=== PATIENT | female | born 1950 | race Caucasian/White ===

== ENCOUNTER 2021-04-04 09:48 | Emergency (ER) | payer MEDICARE ==
[~2021-04-04] VITALS: Ht 167.7 cm; Wt 95.3 kg
[2021-04-04] MEDS ORDERED: IBUPROFEN 600 MG (MOTRIN) TAB PO ONE (10:00)
--- NOTE | 2021-04-04 10:30 | ED Upper Extremity ---
General Chief Complaint: Trauma-Non Activation Stated Complaint: FALL Nursing Triage Note: Patient reports she was at her mother's house, states she tripped and fell, landing on her left arm. She reports pain in her mid/upper arm, superficial scrapes to knees bilaterally, abrasions to nose, chin, and upper lip. Source: patient Exam Limitations: no limitations History of Present Illness Date Seen by Provider: Apr 04, 2021 Time Seen by Provider: 10:00 Initial Comments Patient is a 70-year-old female who presents with accidental fall from standing after tripping resulting in left shoulder and arm pain. Patient fell face forward onto concrete. She reports hitting her face but denies loss of consciousness headache or feeling dazed. She is not on anticoagulation therapy. She denies neck pain chest pain but does have pain to her proximal humerus. She is able to bend her elbow and squeeze her left hand. She also has notable abrasions on both left knees. Left arm pain is rated moderate to severe and is worse with palpation. Patient is unable to flex or extend the shoulder secondary to pain. The injury occurred just prior to arrival at home. No other symptoms or complaints. Onset: just prior to arrival Pain/Injury Location: left arm Method of Injury: fell Modifying Factors: Improves With Movement, Improves With Other Allergies and Home Medications Allergies Coded Allergies: Tetanus Vaccines and Toxoid (Verified Allergy, Unknown, 04/04/21) codeine (Verified Allergy, Unknown, 04/04/21) morphine (Verified Allergy, Unknown, 04/04/21) Uncoded Allergies: IV contrast dye (Allergy, Unknown, 04/04/21) Patient Home Medication List Home Medication List Reviewed: Yes Review of Systems Constitutional: see HPI EENTM: see HPI Respiratory: see HPI Cardiovascular: see HPI Gastrointestinal: see HPI : Yes Musculoskeletal: see HPI Skin: see HPI Psychiatric/Neurological: See HPI Past Pvrivng-Evlcgt-Ulgiod Hx Patient Social History Tobacco Use?: Yes Smoking Status: Former Smoker Substance use?: No Alcohol Use?: No Pt feels they are or have been: No Past Medical History Surgery/Hospitalization HX: HTN Physical Exam Vital Signs Vital Signs - First Documented 04/04/21 09:50 Temp 36.3 Pulse 90 Resp 16 B/P (MAP) 239/108 (151) Pulse Ox 96 O2 Delivery Room Air Capillary Refill : Less Than 3 Seconds Height, Weight, BMI Height: '" Weight: lbs. oz. kg; 33.00 BMI Method: General Appearance: WD/WN, no apparent distress HEENT: PERRL/EOMI, pharynx normal Neck: non-tender, full range of motion Cardiovascular: normal peripheral pulses, regular rate, rhythm Respiratory: lungs clear Gastrointestinal: normal bowel sounds, non tender, soft Back: no CVA tenderness, no vertebral tenderness Shoulder: bone tenderness, limited ROM, pain, soft tissue tenderness Elbow/Forearm: normal inspection, non-tender Wrist: Yes normal inspection, Yes non-tender Hand: normal inspection, non-tender Neurologic/Tendon: normal sensation Neurologic/Psychiatric: alert, oriented x 3 Lymphatic: no adenopathy Progress/Results/Core Measures Results/Orders My Orders Orders - NHI TORRES DO Humerus 2 View Left (04/04/21 10:00) Ibuprofen Tablet (Motrin Tablet) (04/04/21 10:00) Shoulder 3 View Left (04/04/21 10:23) Hydrocodone/Apap 5/325 Tablet (Lortab 5 (04/04/21 11:45) Orthopedic Equiment (04/04/21 11:36) Medications Given in ED Current Medications Medications Dose Ordered Sig/Stephanie Route Start Time Stop Time Status Last Admin Dose Admin Ibuprofen 600 mg ONCE ONCE PO 04/04/21 10:00 04/04/21 10:01 DC 04/04/21 10:08 600 MG Vital Signs/I&O 04/04/21 09:50 Temp 36.3 Pulse 90 Resp 16 B/P (MAP) 239/108 (151) Pulse Ox 96 O2 Delivery Room Air Blood Pressure Mean: 151 Departure Communication (Admissions) Left shoulder/arm: Impacted humeral head with surgical neck fracture Accidental fall from standing. Humeral head/neck fracture, neurovascularly intact. Patient placed in sling and given pain medication. Impression Primary Impression: Shoulder fracture, left Disposition: HOME, SELF-CARE Condition: Stable Departure-Patient Inst. Decision time for Depature: 11:39 Referrals: NO,LOCAL PHYSICIAN (PCP/Family) Primary Care Physician Patient Instructions: Shoulder Fracture Add. Discharge Instructions: Please wear shoulder sling and take ibuprofen for pain and hydrocodone as needed for additional relief. Limit left arm use. Please follow-up with orthopedic provider in [place]. Contact his office and schedule a follow-up appointment in the next 7 to 10 days. Return to the ED if new or worsening symptoms All discharge instructions reviewed with patient and/or family. Voiced understanding. Scripts Hydrocodone/Acetaminophen (Hydrocodone-Acetamin 5-325 mg) 1 Each Tablet 1 TAB PO Q4H PRN for PAIN-MODERATE (5-7), #10 TAB Prov: [facility]I TORRES DO 04/04/21 NHI TORRES DO Apr 04, 2021 10:30
--- NOTE | 2021-04-04 11:14 | Diagnostic Imaging Report ---
INDICATION: Left shoulder injury AP, oblique, and transscapular views of the left shoulder obtained at 1032 a.m. There is no prior study for comparison. There is a comminuted fracture of the left humeral head and neck with mild impaction. Glenohumeral joint shows no dislocation. There is mild degenerative change of the AC joint. IMPRESSION: Partially impacted fracture of the left humeral head and neck. No dislocation. Dictated by: Dictated on workstation # [id number]
--- NOTE | 2021-04-04 11:27 | Diagnostic Imaging Report ---
HISTORY: Pain in the left shoulder after fall this morning. TECHNIQUE: 2 views of the left humerus COMPARISON: None FINDINGS: There is a transverse fracture through the surgical neck of the proximal left humerus without significant displacement. There is a vertically oriented fracture through the greater tuberosity with about 9 mm of displacement. There may be mild inferior subluxation of the glenohumeral joint from a joint effusion but no dislocation is seen. The remainder of the humerus appears intact. IMPRESSION: 1. Left proximal humerus fracture involving the surgical neck and the greater tuberosity. Dictated by: Dictated on workstation # [id number]
[2021-04-04] MEDS ORDERED: ACHD5005 PO (11:40)
[2021-04-04] MEDS ORDERED: HYDROcodone/APAP 5 MG/325 MG (LORTAB) TAB PO ONE (11:45)
[2021-04-04 11:55] VITALS: BP 154/91
[2021-04-04] MEDS ORDERED: oxyCODONE/APAP 5/325MG (PERCOCET 5) TABLET PO ONE (12:00)
== END 2021-04-04 12:05 | disposition home or self-care (01) ==
LOC: ER FS 09:51
DX: S42.292A Other displaced fracture of upper end of left humerus, initial encounter for closed fracture (principal); S80.212A Abrasion, left knee, initial encounter; S80.211A Abrasion, right knee, initial encounter; Z87.891 Personal history of nicotine dependence; W01.0XXA Fall on same level from slipping, tripping and stumbling without subsequent striking against object, initial encounter
CPT/HCPCS: 73030; 73060

== ENCOUNTER → 2021-06-05 | Outpatient (CLI) | payer MEDICARE ==
[~2021-06-05] MED LIST: ACHD5005 PO
--- NOTE | 2021-06-05 13:28 | Diagnostic Imaging Report ---
INDICATION: Knee pain. TECHNIQUE: Three views were obtained. FINDINGS: The bones are mildly osteopenic. There are mild degenerative changes. There is no fracture or dislocation. There is no joint effusion. The soft tissues are otherwise unremarkable. IMPRESSION: Osteopenia and mild degenerative change; otherwise, unremarkable. Dictated by: Dictated on workstation # [id number]
--- NOTE | 2021-06-05 13:29 | Diagnostic Imaging Report ---
INDICATION: Back pain and radiculopathy in the left lower extremity. TECHNIQUE: Five views were obtained. FINDINGS: There is some mild left convexity thoracolumbar degenerative scoliosis. The vertebral body heights are well-maintained. There is no spondylolysis or spondylolisthesis. No fractures are identified. IMPRESSION: Mild lumbar spondylosis as described; otherwise, unremarkable. Dictated by: Dictated on workstation # [id number]
== END ==
LOC: RAD FS 10:40
PROVIDERS: ATTEND Family Medicine
DX: M17.12 Unilateral primary osteoarthritis, left knee (principal); M54.16 Radiculopathy, lumbar region; M85.861 Other specified disorders of bone density and structure, right lower leg; M47.896 Other spondylosis, lumbar region
CPT/HCPCS: 72110; 73562

== ENCOUNTER → 2021-07-06 | Outpatient (CLI) | payer MEDICARE ==
--- NOTE | 2021-07-06 15:11 | Diagnostic Imaging Report ---
Indication: Fell 4 weeks ago. Worsening of left hip pain for the past week. 2 views of the left hip show no fracture, dislocation or other abnormality. Impression: No abnormality is seen. Dictated by: Dictated on workstation # [id number]
== END ==
LOC: RAD FS 14:15
PROVIDERS: ATTEND Family Medicine
DX: M25.552 Pain in left hip (principal); W19.XXXA Unspecified fall, initial encounter
CPT/HCPCS: 73502

== ENCOUNTER 2022-07-09 09:06 | Inpatient (IN) | payer MEDICARE, MEDICAID ==
[~2022-07-09] VITALS: Ht 165.7 cm; Wt 90.2 kg
[2022-07-09] MEDS ORDERED: CEFEPIME INJECTION 1,000 MG in NS (IVPB) 50 ML IV ONE (09:15)
--- NOTE | 2022-07-09 09:15 | ED General ---
General Stated Complaint: AMS Source of Information: Patient, EMS, Family Exam Limitations: Other (patient condition is altered) History of Present Illness Date Seen by Provider: Jul 09, 2022 Time Seen by Provider: 09:05 Initial Comments 72-year-old female with past medical history of newly diagnosed diabetes, hypertension, hyperlipidemia brought in by EMS from her assisted living facility. An neighbor heard her fall, EMS was called roughly 20 minutes later. She was laying on the ground babbling, confused, not really following directions or answering questions appropriately. Moving all extremities, but was unable to stand up for them. Last seen normal last night. Patient unable to answer any review of systems questions due to her confusion. No external signs of trauma or areas of pain per EMS. They reported her glucose was just above 400. Allergies and Home Medications Allergies Coded Allergies: Tetanus Vaccines and Toxoid (Verified Allergy, Unknown, 04/04/21) codeine (Verified Allergy, Unknown, 04/04/21) morphine (Verified Allergy, Unknown, 04/04/21) Uncoded Allergies: IV contrast dye (Allergy, Unknown, 04/04/21) Patient Home Medication List Home Medication List Reviewed: Yes Hydrocodone/Acetaminophen (Hydrocodone-Acetamin 5-325 mg) 1 Each Tablet, 1 TAB PO Q4H PRN for PAIN-MODERATE (5-7) Prescribed by: NHI TORRES on 04/04/21 1140 Review of Systems Review of Systems Constitutional: no symptoms reported unable to obtain due to patient being altered Past Ziikheb-Vtpwvt-Azwgsq Hx Patient Social History Tobacco Use?: Yes Smoking Status: Former Smoker Past Medical History Surgery/Hospitalization HX: HTN Surgeries: No Physical Exam Vital Signs Vital Signs - First Documented 07/09/22 09:06 Temp 38.2 Pulse 104 Resp 17 B/P (MAP) 179/111 (133) Pulse Ox 95 O2 Delivery Room Air Capillary Refill : Height, Weight, BMI Height: '" Weight: lbs. oz. kg; 33.00 BMI Method: General Appearance: No Apparent Distress, WD/WN Eyes: Bilateral Eye Normal Inspection, Bilateral Eye PERRL, Bilateral Eye EOMI HEENT: PERRL/EOMI, Pharynx Normal, Other (dry mucous membranes) Neck: Full Range of Motion, Normal Inspection, Non Tender, Supple Respiratory: Chest Non Tender, Lungs Clear, Normal Breath Sounds, No Accessory Muscle Use, No Respiratory Distress Cardiovascular: Regular Rate, Rhythm, No Edema, Normal Peripheral Pulses Gastrointestinal: Normal Bowel Sounds, Non Tender, Soft; No Guarding Back: Normal Inspection, No CVA Tenderness, No Vertebral Tenderness Extremity: Normal Capillary Refill, Normal Inspection, Normal Range of Motion, Non Tender, No Calf Tenderness, No Pedal Edema Neurologic/Psychiatric: Alert, No Motor/Sensory Deficits, Other (Moving all extremities equally, senses pain in all extremities, talking but does not make sense) Skin: Normal Color, Warm/Dry Lymphatic: No Adenopathy Focused Exam Lactate Level 07/09/22 09:08: Lactic Acid Level 4.81*H Lactic Acid Level Laboratory Tests Test 07/09/22 09:08 Lactic Acid Level 4.81 MMOL/L (0.50-2.00) *H Progress/Results/Core Measures Suspected Sepsis SIRS Temperature: Pulse: Respiratory Rate: Laboratory Tests 07/09/22 09:08: White Blood Count 9.6 Blood Pressure / Mean: 07/09/22 09:08: Lactic Acid Level 4.81*H Laboratory Tests 07/09/22 09:08: Creatinine 0.62, INR Comment 1.0, Platelet Count 147, Total Bilirubin 0.5 Results/Orders Lab Results Laboratory Tests Test 07/09/22 09:08 07/09/22 09:26 Range/Units White Blood Count 9.6 4.3-11.0 10^3/uL Red Blood Count 4.60 3.80-5.11 10^6/uL Hemoglobin 13.1 11.5-16.0 g/dL Hematocrit 40 35-52 % Mean Corpuscular Volume 86 80-99 fL Mean Corpuscular Hemoglobin 29 25-34 pg Mean Corpuscular Hemoglobin Concent 33 32-36 g/dL Red Cell Distribution Width 13.2 10.0-14.5 % Platelet Count 147 130-400 10^3/uL Mean Platelet Volume 12.5 H 9.0-12.2 fL Immature Granulocyte % (Auto) 0 % Neutrophils (%) (Auto) 88 H 42-75 % Lymphocytes (%) (Auto) 7 L 12-44 % Monocytes (%) (Auto) 4 0-12 % Eosinophils (%) (Auto) 0 0-10 % Basophils (%) (Auto) 0 0-10 % Neutrophils # (Auto) 8.5 H 1.8-7.8 10^3/uL Lymphocytes # (Auto) 0.7 L 1.0-4.0 10^3/uL Monocytes # (Auto) 0.4 0.0-1.0 10^3/uL Eosinophils # (Auto) 0.0 0.0-0.3 10^3/uL Basophils # (Auto) 0.0 0.0-0.1 10^3/uL Immature Granulocyte # (Auto) 0.0 0.0-0.1 10^3/uL Prothrombin Time 13.7 12.2-14.7 SEC INR Comment 1.0 0.8-1.4 Activated Partial Thromboplast Time 25 24-35 SEC Sodium Level 137 135-145 MMOL/L Potassium Level 4.0 3.6-5.0 MMOL/L Chloride Level 98 98-107 MMOL/L Carbon Dioxide Level 20 L 21-32 MMOL/L Anion Gap 19 H 5-14 MMOL/L Blood Urea Nitrogen 11 7-18 MG/DL Creatinine 0.62 0.60-1.30 MG/DL Estimat Glomerular Filtration Rate 95 BUN/Creatinine Ratio 18 Glucose Level 441 *H 70-105 MG/DL Lactic Acid Level 4.81 *H 0.50-2.00 MMOL/L Calcium Level 9.3 8.5-10.1 MG/DL Corrected Calcium 9.1 8.5-10.1 MG/DL Magnesium Level 1.5 L 1.6-2.4 MG/DL Total Bilirubin 0.5 0.1-1.0 MG/DL Aspartate Amino Transf (AST/SGOT) 25 5-34 U/L Alanine Aminotransferase (ALT/SGPT) 18 0-55 U/L Alkaline Phosphatase 77 40-136 U/L Troponin I < 0.30 <0.30 NG/ML Total Protein 7.0 6.4-8.2 GM/DL Albumin 4.2 3.2-4.5 GM/DL Lipase 25 8-78 U/L Influenza Type A (RT-PCR) Not Detected Not Detecte Influenza Type B (RT-PCR) Not Detected Not Detecte SARS-CoV-2 RNA (RT-PCR) Not Detected Not Detecte Urine Color YELLOW Urine Clarity CLOUDY Urine pH 5.5 5-9 Urine Specific [place] 1.025 H 1.016-1.022 Urine Protein 1+ H NEGATIVE Urine Glucose (UA) 3+ H NEGATIVE Urine Ketones 1+ H NEGATIVE Urine Nitrite NEGATIVE NEGATIVE Urine Bilirubin NEGATIVE NEGATIVE Urine Urobilinogen 0.2 < = 1.0 MG/DL Urine Leukocyte Esterase TRACE H NEGATIVE Urine RBC (Auto) TRACE-I H NEGATIVE Urine RBC NONE /HPF Urine WBC 50-100 H /HPF Urine Squamous Epithelial Cells RARE /HPF Urine Crystals NONE /LPF Urine Bacteria LARGE H /HPF Urine Casts NONE /LPF Urine Mucus NEGATIVE /LPF Urine Culture Indicated YES My Orders Orders - DANNA HINKLE MD Ct Head Wo-R/O Stroke (07/09/22 09:10) Creatine Kinase (07/09/22 09:10) Lipase (07/09/22 09:10) Magnesium (07/09/22 09:10) Influenza A And B By Pcr (07/09/22 09:10) Troponin I Fs (07/09/22 09:10) Chest 1 View Ap/Pa Only (07/09/22 09:10) Cbc With Automated Diff (07/09/22 09:10) Comprehensive Metabolic Panel (07/09/22 09:10) Blood Culture (07/09/22 09:10) Urinalysis (07/09/22 09:10) Protime With Inr (07/09/22 09:10) Partial Thromboplastin Time (07/09/22 09:10) Ed Iv/Invasive Line Start (07/09/22 09:10) Ed Iv/Invasive Line Start (07/09/22 09:10) Vital Signs Adult Sepsis Patie Q15M (07/09/22 09:10) O2 (07/09/22 09:10) Remove Rings In Anticipation O (07/09/22 09:10) Lactic Acid Analyzer (07/09/22 09:10) Ns Iv 1000 Ml (Sodium Chloride 0.9%) (07/09/22 09:15) Cefepime Injection (Maxipime Injection) (07/09/22 09:15) Covid 19 Inhouse Test (07/09/22 09:10) Ekg Tracing (07/09/22 09:15) Catheter(Urinary) Insert & Ass 03,15 (07/09/22 09:26) Manual Differential (07/09/22 09:08) Ct Chest/Abdomen/Pelvis Wo (07/09/22 09:27) Ondansetron Injection (Zofran Injectio (07/09/22 09:30) Ondansetron Injection (Zofran Injectio (07/09/22 09:28) Urine Culture (07/09/22 09:26) Insulin (Regular) Human (Novolin R (Per (07/09/22 10:16) Arterial Blood Gas (07/09/22 10:30) Medications Given in ED Current Medications Medications Dose Ordered Sig/Stephanie Route Start Time Stop Time Status Last Admin Dose Admin Cefepime HCl 1000 mg/Sodium Chloride 50 ml @ 100 mls/hr ONCE ONCE IV 07/09/22 09:15 07/09/22 09:44 DC 07/09/22 09:34 100 MLS/HR Ondansetron HCl 4 mg ONCE ONCE IVP 07/09/22 09:30 07/09/22 09:31 DC 07/09/22 09:35 4 MG Vital Signs/I&O 07/09/22 07/09/22 09:06 09:06 Temp 38.2 Pulse 104 Resp 17 B/P (MAP) 179/111 (133) Pulse Ox 95 O2 Delivery Room Air Room Air Capillary Refill : Progress Note : Progress Note 72-year-old female with above history coming in altered. ABCs were intact and vitals were stable on presentation. GCS was 14 due to confusion. No signs of outward trauma on exam. Patient was immediately taken to CT scanner for her head which was negative for anything acute. She was complaining of vague pain, nonspecific, and that did not localize. Because of this, got a CT of her chest, abdomen, and pelvis as well. These were negative for acute findings. She did not have any extremity pain on palpation. She did have an episode of vomiting which she received Zofran. Her mucous membranes were very dry and she was mi ldly tachycardic. Because of this an IV was placed and she was given 2 L of IV fluids. She also was febrile meeting multiple SIRS criteria. Because of this, she was given broad-spectrum antibiotics. Her ideal body weight is 57 kg, and given her obesity, she was given IV fluids based off of this weight in regards to sepsis resuscitation. Flu and COVID test were negative, white blood cell count normal, creatinine normal, troponin negative, blood sugar greater than 400, anion gap 19, bicarb 20, urine with signs of infection and also has ketones all consistent with being in DKA. Lactate elevated at 4.8. She was given 5 units of IV insulin as a bolus. I contacted Dr. Slaughter who will admit the patient to the intensive care unit for further evaluation and management. I then contacted the [facility] ICU team to discuss the case with the physician on- call. She is currently rounding and is busy, I left a message that she could call back for patient report. ECG Initial ECG Impression Date: Jul 09, 2022 Initial ECG Impression Time: 09:19 Initial ECG Rate: 101 Initial ECG Rhythm: S.Tach Comment Narrow QRS, normal axis, no significant ST changes or T wave abnormalities Diagnostic Imaging Diagonstic Imaging: Xray (chest), CT (head, chest, abd/pelvis without) Comments NAME: CRISTAL SPEARS MED REC#: [id number] PT STATUS: REG ER : 1950 PHYSICIAN: DANNA HINKLE MD ADMIT DATE: 07/09/22/ER FS Draft Date of Exam:07/09/22 CHEST 1 VIEW AP/PA ONLY EXAMINATION: Chest 1 view HISTORY: Altered mental status. Fever. Vomiting. COMPARISON: None available. FINDINGS: The lung volumes are normal. No focal consolidation is seen. No large pleural effusion or pneumothorax is seen. The cardiomediastinal silhouette is normal in size and contour. There is calcified aortic atherosclerotic plaque. No acute osseous abnormality is seen. IMPRESSION: 1. No acute pleuroparenchymal process. Dictated on workstation # [id number] Dict: 07/09/22 0953 Trans: 07/09/22 0955 DEMI [id number] Interpreted by: CORRINE ANDERSON DO Electronically signed by: NAME: CRISTAL SPEARS MED REC#: [id number] PT STATUS: REG ER : 1950 PHYSICIAN: DANNA HINKLE MD ADMIT DATE: 07/09/22/ER FS Signed Date of Exam:07/09/22 CT HEAD WO-R/O STROKE PROCEDURE: CT head wo r/o stroke. TECHNIQUE: Multiple contiguous axial images were obtained through the brain without the use of intravenous contrast. Auto Exposure Controls were utilized during the CT exam to meet ALARA standards for radiation dose reduction. INDICATION: Altered mental status. Fever. Vomiting. Found down. COMPARISON: None. FINDINGS: Moderate generalized parenchymal volume loss. No CT evidence of territorial infarction. No intracranial hemorrhage, mass effect, hydrocephalus or extra-axial fluid collections. Intracranial vascular calcifications. Osseous structures are intact. Paranasal sinuses and mastoids are clear. IMPRESSION: No acute intracranial CT findings. Dictated by: Dictated on workstation # [id number] Dict: 07/09/22 0952 Trans: 07/09/22 1003 [id number] Interpreted by: NAOMI FOWLER MD Electronically signed by: NAOMI FOWLER MD 07/09/22 1003 NAME: CRISTAL SPEARS [facility] REC#: [id number] PT STATUS: REG ER : 1950 PHYSICIAN: DANNA HINKLE MD ADMIT DATE: 07/09/22/ER FS Draft Date of Exam:07/09/22 CT CHEST/ABDOMEN/PELVIS WO PROCEDURE: CT chest, abdomen, and pelvis without contrast. TECHNIQUE: Multiple contiguous axial images were obtained through the chest, abdomen, and pelvis without the use of intravenous contrast. Auto Exposure Controls were utilized during the CT exam to meet ALARA standards for radiation dose reduction. INDICATION: Pain, fever and vomiting. No prior studies are available for comparison. CT CHEST: No axillary lymphadenopathy is detected. No definite mediastinal or hilar lymphadenopathy is identified. There are some calcified lymph nodes in the right hilum and subcarinal region consistent with prior granulomatous exposure. No pericardial or pleural fluid is identified. No pulmonary infiltrates, nodules or masses are detected. CT abdomen and pelvis: The liver is unremarkable. Gallbladder surgically absent. Pancreas and spleen are unremarkable. No adrenal mass is detected. Right kidney does contain a low-attenuation lesion in the upper pole measuring 4.4 cm consistent with a cyst. This has some thin peripheral calcification. Left kidney does contain a 10 mm slightly dense nodule arising from the lower pole which is indeterminate. No calculi are seen. There is no hydronephrosis. Aorta is heavily calcified but nonaneurysmal. Small and large bowel loops are normal caliber. There is no obstruction. There is a fat-containing umbilical hernia. No free fluid or fluid collection is seen. The bladder is unremarkable. Uterus appears to be surgically absent. IMPRESSION: 1. Unremarkable noncontrast CT of the chest. 2. Right renal cyst with thin peripheral constipation. 3. Indeterminate left renal lesion. Close interval follow-up to confirm stability would be recommended. 4. Fat-containing umbilical hernia. 5. No other significant abnormality is detected. Dictated on workstation # [id number] Dict: 07/09/22 0952 Trans: 07/09/22 1006 [id number] Interpreted by: ANT SOLIZ MD Electronically signed by: Departure Impression Primary Impression: Severe sepsis Additional Impression: DKA (diabetic ketoacidosis) Qualified Codes: E11.10 - Type 2 diabetes mellitus with ketoacidosis without coma Disposition: 30 STILL A PATIENT Condition: Stable Admissions Decision to Admit Reason: Admit from ER (General) Decision to Admit/Date: Jul 09, 2022 Time/Decision to Admit Time: 10:38 Transfer Method of Transfer: EMS Departure-Patient Inst. Referrals: BLAISE MAYFIELD MD (PCP) Primary Care Physician DANNA HINKLE MD Jul 09, 2022 09:15
[2022-07-09 09:20] LABS: BASOPHILS % (AUTO) 0 % (0-10); EOSINOPHILS % (AUTO) 0 % (0-10); HEMATOCRIT 40 % (35-52); HEMOGLOBIN 13.1 g/dL (11.5-16.0); LYMPHOCYTES # (AUTO) 0.7 10^3/uL (1.0-4.0); LYMPHOCYTES % (AUTO) 7 % (12-44); MEAN CORPUSCULAR HEMOGLOBIN 29 pg (25-34); MEAN CORPUSCULAR HGB CONC 33 g/dL (32-36); MEAN CORPUSCULAR VOLUME 86 fL (80-99); MEAN PLATELET VOLUME 12.5 fL (9.0-12.2); MONOCYTES # (AUTO) 0.4 10^3/uL (0.0-1.0); MONOCYTES % (AUTO) 4 % (0-12); NEUTROPHILS # (AUTO) 8.5 10^3/uL (1.8-7.8); NEUTROPHILS % (AUTO) 88 % (42-75); PLATELET COUNT 147 10^3/uL (130-400); WHITE BLOOD COUNT 9.6 10^3/uL (4.3-11.0)
[2022-07-09] MEDS ORDERED: ONDANSETRON 4 MG/2 ML (SDV) Z0FRAN ONE (09:28)
[2022-07-09] MEDS ORDERED: ONDANSETRON 4 MG/2 ML (SDV) Z0FRAN IVP ONE (09:30)
[2022-07-09] MEDS: NS IV 1000 ML 1,000 ML IV SCH ×2 (09:34→10:28)
[2022-07-09 09:42] LABS: PROTHROMBIN TIME PATIENT 13.7 SEC (12.2-14.7)
--- NOTE | 2022-07-09 09:55 | Diagnostic Imaging Report ---
EXAMINATION: Chest 1 view HISTORY: Altered mental status. Fever. Vomiting. COMPARISON: None available. FINDINGS: The lung volumes are normal. No focal consolidation is seen. No large pleural effusion or pneumothorax is seen. The cardiomediastinal silhouette is normal in size and contour. There is calcified aortic atherosclerotic plaque. No acute osseous abnormality is seen. IMPRESSION: 1. No acute pleuroparenchymal process. Dictated by: Dictated on workstation # [id number]
[2022-07-09 09:56] LABS: BILIRUBIN,URINE NEGATIVE (NEGATIVE); CLARITY,URINE CLOUDY; COLOR,URINE YELLOW; GLUCOSE, URINE (UA) 3+ (NEGATIVE); KETONES,URINE 1+ (NEGATIVE); LEUKOCYTE ESTERASE ,URINE TRACE (NEGATIVE); NITRITE,URINE NEGATIVE (NEGATIVE); PH,URINE 5.5 (5-9); PROTEIN,URINE 1+ (NEGATIVE)
--- NOTE | 2022-07-09 09:58 | Diagnostic Imaging Report ---
PROCEDURE: CT head wo r/o stroke. TECHNIQUE: Multiple contiguous axial images were obtained through the brain without the use of intravenous contrast. Auto Exposure Controls were utilized during the CT exam to meet ALARA standards for radiation dose reduction. INDICATION: Altered mental status. Fever. Vomiting. Found down. COMPARISON: None. FINDINGS: Moderate generalized parenchymal volume loss. No CT evidence of territorial infarction. No intracranial hemorrhage, mass effect, hydrocephalus or extra-axial fluid collections. Intracranial vascular calcifications. Osseous structures are intact. Paranasal sinuses and mastoids are clear. IMPRESSION: No acute intracranial CT findings. Dictated by: Dictated on workstation # [id number]
[2022-07-09 10:05] LABS: BACTERIA,URINE LARGE /HPF; SQUAMOUS EPITHELIAL CELL,UR RARE /HPF; WBC,URINE 50-100 /HPF
--- NOTE | 2022-07-09 10:06 | Diagnostic Imaging Report ---
PROCEDURE: CT chest, abdomen, and pelvis without contrast. TECHNIQUE: Multiple contiguous axial images were obtained through the chest, abdomen, and pelvis without the use of intravenous contrast. Auto Exposure Controls were utilized during the CT exam to meet ALARA standards for radiation dose reduction. INDICATION: Pain, fever and vomiting. No prior studies are available for comparison. CT CHEST: No axillary lymphadenopathy is detected. No definite mediastinal or hilar lymphadenopathy is identified. There are some calcified lymph nodes in the right hilum and subcarinal region consistent with prior granulomatous exposure. No pericardial or pleural fluid is identified. No pulmonary infiltrates, nodules or masses are detected. CT abdomen and pelvis: The liver is unremarkable. Gallbladder surgically absent. Pancreas and spleen are unremarkable. No adrenal mass is detected. Right kidney does contain a low-attenuation lesion in the upper pole measuring 4.4 cm consistent with a cyst. This has some thin peripheral calcification. Left kidney does contain a 10 mm slightly dense nodule arising from the lower pole which is indeterminate. No calculi are seen. There is no hydronephrosis. Aorta is heavily calcified but nonaneurysmal. Small and large bowel loops are normal caliber. There is no obstruction. There is a fat-containing umbilical hernia. No free fluid or fluid collection is seen. The bladder is unremarkable. Uterus appears to be surgically absent. IMPRESSION: 1. Unremarkable noncontrast CT of the chest. 2. Right renal cyst with thin peripheral constipation. 3. Indeterminate left renal lesion. Close interval follow-up to confirm stability would be recommended. 4. Fat-containing umbilical hernia. 5. No other significant abnormality is detected. Dictated by: Dictated on workstation # [id number]
[2022-07-09 10:12] LABS: BUN/CREATININE RATIO 18; CARBON DIOXIDE 20 MMOL/L (21-32); CHLORIDE 98 MMOL/L (98-107); CREATININE SERUM 0.62 MG/DL (0.60-1.30); GFR ESTIMATED 95; SODIUM 137 MMOL/L (135-145)
[2022-07-09 10:13] LABS: ALANINE AMINOTRANSFERASE 18 U/L (0-55); ALKALINE PHOSPHATASE 77 U/L (40-136); BILIRUBIN,TOTAL 0.5 MG/DL (0.1-1.0); CALCIUM 9.3 MG/DL (8.5-10.1); GLUCOSE 441 MG/DL (70-105); MAGNESIUM 1.5 MG/DL (1.6-2.4)
[2022-07-09 10:14] LABS: ALBUMIN 4.2 GM/DL (3.2-4.5); LIPASE 25 U/L (8-78)
[2022-07-09] MEDS ORDERED: inSUlin (REGULAR) HUMAN 1 UNIT/0.01 ML (CHARGE PER UNIT) IV STA (10:16)
[2022-07-09 10:40] LABS: BAND NEUTROPHILS 1 %; BASOPHILS % (MANUAL) 0 %; EOSINOPHILS % (MANUAL) 0 %; LYMPHOCYTES % (MANUAL) 4 %; MONOCYTES % (MANUAL) 3 %; NEUTROPHILS % (MANUAL) 92 %
[2022-07-09 11:25] LABS: ABG PCO2 45 MMHG (35-45); ABG PH 7.35 (7.37-7.43)
[2022-07-09 11:27] LABS: ABG BASE EXCESS -1.1 MMOL/L (-2.5-2.5); ABG OXYGEN SATURATION 34 % (94-100); ABG PO2 22 MMHG (79-93); ABG TCO2 26.2 MMOL/L (21.0-31.0); INSPIRED O2 ROOM AIR; VENTILATOR NO
[2022-07-09 11:28] LABS: PATIENT TEMP 100.9 F
[2022-07-09] MEDS ORDERED: fentaNYL INJ 100 MCG/2 ML AMP IVP STA (11:31)
[2022-07-09] MEDS ORDERED: NS IV 500 ML 500 ML IV PRN (13:00)
[2022-07-09] MEDS ORDERED: POTASSIUM CL 10MEQ/50ML IVPB 50 ML IV SCH (13:00)
[2022-07-09] MEDS ORDERED: NS IV ONE (13:00)
[2022-07-09 13:24] VITALS: BP 188/94
[2022-07-09] MEDS: 1/2 NS IV SOLUTION 1,000 ML IV SCH ×2 (13:25→17:00)
[2022-07-09] MEDS: cefTRIAXone 1 GM PRE-MIX 50 ML IV SCH (13:29)
[2022-07-09] MEDS ORDERED: RT-ALBUTEROL SULF 2.5 MG/3 ML PRE-MIX VIAL INH PRN (13:30)
[2022-07-09] MEDS: ENOXAPARIN 40 MG/0.4 ML (LOVENOX) SYR SC SCH (13:40)
[2022-07-09 13:42] LABS: HEMATOCRIT 39 % (35-52); HEMOGLOBIN 12.7 g/dL (11.5-16.0); MEAN CORPUSCULAR HEMOGLOBIN 29 pg (25-34); MEAN CORPUSCULAR HGB CONC 32 g/dL (32-36); MEAN CORPUSCULAR VOLUME 88 fL (80-99); MEAN PLATELET VOLUME 11.8 fL (9.0-12.2); PLATELET COUNT 144 10^3/uL (130-400); WHITE BLOOD COUNT 11.5 10^3/uL (4.3-11.0)
[2022-07-09 13:55] LABS: POTASSIUM 3.8 MMOL/L (3.6-5.0)
[2022-07-09 13:56] LABS: CALCIUM 8.9 MG/DL (8.5-10.1)
[2022-07-09 14:00] LABS: CREATININE SERUM 0.94 MG/DL (0.60-1.30)
[2022-07-09] MEDS: POTASSIUM CL 10MEQ/50ML IVPB 50 ML IV SCH ×4 (14:00→21:01)
--- NOTE | 2022-07-09 14:08 | History & Physical ---
ELSA THAKKAR A MED STUDENT 07/09/22 1408: History of Present Illness History of Present Illness Reason for visit/HPI Brynn Tipton is a 72 yo female who presents via [facility] ED for fall with confusion, DKA and UTI. Pt is alert and oriented to self, but not place or time. She is significantly confused and repeats the word "pee" when asked questions. Her brother and sister in law at are bedside and provide history of todays events. Pt fell at home and was brought to ED via ambulance where she was fairly unresponsive. Upon arrival at [facility] [place] ICU the pt was alert, but confused. Pt lives at a senior facility and is mostly independent with some assistance with ADLs. According to her brother she manages all of her medications independently and has had several med changes within the last few weeks. Her PCP is Dr. Horner and her brother states he recently took the pt off her metformin d/t vomiting and upset stomach. The sister in law also states she believes she was taken off her lisinopril as well. Neither of these medications were replaced by anything else to their knowledge. Pt was diagnosed with type 2 diabetes one and a half years ago when she had a fall that resulted in hospitalization d/t DKA. Family states she has had several falls since then. Pt given 5 units of novolin in ED with improvement in blood glucose from 441 to 327. Date of Admission Jul 09, 2022 at 12:36 Date Seen by a Provider: Jul 09, 2022 Time Seen by a Provider: 13:30 I consulted on this patient on 07/09/22 14:02 Attending Physician Nitish Horner MD Admitting Physician Admitting Physician: Brendon Rosario MD Attending Physician: Brendon Rosario MD Consult Allergies and Home Medications Allergies Coded Allergies: Tetanus Vaccines and Toxoid (Verified Allergy, Unknown, 04/04/21) codeine (Verified Allergy, Unknown, 04/04/21) meperidine (Verified Allergy, Unknown, Nausea, 07/09/22) morphine (Verified Allergy, Unknown, 04/04/21) Uncoded Allergies: IV contrast dye (Allergy, Unknown, 04/04/21) Patient Home Medication List Diphenhydramine HCl (Sleep II) 25 Mg Tablet, 25-50 MG PO HS PRN for SLEEP, (Reported) Entered as Reported by: JALIL GUZMÁN on 07/09/221430 Last Action: Reviewed Gabapentin (Gabapentin) 100 Mg Capsule, 100 MG PO 0800,1800, (Reported) Entered as Reported by: JALIL GUZMÁN on 07/09/221430 Last Action: Reviewed Gabapentin (Gabapentin) 100 Mg Capsule, 200 MG PO HS, (Reported) Entered as Reported by: JALIL GUZMÁN on 07/09/221430 Last Action: Reviewed Hydrochlorothiazide (Hydrochlorothiazide) 25 Mg Tablet, 25 MG PO DAILY, (Reported) Entered as Reported by: JALIL GUZMÁN on 07/09/221430 Last Action: Reviewed Lisinopril (Lisinopril) 10 Mg Tablet, 10 MG PO DAILY, (Reported) Entered as Reported by: JALIL GUZMÁN on 07/09/221430 Last Action: Reviewed Metformin HCl (Metformin HCl ER) 500 Mg Tab.er.24h, 1,000 MG PO BID, (Reported) Entered as Reported by: JALIL GUZMÁN on 07/09/221430 Last Action: Reviewed Metoprolol Tartrate (Metoprolol Tartrate) 50 Mg Tablet, 50 MG PO BID, (Reported) Entered as Reported by: JALIL GUZMÁN on 07/09/221430 Last Action: Reviewed Rosuvastatin Calcium (Rosuvastatin Calcium) 10 Mg Tablet, 10 MG PO HS, (Reported) Entered as Reported by: JALIL GUZMÁN on 07/09/221430 Last Action: Reviewed Semaglutide (Ozempic) 0.25 Mg/0.2 Ml Pen.injctr, 0.5 MG SQ WEEK, (Reported) Entered as Reported by: JALIL GUZMÁN on 07/09/221430 Last Action: Reviewed Tramadol HCl (Tramadol HCl) 50 Mg Tablet, 50-100 MG PO TID PRN for PAIN-MODERATE (5-7), (Reported) Entered as Reported by: JALIL GUZMÁN on 07/09/221430 Last Action: Reviewed Discontinued Medications Hydrocodone/Acetaminophen (Hydrocodone-Acetamin 5-325 mg) 1 Each Tablet, 1 TAB PO Q4H PRN for PAIN-MODERATE (5-7) Discontinued Reason: No Longer Taking Prescribed by: NHI TORRES on 04/04/21 1140 Last Action: Discontinued Past Bfbtpvs-Favxwi-Svsifo Hx Patient Social History Tobacco Use?: Yes Smoking Status: Former Smoker Smokeless Tobacco Frequency: Never a User Use of E-Cig and/or Vaping dev: No Substance use?: No Alcohol Use?: No Pt feels they are or have been: No Current Status Advance Directives: Unable to obtain Communicates: Verbally Primary Language: Turkmen Preferred Spoken Language: Turkmen Is interpretation needed?: No Review of Systems ROS-Unable to Obtain: Unable to obtain ROS d/t confusion Physical Exam Vital Signs Vital Signs - First Documented 07/09/22 09:06 Temp 38.2 Pulse 104 Resp 17 B/P (MAP) 179/111 (133) Pulse Ox 95 O2 Delivery Room Air Capillary Refill : Less Than 3 Seconds Height, Weight, BMI Height: '" Weight: lbs. oz. kg; 30.00 BMI Method: General Appearance: WD/WN, Anxious HEENT: PERRL/EOMI Neck: Full Range of Motion, Normal Inspection Respiratory: Chest Non Tender, Lungs Clear, No Accessory Muscle Use, No Respiratory Distress Cardiovascular: Regular Rate, Rhythm, No Murmur Gastrointestinal: Normal Bowel Sounds, Non Tender Extremity: Normal Inspection, No Pedal Edema Neurologic/Psychiatric: Alert, No Motor/Sensory Deficits, Disoriented (only oriented to self) Skin: Warm/Dry, Pallor Lymphatic: No Adenopathy Assessment/Plan Assessment and Plan Type II DM with DKA UTI Hypomagnesemia Hx of falls Type II DM with DKA -Pt in ICU on insulin drip to slowly bring blood glucose down -Lactic Acid 4.81 initially, 2.98 currently -PICC line d/t inability to obtain peripheral IV access -Hgb A1c pending -Monitor closely in ICU with help of teleICU, appreciate their recommendations UTI -Cefepime given in ED. -Ceftriaxone started in ICU Confusion -Likely d/t DkA and/or UTI -Head CT at [place] wn -Will consider doing MRI head if no improvement in sxs. -CXR wn -CT abd pelvis showed incidental finding of left renal cyst and Right renal lesion that will require close f/u. HTN -Hydralazine -Avoiding PO medication until swallow study can be done Hypomagnesemia -Mag Sulf/Dextrose started Hx of falls -environmental services floor tech consult Disposition: Likely to stay 24-48 hours. Diet: Carb consistent DVT prophylaxis: Lovenox and SCDs Code status: Full Code Admission Diagnosis DKA and UTI BRENDON ROSARIO MD 07/09/22 7218: Allergies and Home Medications Allergies Coded Allergies: Tetanus Vaccines and Toxoid (Verified Allergy, Unknown, 04/04/21) codeine (Verified Allergy, Unknown, 04/04/21) meperidine (Verified Allergy, Unknown, Nausea, 07/09/22) morphine (Verified Allergy, Unknown, 04/04/21) Uncoded Allergies: IV contrast dye (Allergy, Unknown, 04/04/21) Patient Home Medication List Home Medication List Reviewed: Yes Diphenhydramine HCl (Sleep II) 25 Mg Tablet, 25-50 MG PO HS PRN for SLEEP, (Rep orted) Entered as Reported by: JALIL GUZMÁN on 07/09/221430 Last Action: Reviewed Gabapentin (Gabapentin) 100 Mg Capsule, 100 MG PO 0800,1800, (Reported) Entered as Reported by: JALIL GUZMÁN on 07/09/221430 Last Action: Reviewed Gabapentin (Gabapentin) 100 Mg Capsule, 200 MG PO HS, (Reported) Entered as Reported by: JALIL GUZMÁN on 07/09/221430 Last Action: Reviewed Hydrochlorothiazide (Hydrochlorothiazide) 25 Mg Tablet, 25 MG PO DAILY, (Reported) Entered as Reported by: JALIL GUZMÁN on 07/09/221430 Last Action: Reviewed Lisinopril (Lisinopril) 10 Mg Tablet, 10 MG PO DAILY, (Reported) Entered as Reported by: JALIL GUZMÁN on 07/09/221430 Last Action: Reviewed Metformin HCl (Metformin HCl ER) 500 Mg Tab.er.24h, 1,000 MG PO BID, (Reported) Entered as Reported by: JALIL GUZMÁN on 07/09/221430 Last Action: Reviewed Metoprolol Tartrate (Metoprolol Tartrate) 50 Mg Tablet, 50 MG PO BID, (Reported) Entered as Reported by: JALIL GUZMÁN on 07/09/221430 Last Action: Reviewed Rosuvastatin Calcium (Rosuvastatin Calcium) 10 Mg Tablet, 10 MG PO HS, (Reported) Entered as Reported by: JALIL GUZMÁN on 07/09/221430 Last Action: Reviewed Semaglutide (Ozempic) 0.25 Mg/0.2 Ml Pen.injctr, 0.5 MG SQ WEEK, (Reported) Entered as Reported by: JALIL GUZMÁN on 07/09/22 1431 Last Action: Reviewed Tramadol HCl (Tramadol HCl) 50 Mg Tablet, 50-100 MG PO TID PRN for PAIN-MODERATE (5-7), (Reported) Entered as Reported by: JALIL GUZMÁN on 07/09/22 1431 Last Action: Reviewed Discontinued Medications Hydrocodone/Acetaminophen (Hydrocodone-Acetamin 5-325 mg) 1 Each Tablet, 1 TAB PO Q4H PRN for PAIN-MODERATE (5-7) Discontinued Reason: No Longer Taking Prescribed by: NHI TORRES on 04/04/21 1140 Last Action: Discontinued Past Grkggio-Vvhofi-Bccrtv Hx Patient Social History Living Status: Lives in independent intermediate Review of Systems Constitutional: other Physical Exam General Appearance: No Apparent Distress, Anxious Neck: Full Range of Motion, Normal Inspection Respiratory: Chest Non Tender, Lungs Clear, No Accessory Muscle Use, No Respiratory Distress Cardiovascular: Regular Rate, Rhythm, No Murmur Gastrointestinal: Normal Bowel Sounds, Non Tender, Soft; No Distended, No Guarding Extremity: Normal Capillary Refill, No Calf Tenderness, No Pedal Edema Neurologic/Psychiatric: Alert, No Motor/Sensory Deficits, Disoriented (only oriented to self) Assessment/Plan Admission Diagnosis Admission Status: Inpatient Order (span 2 midnights) Reason for Inpatient Admission: high risk for decompensation due to multiple problems requiring ICU care Supervisory-Addendum Brief Verification & Attestation Participated in pt care: history, physical Personally performed: exam, history Care discussed with: Medical Student Procedures: n/a Verification and Attestation of Medical Student E/M Service A medical student performed and documented this service in my presence. I reviewed and verified all information documented by the medical student and made modifications to such information, when appropriate. I personally performed the physical exam and medical decision making. Brendon Rosario, Jul 09, 2022,16:54 Sepsis 2/2 UTI Lactic Acidosis Acute Encephalopathy - Patient received 2.5 L prior to arrival in ICU and has elevated BPs - Started on Cefepime, culture pending - If encephalopathy not improving with lab improvements would consider MRI head in AM DKA Uncontrolled NIDDM - Patient with recent medication changes, was not taking DM meds 1 week prior to admission, A1c pending, Insulin gtts started, q2hr BMPs Fall - PT HTN Left Renal Mass - Outpatient f.u DVT Ppx - Lovenox ELSA THAKKAR MED STUDENT Jul 09, 2022 14:08 BRENDON ROSARIO MD Jul 09, 2022 16:58
[2022-07-09] MEDS ORDERED: METOCLOPRAMIDE INJ 10 MG/2 ML (REGLAN) IVP PRN (14:30)
[2022-07-09] MEDS ORDERED: SEMA0.25 SQ (14:31)
[2022-07-09] MEDS ORDERED: GABA-486 PO ×2 (14:31)
[2022-07-09] MEDS ORDERED: [UNRECOGNIZED DRUG - CODE] PO (14:31)
[2022-07-09] MEDS ORDERED: ROSU10TA28 PO (14:31)
[2022-07-09] MEDS ORDERED: LISI10TA25 PO (14:31)
[2022-07-09] MEDS ORDERED: HYDR25TA4 PO (14:31)
[2022-07-09] MEDS ORDERED: METO50TA15 PO (14:31)
[2022-07-09] MEDS ORDERED: METF-865 PO (14:31)
[2022-07-09] MEDS ORDERED: TRAM50TA3 PO (14:31)
[2022-07-09] MEDS: LABETALOL HCL 20 MG/4 ML VIAL IV PRN (14:39)
[2022-07-09 14:42] LABS: CREATINE KINASE 48 U/L (29-168)
--- NOTE | 2022-07-09 15:17 | Tele-ICU Consult ---
History of Present Illness History of Present Illness Date Seen by Provider: Jul 09, 2022 Time Seen by Provider: 14:03 Date of Admission (Tele-ICU Physician , consultation as per request of PCP Service provided via interactive audio and video telecommunications E-CARE system to a patient admitted to ICU bed in [facility]. Available chart/ vitals / labs / Images reviewed H&P is from ER notes Patient's information available about PMH, Shx, Fhx allergy reviewed inEMR. ROS as per chart and RN report Now in ICU, hemodynamically stable Video assessment done using teleICU camera, rest of exam as per RN Discussed with RN. Consultants: Hospital course: A/P DKA -precipitated by infection, presumed UTI *Insulin drip, continue to monitor for resolution of acidosis, AG and el ectrolytes. Continue hydration. *Tx Gastroparesis UTI - cefepime Elev lactate , vitals WNL - chest x-ray was normal , NEG covid and flu = cont abx for UTI PseudoHyponatremia - follow Encephalopathy - due to above - follow - [facility] 07/09 - No acute intracranial CT findings. Suspected fall - no evidence of trauma - as per ER MD report Indeterminate left renal lesion on CT - as per PCP Lines : , (Central Line Necessity Reviewed) Lin: OG: Nutrition: Analgesia: Anxiety/ delirium VTE Prophylaxis: Stress Ulcer Prophylaxis: Glycemic Control: Plans in collaboration with bedside consultants and IM MDs. Discussed with RN to reach out if any questions or concerns A total of _ minutes of critical care time was devoted to this patient today, required to treat and/or prevent further deterioration of critical care condition ( as above ) . I am remotely monitoring this patient from another state. I am unable to do the bedside exam, and history/physical and pertinent information is taken from other notes in the computer and bedside staff. I cannot take responsibility for the accuracy of this information. History of Present Illness (Tele-ICU Physician , consultation as per request of PCP Service provided via interactive audio and video telecommunications E-CARE system to a patient admitted to ICU bed in [facility]. Available chart/ vitals / labs / Images reviewed H&P is from ER notes Patient's information available about PMH, Shx, Fhx allergy reviewed inEMR. ROS as per chart and RN report Now in ICU, hemodynamically stable Video assessment done using teleICU camera, rest of exam as per RN Discussed with RN. Consultants: Hospital course: (07/09) 72F Admitted with AMS, Sepsis, and DKA A/P DKA / hy[erglycemia with known DM -precipitated by infection, presumed UTI, also reported - stopped metformin as per MD advise *Insulin drip, continue to monitor for resolution of acidosis, AG and electro lytes. Continue hydration. *Tx Gastroparesis UTI - cefepime Elev lactate , vitals WNL - chest x-ray was normal , NEG covid and flu = cont abx for UTI Encephalopathy - due to above - follow - [facility] 07/09 - No acute intracranial CT findings. Suspected fall - no evidence of trauma - as per ER MD report Indeterminate left renal lesion on CT - as per PCP Lines : , (Central Line Necessity Reviewed) Lin: + OG: Nutrition: Analgesia: Anxiety/ delirium VTE Prophylaxis: manohar Stress Ulcer Prophylaxis: ppi Plans in collaboration with bedside consultants and IM MDs. Discussed with RN to reach out if any questions or concerns A total of 25 minutes of critical care time was devoted to this patient today, required to treat and/or prevent further deterioration of critical care condition ( as above ) . I am remotely monitoring this patient from another state. I am unable to do the bedside exam, and history/physical and pertinent information is taken from other notes in the computer and bedside staff. I cannot take responsibility for the accuracy of this information. Allergies and Home Medications Allergies Coded Allergies: Tetanus Vaccines and Toxoid (Verified Allergy, Unknown, 04/04/21) codeine (Verified Allergy, Unknown, 04/04/21) morphine (Verified Allergy, Unknown, 04/04/21) Uncoded Allergies: IV contrast dye (Allergy, Unknown, 04/04/21) Home Medications Diphenhydramine HCl 25 Mg Tablet, 25-50 MG PO HS PRN for SLEEP, (Reported) Gabapentin 100 Mg Capsule, 100 MG PO 0800,1800, (Reported) Gabapentin 100 Mg Capsule, 200 MG PO HS, (Reported) Hydrochlorothiazide 25 Mg Tablet, 25 MG PO DAILY, (Reported) Lisinopril 10 Mg Tablet, 10 MG PO DAILY, (Reported) Metformin HCl 500 Mg Tab.er.24h, 1,000 MG PO BID, (Reported) TAKES 2 (500MG) TABS Metoprolol Tartrate 50 Mg Tablet, 50 MG PO BID, (Reported) Rosuvastatin Calcium 10 Mg Tablet, 10 MG PO HS, (Reported) Semaglutide 0.25 Mg/0.2 Ml Pen.injctr, 0.5 MG SQ WEEK, (Reported) Tramadol HCl 50 Mg Tablet, 50-100 MG PO TID PRN for PAIN-MODERATE (5-7), (Reported) Past Medical/Social/Family Hx Patient Social History Tobacco Use?: No Smoking Status: Former Smoker Smokeless Tobacco Frequency: Never a User Use of E-Cig and/or Vaping dev: No Substance use?: No Alcohol Use?: No Pt stated abuse/neglect: Unable to obtain Immunizations Up To Date Influenza Vaccine Up-to-Date: No; Not Current Current Status status: No Advance Directives: No Communicates: Unable To Communicate Primary Language: Tajik Preferred Spoken Language: Tajik Is interpretation needed?: No Sensory deficits: Vision impairment Review of Systems Constitutional: see HPI Focused Exam Sepsis Stage: Sepsis Possible Source: Genitouriary Lactate Level 07/09/22 09:08: Lactic Acid Level 4.81*H 07/09/22 13:35: Lactic Acid Level 2.98*H Height, Weight, BMI Height: '" Weight: lbs. oz. kg; 30.55 BMI Method: Respiratory: Other Cardiovascular: Other Capillary Refill: Less Than 3 Seconds Skin: other Lactic Acid Level Laboratory Tests Test 07/09/22 13:35 Lactic Acid Level 2.98 MMOL/L (0.50-2.00) *H Within 3hrs of presentation: Admin 30ml/kg IBW due to BMI>30, Admin ABX, Blood cultures prior to ABX's, Lactate level Exam Exam Patient acknowledged, consented, and participated in this virtual visit which was conducted using real time audio/video Vital Signs Date Time Temp Pulse Resp B/P (MAP) Pulse Ox O2 Delivery O2 Flow Rate FiO2 07/09/22 13:24 38.0 104 96 07/09/22 12:50 104 07/09/22 11:52 38.0 87 17 188/94 96 Room Air 07/09/22 09:06 38.2 104 17 179/111 (133) Room Air 07/09/22 09:06 95 Room Air Height & Weight Height: '" Weight: lbs. oz. kg; 30.55 BMI Method: General Appearance: WD/WN, Anxious HEENT: PERRL/EOMI Neck: Full Range of Motion, Normal Inspection Respiratory: Chest Non Tender, Lungs Clear, No Accessory Muscle Use, No Respiratory Distress Cardiovascular: Regular Rate, Rhythm, No Murmur Capillary Refill: Less Than 3 Seconds Extremity: Normal Inspection, No Pedal Edema Neurologic/Psychiatric: Alert, No Motor/Sensory Deficits, Disoriented (only oriented to self) Skin: Warm/Dry, Pallor Lymphatic: No Adenopathy Results Lab Laboratory Tests 07/09/22 09:08 07/09/22 13:35 Assessment/Plan Assessment/Plan 1 FERNANDO BRIGGS MD Jul 09, 2022 15:17
[2022-07-09] MEDS ORDERED: KETOROLAC 15 MG/ML VIAL IVP NR (16:00)
[2022-07-09] MEDS: D5 1/2 NS 1000 ML IV SOLUTION 1,000 ML IV SCH ×2 (16:58→21:00)
[2022-07-09 18:20] LABS: POTASSIUM 3.5 MMOL/L (3.6-5.0)
[2022-07-09 18:21] LABS: CALCIUM 8.2 MG/DL (8.5-10.1)
[2022-07-09 18:25] LABS: CREATININE SERUM 0.88 MG/DL (0.60-1.30)
[2022-07-09] MEDS ORDERED: LACTATED RINGERS 1,000 ML IV ONE (18:45)
[2022-07-09 21:17] LABS: CALCIUM 8.3 MG/DL (8.5-10.1); CREATININE SERUM 0.78 MG/DL (0.60-1.30); POTASSIUM 3.4 MMOL/L (3.6-5.0)
[2022-07-10] MEDS: POTASSIUM CL 10MEQ/50ML IVPB 50 ML IV SCH ×6 (00:35→07:42)
[2022-07-10] MEDS: D5 1/2 NS 1000 ML IV SOLUTION 1,000 ML IV SCH ×3 (00:37→08:47)
[2022-07-10] MEDS: 1/2 NS IV SOLUTION 1,000 ML IV SCH ×3 (00:41→05:12)
[2022-07-10 00:57] LABS: ALBUMIN 3.3 GM/DL (3.2-4.5)
[2022-07-10 00:58] LABS: POTASSIUM 3.3 MMOL/L (3.6-5.0)
[2022-07-10 00:59] LABS: CALCIUM 7.9 MG/DL (8.5-10.1)
[2022-07-10 01:00] LABS: TOTAL PROTEIN 5.5 GM/DL (6.4-8.2)
[2022-07-10 01:02] LABS: BILIRUBIN,TOTAL 0.4 MG/DL (0.1-1.0)
[2022-07-10 01:04] LABS: CREATININE SERUM 0.75 MG/DL (0.60-1.30)
[2022-07-10 04:41] LABS: BASOPHILS % (AUTO) 1 % (0-10); EOSINOPHILS # (AUTO) 0.1 10^3/uL (0.0-0.3); EOSINOPHILS % (AUTO) 2 % (0-10); HEMATOCRIT 34 % (35-52); HEMOGLOBIN 10.4 g/dL (11.5-16.0); LYMPHOCYTES # (AUTO) 1.4 10^3/uL (1.0-4.0); LYMPHOCYTES % (AUTO) 20 % (12-44); MEAN CORPUSCULAR HEMOGLOBIN 28 pg (25-34); MEAN CORPUSCULAR HGB CONC 31 g/dL (32-36); MEAN CORPUSCULAR VOLUME 92 fL (80-99); MEAN PLATELET VOLUME 12.2 fL (9.0-12.2); MONOCYTES # (AUTO) 0.6 10^3/uL (0.0-1.0); MONOCYTES % (AUTO) 9 % (0-12); NEUTROPHILS # (AUTO) 4.9 10^3/uL (1.8-7.8); NEUTROPHILS % (AUTO) 69 % (42-75); PLATELET COUNT 109 10^3/uL (130-400); WHITE BLOOD COUNT 7.2 10^3/uL (4.3-11.0)
[2022-07-10 05:00] LABS: ALBUMIN 3.2 GM/DL (3.2-4.5); BILIRUBIN,TOTAL 0.3 MG/DL (0.1-1.0); CREATININE SERUM 0.73 MG/DL (0.60-1.30); MAGNESIUM 1.3 MG/DL (1.6-2.4); PHOSPHORUS 1.9 MG/DL (2.3-4.7); POTASSIUM 3.4 MMOL/L (3.6-5.0); TOTAL PROTEIN 5.5 GM/DL (6.4-8.2)
[2022-07-10] MEDS: KCL 20 MEQ TAB (K-DUR) PO SCH (06:29)
[2022-07-10] MEDS: MAGNESIUM 1 GM/100 ML IVPB 100 ML IV SCH ×4 (06:30→07:42)
--- NOTE | 2022-07-10 08:36 | Tele-ICU Progress Note ---
Subjective Date Seen by a Provider: Jul 10, 2022 Time Seen by a Provider: 08:36 Subjective/Events-last exam (Tele-ICU Physician , consultation) Available chart/ vitals / labs / Images reviewed H&P is from ER notes Patient's information available about PMH, allergy reviewed in EMR. ROS as per chart and RN report Video assessment done using teleICU camera, rest of exam as per RN Discussed with RN. Sepsis Event Evaluation Height, Weight, BMI Height: '" Weight: lbs. oz. kg; 35.47 BMI Method: Focused Exam Lactate Level 07/10/22 00:38: Lactic Acid Level 2.11*H 07/10/22 02:35: Lactic Acid Level 2.02*H 07/10/22 04:31: Lactic Acid Level 2.39*H Exam Exam Patient acknowledged, consented, and participated in this virtual visit which was conducted using real time audio/video Vital Signs Date Time Temp Pulse Resp B/P (MAP) Pulse Ox O2 Delivery O2 Flow Rate FiO2 07/10/22 07:53 37.3 07/10/22 07:23 100 Room Air 07/10/22 07:13 79 07/10/22 07:00 85 18 150/69 (96) 100 Room Air 07/10/22 06:00 80 19 130/67 (88) 100 Room Air 07/10/22 05:00 79 13 156/83 (107) 100 Room Air 07/10/22 04:00 79 20 126/63 (84) 100 Room Air 07/10/22 04:00 96 Room Air 07/10/22 03:59 37.7 07/10/22 03:00 82 19 131/67 (88) 99 Room Air 07/10/22 02:00 80 22 133/78 (96) 100 Room Air 07/10/22 01:00 82 07/10/22 01:00 82 19 136/67 (83) 98 Room Air 07/10/22 00:15 84 18 125/73 (90) 97 Room Air 07/10/22 00:01 96 Room Air 07/10/22 00:00 87 15 131/102 (107) 98 Room Air 07/09/22 23:51 36.7 07/09/22 23:00 86 20 119/66 (86) 97 Room Air 07/09/22 22:00 90 20 141/82 (112) 95 Room Air 07/09/22 21:15 37.0 07/09/22 21:00 96 21 157/82 (95) 100 Room Air 07/09/22 20:00 37.0 07/09/22 20:00 96 Room Air 07/09/22 20:00 92 21 150/72 (93) 99 Room Air 07/09/22 19:34 97 23 157/85 (113) 98 Room Air 07/09/22 19:00 93 20 98 Room Air 07/09/22 19:00 37.0 07/09/22 19:00 93 07/09/22 18:00 98 24 129/79 (96) 95 Nasal Cannula 1.00 07/09/22 17:00 98 20 146/78 (100) 99 Nasal Cannula 1.00 07/09/22 16:00 37.7 07/09/22 16:00 Nasal Cannula 1.00 07/09/22 16:00 104 21 146/84 (104) 95 Room Air 07/09/22 16:00 98 Room Air 07/09/22 15:00 101 20 148/84 (105) 94 Room Air 07/09/22 14:50 97 Room Air 07/09/22 14:15 105 19 177/107 (130) 98 Room Air 07/09/22 14:00 105 35 156/113 (127) 100 Room Air 07/09/22 13:45 104 16 173/97 (122) 100 Room Air 07/09/22 13:30 105 25 175/107 (129) 100 Room Air 07/09/22 13:24 38.0 104 96 07/09/22 13:15 105 23 154/104 (121) 99 Room Air 07/09/22 13:00 104 177/91 (119) 98 Room Air 07/09/22 12:50 104 07/09/22 12:45 105 184/101 (128) 99 Room Air 07/09/22 11:52 38.0 87 17 188/94 96 Room Air 07/09/22 09:06 38.2 104 17 179/111 (133) Room Air 07/09/22 09:06 95 Room Air I & O 07/10/22 06:59 Intake Total 4800 ml Output Total 1950 ml Balance 2850 ml Height & Weight Height: '" Weight: lbs. oz. kg; 35.47 BMI Method: General Appearance: No Apparent Distress, Anxious HEENT: PERRL/EOMI Neck: Full Range of Motion, Normal Inspection Respiratory: Chest Non Tender, Lungs Clear, No Accessory Muscle Use, No Respiratory Distress Cardiovascular: Regular Rate, Rhythm, No Murmur Capillary Refill: Less Than 3 Seconds Extremity: Normal Capillary Refill, No Calf Tenderness, No Pedal Edema Neurologic/Psychiatric: Alert, No Motor/Sensory Deficits, Disoriented (only or iented to self) Skin: Warm/Dry, Pallor Lymphatic: No Adenopathy Results Lab Laboratory Tests 07/09/22 09:08 07/09/22 13:35 07/09/22 18:00 07/09/22 20:25 07/10/22 00:38 07/10/22 04:31 Assessment/Plan Assessment/Plan 1. Diabetic ketoacidosis improving. Anion gap improved and today her insulin drip has been disconnected 2. History of type 2 diabetes mellitus 3. Urinary tract infection with Aerococcus urinae , awaiting sensitivity. Continue Rocephin for the time being until sensitivity is known. 4. Electrolyte imbalance being corrected. 5. Hypertension requiring as needed labetalol 6. Headache probably due to hypertension we will give Tylenol as needed 7. Bladder spasms secondary to Lin catheter and patient does not want Lin catheter to be removed. We will give her the and 00. 8. Initiation of long-acting insulin and sliding scale coverage per primary care physician. 9. DVT prophylaxis with Lovenox and SCDs. Critical Care: Critically Ill Patient Time spent with patient (mins): 15 LORE WAN MD Jul 10, 2022 08:36
[2022-07-10] MEDS: LABETALOL HCL 20 MG/4 ML VIAL IV PRN ×2 (08:55→22:41)
[2022-07-10] MEDS ORDERED: POTASSIUM PHOSPHATE INJ 30 MM in NS (IVPB) 250 ML IV NR (09:00)
[2022-07-10] MEDS: inSUlin ASPART (NovoLOG) 1 UNIT/0.01 ML (CHARGE PER UNIT) SC SCH ×3 (11:23→20:51)
[2022-07-10] MEDS ORDERED: KETOROLAC 30 MG/ML VIAL IVP NR (11:45)
[2022-07-10] MEDS ORDERED: BELLADONNA ALK/OPIUM (B & O) 30 MG SUPP PR PRN (12:00)
--- NOTE | 2022-07-10 12:14 | Progress Note ---
Subjective Subjective Date Seen by Provider: Jul 10, 2022 Time Seen by Provider: 09:15 Pt being seen in f/u for DKA and UTI. Pt is alert and oriented this morning, but having difficulty with word searching. Her only concern this morning is a headache. Nurse was at bedside and stated a swallow study had been completed and was within normal limits. Pt had been hypertensive over night and into the morning, but was still on insulin drip with normal saline running at 250mls/hr. Nurse gave labetalol with improvement in BP. Pt had no other questions or concerns. Review of Systems ROS Unable to Obtain: Unable to obtain ROS d/t confusion General: No Chills; Fatigue HEENT: Head Aches; No Sinus Congestion, No Sore Throat Pulmonary: No Dyspnea, No Cough Cardiovascular: No: Chest Pain, Palpitations Gastrointestinal: No: Nausea, Vomiting Genitourinary: No Dysuria, No Frequency Neurological: Change in speech; No: Weakness, Numbness Objective Exam Vital Signs Vital Signs Date Time Temp Pulse Resp B/P (MAP) Pulse Ox O2 Delivery O2 Flow Rate FiO2 07/10/22 09:00 83 30 138/70 (92) 100 Room Air 07/10/22 08:00 83 25 152/82 (105) 100 Room Air 07/10/22 07:53 37.3 07/10/22 07:47 98 Room Air 07/10/22 07:23 100 Room Air 07/10/22 07:13 79 07/10/22 07:00 85 18 150/69 (96) 100 Room Air 07/10/22 06:00 80 19 130/67 (88) 100 Room Air 07/10/22 05:00 79 13 156/83 (107) 100 Room Air 07/10/22 04:00 79 20 126/63 (84) 100 Room Air 07/10/22 04:00 96 Room Air 07/10/22 03:59 37.7 07/10/22 03:00 82 19 131/67 (88) 99 Room Air 07/10/22 02:00 80 22 133/78 (96) 100 Room Air 07/10/22 01:00 82 07/10/22 01:00 82 19 136/67 (83) 98 Room Air 07/10/22 00:15 84 18 125/73 (90) 97 Room Air 07/10/22 00:01 96 Room Air 07/10/22 00:00 87 15 131/102 (107) 98 Room Air 07/09/22 23:51 36.7 07/09/22 23:00 86 20 119/66 (86) 97 Room Air 07/09/22 22:00 90 20 141/82 (112) 95 Room Air 07/09/22 21:15 37.0 07/09/22 21:00 96 21 157/82 (95) 100 Room Air 07/09/22 20:00 37.0 07/09/22 20:00 96 Room Air 07/09/22 20:00 92 21 150/72 (93) 99 Room Air 07/09/22 19:34 97 23 157/85 (113) 98 Room Air 07/09/22 19:00 93 20 98 Room Air 07/09/22 19:00 37.0 07/09/22 19:00 93 07/09/22 18:00 98 24 129/79 (96) 95 Nasal Cannula 1.00 07/09/22 17:00 98 20 146/78 (100) 99 Nasal Cannula 1.00 07/09/22 16:00 37.7 07/09/22 16:00 Nasal Cannula 1.00 07/09/22 16:00 104 21 146/84 (104) 95 Room Air 07/09/22 16:00 98 Room Air 07/09/22 15:00 101 20 148/84 (105) 94 Room Air 07/09/22 14:50 97 Room Air 07/09/22 14:15 105 19 177/107 (130) 98 Room Air 07/09/22 14:00 105 35 156/113 (127) 100 Room Air 07/09/22 13:45 104 16 173/97 (122) 100 Room Air 07/09/22 13:30 105 25 175/107 (129) 100 Room Air 07/09/22 13:24 38.0 104 96 07/09/22 13:15 105 23 154/104 (121) 99 Room Air 07/09/22 13:00 104 177/91 (119) 98 Room Air 07/09/22 12:50 104 07/09/22 12:45 105 184/101 (128) 99 Room Air I & O 07/10/22 07:00 Intake Total 4800 ml Output Total 1950 ml Balance 2850 ml General Appearance: No Apparent Distress, WD/WN Eyes: Bilateral Eye Normal Inspection, Bilateral Eye PERRL, Bilateral Eye EOMI HEENT: PERRL/EOMI, Pharynx Normal, Other (Dry mucous membranes) Neck: Full Range of Motion, Normal Inspection Respiratory: Chest Non Tender, Lungs Clear, No Accessory Muscle Use, No Respiratory Distress Cardiovascular: Regular Rate, Rhythm, No Murmur Gastrointestinal: Normal Bowel Sounds, Non Tender, Soft; No Distended, No Guarding Extremity: Normal Capillary Refill, No Calf Tenderness, Pedal Edema (2+ pitting edema bilaterally) Neurologic/Psychiatric: Alert, No Motor/Sensory Deficits, Normal Mood/Affect Skin: Warm/Dry, Pallor Lymphatic: No Adenopathy Results Lab Laboratory Tests 07/09/22 13:00: Glucometer 326H 07/09/22 13:35: White Blood Count 11.5H, Red Blood Count 4.45, Hemoglobin 12.7, Hematocrit 39, Mean Corpuscular Volume 88, Mean Corpuscular Hemoglobin 29, Mean Corpuscular Hemoglobin Concent 32, Red Cell Distribution Width 13.2, Platelet Count 144, Mean Platelet Volume 11.8, Sodium Level 138, Potassium Level 3.8, Chloride Level 102, Carbon Dioxide Level 21, Anion Gap 15H, Blood Urea Nitrogen 9, Creatinine 0.94, Estimat Glomerular Filtration Rate 64, BUN/Creatinine Ratio 10, Glucose Level 375H, Mean Blood Glucose 229H, Hemoglobin A1c 9.6H, Lactic Acid Level 2.98*H, Calcium Level 8.9, Beta-Hydroxybutyrate (Chem panel) 0.88H 07/09/22 14:40: Glucometer 275H 07/09/22 15:52: Glucometer 292H 07/09/22 16:56: Glucometer 248H 07/09/22 18:00: Sodium Level 136, Potassium Level 3.5L, Chloride Level 104, Carbon Dioxide Level 19L, Anion Gap 13, Blood Urea Nitrogen 10, Creatinine 0.88, Estimat Glomerular Filtration Rate 70, BUN/Creatinine Ratio 11, Glucose Level 261H, Lactic Acid Level 3.70*H, Calcium Level 8.2L 07/09/22 18:10: Glucometer 244H 07/09/22 19:54: Glucometer 223H 07/09/22 20:25: Sodium Level 136, Potassium Level 3.4L, Chloride Level 105, Carbon Dioxide Level 18L, Anion Gap 13, Blood Urea Nitrogen 10, Creatinine 0.78, Estimat Glomerular Filtration Rate 81, BUN/Creatinine Ratio 13, Glucose Level 233H, Lactic Acid Level 3.02*H, Calcium Level 8.3L 07/09/22 20:58: Glucometer 223H 07/09/22 22:06: Glucometer 202H 07/09/22 22:28: Lactic Acid Level 2.42*H 07/09/22 23:04: Glucometer 192H 07/09/22 23:56: Glucometer 164H 07/10/22 00:38: Sodium Level 137, Potassium Level 3.3L, Chloride Level 107, Carbon Dioxide Level 21, Anion Gap 9, Blood Urea Nitrogen 8, Creatinine 0.75, Estimat Glomerular Filtration Rate 85, BUN/Creatinine Ratio 11, Glucose Level 185H, Lactic Acid Level 2.11*H, Calcium Level 7.9L, Corrected Calcium 8.5, Total Bilirubin 0.4, Aspartate Amino Transf (AST/SGOT) 15, Alanine Aminotransferase (ALT/SGPT) 13, Alkaline Phosphatase 49, Total Protein 5.5L, Albumin 3.3 07/10/22 00:50: Glucometer 155H 07/10/22 01:56: Glucometer 160H 07/10/22 02:35: Lactic Acid Level 2.02*H 07/10/22 02:49: Glucometer 142H 07/10/22 03:55: Glucometer 147H 07/10/22 04:31: White Blood Count 7.2, Red Blood Count 3.67L, Hemoglobin 10.4L, Hematocrit 34L, Mean Corpuscular Volume 92, Mean Corpuscular Hemoglobin 28, Mean Corpuscular Hemoglobin Concent 31L, Red Cell Distribution Width 13.4, Platelet Count 109L, Mean Platelet Volume 12.2, Immature Granulocyte % (Auto) 0, Neutrophils (%) (Auto) 69, Lymphocytes (%) (Auto) 20, Monocytes (%) (Auto) 9, Eosinophils (%) (Auto) 2, Basophils (%) (Auto) 1, Neutrophils # (Auto) 4.9, Lymphocytes # (Auto) 1.4, Monocytes # (Auto) 0.6, Eosinophils # (Auto) 0.1, Basophils # (Auto) 0.0, Immature Granulocyte # (Auto) 0.0, Percent Immature Platelet Fraction 6.5, Sodium Level 138, Potassium Level 3.4L, Chloride Level 108H, Carbon Dioxide Level 19L, Anion Gap 11, Blood Urea Nitrogen 7, Creatinine 0.73, Estimat Glomerular Filtration Rate 87, BUN/Creatinine Ratio 10, Glucose Level 154H, Lactic Acid Level 2.39*H, Calcium Level 8.0L, Corrected Calcium 8.6, Phosphorus Level 1.9L, Magnesium Level 1.3L, Total Bilirubin 0.3, Aspartate Amino Transf (AST/SGOT) 14, Alanine Aminotransferase (ALT/SGPT) 15, Alkaline Phosphatase 54, Total Protein 5.5L, Albumin 3.2, Beta-Hydroxybutyrate (Chem panel) 0.06 07/10/22 04:46: Glucometer 149H 07/10/22 05:50: Glucometer 139H 07/10/22 06:58: Glucometer 140H 07/10/22 07:34: Glucometer 133H 07/10/22 08:27: Glucometer 175H 07/10/22 09:11: Lactic Acid Level 2.99*H 07/10/22 09:36: Glucometer 178H 07/10/22 11:08: Glucometer 181H Microbiology 07/09/22 Urine Culture - Preliminary, Resulted Aerococcus urinae Assessment/Plan Assessment/Plan Admission Dx Type II DM with DKA UTI Assessment and Plan Type II DM with DKA UTI Hypomagnesemia Hypokalemia Hx of falls Type II DM with DKA -Initiated SC Levemir 10 units this morning and advanced to CHO 1800 diet, titrate off insulin drip and normal saline to prevent fluid overload -Lactic acid 2.99 -PICC line d/t inability to obtain peripheral IV access -Hgb A1c 9.6 UTI with sepsis -Cefepime given in ED. -Ceftriaxone started in ICU -Lin catheter in place d/t confusion -Urine culture grew aerococcus urinae Confusion -Likely d/t DKA and/or UTI, but improved from yesterday -Head CT at [facility] [place] wnl yesterday -Will order MRI d/t continued confusion -CXR wnl yesterday -CT abd pelvis showed incidental finding of left renal cyst and Right renal lesion that will require close f/u. HTN -Likely d/t large amount of fluid pt received with insulin drip and sepsis protocol -Labetolol prn Hypomagnesemia -Mag Sulf/Dextrose being given and magnesium at 1.3 currently Hypokalemia -Currently 3.4, expect this to be low in DKA -KCl protocol Hx of falls -access services assistant consult Disposition: Likely to stay 24-48 hours, but can be transferred from ICU to [facility] once insulin drip stopped. Diet: Carb consistent 1800g with 1 snack DVT prophylaxis: Lovenox and SCDs Code status: Full Code Problems: (1) UTI (urinary tract infection) Qualifiers: (2) DKA (diabetic ketoacidosis) Qualifiers: Qualified Codes: E11.10 - Type 2 diabetes mellitus with ketoacidosis without coma (3) Severe sepsis Admission Dx Type II DM with DKA UTI Hypomagnesemia Hx of falls Type II DM with DKA -Pt in ICU on insulin drip to slowly bring blood glucose down -Lactic Acid 4.81 initially, 2.98 currently -PICC line d/t inability to obtain peripheral IV access -Hgb A1c pending -Monitor closely in ICU with help of teleICU, appreciate their r ecommendations UTI -Cefepime given in ED. -Ceftriaxone started in ICU Confusion -Likely d/t DkA and/or UTI -Head CT at [facility] -Will consider doing MRI head if no improvement in sxs. -CXR wnl -CT abd pelvis showed incidental finding of left renal cyst and Right renal lesion that will require close f/u. HTN -Hydralazine -Avoiding PO medication until swallow study can be done Hypomagnesemia -Mag Sulf/Dextrose started Hx of falls -access services assistant consult Disposition: Likely to stay 24-48 hours. Diet: Carb consistent DVT prophylaxis: Lovenox and SCDs Code status: Full Code Clinical Quality Measures Admission Status Admission Dx Type II DM with DKA UTI Hypomagnesemia Hx of falls Type II DM with DKA -Pt in ICU on insulin drip to slowly bring blood glucose down -Lactic Acid 4.81 initially, 2.98 currently -PICC line d/t inability to obtain peripheral IV access -Hgb A1c pending -Monitor closely in ICU with help of teleICU, appreciate their recomme ndations UTI -Cefepime given in ED. -Ceftriaxone started in ICU Confusion -Likely d/t DkA and/or UTI -Head CT at [facility] wnl -Will consider doing MRI head if no improvement in sxs. -CXR wnl -CT abd pelvis showed incidental finding of left renal cyst and Right renal lesion that will require close f/u. HTN -Hydralazine -Avoiding PO medication until swallow study can be done Hypomagnesemia -Mag Sulf/Dextrose started Hx of falls -access services assistant consult Disposition: Likely to stay 24-48 hours. Diet: Carb consistent DVT prophylaxis: Lovenox and SCDs Code status: Full Code Supervisory-Addendum Brief Verification & Attestation Participated in pt care: history, physical Personally performed: exam, history Care discussed with: Medical Student Procedures: n/a Verification and Attestation of Medical Student E/M Service A medical student performed and documented this service in my presence. I reviewed and verified all information documented by the medical student and made modifications to such information, when appropriate. I personally performed the physical exam and medical decision making. Brendon Slaughter, Jul 10, 2022,19:47 Called by lab and patient is growing staph in blood culture, looks to be similar to what is in the urine, awaiting sensitivities, MRI ordered for AM Dispo: Possible transfer out of ICU in AM ELSA THAKKAR MED STUDENT Jul 10, 2022 12:14 BRENDON SLAUGHTER MD Jul 10, 2022 19:50
[2022-07-10] MEDS: cefTRIAXone 1 GM PRE-MIX 50 ML IV SCH (12:49)
[2022-07-10] MEDS: ENOXAPARIN 40 MG/0.4 ML (LOVENOX) SYR SC SCH (12:49)
[2022-07-10] MEDS: GABAPENTIN 100 MG (NEURONTIN) CAP PO SCH (20:50)
[2022-07-10] MEDS: ACETAMINOPHEN 325 MG TABLET PO PRN (20:51)
[2022-07-10] MEDS: meTOprolol TARTRATE 50 MG (LOPRESSOR) TAB PO SCH (20:51)
--- NOTE | 2022-07-10 22:31 | Progress Note ---
Standard Progress Note Progress Notes/Assess & Plan Date Seen by a Provider: Jul 10, 2022 Time Seen by a Provider: 22:30 Progress/Assessment & Plan Pt constipated, asks for MOM, Cr and Magnesium level ok will order UMER MICHAELS MD Jul 10, 2022 22:31
[2022-07-10] MEDS ORDERED: MILK OF MAGNESIA 400 MG/5 ML 30 ML UDC PO ONE (22:45)
[2022-07-11 03:50] LABS: HEMOGLOBIN 11.3 g/dL (11.5-16.0)
[2022-07-11 03:52] LABS: BASOPHILS % (AUTO) 1 % (0-10); EOSINOPHILS # (AUTO) 0.2 10^3/uL (0.0-0.3); EOSINOPHILS % (AUTO) 3 % (0-10); HEMATOCRIT 36 % (35-52); LYMPHOCYTES # (AUTO) 1.4 10^3/uL (1.0-4.0); LYMPHOCYTES % (AUTO) 21 % (12-44); MEAN CORPUSCULAR HEMOGLOBIN 29 pg (25-34); MEAN CORPUSCULAR HGB CONC 31 g/dL (32-36); MEAN CORPUSCULAR VOLUME 91 fL (80-99); MEAN PLATELET VOLUME 12.4 fL (9.0-12.2); MONOCYTES # (AUTO) 0.5 10^3/uL (0.0-1.0); MONOCYTES % (AUTO) 7 % (0-12); NEUTROPHILS # (AUTO) 4.6 10^3/uL (1.8-7.8); NEUTROPHILS % (AUTO) 68 % (42-75); PLATELET COUNT 114 10^3/uL (130-400); WHITE BLOOD COUNT 6.8 10^3/uL (4.3-11.0)
[2022-07-11 04:11] LABS: ALBUMIN 3.3 GM/DL (3.2-4.5); BILIRUBIN,TOTAL 0.2 MG/DL (0.1-1.0); CALCIUM 8.4 MG/DL (8.5-10.1); CREATININE SERUM 0.76 MG/DL (0.60-1.30); MAGNESIUM 2.4 MG/DL (1.6-2.4); PHOSPHORUS 3.2 MG/DL (2.3-4.7); POTASSIUM 4.5 MMOL/L (3.6-5.0); TOTAL PROTEIN 5.9 GM/DL (6.4-8.2)
[2022-07-11] MEDS: LABETALOL HCL 20 MG/4 ML VIAL IV PRN (04:12)
[2022-07-11] MEDS: KCL 20 MEQ TAB (K-DUR) PO SCH (04:51)
[2022-07-11] MEDS: POTASSIUM CL 10MEQ/50ML IVPB 50 ML IV SCH (04:51)
[2022-07-11] MEDS: MAGNESIUM 1 GM/100 ML IVPB 100 ML IV SCH (04:51)
[2022-07-11] MEDS: inSUlin ASPART (NovoLOG) 1 UNIT/0.01 ML (CHARGE PER UNIT) SC SCH ×4 (06:20→20:58)
[2022-07-11] MEDS: meTOprolol TARTRATE 50 MG (LOPRESSOR) TAB PO SCH ×2 (08:44→19:50)
[2022-07-11] MEDS: lisINopril 10 MG (PRINIVIL) TABLET PO SCH (08:44)
--- NOTE | 2022-07-11 08:46 | Physical Therapy Evaluation ---
PT Evaluation-General Medical Diagnosis Admission Date Jul 09, 2022 at 12:36 Medical Diagnosis: UTI, DKA Onset Date: Jul 09, 2022 Therapy Diagnosis Therapy Diagnosis: impaired mobility Precautions Precautions/Isolations: Fall Prevention, Standard Precautions Weight Bear Status Right Lower Extremity: Right Weight Bearing/Tolerated Left Lower Extremity: Left Weight Bearing/Tolerated Referral Physician: Sukhjinder Reason for Referral: Evaluation/Treatment Medical History Pertinent Medical History: DM, HTN Reviewed History: Yes Social History Current Living Status: Alone Entry Into Home: Level Entry Patient states she lives in a [facility] facility Prior Prior Level of Function SCALE: Activities may be completed with or without assistive devices. 6-Uwjmduzuxu-hwiwade completes the activity by him/herself with no assistance from a helper. 5-Set-up or Clean-up Assistance-helper sets up or cleans up; patient completes activity. [place] assists only prior to or following the activity. 4-Supervision or Touching Assistance-helper provides verbal cues and/or touching/steadying and/or contact guard assistance as patient completes activity. Assistance may be provided throughout the activity or intermittently. 3-Partial/Moderate Assistance-helper does LESS THAN HALF the effort. [place] lifts, holds or supports trunk or limbs, but provides less than half the effort. 2-Substantial/Maximal Assistance-helper does MORE THAN HALF the effort. [place] lifts or holds trunk or limbs and provides more than half the effort. 0-Jhrnpegox-diaevi does ALL the effort. Patient does none of the effort to complete the activity. Or, the assistance of 2 or more helpers is required for the patient to complete the activity. If activity was not attempted, code reason: 7-Patient Refused. 9-Not Applicable-not attempted and the patient did not perform the activity before the current illness, exacerbation or injury. 10-Not Attempted due to Environmental Limitations-(lack of equipment, weather restraints, etc.). 88-Not Attempted due to Medical Conditions or Safety Concerns. Bed Mobility: 6 Transfers (B,C,W/C): 6 Gait: 6 Indoor Mobility (Ambulation): Independent Prior Devices Use: Walker PT Evaluation-Current Subjective Patient in bed pre tx, agrees to PT, has no complaints of pain. Pt/Family Goals to be independent at home Objective Patient Orientation: Person, Confused Attachments: Lin Catheter ROM/Strength ROM Lower Extremities WNL Strength Lower Extremities unable to test, patient cannot follow directions Sensory Vision: Functional Hearing: Impaired Transfers Roll Left to Right (QC): 4 Lying to Sitting/Side of Bed(Q: 3 Sit to Stand (QC): 3 Chair/Ofz-ki-Wabgf Xfer(QC): 3 Gait Does the Patient Walk?: Yes Mode of Locomotion: Walk Anticipated Mode of Locomotion: Walk Walk 10 feet (QC): 4 Distance: 25'x2 Gait Assistive Device: FWW Comments/Gait Description Patient needs to use the toilet to have a BM. Patient ambulates around the end of her bed, the toilet is on the other side, when done, she wipes herself and ambulates back to the other side of the bed and sits in recliner. Gait is slightly unsteady but no assist needed for balance. Balance Sitting Static: Fair Sitting Dynamic: Fair Standing Static: Fair Standing Dynamic: Fair Treatment BLE seated exercises x20 (AP, LAQ) Assessment/Needs Patient in recliner post tx with nurse call, phone, tray, chair alarm on. Patient has impaired mobility, strength, endurance, needs min assist for supine <-> sit and sit <-> stand. Rehab Potential: Fair PT Masonry Teacher Goals Masonry Teacher Goals PT Senior Care Goals Time Frame: Jul 18, 2022 Roll Left & Right (QC): 4 (SBA) Sit to Lying (QC): 4 (SBA) Lying-Sitting on Side/Bed(QC): 4 (SBA) Sit to Stand (QC): 4 (SBA) Chair/Skx-tu-Crboh Xfer(QC): 4 (SBA) Walk 10 feet (QC): 4 (SBA) Walk 50ft with 2 Turns (QC): 4 (SBA) PT Plan Problem List Problem List: Activity Tolerance, Functional Strength, Safety, Balance, Gait, Transfer, Bed Mobility, ROM Treatment/Plan Treatment Plan: Continue Plan of Care Treatment Plan: Bed Mobility, Education, Functional Activity Siva, Functional Strength, Gait, Safety, Therapeutic Exercise, Transfers Treatment Duration: Jul 18, 2022 Frequency: 6 times per week Estimated Hrs Per Day: .25 hour per day Patient and/or Family Agrees t: Yes Safety Risks/Education Patient Education: Gait Training, Transfer Techniques, Correct Positioning, Safety Issues Teaching Recipient: Patient Teaching Methods: Demonstration, Discussion Response to Teaching: Reinforcement Needed Discharge Recommendations Plan Patient will perform bed mobility and transfer training, balance and endurance training, functional strengthening, gait training, and education, to improve functional mobility and independence at home. Therapy Discharge Recommendati: Scheduled Assistance, Assisted Living, Home & Family, Post Acute PT Time Time In: 808 Time Out: 823 Total Billed Treatment Time: 15 Total Billed Treatment 1 visit VALERIO Dorman' ELLIOT BENNETT PT Jul 11, 2022 08:46
--- NOTE | 2022-07-11 08:47 | Occupational Therapy Eval ---
OT Evaluation-General/PLF Medical Diagnosis Admission Date Jul 09, 2022 at 12:36 Medical Diagnosis: DKA Onset Date: Jul 09, 2022 Therapy Diagnosis Therapy Diagnosis: decreased ADL status Precautions Precautions/Isolations: Fall Prevention, Standard Precautions Referral Physician: Sukhjinder Referral Reason: Evaluation/Treatment Medical History Current History ED from [facility] for fall, confusion, DKA, and UTI Social History Home: Apartment Entry Into Home: Level Entry Steps Into Home: 0 ADL-Prior Level of Function SCALE: Activities may be completed with or without assistive devices. 6-Erpzmymasj-qzkolum completes the activity by him/herself with no assistance from a helper. 5-Set-up or Clean-up Assistance-helper sets up or cleans up; patient completes activity. [place] assists only prior to or following the activity. 4-Supervision or Touching Assistance-helper provides verbal cues and/or touching/steadying and/or contact guard assistance as patient completes activity. Assistance may be provided throughout the activity or intermittently. 3-Partial/Moderate Assistance-helper does LESS THAN HALF the effort. [place] lifts, holds or supports trunk or limbs, but provides less than half the effort. 2-Substantial/Maximal Assistance-helper does MORE THAN HALF the effort. [place] lifts or holds trunk or limbs and provides more than half the effort. 7-Qsmsvafup-nqdozd does ALL the effort. Patient does none of the effort to complete the activity. Or, the assistance of 2 or more helpers is required for the patient to complete the activity. If activity was not attempted, code reason: 7-Patient Refused. 9-Not Applicable-not attempted and the patient did not perform the activity before the current illness, exacerbation or injury. 10-Not Attempted due to Environmental Limitations-(lack of equipment, weather restraints, etc.). 88-Not Attempted due to Medical Conditions or Safety Concerns. ADL PLOF Comments Pt reports she is pretty much independent with ADLs and functional mobility at PLOF using a walker. Pt appeared slightly confused upon initial evaluation, so accuracy of information obtained is unknown. Self Care: Unknown Functional Cognition: Unknown OT Current Status Subjective Pt in bed, agreeable to OT Tx. Pt denied pain. Pt appeared slightly confused, had some difficulty answering OT's questions. Mental Status/Objective Patient Orientation: Person, Confused Attachments: Lin Catheter, Telemetry Current Upper Extremity ROM WFL, RUE shoulder flexion to approx 130 degrees, LUE to approx 100 degrees. WFL at elbow/wrist/hand. Upper Extremity Coordination WFL Upper Extremity Strength grossly 3+/5. Unable to formally assess due to confusion ADL-Treatment Eating (QC): 6 (Per pt report) Oral Hygiene (QC): 4 (Per clincial judgment, pt would require supervision) Toileting Hygiene (QC): 3 (Min A with balance, pt able to manage hygiene with set up seated on toilet.) Other Treatments Pt in bed, transferred supine to sit EOB, then used FWW to transfer around bed to toilet. Pt completed toileting, then used FWW to return to recliner. Post tx, pt in recliner, call light in reach and all needs met, chair alarm activated. min A supine to sit EOB, min A sit to stand, CGA using FWW for functional mobility. Education OT Patient Education: Correct positioning, Modified ADL techniques, Progress toward Goal/Update tx plan, Purpose of tx/functional activities, Rehab process Teaching Recipient: Patient Teaching Methods: Discussion Response to Teaching: Verbalize Understanding OT Petal Shaper Hand Goals Shelter Goals Time Frame: Jul 27, 2022 Eating (QC): 6 Oral Hygiene (QC): 5 Toileting Hygiene (QC): 4 Shower/Bathe Self (QC): 4 Upper Body Dressing (QC): 5 Lower Body Dressing (QC): 4 On/Off Footwear (QC): 4 Additional Goals: 1-Demonstrate ADL Tasks, 2-Verbalize Understanding, 3- ImproveStrength/Siva 1=Demonstrate adherence to instructed precautions during ADL tasks. 2=Patient will verbalize/demonstrate understanding of assistive devices/fani fications for ADL. 3=Patient will improve strength/tolerance for activity to enable patient to perform ADL's. OT Education/Plan Problem List/Assessment Assessment: Decreased Activ Tolerance, Decreased UE Strength, Impaired Funct Balance, Impaired I ADL's, Impaired Self-Care Skills Discharge Recommendations Plan/Recommendations: Continue POC Treatment Plan/Plan of Care Patient would benefit from OT for education, treatment and training to promote independence in ADL's, mobility, safety and/or upper extremity function for ADL's. Plan of Care: ADL Retraining, Functional Mobility, UE Funct Exercise/Act Treatment Duration: Jul 27, 2022 Frequency: 3 times per week (3-5 times per week) Time/GCodes Start Time: 08:09 Stop Time: 08:25 Total Time Billed (hr/min): 16 Billed Treatment Time 1, RUBEN MARIE OT Jul 11, 2022 08:47
--- NOTE | 2022-07-11 11:13 | Progress Note ---
ELSA THAKKAR A MED STUDENT 07/11/22 1113: Subjective Date Seen by a Provider: Jul 11, 2022 Time Seen by a Provider: 09:00 Subjective/Events-last exam Pt being seen in f/u for DKA and UTI with sepsis. Pt reports she is doing better today. She is alert and oriented and her cognition has significantly improved. Pt is now able to discuss the medication changes prior to admission. She states she was taking metformin and ozempic, but the metformin was stopped a week prior to admission. She was still taking the ozempic up to admission. She did have co ncerns of constipation overnight and was given magnesium oxide with two large loose BMs following. She also had some concerns of neuropathy in her legs that has been chronic and was requesting her gabapentin. Orders were placed. Pt has no other concerns this morning. She denies headache, CP, SOA, fever, chills, weakness or numbness. Review of Systems General: No Chills, No Fatigue HEENT: No Head Aches, No Ear Pain Pulmonary: No Dyspnea, No Cough Cardiovascular: No: Chest Pain, Palpitations Gastrointestinal: Diarrhea; No: Nausea, Vomiting, Abdominal Pain Genitourinary: No Dysuria, No Frequency Neurological: No: Weakness, Numbness Focused Exam Lactate Level 07/10/22 04:31: Lactic Acid Level 2.39*H 07/10/22 09:11: Lactic Acid Level 2.99*H 07/11/22 03:45: Lactic Acid Level 2.67*H Objective Exam Last Set of Vital Signs Vital Signs Date Time Temp Pulse Resp B/P (MAP) Pulse Ox O2 Delivery O2 Flow Rate FiO2 07/11/22 09:00 78 15 173/76 (108) 97 Room Air 07/11/22 04:00 36.7 07/09/22 18:00 1.00 Capillary Refill : Less Than 3 Seconds I&O Intake and Output 07/11/22 00:00 Intake Total 4220 ml Output Total 2850 ml Balance 1370 ml Intake Oral 700 ml IV Total 3520 ml Output Urine Total 2850 ml # [place] 2 General: Alert, Oriented X3, No Acute Distress HEENT: Atraumatic, PERRLA Neck: Supple, No Thyromegaly Lungs: Clear to Auscultation Heart: Regular Rate, Normal S1 Abdomen: Normal Bowel Sounds, Soft Extremities: Other (2+ pitting edema) Skin: No Rashes, No Breakdown Neuro: Normal Speech, Normal Tone Results Lab Laboratory Tests 07/10/22 11:08: Glucometer 181H 07/10/22 15:39: Glucometer 184H 07/10/22 20:37: Glucometer 172H 07/11/22 03:45: White Blood Count 6.8, Red Blood Count 3.96, Hemoglobin 11.3L, Hematocrit 36, Mean Corpuscular Volume 91, Mean Corpuscular Hemoglobin 29, Mean Corpuscular Hemoglobin Concent 31L, Red Cell Distribution Width 13.6, Platelet Count 114L, Mean Platelet Volume 12.4H, Immature Granulocyte % (Auto) 0, Neutrophils (%) (Auto) 68, Lymphocytes (%) (Auto) 21, Monocytes (%) (Auto) 7, Eosinophils (%) (Auto) 3, Basophils (%) (Auto) 1, Neutrophils # (Auto) 4.6, Lymphocytes # (Auto) 1.4, Monocytes # (Auto) 0.5, Eosinophils # (Auto) 0.2, Basophils # (Auto) 0.0, Immature Granulocyte # (Auto) 0.0, Percent Immature Platelet Fraction 6.4, Sodium Level 137, Potassium Level 4.5, Chloride Level 108H, Carbon Dioxide Level 17L, Anion Gap 12, Blood Urea Nitrogen 8, Creatinine 0.76, Estimat Glomerular Filtration Rate 83, BUN/Creatinine Ratio 11, Glucose Level 212H, Lactic Acid Level 2.67*H, Calcium Level 8.4L, Corrected Calcium 9.0, Phosphorus Level 3.2, Magnesium Level 2.4, Total Bilirubin 0.2, Aspartate Amino Transf (AST/SGOT) 19, Alanine Aminotransferase (ALT/SGPT) 19, Alkaline Phosphatase 57, Total Protein 5.9L, Albumin 3.3 07/11/22 06:06: Glucometer 238H Microbiology 07/09/22 MRSA Screen - Final, Complete MRSA not isolated 07/09/22 Urine Culture - Preliminary, Resulted Aerococcus urinae 07/09/22 Blood Culture - Preliminary, Resulted Gram Positive Cocci Assessment/Plan Assessment/Plan Assess & Plan/Chief Complaint Type II DM with DKA UTI Hypomagnesemia Hypokalemia Hx of falls Type II DM with DKA -Anion gap closed, DKA resolved -Initiated SC Levemir 10 units this morning and advanced to CHO 1800 diet, no longer on insulin drip -Lactic acid 2.67 -Hgb A1c 9.6 UTI with sepsis -Cefepime given in ED. -Ceftriaxone started in ICU -Lin catheter in place d/t confusion -Urine culture grew aerococcus urinae -Blood culture grew gram positive rods Confusion -Significantly improved -Head CT at [facility] yesterday -MRI to be done today -CT abd pelvis showed incidental finding of left renal cyst and Right renal lesion that will require close f/u. HTN -Likely d/t large amount of fluid pt received with insulin drip and sepsis protocol -Labetolol prn Hypomagnesemia -Mag Sulf/Dextrose being given Hypokalemia -Resolved Hx of falls -manager support services consult for possible home health with PT or fpc facility. Disposition: Transferring out of ICU to 4th floor today. Likely home tomorrow. Diet: Carb consistent 1800g with 1 snack DVT prophylaxis: Lovenox and SCDs Code status: Full Code Diagnosis/Problems Diagnosis/Problems (1) UTI (urinary tract infection) Status: Acute Qualifiers: (2) DKA (diabetic ketoacidosis) Status: Resolved Qualifiers: Qualified Codes: E11.10 - Type 2 diabetes mellitus with ketoacidosis without coma Resolution Date/Time: 07/11/22 @ 11:20 (3) Severe sepsis Status: Acute Clinical Quality Measures Admission Status Admission Dx Type II DM with DKA UTI BRENDON SLAUGHTER MD 07/12/22 1800: Supervisory-Addendum Brief Verification & Attestation Participated in pt care: history, physical Personally performed: exam, history Care discussed with: Medical Student Procedures: n/a Verification and Attestation of Medical Student E/M Service A medical student performed and documented this service in my presence. I reviewed and verified all information documented by the medical student and made modifications to such information, when appropriate. I personally performed the physical exam and medical decision making. Brendon Slaughter, Jul 11, 2022,18:00 Carotid Dopplers with severe stenosis and Echo normal today ELSA THAKKAR MED STUDENT Jul 11, 2022 11:13 BRENDON SLAUGHTER MD Jul 12, 2022 18:00
--- NOTE | 2022-07-11 11:53 | Diagnostic Imaging Report ---
PROCEDURE: MR imaging of the brain without contrast. TECHNIQUE: Multiplanar, multisequence MR imaging of the brain was performed without contrast. INDICATION: Stroke. COMPARISON: CT head without contrast 07/09/2022. FINDINGS: There are several punctate foci of restricted water diffusion scattered throughout the left frontal, parietal, temporal, and occipital lobes. The Largest of these is in the left occipital lobe and measures 0.8 cm. Moderate generalized parenchymal volume loss. Mild nonspecific T2 hyperintensities in the supratentorial and pontine white matter, compatible with chronic small vessel ischemic change. No hemosiderin deposition or evidence of intracranial hemorrhage. Normal morphology including the major midline structures, sella, posterior fossa, and cerebellar pontine angle. Normal intracranial flow voids. Post operative changes in the globes. The paranasal sinuses and mastoids are clear. Normal bone marrow signal. IMPRESSION: 1. Scattered small foci of acute to subacute infarcts throughout the left MCA and GLASS SELECTOR distributions, suspicious for an embolic phenomenon. 2. Moderate generalized parenchymal volume loss. Mild leukoaraiosis. 3. The report was called to the patient's nurse Selina by sandra@11:52 AM. Dictated by: Dictated on workstation # [id number]
[2022-07-11] MEDS: ENOXAPARIN 40 MG/0.4 ML (LOVENOX) SYR SC SCH (12:28)
[2022-07-11] MEDS: cefTRIAXone 1 GM PRE-MIX 50 ML IV SCH (12:28)
--- NOTE | 2022-07-11 14:05 | Diagnostic Imaging Report ---
PROCEDURE: US carotid duplex, bilateral. TECHNIQUE: Multiple real-time grayscale images were obtained over the carotid arteries in various projections, bilaterally. Additional spectral analysis and color Doppler duplex images were also obtained. INDICATION: Dysarthria COMPARISON: None available FINDINGS: Right carotid circulation: The right common carotid artery is normal in caliber, and there is mild luminal stenosis due to atherosclerotic plaquing in its mid aspect. Peak systolic velocity in the right common carotid artery is 148 cm/sec. There is a small amount of atherosclerotic plaque in the carotid bulb and proximal internal carotid artery, which results in less than 50% luminal narrowing by chino scale imaging. The peak systolic velocity in the proximal internal carotid artery is 174 cm/sec. Proximal aspect of the external carotid artery is patent with expected high resistance waveforms, and peak systolic velocity of 99 cm/sec. Left carotid circulation: The left common carotid artery is normal in caliber, and there is no significant stenosis. Peak systolic velocity in the left common carotid artery is 88 cm/sec. There is a moderate to large amount of atherosclerotic plaque causing near complete occlusion chino-scale imaging. The peak systolic velocity in the proximal internal carotid artery is 414 cm/sec. Proximal aspect of the external carotid artery is patent with expected high resistance waveforms, and peak systolic velocity of 130 cm/sec. Vertebral arteries: Flow in the bilateral vertebral arteries is antegrade. IMPRESSION: 1. Near occlusion of the left ICA at its origin due to atherosclerotic plaque. 2. There is 50-69% stenosis of the right internal carotid artery. 3. Patent vertebral arteries with antegrade flow. Parameters based on the consensus panel [place]-Scale and Doppler ultrasound criteria published July 2003, Radiology, Volume 229. DOPPLER (peak systolic velocity M/S Right Left CCA 1.48 .88 ICA Proximal 1.74 4.14 ICA Mid 1.91 1.30 ICA Distal 1.43 1.47 RATIO 1.29 4.70 ECA .99 1.36 VERT .96 .34 Dictated by: Dictated on workstation # [id number]
[2022-07-11 16:20] VITALS: BP 143/66
[2022-07-11] MEDS: GABAPENTIN 100 MG (NEURONTIN) CAP PO SCH (19:50)
[2022-07-11] MEDS: ACETAMINOPHEN 325 MG TABLET PO PRN (19:51)
[2022-07-12] MEDS: LABETALOL HCL 20 MG/4 ML VIAL IV PRN (04:07)
[2022-07-12 05:40] LABS: HEMATOCRIT 36 % (35-52); HEMOGLOBIN 11.3 g/dL (11.5-16.0); MEAN CORPUSCULAR HEMOGLOBIN 28 pg (25-34); MEAN CORPUSCULAR HGB CONC 32 g/dL (32-36); MEAN CORPUSCULAR VOLUME 89 fL (80-99)
[2022-07-12 05:49] LABS: ALBUMIN 3.4 GM/DL (3.2-4.5)
[2022-07-12 05:52] LABS: TOTAL PROTEIN 5.8 GM/DL (6.4-8.2)
[2022-07-12 05:53] LABS: BILIRUBIN,TOTAL 0.3 MG/DL (0.1-1.0)
[2022-07-12] MEDS: inSUlin ASPART (NovoLOG) 1 UNIT/0.01 ML (CHARGE PER UNIT) SC SCH ×4 (05:54→20:46)
[2022-07-12 05:55] LABS: CREATININE SERUM 0.73 MG/DL (0.60-1.30)
[2022-07-12 05:58] LABS: MAGNESIUM 1.9 MG/DL (1.6-2.4)
[2022-07-12 06:08] LABS: BASOPHILS % (AUTO) 1 % (0-10); EOSINOPHILS # (AUTO) 0.2 10^3/uL (0.0-0.3); EOSINOPHILS % (AUTO) 3 % (0-10); LYMPHOCYTES # (AUTO) 1.3 10^3/uL (1.0-4.0); LYMPHOCYTES % (AUTO) 22 % (12-44); MONOCYTES # (AUTO) 0.4 10^3/uL (0.0-1.0); MONOCYTES % (AUTO) 7 % (0-12); NEUTROPHILS # (AUTO) 3.9 10^3/uL (1.8-7.8); NEUTROPHILS % (AUTO) 66 % (42-75); PLATELET COUNT 117 10^3/uL (130-400); WHITE BLOOD COUNT 5.9 10^3/uL (4.3-11.0)
[2022-07-12] MEDS: MAGNESIUM 1 GM/100 ML IVPB 100 ML IV SCH (06:49)
[2022-07-12] MEDS: POTASSIUM CL 10MEQ/50ML IVPB 50 ML IV SCH (06:49)
[2022-07-12] MEDS: KCL 20 MEQ TAB (K-DUR) PO SCH (06:50)
[2022-07-12] MEDS: ACETAMINOPHEN 325 MG TABLET PO PRN ×3 (07:46→21:27)
[2022-07-12] MEDS: lisINopril 10 MG (PRINIVIL) TABLET PO SCH (08:58)
[2022-07-12] MEDS: meTOprolol TARTRATE 50 MG (LOPRESSOR) TAB PO SCH ×2 (08:58→20:06)
--- NOTE | 2022-07-12 09:18 | Physical Therapy Progress Note ---
Therapy Progress Note Attempted PT but patient refused due to pain. Patient rated pain at 6/10 in her feet. Patient would not even perform exercises in bed. Patient educated on the importance of therapy but continues to refuse. Will try back later today if able. ELLIOT BENNETT PT Jul 12, 2022 09:18
--- NOTE | 2022-07-12 10:18 | Occupational Ther Daily Note ---
OT Current Status-Daily Note Subjective Pt laying in bed upon arrival. Pt agreeable to therapy, but does c/o of pain. She reports that her neuropathy has been bad today. She also reported that she almost fell yesterday, due to weakness in her legs. Appearance Pt left sitting in recliner with feet elevated to assist in LE swelling. All needs within reach. Mental Status/Objective Patient Orientation: Person, Place, Time, Situation ADL-Treatment Therapy Code Descriptions/Definitions Functional [place] Measure: 0=Not Assessed/NA 4=Minimal Assistance 1=Total Assistance 5=Supervision or Setup 2=Maximal Assistance 6=Modified [place] 3=Moderate Assistance 7=Complete IndependenceSCALE: Activities may be completed with or without assistive devices. 2-Snceazsjcc-tstbdlx completes the activity by him/herself with no assistance from a helper. 5-Set-up or Clean-up Assistance-helper sets up or cleans up; patient completes activity. [place] assists only prior to or following the activity. 4-Supervision or Touching Assistance-helper provides verbal cues and/or touc lynnette/steadying and/or contact guard assistance as patient completes activity. Assistance may be provided throughout the activity or intermittently. 3-Partial/Moderate Assistance-helper does LESS THAN HALF the effort. [place] lifts, holds or supports trunk or limbs, but provides less than half the effort. 2-Substantial/Maximal Assistance-helper does MORE THAN HALF the effort. [place] lifts or holds trunk or limbs and provides more than half the effort. 4-Gocmyijgs-zimlkx does ALL the effort. Patient does none of the effort to complete the activity. Or, the assistance of 2 or more helpers is required for the patient to complete the activity. If activity was not attempted, code reason: 7-Patient Refused. 9-Not Applicable-not attempted and the patient did not perform the activity before the current illness, exacerbation or injury. 10-Not Attempted due to Environmental Limitations-(lack of equipment, weather restraints, etc.). 88-Not Attempted due to Medical Conditions or Safety Concerns. Eating (QC): 5 Oral Hygiene (QC): 5 (sitting in recliner) Lower Body Dressing (QC): 3 (min assist for threading L foot) Toileting Hygiene (QC): 4 Toilet Transfer (QC): 4 (SBA) Pt requested to use bathroom due to urgency. Prior to reaching toilet, pt incontinent of urine; contained in brief. She reported that she thinks she is waiting too long to go due to recently having a catheter removed, and her thinking she still has it in. Sit<>stand: SBA. Ambulation to/from bathroom: CGA. She was SBA for safety during toileting hygiene. Pt able to doff underwear with independence, but required min assist to thread L foot for donning new underwear. She reported that she does not think she will be able to perform oral hygiene standing at the sink due to pain and weakness in her legs. Pt opted to sit in recliner to perform oral hygiene with set up assist. Education OT Patient Education: Correct positioning, Energy conservation, Modified ADL techniques, Progress toward Goal/Update tx plan, Purpose of tx/functional activities, Reviewed precautions, Rehab process, Safety issues, Transfer techniques Teaching Recipient: Patient Teaching Methods: Discussion Response to Teaching: Verbalize Understanding, Return Demonstration OT Detention Goals [facility] Goals Time Frame: Jul 27, 2022 Eating (QC): 6 Oral Hygiene (QC): 5 Toileting Hygiene (QC): 4 Shower/Bathe Self (QC): 4 Upper Body Dressing (QC): 5 Lower Body Dressing (QC): 4 On/Off Footwear (QC): 4 Additional Goals: 1-Demonstrate ADL Tasks, 2-Verbalize Understanding, 3- ImproveStrength/Siva 1=Demonstrate adherence to instructed precautions during ADL tasks. 2=Patient will verbalize/demonstrate understanding of assistive devices/modifications for ADL. 3=Patient will improve strength/tolerance for activity to enable patient to perform ADL's. OT Education/Plan Problem List/Assessment Assessment: Decreased Activ Tolerance, Decreased Safety Aware, Decreased UE Strength, Impaired Coordination, Impaired Funct Balance, Impaired I ADL's, Impaired Self-Care Skills Discharge Recommendations Plan/Recommendations: Continue POC Equpiment Recommendations-D/C: Warp Tier Treatment Plan/Plan of Care Treatment,Training & Education: Yes Patient would benefit from OT for education, treatment and training to promote independence in ADL's, mobility, safety and/or upper extremity function for ADL's. Plan of Care: ADL Retraining, Functional Mobility, UE Funct Exercise/Act Treatment Duration: Jul 27, 2022 Frequency: 3 times per week (3-5 times per week) Estimated Hrs Per Day: .25 hour per day Agreement: Yes Rehab Potential: Fair Time/GCodes Start Time: :25 Stop Time: :40 Total Time Billed (hr/min): 15 Billed Treatment Time 1 visit ADL Keira Valdovinos OT Jul 12, 2022 10:18
--- NOTE | 2022-07-12 10:59 | Physical Therapy Daily Note ---
PT Daily Note-Current Subjective Patient in bed pre-tx reports 6/10 pain in legs, agrees to PT. Pain Section J - Health Conditions 1. Rarely or not at all 2. Occasionally 3. Frequently 4. Almost constantly 8. Unable to answer Pain Effect on Sleep: 4 Pain Interference with Therapy: 4 Pain Interference w/Day-to-Day: 4 Appearance Patient in bed post-tx with nurse call, phone, tray, and all needs met. Mental Status Patient Orientation: Person, Place, Situation Transfers SCALE: Activities may be completed with or without assistive devices. 0-Odmjtiojxx-krnkofj completes the activity by him/herself with no assistance from a helper. 5-Set-up or Clean-up Assistance-helper sets up or cleans up; patient completes activity. [place] assists only prior to or following the activity. 4-Supervision or Touching Assistance-helper provides verbal cues and/or touching/steadying and/or contact guard assistance as patient completes activity. Assistance may be provided throughout the activity or intermittently. 3-Partial/Moderate Assistance-helper does LESS THAN HALF the effort. [place] lifts, holds or supports trunk or limbs, but provides less than half the effort. 2-Substantial/Maximal Assistance-helper does MORE THAN HALF the effort. [place] lifts or holds trunk or limbs and provides more than half the effort. 1-Eftycydku-vitlcq does ALL the effort. Patient does none of the effort to complete the activity. Or, the assistance of 2 or more helpers is required for the patient to complete the activity. If activity was not attempted, code reason: 7-Patient Refused. 9-Not Applicable-not attempted and the patient did not perform the activity before the current illness, exacerbation or injury. 10-Not Attempted due to Environmental Limitations-(lack of equipment, weather restraints, etc.). 88-Not Attempted due to Medical Conditions or Safety Concerns. Weight Bearing Right Lower Extremity: Right Weight Bearing/Tolerated Left Lower Extremity: Left Weight Bearing/Tolerated Exercises Supine Ex: Ankle pumps, Glut sets, Heel Slides, Hip abd/add (Abd/Add manual resistance) Supine Reps: 10 Treatments LE strengthening Assessment Current Status: Fair Progress Patient too fatigued and in pain to sit at edge of bed or walk. Patient needed verbal cueing to complete exercises correctly. Patient LLE strength moderately diminished. Needed several breaks to rest due to fatigue and report of not feeling well today. PT Box Shook Patcher Goals Custodial Goals PT Box Shook Patcher Goals Time Frame: Jul 18, 2022 Roll Left & Right (QC): 4 (SBA) Sit to Lying (QC): 4 (SBA) Lying-Sitting on Side/Bed(QC): 4 (SBA) Sit to Stand (QC): 4 (SBA) Chair/Dyf-xc-Uiexw Xfer(QC): 4 (SBA) Walk 10 feet (QC): 4 (SBA) Walk 50ft with 2 Turns (QC): 4 (SBA) PT Plan Problem List Problem List: Activity Tolerance, Functional Strength, Safety, Balance, Gait, Transfer, Bed Mobility, ROM Treatment/Plan Treatment Plan: Continue Plan of Care Treatment Plan: Bed Mobility, Education, Functional Activity Siva, Functional Strength, Gait, Safety, Therapeutic Exercise, Transfers Treatment Duration: Jul 18, 2022 Frequency: 6 times per week Estimated Hrs Per Day: .25 hour per day Patient and/or Family Agrees t: Yes Safety Risks/Education Patient Education: Safety Issues Teaching Recipient: Patient Teaching Methods: Demonstration, Discussion Response to Teaching: Reinforcement Needed Time Time In: 1025 Time Out: 1034 Total Billed Treatment Time: 9 Total Billed Treatment 1 visit EX 9min ELLIOT BENNETT PT Jul 12, 2022 10:59
[2022-07-12] MEDS: cefTRIAXone 1 GM PRE-MIX 50 ML IV SCH (14:18)
[2022-07-12] MEDS: ENOXAPARIN 40 MG/0.4 ML (LOVENOX) SYR SC SCH (14:18)
[2022-07-12] MEDS: ASPIRIN 81 MG CHEW (CHILDREN'S ASA) PO SCH (14:18)
--- NOTE | 2022-07-12 17:59 | Progress Note ---
Subjective Subjective/Events-last exam Patient is feeling well. speak back to baseline as well as word finding. Tolerating PO diet and ambulation Review of Systems General: Malaise Pulmonary: No Dyspnea Cardiovascular: No: Chest Pain, Palpitations, Edema Gastrointestinal: No: Nausea, Vomiting, Abdominal Pain, Constipation Genitourinary: No Dysuria; Frequency Neurological: Weakness, Incoordination Focused Exam Lactate Level 07/10/22 04:31: Lactic Acid Level 2.39*H 07/10/22 09:11: Lactic Acid Level 2.99*H 07/11/22 03:45: Lactic Acid Level 2.67*H Objective Exam Last Set of Vital Signs Vital Signs Date Time Temp Pulse Resp B/P (MAP) Pulse Ox O2 Delivery O2 Flow Rate FiO2 07/12/22 16:07 37.1 79 18 145/84 (104) 98 Room Air 07/09/22 18:00 1.00 Capillary Refill : Less Than 3 Seconds I&O Intake and Output 07/12/22 00:00 Intake Total 2560 ml Output Total 3000 ml Balance -440 ml Intake Oral 2210 ml IV Total 350 ml Output Urine Total 3000 ml # Voids 1 # Bowel Movements 4 General: Alert, Oriented X3, Cooperative, No Acute Distress Lungs: Clear to Auscultation, Normal Air Movement Heart: Regular Rate, No Murmurs Abdomen: Normal Bowel Sounds, Soft, No Tenderness, No Masses Extremities: No Edema, No Tenderness/Swelling Neuro: Normal Speech, Cranial Nerves 3-12 NL Psych/Mental Status: Mental Status NL, Mood NL Results/Procedures Lab Laboratory Tests 07/11/22 20:08: Glucometer 207H 07/12/22 05:20: White Blood Count 5.9, Red Blood Count 4.01, Hemoglobin 11.3L, Hematocrit 36, Mean Corpuscular Volume 89, Mean Corpuscular Hemoglobin 28, Mean Corpuscular Hemoglobin Concent 32, Red Cell Distribution Width 13.6, Platelet Count 117L, Mean Platelet Volume 12.0, Immature Granulocyte % (Auto) 0, Neutrophils (%) (Auto) 66, Lymphocytes (%) (Auto) 22, Monocytes (%) (Auto) 7, Eosinophils (%) (Auto) 3, Basophils (%) (Auto) 1, Neutrophils # (Auto) 3.9, Lymphocytes # (Auto) 1.3, Monocytes # (Auto) 0.4, Eosinophils # (Auto) 0.2, Basophils # (Auto) 0.0, Immature Granulocyte # (Auto) 0.0, Percent Immature Platelet Fraction 7.2, Sodium Level 138, Potassium Level 4.0, Chloride Level 108H, Carbon Dioxide Level 20L, Anion Gap 10, Blood Urea Nitrogen 9, Creatinine 0.73, Estimat Glomerular Filtration Rate 87, BUN/Creatinine Ratio 12, Glucose Level 218H, Calcium Level 9.0, Corrected Calcium 9.5, Phosphorus Level 4.0, Magnesium Level 1.9, Total Bilirubin 0.3, Aspartate Amino Transf (AST/SGOT) 16, Alanine Aminotransferase (ALT/SGPT) 13, Alkaline Phosphatase 55, Total Protein 5.8L, Albumin 3.4 07/12/22 05:42: Glucometer 194H 07/12/22 11:30: Glucometer 246H 07/12/22 15:54: Glucometer 188H Microbiology 07/09/22 MRSA Screen - Final, Complete MRSA not isolated 07/09/22 Urine Culture - Final, Complete Aerococcus urinae 07/09/22 Blood Culture - Preliminary, Resulted ----- Assessment/Plan Assessment/Plan Assessment & Plan Type II DM with DKA UTI Hypomagnesemia Hypokalemia Hx of falls Type II DM with DKA: Resolved -Anion gap closed, DKA resolved -Initiated SC Levemir 10 units this morning and advanced to CHO 1800 diet, no longer on insulin drip -Lactic acid 2.67 -Hgb A1c 9.6 -07/12: Patient will likely need insulin at discharge as she does not tolerate metformin UTI with sepsis -Cefepime given in ED. -Ceftriaxone started in ICU -Lin catheter in place d/t confusion -Urine culture grew aerococcus urinae -Blood culture grew gram positive rods Confusion: Resolved 07/12, patient as baseline -Significantly improved -Head CT at [facility] yesterday -MRI to be done today -CT abd pelvis showed incidental finding of left renal cyst and Right renal lesion that will require close f/u. Embolic CVA Carotid Stenosis -07/12 Carotid dopplers show near occulsion of LCA and RCA 50-60%, spoke with vascular surgeon at [facility] for guidance and he recommends urgent outpatient referral as they generally wait 10-14 days for endarterectomy due to acute stroke concerns since patient is improving. She is going to speak with family and will likely want referral to Vascular surgery. HTN -Likely d/t large amount of fluid pt received with insulin drip and sepsis protocol -Labetolol prn -07/12: Trending down, restarted home meds Hypomagnesemia -Mag Sulf/Dextrose being given Hypokalemia -Resolved Hx of falls -therapeutic activities services worker consult for possible home health with PT or long term facility. BRENDON ROSARIO MD Jul 12, 2022 17:59
[2022-07-12] MEDS: GABAPENTIN 100 MG (NEURONTIN) CAP PO SCH (20:06)
[2022-07-13 05:24] LABS: BASOPHILS % (AUTO) 1 % (0-10); EOSINOPHILS # (AUTO) 0.2 10^3/uL (0.0-0.3); EOSINOPHILS % (AUTO) 3 % (0-10); HEMATOCRIT 36 % (35-52); HEMOGLOBIN 11.7 g/dL (11.5-16.0); LYMPHOCYTES # (AUTO) 1.3 10^3/uL (1.0-4.0); LYMPHOCYTES % (AUTO) 20 % (12-44); MEAN CORPUSCULAR HEMOGLOBIN 29 pg (25-34); MEAN CORPUSCULAR HGB CONC 32 g/dL (32-36); MEAN CORPUSCULAR VOLUME 89 fL (80-99); MEAN PLATELET VOLUME 12.1 fL (9.0-12.2); MONOCYTES # (AUTO) 0.4 10^3/uL (0.0-1.0); MONOCYTES % (AUTO) 7 % (0-12); NEUTROPHILS # (AUTO) 4.5 10^3/uL (1.8-7.8); NEUTROPHILS % (AUTO) 69 % (42-75); PLATELET COUNT 132 10^3/uL (130-400); WHITE BLOOD COUNT 6.4 10^3/uL (4.3-11.0)
[2022-07-13 05:44] LABS: ALBUMIN 3.6 GM/DL (3.2-4.5); POTASSIUM 3.9 MMOL/L (3.6-5.0)
[2022-07-13 05:45] LABS: CALCIUM 9.3 MG/DL (8.5-10.1)
[2022-07-13 05:47] LABS: TOTAL PROTEIN 6.2 GM/DL (6.4-8.2)
[2022-07-13 05:48] LABS: BILIRUBIN,TOTAL 0.2 MG/DL (0.1-1.0)
[2022-07-13 05:50] LABS: CREATININE SERUM 0.81 MG/DL (0.60-1.30); PHOSPHORUS 4.4 MG/DL (2.3-4.7)
[2022-07-13] MEDS: KCL 20 MEQ TAB (K-DUR) PO SCH (05:50)
[2022-07-13 05:53] LABS: MAGNESIUM 1.7 MG/DL (1.6-2.4)
[2022-07-13] MEDS: inSUlin ASPART (NovoLOG) 1 UNIT/0.01 ML (CHARGE PER UNIT) SC SCH ×4 (05:57→20:22)
[2022-07-13] MEDS: lisINopril 10 MG (PRINIVIL) TABLET PO SCH (08:46)
[2022-07-13] MEDS: ACETAMINOPHEN 325 MG TABLET PO PRN ×3 (08:47→22:25)
[2022-07-13] MEDS: meTOprolol TARTRATE 50 MG (LOPRESSOR) TAB PO SCH ×2 (08:47→20:06)
[2022-07-13] MEDS: ASPIRIN 81 MG CHEW (CHILDREN'S ASA) PO SCH (08:47)
--- NOTE | 2022-07-13 08:50 | Occupational Ther Daily Note ---
OT Current Status-Daily Note Subjective Pt laying in bed upon arrival. Pt states she is not doing well and has a headache. She still agrees to wash her face and brush teeth. Appearance Pt was left in bed upon completion of session. All needs within reach. Mental Status/Objective Patient Orientation: Person, Place, Time, Situation Attachments: IV ADL-Treatment Therapy Code Descriptions/Definitions Functional [place] Measure: 0=Not Assessed/NA 4=Minimal Assistance 1=Total Assistance 5=Supervision or Setup 2=Maximal Assistance 6=Modified [place] 3=Moderate Assistance 7=Complete IndependenceSCALE: Activities may be completed with or without assistive devices. 9-Bqxhzzpukv-qcidgio completes the activity by him/herself with no assistance from a helper. 5-Set-up or Clean-up Assistance-helper sets up or cleans up; patient completes activity. [place] assists only prior to or following the activity. 4-Supervision or Touching Assistance-helper provides verbal cues and/or touching/steadying and/or contact guard assistance as patient completes activity. Assistance may be provided throughout the activity or intermittently. 3-Partial/Moderate Assistance-helper does LESS THAN HALF the effort. [place] lifts, holds or supports trunk or limbs, but provides less than half the effort. 2-Substantial/Maximal Assistance-helper does MORE THAN HALF the effort. [place] lifts or holds trunk or limbs and provides more than half the effort. 5-Egxetkgun-gslxno does ALL the effort. Patient does none of the effort to complete the activity. Or, the assistance of 2 or more helpers is required for the patient to complete the activity. If activity was not attempted, code reason: 7-Patient Refused. 9-Not Applicable-not attempted and the patient did not perform the activity before the current illness, exacerbation or injury. 10-Not Attempted due to Environmental Limitations-(lack of equipment, weather restraints, etc.). 88-Not Attempted due to Medical Conditions or Safety Concerns. Oral Hygiene (QC): 5 Pt needs encouragement to complete most tasks. Supine<>sit: min assist. Pt completes oral hygiene sitting EOB. Pt declines getting out of bed due to not feeling well and stating, "I don't think I can stand that long." Pt washes face with set up assist as well. Pt is self-limiting with participation. Other Treatment Pt completed UE exercises 1x15 with no weights. But was educated to continue to do these exercises throughout the day to get stronger. She agreed that she will. Pt was increasingly out of breath in between each exercises and needed adequate rest breaks. Education OT Patient Education: Correct positioning, Energy conservation, Exercise program, Home exercise program, Modified ADL techniques, Progress toward Goal/Update tx plan, Purpose of tx/functional activities, Rehab process, Safety issues Teaching Recipient: Patient Teaching Methods: Demonstration, Discussion Response to Teaching: Verbalize Understanding, Return Demonstration OT Rubber Mold Maker Goals Rubber Mold Maker Goals Time Frame: Jul 27, 2022 Eating (QC): 6 Oral Hygiene (QC): 5 Toileting Hygiene (QC): 4 Shower/Bathe Self (QC): 4 Upper Body Dressing (QC): 5 Lower Body Dressing (QC): 4 On/Off Footwear (QC): 4 Additional Goals: 1-Demonstrate ADL Tasks, 2-Verbalize Understanding, 3- ImproveStrength/Siva 1=Demonstrate adherence to instructed precautions during ADL tasks. 2=Patient will verbalize/demonstrate understanding of assistive devices/modifications for ADL. 3=Patient will improve strength/tolerance for activity to enable patient to perform ADL's. OT Education/Plan Problem List/Assessment Assessment: Decreased Activ Tolerance, Decreased Safety Aware, Decreased UE Strength, Impaired Bed Mobility, Impaired Coordination, Impaired Funct Balance, Impaired I ADL's, Impaired Self-Care Skills Discharge Recommendations Plan/Recommendations: Continue POC Treatment Plan/Plan of Care Treatment,Training & Education: Yes Patient would benefit from OT for education, treatment and training to promote independence in ADL's, mobility, safety and/or upper extremity function for ADL's. Plan of Care: ADL Retraining, Functional Mobility, UE Funct Exercise/Act Treatment Duration: Jul 27, 2022 Frequency: 3 times per week (3-5 times per week) Estimated Hrs Per Day: .25 hour per day Agreement: Yes Rehab Potential: Fair Time/GCodes Start Time: 08:15 Stop Time: 08:26 Total Time Billed (hr/min): 11 Billed Treatment Time 1 visit ADL Keira Valdovinos OT Jul 13, 2022 08:50
--- NOTE | 2022-07-13 11:11 | Physical Therapy Daily Note ---
PT Daily Note-Current Subjective Patient in bed pre-tx, reports 6/10 headache, agrees to PT. Pain Section J - Health Conditions 1. Rarely or not at all 2. Occasionally 3. Frequently 4. Almost constantly 8. Unable to answer Pain Effect on Sleep: 4 Pain Interference with Therapy: 4 Pain Interference w/Day-to-Day: 4 Appearance Patient in bed post-tx with nurse call, phone, tray, and all needs met. Mental Status Patient Orientation: Person, Place, Situation Transfers SCALE: Activities may be completed with or without assistive devices. 2-Nywoiksnlt-ateurdk completes the activity by him/herself with no assistance from a helper. 5-Set-up or Clean-up Assistance-helper sets up or cleans up; patient completes activity. [place] assists only prior to or following the activity. 4-Supervision or Touching Assistance-helper provides verbal cues and/or touching/steadying and/or contact guard assistance as patient completes activity. Assistance may be provided throughout the activity or intermittently. 3-Partial/Moderate Assistance-helper does LESS THAN HALF the effort. [place] lifts, holds or supports trunk or limbs, but provides less than half the effort. 2-Substantial/Maximal Assistance-helper does MORE THAN HALF the effort. [place] lifts or holds trunk or limbs and provides more than half the effort. 7-Fcirskygz-gckgfl does ALL the effort. Patient does none of the effort to complete the activity. Or, the assistance of 2 or more helpers is required for the patient to complete the activity. If activity was not attempted, code reason: 7-Patient Refused. 9-Not Applicable-not attempted and the patient did not perform the activity before the current illness, exacerbation or injury. 10-Not Attempted due to Environmental Limitations-(lack of equipment, weather restraints, etc.). 88-Not Attempted due to Medical Conditions or Safety Concerns. Sit to Lying (QC): 4 Lying to Sitting/Side of Bed(Q: 4 Sit to Stand (QC): 4 SBA Weight Bearing Right Lower Extremity: Right Weight Bearing/Tolerated Left Lower Extremity: Left Weight Bearing/Tolerated Gait Training Does the Patient Walk?: Yes Distance: 300' Walk 10 feet (QC): 4 Walk 50 ft with 2 Turns(QC): 4 Walk 150 ft (QC): 4 Gait Persons Needed: 1 Gait Assistive Device: FWW SBA, patient walks with good step length, slightly slower gait speed, and good foot clearance. Exercises Seated Therapy Exercises: Ankle pumps, Long arc quads, Hip flexion, Glut set Seated Reps: 15 Treatments Ambulation, LE Strengthening Assessment Current Status: Good Progress Patient doing a lot better since previous visit. Patient able to ambulate 300' without needing a rest and do all exercises correctly while challenging herself during the harder ones. Patient bed mobility slower, but getting better at grabbing the bed and hand placement. PT Assisted Goals Housecleaner Floor Goals PT Assisted Goals Time Frame: Jul 18, 2022 Roll Left & Right (QC): 4 (SBA) Sit to Lying (QC): 4 (SBA) Lying-Sitting on Side/Bed(QC): 4 (SBA) Sit to Stand (QC): 4 (SBA) Chair/Gdv-lp-Myvez Xfer(QC): 4 (SBA) Walk 10 feet (QC): 4 (SBA) Walk 50ft with 2 Turns (QC): 4 (SBA) PT Plan Problem List Problem List: Activity Tolerance, Functional Strength, Safety, Balance, Gait, Transfer, Bed Mobility, ROM Treatment/Plan Treatment Plan: Continue Plan of Care Treatment Plan: Bed Mobility, Education, Functional Activity Siva, Functional Strength, Gait, Safety, Therapeutic Exercise, Transfers Treatment Duration: Jul 18, 2022 Frequency: 6 times per week Estimated Hrs Per Day: .25 hour per day Patient and/or Family Agrees t: Yes Safety Risks/Education Patient Education: Gait Training, Transfer Techniques, Correct Positioning, Safety Issues Teaching Recipient: Patient Teaching Methods: Demonstration, Discussion Response to Teaching: Reinforcement Needed Time Time In: 1038 Time Out: 1053 Total Billed Treatment Time: 15 Total Billed Treatment 1 visit FA 15min ELLIOT BENNETT PT Jul 13, 2022 11:11
[2022-07-13] MEDS: cefTRIAXone 1 GM PRE-MIX 50 ML IV SCH (11:40)
[2022-07-13] MEDS: ENOXAPARIN 40 MG/0.4 ML (LOVENOX) SYR SC SCH (11:40)
--- NOTE | 2022-07-13 15:01 | Progress Note - Hospitalist ---
DCJACLYNDEANDER Lewis 07/13/22 1501: Subjective HPI/CC On Admission Date Seen by Provider: Jul 13, 2022 Time Seen by Provider: 14:50 Subjective/Events-last exam Pt is sitting in chair comfortably. Pt still is experiencing some aphasia and has periods where she needs to search for her words. Pt c/o a throbbing R temporal DE that started yesterday. Pt states worsening of DE with sneezing and cough but denies any visual disturbances. Pt's BP continues to be elevated today, initially was at 214/88 but then decreased to 146/69. Has no other complaints but does note that she is still experiencing some urinary incontinence. Pt denies nausea, vomiting, CP, SOA, abd pain, and diarrhea. Hospital Course: 72 yo female with h/o HTN, DMT2, and neuropathy was admitted on 07/09 after presenting via [facility] ED for fall with confusion, DKA and UTI.On 07/09, pt fell from her recliner at her apartment in the [facility] facility and started to experience aphasia and a DE, prompting her to go the ED. Pt denies having LOC or hitting head during fall. In the ED, pt was AOX1, significantly confused, and was only able to say the word "pee" when asked questions. Pt's family was bedside and stated that the pt had recently discontinued her metformin due to it causing nausea. Workup was remarkable for a glucose of 441, lactic acid of 4.81, and elevated WBC. Pt also had bacteria present in her UA which later cultured to be Aerococcus urinae. Pt had am unremarkable CXR and head CT. CT chest, abd, pelvis was remarkable for a R renal cyst and an indeterminate L renal lesion. Upon admission to the ICU, pt had a head MRI that indicated embolic phenomenon in the L MCA and VOTING MACH[employer]CH[employer]IC regions as well as mild leukaraiosis. Pt also had a carotid doppler that showed B/L carotid stenosis and near occlusion. Pt was moved from the ICU to the floor once her glucose stablized and she was removed from the insulin drip. Repeat labs saw improvement of glucose, WBC, and lactic acid (most recent 2.67). Pt has experienced urinary incontinence after her diaz catheter was removed, suspected to be due to bladder spasm. Pt's glucose has continued to be elevated and insulin regimen has been adjusted to correct it. Pt was hypertensive this morning at 214/88, but decreased to 146/69. Consult for inpatient rehab has been placed. Review of Systems General: No Chills, No Night Sweats HEENT: Head Aches; No Visual Changes, No Eye Pain Pulmonary: No Dyspnea, No Cough Cardiovascular: No: Chest Pain, Palpitations, Lt Headedness Gastrointestinal: No: Nausea, Vomiting, Abdominal Pain Genitourinary: No Dysuria, No Frequency; Incontinence (urinary ) Musculoskeletal: No: neck pain, shoulder pain Neurological: No: Weakness, Numbness Focused Exam Lactate Level 07/11/22 03:45: Lactic Acid Level 2.67*H Objective Exam Vital Signs Vital Signs Date Time Temp Pulse Resp B/P (MAP) Pulse Ox O2 Delivery O2 Flow Rate FiO2 07/13/22 13:00 71 07/13/22 12:11 149/68 (95) 07/13/22 11:38 36.8 18 98 Room Air 07/09/22 18:00 1.00 Capillary Refill : Less Than 3 Seconds General Appearance: No Apparent Distress, WD/WN HEENT: PERRL/EOMI, Moist Mucous Membranes, Other (glossitis ) Neck: Normal Inspection, Supple Respiratory: Chest Non Tender, No Accessory Muscle Use, Crackles (R lung base) Cardiovascular: Regular Rate, Rhythm, No Gallop, No Murmur Gastrointestinal: Non Tender, Soft Back: Normal Inspection, No CVA Tenderness Neurologic/Psychiatric: Alert, Oriented x3, Aphasia (improved), Other (mild pronator drift noted on L) Skin: Normal Color, Warm/Dry Lymphatic: No Adenopathy Results/Procedures Lab Laboratory Tests 07/13/22 05:13 Patient resulted labs reviewed. Radiology NAME: CRISTAL SPEARS [facility] REC#: [id number] PT STATUS: REG ER : 1950 PHYSICIAN: DANNA HINKLE MD ADMIT DATE: 07/09/22/ER FS Signed Date of Exam:07/09/22 CHEST 1 VIEW AP/PA ONLY EXAMINATION: Chest 1 view HISTORY: Altered mental status. Fever. Vomiting. COMPARISON: None available. FINDINGS: The lung volumes are normal. No focal consolidation is seen. No large pleural effusion or pneumothorax is seen. The cardiomediastinal silhouette is normal in size and contour. There is calcified aortic atherosclerotic plaque. No acute osseous abnormality is seen. IMPRESSION: 1. No acute pleuroparenchymal process. Dictated by: Dictated on workstation # [id number] Dict: 07/09/2253 Trans: 07/09/22 1001 [facility] [id number] Interpreted by: CORRINE ANDERSON DO Electronically signed by: OCRRINE ANDERSON DO 07/09/22 1001 NAME: CRISTAL SPEARS [facility] REC#: [id number] PT STATUS: REG ER : 1950 PHYSICIAN: DANNA HINKLE MD ADMIT DATE: 07/09/22/ER FS Signed Date of Exam:07/09/22 CT HEAD WO-R/O STROKE PROCEDURE: CT head wo r/o stroke. TECHNIQUE: Multiple contiguous axial images were obtained through the brain without the use of intravenous contrast. Auto Exposure Controls were utilized during the CT exam to meet ALARA standards for radiation dose reduction. INDICATION: Altered mental status. Fever. Vomiting. Found down. COMPARISON: None. FINDINGS: Moderate generalized parenchymal volume loss. No CT evidence of territorial infarction. No intracranial hemorrhage, mass effect, hydrocephalus or extra-axial fluid collections. Intracranial vascular calcifications. Osseous structures are intact. Paranasal sinuses and mastoids are clear. IMPRESSION: No acute intracranial CT findings. Dictated by: Dictated on workstation # [id number] Dict: 07/09/2252 Trans: 07/09/22 1003 [id number] Interpreted by: NAOMI FOWLER MD Electronically signed by: NAOMI FOWLER MD 07/09/22 100 NAME: CRISTAL SPEARS [facility] REC#: [id number] PT STATUS: ADM IN : 1950 PHYSICIAN: DANNA HINKLE MD ADMIT DATE: 07/09/22/ICU Signed Date of Exam:07/09/22 CT CHEST/ABDOMEN/PELVIS WO PROCEDURE: CT chest, abdomen, and pelvis without contrast. TECHNIQUE: Multiple contiguous axial images were obtained through the chest, abdomen, and pelvis without the use of intravenous contrast. Auto Exposure Controls were utilized during the CT exam to meet ALARA standards for radiation dose reduction. INDICATION: Pain, fever and vomiting. No prior studies are available for comparison. CT CHEST: No axillary lymphadenopathy is detected. No definite mediastinal or hilar lymphadenopathy is identified. There are some calcified lymph nodes in the right hilum and subcarinal region consistent with prior granulomatous exposure. No pericardial or pleural fluid is identified. No pulmonary infiltrates, nodules or masses are detected. CT abdomen and pelvis: The liver is unremarkable. Gallbladder surgically absent. Pancreas and spleen are unremarkable. No adrenal mass is detected. Right kidney does contain a low-attenuation lesion in the upper pole measuring 4.4 cm consistent with a cyst. This has some thin peripheral calcification. Left kidney does contain a 10 mm slightly dense nodule arising from the lower pole which is indeterminate. No calculi are seen. There is no hydronephrosis. Aorta is heavily calcified but nonaneurysmal. Small and large bowel loops are normal caliber. There is no obstruction. There is a fat-containing umbilical hernia. No free fluid or fluid collection is seen. The bladder is unremarkable. Uterus appears to be surgically absent. IMPRESSION: 1. Unremarkable noncontrast CT of the chest. 2. Right renal cyst with thin peripheral constipation. 3. Indeterminate left renal lesion. Close interval follow-up to confirm stability would be recommended. 4. Fat-containing umbilical hernia. 5. No other significant abnormality is detected. Dictated by: Dictated on workstation # [id number] Dict: 07/09/22951 Trans: 07/09/221626 [id number] Interpreted by: ANT SOLIZ MD Electronically signed by: ANT SOLIZ MD 07/09/221626 NAME: CRISTAL SPEARS [facility] REC#: [id number] PT STATUS: ADM IN : 1950 PHYSICIAN: BRENDON ROSARIO MD ADMIT DATE: 07/09/22 Signed Date of Exam:07/11/22 MRI BRAIN W/O CONTRAST PROCEDURE: MR imaging of the brain without contrast. TECHNIQUE: Multiplanar, multisequence MR imaging of the brain was performed without contrast. INDICATION: Stroke. COMPARISON: CT head without contrast 07/09/2022. FINDINGS: There are several punctate foci of restricted water diffusion scattered throughout the left frontal, parietal, temporal, and occipital lobes. The Largest of these is in the left occipital lobe and measures 0.8 cm. Moderate generalized parenchymal volume loss. Mild nonspecific T2 hyperintensities in the supratentorial and pontine white matter, compatible with chronic small vessel ischemic change. No hemosiderin deposition or evidence of intracranial hemorrhage. Normal morphology including the major midline structures, sella, posterior fossa, and cerebellar pontine angle. Normal intracranial flow voids. Post operative changes in the globes. The paranasal sinuses and mastoids are clear. Normal bone marrow signal. IMPRESSION: 1. Scattered small foci of acute to subacute infarcts throughout the left MCA and VOTING MACHINE MECHANIC distributions, suspicious for an embolic phenomenon. 2. Moderate generalized parenchymal volume loss. Mild leukoaraiosis. 3. The report was called to the patient's nurse Selina by jlm@11:52 AM. Dictated by: Dictated on workstation # [id number] Dict: 07/11/22 1129 Trans: 07/11/221657 [id number] Interpreted by: NAOMI FOWLER MD Electronically signed by: NAOMI FOWLER MD 07/11/228 NAME: CRISTAL SPEARS [facility] REC#: [id number] PT STATUS: ADM IN : 1950 PHYSICIAN: BRENDON ROSARIO MD ADMIT DATE: 07/09/22 Signed Date of Exam:07/11/22 US CAROTID ANITA COMPLETE [id number] PROCEDURE: US carotid duplex, bilateral. TECHNIQUE: Multiple real-time grayscale images were obtained over the carotid arteries in various projections, bilaterally. Additional spectral analysis and color Doppler duplex images were also obtained. INDICATION: Dysarthria COMPARISON: None available FINDINGS: Right carotid circulation: The right common carotid artery is normal in caliber, and there is mild luminal stenosis due to atherosclerotic plaquing in its mid aspect. Peak systolic velocity in the right common carotid artery is 148 cm/sec. There is a small amount of atherosclerotic plaque in the carotid bulb and proximal internal carotid artery, which results in less than 50% luminal narrowing by chino scale imaging. The peak systolic velocity in the proximal internal carotid artery is 174 cm/sec. Proximal aspect of the external carotid artery is patent with expected high resistance waveforms, and peak systolic velocity of 99 cm/sec. Left carotid circulation: The left common carotid artery is normal in caliber, and there is no significant stenosis. Peak systolic velocity in the left common carotid artery is 88 cm/sec. There is a moderate to large amount of atherosclerotic plaque causing near complete occlusion chino-scale imaging. The peak systolic velocity in the proximal internal carotid artery is 414 cm/sec. Proximal aspect of the external carotid artery is patent with expected high resistance waveforms, and peak systolic velocity of 130 cm/sec. Vertebral arteries: Flow in the bilateral vertebral arteries is antegrade. IMPRESSION: 1. Near occlusion of the left ICA at its origin due to atherosclerotic plaque. 2. There is 50-69% stenosis of the right internal carotid artery. 3. Patent vertebral arteries with antegrade flow. Parameters based on the consensus panel [place]-Scale and Doppler ultrasound criteria published July 2003, Radiology, Volume 229. DOPPLER (peak systolic velocity M/S Right Left CCA 1.48 .88 ICA Proximal 1.74 4.14 ICA Mid 1.91 1.30 ICA Distal 1.43 1.47 RATIO 1.29 4.70 ECA .99 1.36 VERT .96 .34 Dictated by: Dictated on workstation # [id number] Dict: 07/11/22 1359 Trans: 07/11/22 1404 [facility] [id number] Interpreted by: KARINA LAW MD Electronically signed by: KARINA LAW MD 07/11/22 1404 Assessment/Plan Assessment and Plan Assess & Plan/Chief Complaint 1. DKA -Initiated SC Levemir 10 units this morning and advanced to CHO 1800 diet, titrate off insulin drip and normal saline to prevent fluid overload -Lactic acid 2.99 -PICC line d/t inability to obtain peripheral IV access -Hgb A1c 9.6 07/13: -resolved 2. DMT2 -uncontrolled, recently DC metformin d/t nausea -on ozempic at home 07/13: -Glucose at 254 today, insulin increased from 10 U to 20 U BID 3. UTI w/sepsis -Single dose Cefepime and IV 100mls Q24H Ceftriaxone started -Diaz catheter in place d/t confusion -Urine culture grew aerococcus urinae 07/13: -continues to be on IV 100mls Q24H Ceftriaxone -sepsis resolved -diaz DCed 3. Embolic CVA -MRI on 07/11 indicated embolic phenomenon in L MCA and VOTING MACH[employer] MECHANIC regions 4. 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 HTN -Likely d/t large amount of fluid pt received with insulin drip and sepsis protocol -Labetolol prn 07/12: -Trending down, restarted home meds -ECHO remarkable for: >LV concentric hypertrophy >LVEF 55-60% > Intraventricular conduction delay >Grade 1 diastolic dysfunction >LA mildly dilated >Mild calcification of mitral valve + mild MR >Mild AoV sclerosis >Pulmonary artery pressure of 35 mmHg 07/13: -BP increased to 214/88 this morning but decreased to 146/69 this afternoon 6. Headache -R temporal likely secondary to HTN 7. Urinary Incontinence -d/t bladder spasms following catheter removal 8. Carotid Stenosis -Carotid doppler on 07/11 showed B/L carotid stenosis with near occlusion -Consulted with debora and pt has been recommended for urgent outpt f/u refferal for endartectomy in 10-14 days d/t stroke concerns. Pt's family prefers treatment to be done at [facility] 9. Neuropathy -chronic, needing walker 10. H/o Falls -Pt lives alone in a senior facility >SS has spoken to pt about HH after discharge, pt does not want at this time. 11. Confusion -likely secondary to UTI and sepsis 07/13: -resolved Plan: Insulin increased to 20 U BID to address pt's continued hyperglycemia Contine IV abx Continue to monitor BP, address as needed PT/OT Inpatient rehab evaluation SHAKIRA BETH DO 07/14/22 0540: Subjective Subjective/Events-last exam Patient doing well Appears to be confused at times Blood pressure still elevated Objective Exam General Appearance: No Apparent Distress, WD/WN, Chronically ill Respiratory: Lungs Clear, Normal Breath Sounds Cardiovascular: Regular Rate, Rhythm Neurologic/Psychiatric: Alert, Oriented x3 Assessment/Plan Assessment and Plan Assess & Plan/Chief Complaint Blood pressure management Supervisory-Addendum Brief Verification & Attestation Participated in pt care: history, MDM, physical Personally performed: exam, history, MDM, supervision of care Care discussed with: Medical Student Procedures: n/a Results interpretation: Verified all documentation Verification and Attestation of Medical Student E/M Service A medical student performed and documented this service in my presence. I reviewed and verified all information documented by the medical student and made modifications to such information, when appropriate. I personally performed the physical exam and medical decision making. Shakira Beth, Jul 14, 2022,05:39 DEANDRE IQBAL Jul 13, 2022 15:01 SHAKIRA BETH DO Jul 14, 2022 05:40
[2022-07-13 16:28] VITALS: BP 180/84
[2022-07-13] MEDS ORDERED: DIPHENHYDRAMINE HCL 50 MG PO PRN (17:45)
[2022-07-13] MEDS ORDERED: cloNIDine 0.1 MG (CATAPRES) TAB PO PRN (17:45)
[2022-07-13] MEDS ORDERED: diphenhydrAMINE 25 MG TAB (BENADRYL) PO PRN (18:30)
[2022-07-13] MEDS: GABAPENTIN 100 MG (NEURONTIN) CAP PO SCH ×2 (18:48→20:06)
[2022-07-13 20:16] VITALS: BP 206/95
[2022-07-13 21:28] VITALS: BP 184/78
[2022-07-13] MEDS ORDERED: cloNIDine 0.2 MG (CATAPRES) TAB PO PRN (22:00)
[2022-07-13] MEDS ORDERED: cloNIDine 0.1 MG (CATAPRES) TAB PO ONE (22:00)
[2022-07-13] MEDS ORDERED: cloNIDine 0.1 MG (CATAPRES) TAB ONE (22:11)
[2022-07-14] VITALS (7 sets, daily range): BP systolic 110–140; BP diastolic 55–73
[2022-07-14 06:00] LABS: BASOPHILS % (AUTO) 1 % (0-10); EOSINOPHILS # (AUTO) 0.2 10^3/uL (0.0-0.3); EOSINOPHILS % (AUTO) 3 % (0-10); HEMATOCRIT 36 % (35-52); HEMOGLOBIN 11.2 g/dL (11.5-16.0); LYMPHOCYTES # (AUTO) 1.4 10^3/uL (1.0-4.0); LYMPHOCYTES % (AUTO) 24 % (12-44); MEAN CORPUSCULAR HEMOGLOBIN 28 pg (25-34); MEAN CORPUSCULAR HGB CONC 31 g/dL (32-36); MEAN CORPUSCULAR VOLUME 91 fL (80-99); MEAN PLATELET VOLUME 12.4 fL (9.0-12.2); MONOCYTES # (AUTO) 0.5 10^3/uL (0.0-1.0); MONOCYTES % (AUTO) 8 % (0-12); NEUTROPHILS # (AUTO) 3.8 10^3/uL (1.8-7.8); NEUTROPHILS % (AUTO) 64 % (42-75); PLATELET COUNT 140 10^3/uL (130-400)
[2022-07-14 06:08] LABS: ALBUMIN 3.5 GM/DL (3.2-4.5)
[2022-07-14 06:09] LABS: POTASSIUM 3.9 MMOL/L (3.6-5.0)
[2022-07-14 06:10] LABS: CALCIUM 9.4 MG/DL (8.5-10.1)
[2022-07-14 06:13] LABS: BILIRUBIN,TOTAL 0.2 MG/DL (0.1-1.0)
[2022-07-14] MEDS: KCL 20 MEQ TAB (K-DUR) PO SCH (06:14)
[2022-07-14 06:15] LABS: CREATININE SERUM 0.81 MG/DL (0.60-1.30)
[2022-07-14 06:18] LABS: MAGNESIUM 1.7 MG/DL (1.6-2.4)
[2022-07-14] MEDS: inSUlin ASPART (NovoLOG) 1 UNIT/0.01 ML (CHARGE PER UNIT) SC SCH ×6 (06:28→20:04)
--- NOTE | 2022-07-14 08:09 | Progress Note - Hospitalist ---
Subjective HPI/CC On Admission Date Seen by Provider: Jul 14, 2022 Time Seen by Provider: 11:00 Subjective/Events-last exam Hypertensive issues last night and responded to clonidine Rarely has elevated blood pressure she reports that she used to take a lot of medication for it No other issues Tired today Review of Systems General: Fatigue, Malaise Objective Exam Vital Signs Vital Signs Date Time Temp Pulse Resp B/P (MAP) Pulse Ox O2 Delivery O2 Flow Rate FiO2 07/14/22 15:31 36.4 70 18 120/70 (87) 97 Room Air 07/09/22 18:00 1.00 Capillary Refill : Less Than 3 Seconds General Appearance: No Apparent Distress, WD/WN, Chronically ill Respiratory: Lungs Clear, Normal Breath Sounds Cardiovascular: Regular Rate, Rhythm Results/Procedures Lab Laboratory Tests 07/14/22 05:40 Patient resulted labs reviewed. Assessment/Plan Assessment and Plan Assess & Plan/Chief Complaint Blood pressure management DC telemetry Continue therapy Monitor closely Increase NovoLog scheduled before meals Critical Care Critically Ill Patient TIA BETH DO Jul 14, 2022 08:09
[2022-07-14] MEDS: ACETAMINOPHEN 325 MG TABLET PO PRN ×2 (08:22→15:22)
[2022-07-14] MEDS: ASPIRIN 81 MG CHEW (CHILDREN'S ASA) PO SCH (09:05)
[2022-07-14] MEDS: GABAPENTIN 100 MG (NEURONTIN) CAP PO SCH ×3 (09:06→20:00)
[2022-07-14] MEDS: meTOprolol TARTRATE 50 MG (LOPRESSOR) TAB PO SCH ×2 (09:06→20:00)
[2022-07-14] MEDS: lisINopril 10 MG (PRINIVIL) TABLET PO SCH (09:12)
--- NOTE | 2022-07-14 10:48 | Physical Therapy Daily Note ---
PT Daily Note-Current Subjective Pt relaxed in bed upon arrival to room, agreeable to PT treatment. Reports she has DE 3/10 and low back pain 6/10, "I think it is because I slept so hard last night." Pain Section J - Health Conditions 1. Rarely or not at all 2. Occasionally 3. Frequently 4. Almost constantly 8. Unable to answer Pain Effect on Sleep: 4 Pain Interference with Therapy: 4 Pain Interference w/Day-to-Day: 4 Appearance Following session, pt supine in bed with call light, phone and tray table within reach. All needs met at this time. Mental Status Patient Orientation: Person, Place, Time, Situation Transfers SCALE: Activities may be completed with or without assistive devices. 7-Kadgzcrjju-fwimush completes the activity by him/herself with no assistance from a helper. 5-Set-up or Clean-up Assistance-helper sets up or cleans up; patient completes activity. [place] assists only prior to or following the activity. 4-Supervision or Touching Assistance-helper provides verbal cues and/or touching/steadying and/or contact guard assistance as patient completes activity. Assistance may be provided throughout the activity or intermittently. 3-Partial/Moderate Assistance-helper does LESS THAN HALF the effort. [place] lifts, holds or supports trunk or limbs, but provides less than half the effort. 2-Substantial/Maximal Assistance-helper does MORE THAN HALF the effort. [place] lifts or holds trunk or limbs and provides more than half the effort. 6-Vuxiardrk-qduanp does ALL the effort. Patient does none of the effort to complete the activity. Or, the assistance of 2 or more helpers is required for the patient to complete the activity. If activity was not attempted, code reason: 7-Patient Refused. 9-Not Applicable-not attempted and the patient did not perform the activity before the current illness, exacerbation or injury. 10-Not Attempted due to Environmental Limitations-(lack of equipment, weather restraints, etc.). 88-Not Attempted due to Medical Conditions or Safety Concerns. Roll Left & Right (QC): 6 Sit to Lying (QC): 6 Lying to Sitting/Side of Bed(Q: 6 Sit to Stand (QC): 4 Weight Bearing Right Lower Extremity: Right Weight Bearing/Tolerated Left Lower Extremity: Left Weight Bearing/Tolerated Gait Training Distance: 200' Walk 150 ft (QC): 4 Gait Assistive Device: FWW SBA. Pt had one instance on LOB, able to regain balance (I) with stepping strategy. Assessment Current Status: Good Progress Pt limited in ambulation distance this date due to LBP and DE. Will continue to progress as pt tolerates. PT [facility] Goals Sfdc Technical Architect Goals PT Sfdc Technical Architect Goals Time Frame: Jul 18, 2022 Roll Left & Right (QC): 4 (SBA) Sit to Lying (QC): 4 (SBA) Lying-Sitting on Side/Bed(QC): 4 (SBA) Sit to Stand (QC): 4 (SBA) Chair/Awg-yl-Zwxan Xfer(QC): 4 (SBA) Walk 10 feet (QC): 4 (SBA) Walk 50ft with 2 Turns (QC): 4 (SBA) PT Plan Problem List Problem List: Activity Tolerance, Functional Strength, Safety, Balance, Gait, Transfer, Bed Mobility, ROM Treatment/Plan Treatment Plan: Continue Plan of Care Treatment Plan: Bed Mobility, Education, Functional Activity Siva, Functional Strength, Gait, Safety, Therapeutic Exercise, Transfers Treatment Duration: Jul 18, 2022 Frequency: 6 times per week Estimated Hrs Per Day: .25 hour per day Patient and/or Family Agrees t: Yes Time Time In: 1010 Time Out: 1020 Total Billed Treatment Time: 10 Total Billed Treatment 1 visit GT (10') NICHOL ULRICH PT Jul 14, 2022 10:48
[2022-07-14] MEDS ORDERED: SENNA W/DOCUSATE (SENOKOT S) TABLET PO ONE (12:45)
[2022-07-14] MEDS ORDERED: DOCUSATE SODIUM 100 MG (COLACE) CAP PO ONE (12:45)
[2022-07-14] MEDS: ENOXAPARIN 40 MG/0.4 ML (LOVENOX) SYR SC SCH (14:27)
[2022-07-14] MEDS: DOCUSATE SODIUM 100 MG (COLACE) CAP PO SCH (20:00)
[2022-07-14] MEDS: SENNA W/DOCUSATE (SENOKOT S) TABLET PO SCH (20:00)
[2022-07-15 00:36] VITALS: BP 121/69
[2022-07-15 04:24] VITALS: BP 156/78
[2022-07-15] MEDS: inSUlin ASPART (NovoLOG) 1 UNIT/0.01 ML (CHARGE PER UNIT) SC SCH ×7 (06:12→20:38)
--- NOTE | 2022-07-15 06:27 | Progress Note - Hospitalist ---
Subjective HPI/CC On Admission Date Seen by Provider: Jul 15, 2022 Time Seen by Provider: 12:30 Subjective/Events-last exam Patient doing really well Blood pressure stable No falls Improving Review of Systems General: Fatigue, Malaise Objective Exam Vital Signs Vital Signs Date Time Temp Pulse Resp B/P (MAP) Pulse Ox O2 Delivery O2 Flow Rate FiO2 07/15/22 11:59 35.7 70 18 154/87 (109) 97 07/15/22 08:45 Room Air 07/15/22 08:18 0.00 07/14/22 23:38 21 Capillary Refill : Less Than 3 Seconds General Appearance: No Apparent Distress, WD/WN, Chronically ill Respiratory: Lungs Clear, Normal Breath Sounds Cardiovascular: Regular Rate, Rhythm Results/Procedures Lab Laboratory Tests 07/15/22 06:36 Patient resulted labs reviewed. Assessment/Plan Assessment and Plan Assess & Plan/Chief Complaint Blood pressure management DC telemetry Continue therapy Monitor closely Increase NovoLog scheduled before meals Critical Care Critically Ill Patient TIA BETH DO Jul 15, 2022 06:27
[2022-07-15 06:46] LABS: BASOPHILS # (AUTO) 0.1 10^3/uL (0.0-0.1); BASOPHILS % (AUTO) 1 % (0-10); EOSINOPHILS # (AUTO) 0.2 10^3/uL (0.0-0.3); EOSINOPHILS % (AUTO) 2 % (0-10); HEMATOCRIT 38 % (35-52); LYMPHOCYTES # (AUTO) 1.6 10^3/uL (1.0-4.0); LYMPHOCYTES % (AUTO) 22 % (12-44); MEAN CORPUSCULAR HEMOGLOBIN 28 pg (25-34); MEAN CORPUSCULAR HGB CONC 31 g/dL (32-36); MEAN CORPUSCULAR VOLUME 91 fL (80-99); MEAN PLATELET VOLUME 12.5 fL (9.0-12.2); MONOCYTES # (AUTO) 0.6 10^3/uL (0.0-1.0); MONOCYTES % (AUTO) 8 % (0-12); NEUTROPHILS # (AUTO) 4.9 10^3/uL (1.8-7.8); NEUTROPHILS % (AUTO) 67 % (42-75); PLATELET COUNT 132 10^3/uL (130-400); WHITE BLOOD COUNT 7.3 10^3/uL (4.3-11.0)
[2022-07-15 07:06] LABS: ALBUMIN 3.7 GM/DL (3.2-4.5)
[2022-07-15 07:07] LABS: CALCIUM 9.1 MG/DL (8.5-10.1)
[2022-07-15 07:08] LABS: TOTAL PROTEIN 6.3 GM/DL (6.4-8.2)
[2022-07-15 07:10] LABS: BILIRUBIN,TOTAL 0.3 MG/DL (0.1-1.0)
[2022-07-15 07:11] LABS: PHOSPHORUS 3.6 MG/DL (2.3-4.7)
[2022-07-15 07:12] LABS: CREATININE SERUM 0.83 MG/DL (0.60-1.30)
[2022-07-15] MEDS: KCL 20 MEQ TAB (K-DUR) PO SCH (07:14)
[2022-07-15 07:15] LABS: MAGNESIUM 1.7 MG/DL (1.6-2.4)
[2022-07-15] MEDS: SENNA W/DOCUSATE (SENOKOT S) TABLET PO SCH ×2 (07:48→20:37)
[2022-07-15] MEDS: lisINopril 10 MG (PRINIVIL) TABLET PO SCH (07:48)
[2022-07-15] MEDS: DOCUSATE SODIUM 100 MG (COLACE) CAP PO SCH ×2 (07:48→20:38)
[2022-07-15] MEDS: ASPIRIN 81 MG CHEW (CHILDREN'S ASA) PO SCH (07:48)
[2022-07-15] MEDS: meTOprolol TARTRATE 50 MG (LOPRESSOR) TAB PO SCH ×2 (07:48→20:37)
[2022-07-15] MEDS: GABAPENTIN 100 MG (NEURONTIN) CAP PO SCH ×3 (07:57→20:37)
[2022-07-15 08:00] VITALS: BP 131/69
[2022-07-15 11:59] VITALS: BP 154/87
[2022-07-15] MEDS: ENOXAPARIN 40 MG/0.4 ML (LOVENOX) SYR SC SCH (12:20)
[2022-07-15] MEDS ORDERED: BISACODYL 10 MG SUPP (DULCOLAX) PR ONE (12:30)
[2022-07-15] MEDS ORDERED: MILK OF MAGNESIA 400 MG/5 ML 30 ML UDC PO ONE (12:30)
[2022-07-15] MEDS: ACETAMINOPHEN 325 MG TABLET PO PRN (14:21)
[2022-07-15 15:36] VITALS: BP 173/78
[2022-07-15 19:07] VITALS: BP 136/91
[2022-07-16 00:26] VITALS: BP 150/76
[2022-07-16] MEDS: inSUlin ASPART (NovoLOG) 1 UNIT/0.01 ML (CHARGE PER UNIT) SC SCH ×4 (05:36→12:25)
[2022-07-16 05:46] LABS: BASOPHILS % (AUTO) 1 % (0-10); EOSINOPHILS # (AUTO) 0.2 10^3/uL (0.0-0.3); EOSINOPHILS % (AUTO) 3 % (0-10); HEMATOCRIT 38 % (35-52); HEMOGLOBIN 12.2 g/dL (11.5-16.0); LYMPHOCYTES # (AUTO) 1.7 10^3/uL (1.0-4.0); LYMPHOCYTES % (AUTO) 21 % (12-44); MEAN CORPUSCULAR HEMOGLOBIN 29 pg (25-34); MEAN CORPUSCULAR HGB CONC 32 g/dL (32-36); MEAN CORPUSCULAR VOLUME 90 fL (80-99); MEAN PLATELET VOLUME 12.2 fL (9.0-12.2); MONOCYTES # (AUTO) 0.6 10^3/uL (0.0-1.0); MONOCYTES % (AUTO) 8 % (0-12); NEUTROPHILS # (AUTO) 5.2 10^3/uL (1.8-7.8); NEUTROPHILS % (AUTO) 67 % (42-75); PLATELET COUNT 143 10^3/uL (130-400); WHITE BLOOD COUNT 7.9 10^3/uL (4.3-11.0)
[2022-07-16 05:57] LABS: ALBUMIN 3.7 GM/DL (3.2-4.5)
[2022-07-16 05:59] LABS: CALCIUM 8.5 MG/DL (8.5-10.1)
[2022-07-16 06:00] LABS: TOTAL PROTEIN 6.3 GM/DL (6.4-8.2)
[2022-07-16 06:02] LABS: BILIRUBIN,TOTAL 0.3 MG/DL (0.1-1.0)
[2022-07-16 06:03] LABS: PHOSPHORUS 3.1 MG/DL (2.3-4.7)
[2022-07-16 06:04] LABS: CREATININE SERUM 0.78 MG/DL (0.60-1.30)
[2022-07-16 06:06] LABS: MAGNESIUM 1.8 MG/DL (1.6-2.4)
[2022-07-16] MEDS: KCL 20 MEQ TAB (K-DUR) PO SCH (06:06)
[2022-07-16] MEDS: ACETAMINOPHEN 325 MG TABLET PO PRN (06:54)
[2022-07-16 07:28] VITALS: BP 156/87
[2022-07-16] MEDS: lisINopril 10 MG (PRINIVIL) TABLET PO SCH (08:44)
[2022-07-16] MEDS: meTOprolol TARTRATE 50 MG (LOPRESSOR) TAB PO SCH (08:44)
[2022-07-16] MEDS: DOCUSATE SODIUM 100 MG (COLACE) CAP PO SCH (08:44)
[2022-07-16] MEDS: ASPIRIN 81 MG CHEW (CHILDREN'S ASA) PO SCH (08:44)
[2022-07-16] MEDS: GABAPENTIN 100 MG (NEURONTIN) CAP PO SCH (08:49)
--- NOTE | 2022-07-16 09:01 | Occupational Ther Daily Note ---
OT Current Status-Daily Note Subjective Pt in bed, agreeable to OT Tx. Pt states she is tired today. Mental Status/Objective Patient Orientation: Person, Place, Time, Situation ADL-Treatment Therapy Code Descriptions/Definitions Functional [place] Measure: 0=Not Assessed/NA 4=Minimal Assistance 1=Total Assistance 5=Supervision or Setup 2=Maximal Assistance 6=Modified [place] 3=Moderate Assistance 7=Complete IndependenceSCALE: Activities may be completed with or without assistive devices. 3-Scvajpmizn-xqjbywj completes the activity by him/herself with no assistance from a helper. 5-Set-up or Clean-up Assistance-helper sets up or cleans up; patient completes activity. [place] assists only prior to or following the activity. 4-Supervision or Touching Assistance-helper provides verbal cues and/or touching/steadying and/or contact guard assistance as patient completes activity. Assistance may be provided throughout the activity or intermittently. 3-Partial/Moderate Assistance-helper does LESS THAN HALF the effort. [place] lifts, holds or supports trunk or limbs, but provides less than half the effort. 2-Substantial/Maximal Assistance-helper does MORE THAN HALF the effort. [place] lifts or holds trunk or limbs and provides more than half the effort. 4-Xyanubazi-qiwohw does ALL the effort. Patient does none of the effort to complete the activity. Or, the assistance of 2 or more helpers is required for the patient to complete the activity. If activity was not attempted, code reason: 7-Patient Refused. 9-Not Applicable-not attempted and the patient did not perform the activity before the current illness, exacerbation or injury. 10-Not Attempted due to Environmental Limitations-(lack of equipment, weather restraints, etc.). 88-Not Attempted due to Medical Conditions or Safety Concerns. Other Treatment Pt in bed, declined toileting at this time, and indicates she has already brushed her teeth this AM. Pt agreeable to UE exercises in order to increase BUE Strength and activity tolerance. Pt transferred supine to sit EOB independently, then completed x15 reps each of the following BUE exercises: shoulder flexion, elbow flexion/extension, front punch, and finger flexion/extension. Pt took rest breaks as needed between exercises. Pt returned supine independently. Post tx, pt in bed, call light in reach and all needs met. Education OT Patient Education: Correct positioning, Energy conservation, Modified ADL techniques, Progress toward Goal/Update tx plan, Purpose of tx/functional activities, Rehab process Teaching Recipient: Patient Teaching Methods: Discussion Response to Teaching: Verbalize Understanding OT Shake Packer Goals Shake Packer Goals Time Frame: Jul 27, 2022 Eating (QC): 6 Oral Hygiene (QC): 5 Toileting Hygiene (QC): 4 Shower/Bathe Self (QC): 4 Upper Body Dressing (QC): 5 Lower Body Dressing (QC): 4 On/Off Footwear (QC): 4 Additional Goals: 1-Demonstrate ADL Tasks, 2-Verbalize Understanding, 3- ImproveStrength/Siva 1=Demonstrate adherence to instructed precautions during ADL tasks. 2=Patient will verbalize/demonstrate understanding of assistive devices/modifications for ADL. 3=Patient will improve strength/tolerance for activity to enable patient to perform ADL's. OT Education/Plan Problem List/Assessment Assessment: Decreased Activ Tolerance, Decreased UE Strength, Impaired I ADL's Discharge Recommendations Plan/Recommendations: Continue POC Treatment Plan/Plan of Care Patient would benefit from OT for education, treatment and training to promote independence in ADL's, mobility, safety and/or upper extremity function for ADL's. Plan of Care: ADL Retraining, Functional Mobility, UE Funct Exercise/Act Treatment Duration: Jul 27, 2022 Frequency: 3 times per week (3-5 times per week) Estimated Hrs Per Day: .25 hour per day Agreement: Yes Rehab Potential: Fair Time/GCodes Start Time: 08:27 Stop Time: 08:37 Total Time Billed (hr/min): 10 Billed Treatment Time 1, EX RUBEN STONE OT Jul 16, 2022 09:01
[2022-07-16] MEDS: SENNA W/DOCUSATE (SENOKOT S) TABLET PO SCH (09:52)
[2022-07-16] MEDS ORDERED: INSU100I14 SQ (10:13)
[2022-07-16] MEDS ORDERED: ATOR80TA76 PO (10:13)
[2022-07-16] MEDS ORDERED: ASPI81TA64 PO (10:13)
[2022-07-16] MEDS ORDERED: INSU100I29 SQ (10:13)
[2022-07-16] MEDS ORDERED: INSU1KIT MC (10:13)
[2022-07-16] MEDS ORDERED: [UNRECOGNIZED DRUG - CODE] MC (10:13)
--- NOTE | 2022-07-16 10:13 | Discharge Summary ---
Discharge Summary Hospital Course Was the Problem List Reviewed?: Yes Problems/Dx: (1) UTI (urinary tract infection) Status: Acute Qualifiers: (2) DKA (diabetic ketoacidosis) Status: Resolved Qualifiers: Qualified Codes: E11.10 - Type 2 diabetes mellitus with ketoacidosis without coma (3) Severe sepsis Status: Acute Hospital Course Date of Admission: Jul 09, 2022 at 12:36 Admission Diagnosis : Family Physician/Provider: Date of Discharge: 07/16/22 Discharge Diagnosis: [ ] Hospital Course: Pt had an uneventful lengthy hospital course for 8 days after she was admitted for DKA. 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 Pt did well on insulin. She will go home on insulin. She was willing to do that. She declined any home care, rehab, or nursing facility. I did talk to her son, Vinayak, in depth and I answered all of his questions to the best of my ability. She will have close follow-up with a vascular surgeon at for management of carotid stenosis but needs to manage the acute stroke at this time. No surgical intervention indicated, so she will have close follow up to establish care with vascular surgeon. Labs and Pending Lab Test: Laboratory Tests 07/15/22 10:28: Glucometer 168H 07/15/22 15:43: Glucometer 219H 07/15/22 20:16: Glucometer 175H 07/16/22 04:50: Glucometer 195H 07/16/22 05:30: White Blood Count 7.9, Red Blood Count 4.26, Hemoglobin 12.2, Hematocrit 38, Mean Corpuscular Volume 90, Mean Corpuscular Hemoglobin 29, Mean Corpuscular Hemoglobin Concent 32, Red Cell Distribution Width 13.7, Platelet Count 143, Mean Platelet Volume 12.2, Immature Granulocyte % (Auto) 1, Neutrophils (%) (Auto) 67, Lymphocytes (%) (Auto) 21, Monocytes (%) (Auto) 8, Eosinophils (%) (Auto) 3, Basophils (%) (Auto) 1, Neutrophils # (Auto) 5.2, Lymphocytes # (Auto) 1.7, Monocytes # (Auto) 0.6, Eosinophils # (Auto) 0.2, Basophils # (Auto) 0.0, Immature Granulocyte # (Auto) 0.1, Sodium Level 136, Potassium Level 4.0, Chlor dinesh Level 105, Carbon Dioxide Level 20L, Anion Gap 11, Blood Urea Nitrogen 16, Creatinine 0.78, Estimat Glomerular Filtration Rate 81, BUN/Creatinine Ratio 21, Glucose Level 205H, Calcium Level 8.5, Corrected Calcium 8.7, Phosphorus Level 3.1, Magnesium Level 1.8, Total Bilirubin 0.3, Aspartate Amino Transf (AST/SGOT) 25, Alanine Aminotransferase (ALT/SGPT) 22, Alkaline Phosphatase 51, Total Protein 6.3L, Albumin 3.7 Microbiology 07/09/22 MRSA Screen - Final, Complete MRSA not isolated 07/09/22 Urine Culture - Final, Complete Aerococcus urinae 07/09/22 Blood Culture - Final, Complete No growth Home Meds Active Reported Metformin HCl ER (Metformin HCl) 500 Mg Tab.er.24h 1,000 Mg PO BID TAKES 2 (500MG) TABS Ozempic (Semaglutide) 0.25 Mg/0.2 Ml Pen.injctr 0.5 Mg SQ WEEK Sleep II (Diphenhydramine HCl) 25 Mg Tablet 25-50 Mg PO HS PRN Hydrochlorothiazide 25 Mg Tablet 25 Mg PO DAILY Tramadol HCl 50 Mg Tablet 50-100 Mg PO TID PRN Rosuvastatin Calcium 10 Mg Tablet 10 Mg PO HS Gabapentin 100 Mg Capsule 200 Mg PO HS Gabapentin 100 Mg Capsule 100 Mg PO 0800,1800 Metoprolol Tartrate 50 Mg Tablet 50 Mg PO BID Lisinopril 10 Mg Tablet 10 Mg PO DAILY Assessment/Pt Instructions PCP in 1 week Discharge Planning: <30 minutes discharge planning Discharge Instructions Discharge Diet: ADA Diet Discharge Physical Examination Vital Signs Vital Signs Date Time Temp Pulse Resp B/P (MAP) Pulse Ox O2 Delivery O2 Flow Rate FiO2 07/16/22 07:28 36.5 70 18 156/87 (110) 97 Room Air 07/15/22 08:18 0.00 07/14/22 23:38 21 General Appearance: No Apparent Distress, WD/WN, Chronically ill Respiratory: Lungs Clear Cardiovascular: Regular Rate, Rhythm Allergies: Coded Allergies: Tetanus Vaccines and Toxoid (Verified Allergy, Unknown, 04/04/21) codeine (Verified Allergy, Unknown, 04/04/21) meperidine (Verified Allergy, Unknown, Nausea, 07/09/22) morphine (Verified Allergy, Unknown, 7/20/21) Uncoded Allergies: IV contrast dye (Allergy, Unknown, 04/04/21) Discharge Summary Date of Admission Jul 09, 2022 at 12:36 Date of Discharge Discharge Date: Jul 16, 2022 Discharge Diagnosis Blood pressure management DC telemetry Continue therapy Monitor closely Increase NovoLog scheduled before meals (1) UTI (urinary tract infection) Status: Acute Qualifiers: (2) DKA (diabetic ketoacidosis) Status: Resolved Qualifiers: Qualified Codes: E11.10 - Type 2 diabetes mellitus with ketoacidosis without coma (3) Severe sepsis Status: Acute TIA BETH DO Jul 16, 2022 10:13
[2022-07-16] MEDS ORDERED: BLOO-1350 MC (10:51)
[2022-07-16] MEDS ORDERED: BLOO-438 MC (10:51)
--- NOTE | 2022-07-16 11:01 | Physical Therapy Daily Note ---
PT Daily Note-Current Subjective Patient in bed pre-tx, reports pain 6/10 in LE, agrees to PT. Pain Section J - Health Conditions 1. Rarely or not at all 2. Occasionally 3. Frequently 4. Almost constantly 8. Unable to answer Pain Effect on Sleep: 4 Pain Interference with Therapy: 4 Pain Interference w/Day-to-Day: 4 Appearance Patient in recliner post-tx with nurse call, phone, tray, and all needs to met. Mental Status Patient Orientation: Person, Place, Situation Transfers SCALE: Activities may be completed with or without assistive devices. 5-Ugqnwcefxm-ptkvswf completes the activity by him/herself with no assistance from a helper. 5-Set-up or Clean-up Assistance-helper sets up or cleans up; patient completes activity. [place] assists only prior to or following the activity. 4-Supervision or Touching Assistance-helper provides verbal cues and/or touching/steadying and/or contact guard assistance as patient completes activ ity. Assistance may be provided throughout the activity or intermittently. 3-Partial/Moderate Assistance-helper does LESS THAN HALF the effort. [place] lifts, holds or supports trunk or limbs, but provides less than half the effort. 2-Substantial/Maximal Assistance-helper does MORE THAN HALF the effort. [place] lifts or holds trunk or limbs and provides more than half the effort. 5-Rfirecpev-oorvlk does ALL the effort. Patient does none of the effort to complete the activity. Or, the assistance of 2 or more helpers is required for the patient to complete the activity. If activity was not attempted, code reason: 7-Patient Refused. 9-Not Applicable-not attempted and the patient did not perform the activity before the current illness, exacerbation or injury. 10-Not Attempted due to Environmental Limitations-(lack of equipment, weather restraints, etc.). 88-Not Attempted due to Medical Conditions or Safety Concerns. Lying to Sitting/Side of Bed(Q: 6 Sit to Stand (QC): 4 SBA for sit to stand, independent for lying to sit. Weight Bearing Right Lower Extremity: Right Weight Bearing/Tolerated Left Lower Extremity: Left Weight Bearing/Tolerated Gait Training Does the Patient Walk?: Yes Distance: 250' Walk 10 feet (QC): 4 Walk 50 ft with 2 Turns(QC): 4 Walk 150 ft (QC): 4 Gait Persons Needed: 1 Gait Assistive Device: FWW SBA, patient ambulates with a slower gait speed, decent step length, and functional foot clearance. Patient turning better without being unsteady. Exercises Seated Therapy Exercises: Ankle pumps, Long arc quads, Hip flexion, Hip abd/add (manual resistance) Seated Reps: 20 Treatments Ambulation, LE Strengthening Assessment Current Status: Fair Progress Patient making fair progress, but pain doesn't seem to be decreasing in LE. Patients headache from Saturday's visit is gone. Patient reports having high blood pressure but that is better since being on new medication. PT Director Digital Sales Goals Director Digital Sales Goals PT Director Digital Sales Goals Time Frame: Jul 18, 2022 Roll Left & Right (QC): 4 (SBA) Sit to Lying (QC): 4 (SBA) Lying-Sitting on Side/Bed(QC): 4 (SBA) Sit to Stand (QC): 4 (SBA) Chair/Xcj-bl-Qemje Xfer(QC): 4 (SBA) Walk 10 feet (QC): 4 (SBA) Walk 50ft with 2 Turns (QC): 4 (SBA) PT Plan Problem List Problem List: Activity Tolerance, Functional Strength, Safety, Balance, Gait, Transfer, Bed Mobility, ROM Treatment/Plan Treatment Plan: Continue Plan of Care Treatment Plan: Bed Mobility, Education, Functional Activity Siva, Functional Strength, Gait, Safety, Therapeutic Exercise, Transfers Treatment Duration: Jul 18, 2022 Frequency: 6 times per week Estimated Hrs Per Day: .25 hour per day Patient and/or Family Agrees t: Yes Safety Risks/Education Patient Education: Gait Training, Transfer Techniques, Correct Positioning, Safety Issues Teaching Recipient: Patient Teaching Methods: Demonstration, Discussion Response to Teaching: Verbalize Understanding Time Time In: 1014 Time Out: 1030 Total Billed Treatment Time: 16 Total Billed Treatment 1 visit FA 16min ELLIOT BENNETT PT Jul 16, 2022 11:01
[2022-07-16] MEDS: ENOXAPARIN 40 MG/0.4 ML (LOVENOX) SYR SC SCH (12:25)
[2022-07-16] MEDS ORDERED: ONDANSETRON 4 MG/2 ML (SDV) Z0FRAN IVP PRN (14:45)
[2022-07-16] MEDS ORDERED: ONDA4TAB11 SL (15:02)
--- NOTE | 2022-07-16 15:04 | D/C HH Face to Face Order ---
D/C Face to Face Orders Reconcile Patient Problems Problems Reviewed?: Yes Instructions for Patient [facility], Patient Instructions/FollowUp: PCP 1 week Vascular surgeon [facility] carotid stenosis Physician to follow Patient: [facility] Discharge Diet for Home: ADA Diet Patient Problems: CVA Carotid stenosis DKA Patient Data-Allergies,Ht & Wt Patient Allergies: Coded Allergies: Tetanus Vaccines and Toxoid (Verified Allergy, Unknown, 04/04/21) codeine (Verified Allergy, Unknown, 04/04/21) meperidine (Verified Allergy, Unknown, Nausea, 07/09/22) morphine (Verified Allergy, Unknown, 04/04/21) Uncoded Allergies: IV contrast dye (Allergy, Unknown, 04/04/21) Home Health Need/Face to Face Date of Face to Face: Jul 16, 2022 Clinical Findings: Generalized weakness and fatigue, Instability, Muscle weakness, Unsteady gait I have seen Pt inpl-sb-chqt: Yes Discharged To: Home Diagnosis/Conditions: CVA Patient is Homebound due to: Jazmine fall risk due to instabilty, Muscle weakness Homebound Status Due to the above stated illness, injury or surgical procedure (medical condition or diagnosis) and associated clinical findings, the patient is homebound because of his/her inability to leave home except with aid of a supportive device and/or person AND leaving the home requires a considerable and taxing effort or is medically contraindicated. Pt req the following assistanc: Walker Home Health Nursing Orders Home Health Services Order: Nursing Services, Statistical Assistant-Evaluate & Treat, Physical Therapy-Evaluate & Treat Home Health Infusion Therapy Line Start Date: Jul 11, 2022 Certify Stmt I certify that this patient is under my care and that I, a nurse practitioner or a physician; a contract assistant working with me, had a face to face encounter that - meets the physician face to face encounter requirements with this patient as dated. TIA BETH DO Jul 16, 2022 15:03
[2022-07-16] MEDS ORDERED: ONDANSETRON 4 MG (ZOFRAN) ORAL DISSOLVE TAB PO PRN (15:15)
[2022-07-16 15:58] VITALS: BP 156/87
--- NOTE | 2022-07-16 21:41 | Physician Query Clarification ---
Physician Query-General Query to Physician: The patient, in the setting of History/Risk factors, Sepsis, DKA, concern for CVA Clinical Findings initial GCS 14 then documented to to be 10 to 12 for next 24 hours then improved to 15 and remained 15, documentation of "confused" on admission. Glucose 441 on admission, UTI pos with Aerococcus urinae Treatment IV fluids, IV ABX, CT head, Neuro checks, Question: Can you further specify encephalopathy per the clinical indicators above? Please document your response in the Progress Notes or Discharge Summary. 1. Metabolic/septic encephalopathy, present on admission, now resolved 2. Other, with explanation of clinical findings 3. Clinically undetermined, no explanation for clinical findings Please clarify and document your clinical opinion in the Progress Notes and Discharge Summary including the definitive and/or presumptive diagnosis, (suspected or probable), related to the above clinical findings. Please include clinical findings supporting your diagnosis. In responding to this query, please exercise your independent professional judgment. The purpose of this communication is to more accurately reflect the complexity of your patients condition. The fact that a question is asked does not imply that any particular answer is desired or expected. Thank you for timely response to this clarification. Luzmaria Vázquez RN, MSN Clinical Ledger Poster [phone] [email or web address] PHYSICIAN RESPONSE: Based on the clinical findings in the record, please respond to the query above on this document as an addendum. Physician Response: Physician Response 1 If you have questions please contact: Tonnage Compilation Clerk: Ext: Thank you for your time and cooperation. Clinical Ledger Poster/Tonnage Compilation Clerk This is a permanent part of the medical record LUZMARIA VÁZQUEZ Jul 16, 2022 21:41 TIA BETH DO Jul 17, 2022 04:46
== END 2022-07-16 16:15 | disposition home health service (06) | DRG 871 ==
LOC: EDUNIT# 09:06 → ER FS 09:07 → ICU 12:36 → 4TH 07-11 13:19
PROVIDERS: ADMIT Family Medicine; ATTEND Internal Medicine
DX: A41.89 Other specified sepsis (principal); E11.10 Type 2 diabetes mellitus with ketoacidosis without coma; G93.41 Metabolic encephalopathy; I63.132 Cerebral infarction due to embolism of left carotid artery; N39.0 Urinary tract infection, site not specified; R47.01 Aphasia; R65.20 Severe sepsis without septic shock; E11.40 Type 2 diabetes mellitus with diabetic neuropathy, unspecified; R32 Unspecified urinary incontinence; Z20.822 Contact with and (suspected) exposure to COVID-19; I10 Essential (primary) hypertension; E78.5 Hyperlipidemia, unspecified; E83.42 Hypomagnesemia; K59.00 Constipation, unspecified; I65.21 Occlusion and stenosis of right carotid artery; Z79.85 Long-term (current) use of injectable non-insulin antidiabetic drugs; Z91.81 History of falling; Z87.891 Personal history of nicotine dependence; Z88.5 Allergy status to narcotic agent; Z91.041 Radiographic dye allergy status
CPT/HCPCS: 36415; 51702; 70450; 70551; 71045; 71250; 74176; 80048; 80053; 81000; 82010; 82550; 82805; 82947; 83036; 83605; 83690; 83735; 84100; 84484; 85007; 85025; 85027; 85610; 85730; 87040; 87077; 87081; 87088; 87636; 93005; 93306; 93880; 94760; 96361; 96365; 96375; 99291

== ENCOUNTER → 2022-07-30 | Outpatient (CLI) | payer MEDICARE, MEDICAID ==
[~2022-07-30] VITALS: Ht 165 cm; Wt 96.0 kg
[~2022-07-30] MED LIST changes: +ASPI81TA64 PO; +ATOR80TA76 PO; +BLOO-1350 MC; +BLOO-438 MC; +CATHETER FLUSH 10 ML SYR IVP PRN; +GABA-486 PO; +HYDR25TA4 PO; +INSU100I14 SQ; +INSU100I29 SQ; +INSU1KIT MC; +LISI10TA25 PO; +METF-865 PO; +METO50TA15 PO; +ONDA4TAB11 SL; +REGADENOSON 0.4 MG/5 ML SYR (LEXISCAN) IV ONE; +ROSU10TA28 PO; +SEMA0.25 SQ; +TRAM50TA3 PO; +[UNRECOGNIZED DRUG - CODE] MC; +[UNRECOGNIZED DRUG - CODE] PO
[2022-07-30] MEDS: CATHETER FLUSH 10 ML SYR IVP PRN ×2 (07:19→09:20)
[2022-07-30 08:54] VITALS: BP 214/106
--- NOTE | 2022-07-30 12:15 | Cardiology Stress Test Report ---
Stress Test Report Date of Procedure/Referring: Date of Procedure: Jul 30, 2022 PCP Nitish Horner MD Admitting Physician Admitting Physician: Attending Physician: Other,Unlisted Indications: CVA Baseline Heart Rate: 103 Baseline Blood Pressure: Blood Pressure Systolic: 214 Blood Pressure Diastolic: 106 Baseline Vitals Vital Signs Date Time Temp Pulse Resp B/P (MAP) Pulse Ox O2 Delivery O2 Flow Rate FiO2 07/30/22 08:54 103 214/106 (142) Baseline EKG: Baseline EKG: NSR Summary After explaining the procedure to the patient, she signed a consent and then brought to the stress nuclear laboratory. Patient received 0.4 mg Lexiscan for stress test, ECG, heart rate and blood pressure were monitored continuously. Resting and stress dose of radio tracer were injected, imaging was acquired and reviewed in short axis, horizontal long axis and vertical long axis views. TID: 3.09 SSS: 7 SDS: 5 EF: 52 1. Patient tolerated Lexiscan well 2. Extracardiac attenuation with left arm down during acquisition of the images affecting the quality of the images. Overall there is reversible ischemia involving the mid to apical anterolateral and inferolateral wall 3. Transient ischemic dilatation value is not accurate due to extracardiac attenuation 4. Normal left ventricular size, ejection fraction 52% Copy Copies To 1: NITISH HORNER MD, BASHAR J MD Jul 30, 2022 12:15
== END ==
LOC: CARD 08:00
DX: I63.139 Cerebral infarction due to embolism of unspecified carotid artery (principal); I10 Essential (primary) hypertension; E78.2 Mixed hyperlipidemia
CPT/HCPCS: 78452; 93017; A9502

== ENCOUNTER 2022-09-16 09:08 | Inpatient (IN) | payer MEDICARE, MEDICAID ==
[~2022-09-16] VITALS: Ht 165 cm; Wt 93.1 kg
[~2022-09-16 09:08] MED LIST changes: -CATHETER FLUSH 10 ML SYR IVP PRN; -REGADENOSON 0.4 MG/5 ML SYR (LEXISCAN) IV ONE
[2022-09-16] MEDS ORDERED: inSUlin (REGULAR) HUMAN 1 UNIT/0.01 ML (CHARGE PER UNIT) IV STA (09:15)
[2022-09-16] MEDS ORDERED: NS IV 1000 ML 1,000 ML IV STA ×3 (09:15→10:31)
[2022-09-16 09:29] LABS: BASOPHILS % (AUTO) 0 % (0-10); EOSINOPHILS % (AUTO) 0 % (0-10); HEMATOCRIT 34 % (35-52); HEMOGLOBIN 10.3 g/dL (11.5-16.0); LYMPHOCYTES # (AUTO) 0.1 10^3/uL (1.0-4.0); LYMPHOCYTES % (AUTO) 2 % (12-44); MEAN CORPUSCULAR HEMOGLOBIN 27 pg (25-34); MEAN CORPUSCULAR HGB CONC 31 g/dL (32-36); MEAN CORPUSCULAR VOLUME 89 fL (80-99); MEAN PLATELET VOLUME 12.5 fL (9.0-12.2); MONOCYTES # (AUTO) 0.2 10^3/uL (0.0-1.0); MONOCYTES % (AUTO) 3 % (0-12); NEUTROPHILS # (AUTO) 6.8 10^3/uL (1.8-7.8); NEUTROPHILS % (AUTO) 94 % (42-75); PLATELET COUNT 119 10^3/uL (130-400); WHITE BLOOD COUNT 7.3 10^3/uL (4.3-11.0)
--- NOTE | 2022-09-16 09:34 | ED General ---
General Chief Complaint: Altered Mental Status Stated Complaint: FALL; AMS Source of Information: Patient, EMS, Old Records History of Present Illness Date Seen by Provider: Sep 16, 2022 Time Seen by Provider: 09:08 Initial Comments 72 yo female presenting by EMS from home. She was found on the floor in front of her chair. She was unsure how long that she had been there. She knows her name and date of and where she is at that was unclear on time. She was complaining of occipital headache. She has an abrasion to the right granados and a small area of redness on the medial aspect of left foot that looks like pressure sores. She recently had sepsis from a UTI in June and has also had a stroke. She had carotid endarterectomy since June. She was started on insulin when she was discharged from the hospital in June. She cannot remember when she l ast took any insulin. She states that she manages all of her own medicines and lives by herself. Severity: Moderate Modifying Factors: worse with Movement (makes headache worse with movingher head) Associated Systoms: No Chest Pain; Cough; No Diaphoresis, No Fever/Chills; Headaches (occipital), Malaise; No Nausea/Vomiting, No Seizure, No Shortness of Air; Weakness (generalized) Allergies and Home Medications Allergies Coded Allergies: Tetanus Vaccines and Toxoid (Verified Allergy, Unknown, 04/04/21) codeine (Verified Allergy, Unknown, 04/04/21) meperidine (Verified Allergy, Unknown, Nausea, 07/09/22) morphine (Verified Allergy, Unknown, 04/04/21) Uncoded Allergies: IV contrast dye (Allergy, Unknown, 04/04/21) Patient Home Medication List Home Medication List Reviewed: Yes Aspirin (Children's Aspirin) 81 Mg Tab.chew, 81 MG PO DAILY Prescribed by: TIA BETH on 07/16/22 1013 Atorvastatin Calcium (Atorvastatin Calcium) 80 Mg Tablet, 80 MG PO HS Prescribed by: TIA BETH on 07/16/22 1013 Blood Sugar Diagnostic (Accu-Chek Linda Plus) 1 Each Strip, 100 EACH [facility] ACHS Prescribed by: TIA BETH on 07/16/22 1051 Blood-Glucose Meter (Advanced Glucose Meter) 1 Each Each, EACH MC ACHS, (DME) Prescribed by: TIA BETH on 07/16/22 1051 Diphenhydramine HCl (Sleep II) 25 Mg Tablet, 25-50 MG PO HS PRN for SLEEP, (Reported) Entered as Reported by: JALIL GUZMÁN on 07/09/22 1431 Gabapentin (Gabapentin) 100 Mg Capsule, 100 MG PO 0800,1800, (Reported) Entered as Reported by: JALIL GUZMÁN on 07/09/22 1431 Gabapentin (Gabapentin) 100 Mg Capsule, 200 MG PO HS, (Reported) Entered as Reported by: JALIL GUZMÁN on 07/09/22 1431 Hydrochlorothiazide (Hydrochlorothiazide) 25 Mg Tablet, 25 MG PO DAILY, (Reported) Entered as Reported by: JALIL GUZMÁN on 07/09/22 1431 Insulin Aspart (Novolog Flexpen) 100 Unit/Ml (3 Ml) Solution, 12 UNITS SQ AC Prescribed by: TIA BETH on 07/16/22 1013 Insulin Detemir (Levemir Flextouch) 100 Unit/Ml (3 Ml) Insuln.pen, 20 UNIT SQ BID Prescribed by: TIA BETH on 07/16/22 1013 Lisinopril (Lisinopril) 10 Mg Tablet, 10 MG PO DAILY, (Reported) Entered as Reported by: JALIL GUZMÁN on 07/09/22 1431 Metformin HCl (Metformin HCl ER) 500 Mg Tab.er.24h, 1,000 MG PO BID, (Reported) Entered as Reported by: JALIL GUZMÁN on 07/09/22 1431 Metoprolol Tartrate (Metoprolol Tartrate) 50 Mg Tablet, 50 MG PO BID, (Reported) Entered as Reported by: JALIL GUZMÁN on 07/09/22 1431 [place], Insulin Disposable (Carefine Pen Needle) 31 Gauge X 1/4" Dis.needle, EACH ACHS, (DME) Prescribed by: TIA BETH on 07/16/22 1013 Ondansetron (Ondansetron Odt) 4 Mg Tab.rapdis, 4 MG SL Q4H PRN for NAUSEA/VOMITING Prescribed by: TIA BETH on 07/16/22 1502 Semaglutide (Ozempic) 0.25 Mg/0.2 Ml Pen.injctr, 0.5 MG SQ WEEK, (Reported) Entered as Reported by: JALIL GUZMÁN on 07/09/22 1431 Tramadol HCl (Tramadol HCl) 50 Mg Tablet, 50-100 MG PO TID PRN for PAIN-MODERATE (5-7), (Reported) Entered as Reported by: JALIL GUZMÁN on 07/09/22 143 Review of Systems Review of Systems Constitutional: see HPI; No fever; weakness EENTM: No nose congestion Respiratory: cough (mild dry ) Cardiovascular: No chest pain Gastrointestinal: No nausea, No vomiting Genitourinary: No dysuria Musculoskeletal: joint pain (started complaining of right hip pain 45 min after arrival in ED) Skin: see HPI Psychiatric/Neurological: See HPI, Headache Hematologic/Lymphatic: Denies Blood Clots Past [id number] Hx Past Medical History Surgery/Hospitalization HX: HTN, Diabetes Mellitus insulin dependent, Hypercholesterolemia, CVA, Carotid endarterectomy Surgeries: Yes Vascular Surgery (carotid endarterectomy) Physical Exam Vital Signs Vital Signs - First Documented 09/16/22 09:09 Temp 36.2 Pulse 107 Resp 24 B/P (MAP) 83/34 (50) Pulse Ox 96 O2 Delivery Room Air Capillary Refill : Height, Weight, BMI Height: '" Weight: lbs. oz. kg; 35.26 BMI Method: General Appearance: Chronically ill, Obese Eyes: Bilateral Eye PERRL, Bilateral Eye EOMI HEENT: PERRL/EOMI; No Moist Mucous Membranes (dry mucous membranes) Neck: Full Range of Motion, Normal Inspection, Non Tender, Supple Respiratory: Chest Non Tender, Lungs Clear, Normal Breath Sounds, No Accessory Muscle Use, No Respiratory Distress Cardiovascular: Regular Rate, Rhythm; No Normal Peripheral Pulses (1/4 decreased peripheral pulses DP, PT, Radial) Gastrointestinal: Normal Bowel Sounds, No Pulsatile Mass, Non Tender, Soft Rectal: Deferred Back: No CVA Tenderness, No Vertebral Tenderness Extremity: Normal Capillary Refill, Pedal Edema (trace to 1+ BLE) Neurologic/Psychiatric: Alert; No Oriented x3 (oriented to self and place but unsure of time); 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 Norm as Tested Skin: Warm/Dry, Erythema (superficial abrasion right granados, erythema to medial left foot that appears to be pressure sore stage 1) Focused Exam Sepsis Stage: Severe Sepsis Possible Source: Genitouriary Lactate Level 09/16/22 09:00: Lactic Acid Level 8.52*H 09/16/22 11:00: Lactic Acid Level 7.51*H Time of Focused Exam: 10:20 Respiratory: Chest Non Tender, Lungs Clear, Normal Breath Sounds, No Accessory Muscle Use, No Respiratory Distress Cardiovascular: Regular Rate, Rhythm, No Murmur, Normal Peripheral Pulses Capillary Refill: Less Than 3 Seconds Peripheral Pulses: 2+ Carotid (R), 2+ Carotid (L) Skin: warm/dry Lactic Acid Level Laboratory Tests Test 09/16/22 09:00 09/16/22 11:00 Lactic Acid Level 8.52 MMOL/L (0.50-2.00) *H 7.51 MMOL/L (0.50-2.00) *H Within 3hrs of presentation: Admin fluids, Admin 30ml/kg IBW due to BMI>30, Admin ABX, Blood cultures prior to ABX's, Focus exam, Lactate level Progress/Results/Core Measures Suspected Sepsis SIRS Temperature: Pulse: Respiratory Rate: Laboratory Tests 09/16/22 09:00: White Blood Count 7.3 Blood Pressure / Mean: 09/16/22 09:00: Lactic Acid Level 8.52*H 09/16/22 11:00: Lactic Acid Level 7.51*H Laboratory Tests 09/16/22 09:00: Creatinine 1.15, Platelet Count 119L, Total Bilirubin 0.6 Results/Orders Lab Results Laboratory Tests Test 09/16/22 09:00 09/16/22 09:32 09/16/22 10:30 09/16/22 10:37 Range/Units White Blood Count 7.3 4.3-11.0 10^3/uL Red Blood Count 3.78 L 3.80-5.11 10^6/uL Hemoglobin 10.3 L 11.5-16.0 g/dL Hematocrit 34 L 35-52 % Mean Corpuscular Volume 89 80-99 fL Mean Corpuscular Hemoglobin 27 25-34 pg Mean Corpuscular Hemoglobin Concent 31 L 32-36 g/dL Red Cell Distribution Width 15.7 H 10.0-14.5 % Platelet Count 119 L 130-400 10^3/uL Mean Platelet Volume 12.5 H 9.0-12.2 fL Immature Granulocyte % (Auto) 1 % Neutrophils (%) (Auto) 94 H 42-75 % Lymphocytes (%) (Auto) 2 L 12-44 % Monocytes (%) (Auto) 3 0-12 % Eosinophils (%) (Auto) 0 0-10 % Basophils (%) (Auto) 0 0-10 % Neutrophils # (Auto) 6.8 1.8-7.8 10^3/uL Lymphocytes # (Auto) 0.1 L 1.0-4.0 10^3/uL Monocytes # (Auto) 0.2 0.0-1.0 10^3/uL Eosinophils # (Auto) 0.0 0.0-0.3 10^3/uL Basophils # (Auto) 0.0 0.0-0.1 10^3/uL Immature Granulocyte # (Auto) 0.1 0.0-0.1 10^3/uL Neutrophils % (Manual) 97 % Lymphocytes % (Manual) 3 % Monocytes % (Manual) % Toxic Granulation 4+ Sodium Level 136 135-145 MMOL/L Potassium Level 4.2 3.6-5.0 MMOL/L Chloride Level 98 98-107 MMOL/L Carbon Dioxide Level 15 L 21-32 MMOL/L Anion Gap 23 H 5-14 MMOL/L Blood Urea Nitrogen 27 H 7-18 MG/DL Creatinine 1.15 0.60-1.30 MG/DL Estimat Glomerular Filtration Rate 51 BUN/Creatinine Ratio 23 Glucose Level 543 *H 70-105 MG/DL Lactic Acid Level 8.52 *H 0.50-2.00 MMOL/L Calcium Level 9.0 8.5-10.1 MG/DL Corrected Calcium 9.2 8.5-10.1 MG/DL Total Bilirubin 0.6 0.1-1.0 MG/DL Aspartate Amino Transf (AST/SGOT) 47 H 5-34 U/L Alanine Aminotransferase (ALT/SGPT) 29 0-55 U/L Alkaline Phosphatase 62 40-136 U/L Troponin I < 0.30 <0.30 NG/ML C-Reactive Protein 14.20 H <0.50 MG/DL Pro-B-Type Natriuretic Peptide 1807.0 H <125.0 PG/ML Total Protein 6.7 6.4-8.2 GM/DL Albumin 3.7 3.2-4.5 GM/DL Influenza Type A (RT-PCR) Not Detected Not Detecte Influenza Type B (RT-PCR) Not Detected Not Detecte SARS-CoV-2 RNA (RT-PCR) Not Detected Not Detecte Venous Blood pH 7.19 L 7.31-7.41 Venous Blood Partial Pressure CO2 37 L 40-52 MMHG Venous Blood HCO3 14 L 22-28 MMOL/L Urine Color YELLOW Urine Clarity CLEAR Urine pH 5.0 5-9 Urine Specific [place] >=1.030 1.016-1.022 Urine Protein 1+ H NEGATIVE Urine Glucose (UA) 2+ H NEGATIVE Urine Ketones TRACE H NEGATIVE Urine Nitrite NEGATIVE NEGATIVE Urine Bilirubin NEGATIVE NEGATIVE Urine Urobilinogen 0.2 < = 1.0 MG/DL Urine Leukocyte Esterase NEGATIVE NEGATIVE Urine RBC (Auto) 2+ H NEGATIVE Urine RBC NONE /HPF Urine WBC 25-50 H /HPF Urine Crystals NONE /LPF Urine Bacteria TRACE /HPF Urine Casts PRESENT /LPF Urine Hyaline Casts 2-5 H /LPF Urine Mucus SMALL H /LPF Urine Culture Indicated YES Test 09/16/22 11:00 09/16/22 11:03 Range/Units Lactic Acid Level 7.51 *H 0.50-2.00 MMOL/L Glucometer 241 H 70-110 MG/DL My Orders Orders - ARIADNA SCOTT MD Cbc With Automated Diff (09/16/22 09:15) Comprehensive Metabolic Panel (09/16/22 09:15) Blood Culture (09/16/22 09:15) Ua Culture If Indicated (09/16/22 09:15) Chest 1 View Ap/Pa Only (09/16/22 09:15) Ed Iv/Invasive Line Start (09/16/22 09:15) Crp Fs (09/16/22 09:15) Lactic Acid Analyzer (09/16/22 09:15) Covid 19 Inhouse Test (09/16/22 09:15) Influenza A And B By Pcr (09/16/22 09:15) Isolation Central Supply Req (09/16/22 09:15) Straight Cath For Spec.-Adult (09/16/22 09:15) Ct Head/Cervical Spine Wo (09/16/22 09:15) Ns Iv 1000 Ml (Sodium Chloride 0.9%) (09/16/22 09:15) Insulin (Regular) Human (Novolin R (Per (09/16/22 09:15) Ekg Tracing (09/16/22 09:30) Troponin I Fs (09/16/22 09:30) Probnp Fs (09/16/22 09:30) Manual Differential (09/16/22 09:00) Arterial Blood Gas (09/16/22 09:52) Acetaminophen Tablet (Tylenol Tablet) (09/16/22 09:58) Pelvis With Right Hip 2-3 View (09/16/22 09:58) Ns Iv 1000 Ml (Sodium Chloride 0.9%) (09/16/22 10:09) Ceftriaxone 1 Gm Pre-Mix (Rocephin 1 Gm (09/16/22 10:31) Ns Iv 1000 Ml (Sodium Chloride 0.9%) (09/16/22 10:31) Lin Cath (09/16/22 10:31) Insulin Regular Drip (Myxredlin 100 Unit (09/16/22 10:31) Venous Blood Gas (09/16/22 10:30) Urine Culture (09/16/22 10:37) Orphenadrine Inj (Ed Only) (Norflex Inje (09/16/22 11:02) Accucheck Stat ONCE (09/16/22 11:02) Medications Given in ED Current Medications Medications Dose Ordered Sig/Stephanie Route Start Time Stop Time Status Last Admin Dose Admin Acetaminophen 650 mg Q4H PRN PO 09/16/22 11:15 09/16/22 18:39 650 MG Hydromorphone HCl 0.25 mg Q2H PRN IV 09/16/22 11:15 09/16/22 13:40 0.25 MG Oxycodone HCl 5 mg Q4HR PRN PO 09/16/22 11:15 09/16/22 13:14 5 MG Vital Signs/I&O 09/16/22 09/16/22 09:09 11:58 Temp 36.2 36.2 Pulse 107 98 Resp 24 24 B/P (MAP) 83/34 (50) 129/68 Pulse Ox 96 97 O2 Delivery Room Air Room Air Capillary Refill : Progress Note #1: Progress Note Ordered labs and blood cultures as well as urinalysis by catheter to evaluate for signs of sepsis, UTI, electrolyte imbalance, elevated white count, elevated lactic acid, anemia. CT scan of the head and cervical spine to evaluate for acute intracranial hemorrhage, fractures since she was slightly confused and had slid from her chair to the floor. Chest x-ray since she had a mild cough and was slightly confused. Give normal saline 1 L IV fluid bolus for hydration, regular insulin 10 units IV for her elevated sugar. She is asking for something for pain so we will order dose of Tylenol while waiting on test results. Differential diagnosis includes sepsis, UTI, electrolyte imbalance, pneumonia, stroke, hypoxia, DKA. Progress Note #2: Time: 09:31 Progress Note CBC did not show acute significant abnormality. She had a normal white blood cell count. Her lactic acid however came back at 8.52. With her elevated sugar and concerns for recurrent UTI as she just had taken a course of Macrobid but recently had sepsis with UTI will increase fluids up to 30 mill per kilogram IV bolus to help with hydration and severe sepsis. Start Rocephin for possible UTI. Obtain cath urine and add on ABG to get pH and look for ketones in the urine. Chemistry panel showed her CO2 was a little low at 15 with elevated BUN to 27 and glucose of 543. Her CRP was elevated to 14.2. This will go along with infection or inflammatory process. Progress Note #3: Time: 10:[address] scan of the head and cervical spine did not show any acute process and chest x-ray was rotated but no clear sign of pneumonia or effusion. She started to complain of spasms and pain in her right hip so x-rays were obtained of the pelvis and right hip. Will check with [facility] to ensure that they have an ICU bed and if so talk to the doctor on-call, Dr. Beth, about admission. Progress Note #4: Time: 10:26 Progress Note Discussed with Dr. Beth that I was still waiting on urine but patient appeared to have sepsis with elevated lactic acid and likely also having DKA with her elevated glucose and low CO2 with high anion gap. Dr. Beth requested getting her on an insulin drip and continue the antibiotics and IV fluids. Will place patient in ICU for treatment and monitoring. I did add on Norflex for spasms in her legs. Updated patient and her visitors about patient having signs of DKA and sepsis with needing admission to the ICU again. venous blood gas obtained and showed pH 7.19. Repeat Lactic acid was showing mild improvement as she came down to 7.3. Heart rate and blood pressure improving as she was given IVF and antibiotics. Recheck on glucose before starting any additional insulin was 393. Dr. Beth did want to add on CPK to look for rhabdomyolysis as well since pt was unsure how long she was on the floor. From speaking to her visitors they had last seen or talked with her around 1900 last night and then found her on floor today. This would be a send out from [facility] so will obtain once she arrives in [place]. ECG Initial ECG Impression Date: Sep 16, 2022 Initial ECG Impression Time: 09:52 Initial ECG Rate: 101 Initial ECG Rhythm: S.Tach Initial ECG Comparisson: Unchanged Comment Patient my personal interpretation and review of her electrocardiogram she shows sinus tachycardia with a heart rate of 101 bpm. NM interval 127 ms. There is no acute ST elevation. QT interval 392 ms with a QTc interval 450 ms. Overall appears similar to tracing from July 09, 2022. Diagnostic Imaging Diagonstic Imaging: Xray Plain Films/CT/US/NM/MRI: chest Comments NAME: CRISTAL SPEARS MED REC#: [id number] PT STATUS: REG ER : 1950 PHYSICIAN: ARIADNA SCOTT MD ADMIT DATE: 09/16/22/ER FS Draft Date of Exam:09/16/22 CHEST 1 VIEW AP/PA ONLY EXAM: CHEST 1 VIEW AP/PA ONLY INDICATION: Cough. Altered mental status. COMPARISON: 07/09/2022. FINDINGS: Examination mildly limited by rotation. Heart size and pulmonary vascularity are likely stable. Calcified granuloma in the right lung base. No new focal pulmonary opacity. No pleural effusion or pneumothorax. The left lung base is somewhat obscured. IMPRESSION: 1. Examination mildly limited by rotation. 2. No acute cardiopulmonary findings. The left lung base is somewhat obscured by the rotation. Dictated on workstation # [id number] Dict: 09/16/22 0932 Trans: 09/16/22 0945 [facility] [id number] Interpreted by: NAOMI FOWLER MD Electronically signed by: Reviewed: Reviewed by Me Diagonstic Imaging: CT Plain Films/CT/US/NM/MRI: c-spine, head Comments NAME: CRISTAL SPEARS MED REC#: [id number] PT STATUS: REG ER : 1950 PHYSICIAN: ARIADNA SOCTT MD ADMIT DATE: 09/16/22/ER FS Draft Date of Exam:09/16/22 CT HEAD/CERVICAL SPINE WO PROCEDURE: CT head and CT cervical spine without contrast. TECHNIQUE: Multiple contiguous axial images were obtained through the brain and cervical spine without the use of intravenous contrast. Sagittal and coronal reformations through the cervical spine were then performed. Auto Exposure Controls were utilized during the CT exam to meet ALARA standards for radiation dose reduction. INDICATION: Fall. Altered mental status. Confusion. COMPARISON: MRI brain without contrast 07/11/2022. CT head without contrast 07/09/2022. FINDINGS: CT HEAD: Moderate generalized parenchymal volume loss. Lacunar infarct in the right lentiform nucleus is stable. No intracranial hemorrhage, mass effect, hydrocephalus or extra-axial fluid collections. Benign lipoma near the pineal gland is stable. No CT evidence of an acute territorial infarction. Paranasal sinuses and mastoids are clear. Osseous structures are intact. CT CERVICAL SPINE: Examination mildly limited by motion. Normal alignment. Vertebral body heights are preserved. No fractures. No evidence high-grade spinal canal stenosis. Surgical clips in the left neck. Lung apices are clear. IMPRESSION: No acute intracranial or cervical spine CT findings. Dictated on workstation # [id number] Dict: 09/16/2246 Trans: 09/16/2252 [facility] [id number] Interpreted by: NAOMI FOWLER MD Electronically signed by: Reviewed: Reviewed by Mn Diagonstic Imaging: Xray Plain Films/CT/US/NM/MRI: pelvis, hip Comments NAME: CRISTAL SPEARS MED REC#: [id number] PT STATUS: REG ER : 1950 PHYSICIAN: ARIADNA SCOTT MD ADMIT DATE: 09/16/22/ER FS Signed Date of Exam:09/16/22 PELVIS WITH RIGHT HIP 2-3 VIEW EXAM: PELVIS WITH RIGHT HIP 2-3 VIEW INDICATION: Right hip pain. Trauma. Fall. COMPARISON: None. FINDINGS: Mild degenerative changes in both hips. No fracture or malalignment. Soft tissue shadows are unremarkable. Vascular calcifications. IMPRESSION: No acute radiographic findings in the right hip or pelvis. Dictated by: Dictated on workstation # [id number] Dict: 09/16/22 1102 Trans: 09/16/22 1115 [facility] [id number] Interpreted by: NAOMI FOWLER MD Electronically signed by: NAOMI FOWLER MD 09/16/22 1115 Reviewed: Reviewed by Me Critical Care Note Critical Care Total Time (minutes) 60 minutes Progress 60 minutes of critical care time was spent with patient. Time excluded separately billable procedures. Time spent obtaining history from patient, prior admit to hospital, EMS as independent historians as patient had some confusion, ordering tests and interpreting results, ordering interventions and reviewing response, discussion with patient and consultants, documentation in the chart. Patient was at risk of collapse of her cardiac system as well as neurologic symptoms from her sepsis and DKA and required my constant immediate availability and management of her condition. Departure Communication (Admissions) Time/Spoke to Admitting Phy: 10:[address] Beth about patient having elevated glucose signs of UTI, sepsis with elevated lactic acid, soft blood pressure, tachycardia at times. Since she had recent DKA with sepsis from UTI we will try treating that with insulin drip as well as continuing IV fluids for resuscitation with 30 mils per kilogram and a dose of antibiotics with Rocephin. For her leg cramping she was given Norflex [address] the patient in the ICU and add on CPK levels once she gets to [place] to look for signs of rhabdomyolysis. Impression Primary Impression: Severe sepsis Additional Impressions: Hyperglycemia due to diabetes mellitus DKA, type 1 Qualified Codes: E10.10 - Type 1 diabetes mellitus with ketoacidosis without coma Acute cystitis without hematuria Disposition: 30 STILL A PATIENT Condition: Critical Admissions Decision to Admit Reason: Admit from ER (General) Decision to Admit/Date: Sep 16, 2022 Time/Decision to Admit Time: 10:26 Departure-Patient Inst. Referrals: BLAISE MAYFIELD MD (PCP) Primary Care Physician ARIADNA SCOTT MD Sep 16, 2022 09:34
--- NOTE | 2022-09-16 09:46 | Diagnostic Imaging Report ---
EXAM: CHEST 1 VIEW AP/PA ONLY INDICATION: Cough. Altered mental status. COMPARISON: 07/09/2022. FINDINGS: Examination mildly limited by rotation. Heart size and pulmonary vascularity are likely stable. Calcified granuloma in the right lung base. No new focal pulmonary opacity. No pleural effusion or pneumothorax. The left lung base is somewhat obscured. IMPRESSION: 1. Examination mildly limited by rotation. 2. No acute cardiopulmonary findings. The left lung base is somewhat obscured by the rotation. Dictated by: Dictated on workstation # [id number]
[2022-09-16 09:49] LABS: BILIRUBIN,TOTAL 0.6 MG/DL (0.1-1.0); CREATININE SERUM 1.15 MG/DL (0.60-1.30); POTASSIUM 4.2 MMOL/L (3.6-5.0)
[2022-09-16 09:50] LABS: ALBUMIN 3.7 GM/DL (3.2-4.5); TOTAL PROTEIN 6.7 GM/DL (6.4-8.2)
--- NOTE | 2022-09-16 09:53 | Diagnostic Imaging Report ---
PROCEDURE: CT head and CT cervical spine without contrast. TECHNIQUE: Multiple contiguous axial images were obtained through the brain and cervical spine without the use of intravenous contrast. Sagittal and coronal reformations through the cervical spine were then performed. Auto Exposure Controls were utilized during the CT exam to meet ALARA standards for radiation dose reduction. INDICATION: Fall. Altered mental status. Confusion. COMPARISON: MRI brain without contrast 07/11/2022. CT head without contrast 07/09/2022. FINDINGS: CT HEAD: Moderate generalized parenchymal volume loss. Lacunar infarct in the right lentiform nucleus is stable. No intracranial hemorrhage, mass effect, hydrocephalus or extra-axial fluid collections. Benign lipoma near the pineal gland is stable. No CT evidence of an acute territorial infarction. Paranasal sinuses and mastoids are clear. Osseous structures are intact. CT CERVICAL SPINE: Examination mildly limited by motion. Normal alignment. Vertebral body heights are preserved. No fractures. No evidence high-grade spinal canal stenosis. Surgical clips in the left neck. Lung apices are clear. IMPRESSION: No acute intracranial or cervical spine CT findings. Dictated by: Dictated on workstation # [id number]
[2022-09-16] MEDS ORDERED: ACETAMINOPHEN 500 MG TAB (TYLENOL) PO STA (09:58)
[2022-09-16] MEDS ORDERED: cefTRIAXone 1 GM PRE-MIX 50 ML IV STA (10:31)
[2022-09-16 10:44] LABS: BILIRUBIN,URINE NEGATIVE (NEGATIVE); CLARITY,URINE CLEAR; COLOR,URINE YELLOW; GLUCOSE, URINE (UA) 2+ (NEGATIVE); KETONES,URINE TRACE (NEGATIVE); LEUKOCYTE ESTERASE ,URINE NEGATIVE (NEGATIVE); NITRITE,URINE NEGATIVE (NEGATIVE); PROTEIN,URINE 1+ (NEGATIVE)
[2022-09-16 10:49] LABS: BACTERIA,URINE TRACE /HPF; WBC,URINE 25-50 /HPF
[2022-09-16] MEDS ORDERED: ORPHENADRINE 60 MG/2 ML (NORFLEX) AMP (ED ONLY) IVP STA (11:02)
--- NOTE | 2022-09-16 11:05 | Diagnostic Imaging Report ---
EXAM: PELVIS WITH RIGHT HIP 2-3 VIEW INDICATION: Right hip pain. Trauma. Fall. COMPARISON: None. FINDINGS: Mild degenerative changes in both hips. No fracture or malalignment. Soft tissue shadows are unremarkable. Vascular calcifications. IMPRESSION: No acute radiographic findings in the right hip or pelvis. Dictated by: Dictated on workstation # [id number]
[2022-09-16] MEDS ORDERED: BISACODYL 10 MG SUPP (DULCOLAX) PR PRN (11:15)
[2022-09-16] MEDS ORDERED: NS IV 1000 ML 1,000 ML IV SCH (11:15)
[2022-09-16] MEDS ORDERED: ANTACID SUSP 30 ML UDC (MYLANTA) PO PRN (11:15)
[2022-09-16] MEDS ORDERED: diphenhydrAMINE 25 MG TAB (BENADRYL) PO PRN (11:15)
[2022-09-16] MEDS ORDERED: diphenhydrAMINE 50 MG/ML INJ (BENADRYL) IVP PRN (11:15)
[2022-09-16] MEDS ORDERED: NS IV 500 ML 500 ML IV PRN (11:15)
[2022-09-16] MEDS ORDERED: ONDANSETRON 4 MG/2 ML (SDV) Z0FRAN IV PRN (11:15)
[2022-09-16] MEDS ORDERED: ONDANSETRON 4 MG (ZOFRAN) ORAL DISSOLVE TAB PO PRN (11:15)
[2022-09-16] MEDS ORDERED: VANCOMYCIN INJECTION 0.1 MG in NS (IVPB) 250 ML IV SCH (11:15)
[2022-09-16] MEDS ORDERED: HYDROmorphone 2 MG/ML VIAL (DILAUDID) IV PRN (11:15)
[2022-09-16 11:45] LABS: LYMPHOCYTES % (MANUAL) 3 %; NEUTROPHILS % (MANUAL) 97 %; TOXIC GRANULATION/VACUOLAZATIO 4+
--- NOTE | 2022-09-16 12:56 | History & Physical-Hospitalist ---
History of Present Illness HPI/Chief Complaint Chief complaint: DKA with sepsis HPI: This is a 72-year-old female clinic patient of [facility] who has a past medical history of DKA and UTI who presented from [facility] with evidence of sepsis from UTI and DKA. She is currently on an insulin drip and IV antibiotics and IV fluids. Patient is not awake or alert. Vitals remained stable. Source: RN/MD Exam Limitations: clinical condition Date Seen 09/16/22 Time Seen by a Provider: 17:00 Attending Physician Nitish Horner MD PCP Admitting Physician: Shakira Perez DO Attending Physician: Shakira Perez DO Referring Physician Date of Admission Sep 16, 2022 at 12:41 Home Medications & Allergies Home Medications Reviewed patient Home Medication Reconciliation performed by pharmacy medication reconciliations sanitation technician and/or nursing. Patients Allergies have been reviewed. Allergies Allergies Coded Allergies Tetanus Vaccines and Toxoid (Verified Allergy, Unknown, 04/04/21) codeine (Verified Allergy, Unknown, 04/04/21) meperidine (Verified Allergy, Unknown, Nausea, 07/09/22) morphine (Verified Allergy, Unknown, 04/04/21) Uncoded Allergies IV contrast dye ( Allergy, Unknown, 04/04/21) Past Bjfpscx-[id number]-Rwuavh Hx Patient Social History Marrital Status: single Employed/Student: retired Tobacco Use?: No Smoking Status: Never a Smoker Use of E-Cig and/or Vaping dev: No Substance use?: No Alcohol Use?: No Pt feels they are or have been: No Immunizations Up To Date First/Initial COVID19 Vaccinat: YES Second COVID19 Vaccination Fernando: YES Current Status Primary Language: Peruvian Preferred Spoken Language: Peruvian Past Medical History Surgeries: Vascular Surgery (carotid endarterectomy) Chronic Edema/Swelling, High Cholesterol, Hypertension Bladder Infection Diabetes, Insulin dep Review of Systems Constitutional: see HPI Physical Exam Physical Exam Vital Signs Vital Signs - First Documented 09/16/22 09:09 Temp 36.2 Pulse 107 Resp 24 B/P (MAP) 83/34 (50) Pulse Ox 96 O2 Delivery Room Air Capillary Refill : Less Than 3 Seconds Height, Weight, BMI Height: '" Weight: lbs. oz. kg; 35.26 BMI Method: General Appearance: No Apparent Distress, Chronically ill, Obese, Other (Lethargic) Respiratory: Lungs Clear, Normal Breath Sounds, No Accessory Muscle Use, No Respiratory Distress Cardiovascular: Regular Rate, Rhythm Results Results/Procedures Labs Laboratory Tests 09/16/22 09:00 09/16/22 13:55 09/16/22 21:38 09/17/22 04:48 Patient resulted labs reviewed. Assessment/Plan Admission Diagnosis Assessment: Sepsis UTI DKA Altered mental status from metabolic encephalopathy Plan: ICU IV antibiotics Insulin drip eICU consult Admission Status: Inpatient Order (span 2 midnights) Reason for Inpatient Admission: Sepsis with DKA SHAKIRA PEREZ DO Sep 16, 2022 12:56
--- NOTE | 2022-09-16 13:02 | Tele-ICU Consult ---
History of Present Illness History of Present Illness Date Seen by Provider: Sep 16, 2022 Time Seen by Provider: 12:58 History of Present Illness 72 yo F admitted with cc of LOC at home, Pt could not give accurate Hx but according to ED note Hx of IDDM, Hx of recent urosepsis, recent CEA. U/A has 25- 50 WBC's Hip and pelvic X ray ok, CXR ok, CT of cervical spine and head ok, Started on IV Cefepime and Vancomycin c/o right hip pain, Now is oriented but lethargic At home takes Levemir 20 U bid and aspart 12 U PC Also on Ozempic once a week Other PMH HLD, CVA In ED LA 8.52, WBC 7.3, Hb 10.3, glu in 543 HCO3 15, trop negative, BNP 1807 VBG shows a pH of 7.19 Allergies and Home Medications Allergies Coded Allergies: Tetanus Vaccines and Toxoid (Verified Allergy, Unknown, 04/04/21) codeine (Verified Allergy, Unknown, 04/04/21) meperidine (Verified Allergy, Unknown, Nausea, 07/09/22) morphine (Verified Allergy, Unknown, 04/04/21) Uncoded Allergies: IV contrast dye (Allergy, Unknown, 04/04/21) Home Medications Aspirin 81 Mg Tab.chew, 81 MG PO DAILY Prescribed by: TIA BETH on 07/16/22 1013 Atorvastatin Calcium 80 Mg Tablet, 80 MG PO HS Prescribed by: TIA BETH on 07/16/22 1013 Blood Sugar Diagnostic 1 Each Strip, 100 EACH MC ACHS Prescribed by: TIA BETH on 07/16/22 1051 Diphenhydramine HCl 25 Mg Tablet, 25-50 MG PO HS PRN for SLEEP, (Reported) Gabapentin 100 Mg Capsule, 100 MG PO 0800,1800, (Reported) Gabapentin 100 Mg Capsule, 200 MG PO HS, (Reported) Hydrochlorothiazide 25 Mg Tablet, 25 MG PO DAILY, (Reported) Insulin Aspart 100 Unit/Ml (3 Ml) Solution, 12 UNITS SQ AC Prescribed by: TIA BETH on 07/16/22 1013 Insulin Detemir 100 Unit/Ml (3 Ml) Insuln.pen, 20 UNIT SQ BID Prescribed by: TIA BETH on 07/16/22 1013 Lisinopril 10 Mg Tablet, 10 MG PO DAILY, (Reported) Metformin HCl 500 Mg Tab.er.24h, 1,000 MG PO BID, (Reported) TAKES 2 (500MG) TABS Metoprolol Tartrate 50 Mg Tablet, 50 MG PO BID, (Reported) Ondansetron 4 Mg Tab.rapdis, 4 MG SL Q4H PRN for NAUSEA/VOMITING Prescribed by: TIA BETH on 07/16/22 1502 Semaglutide 0.25 Mg/0.2 Ml Pen.injctr, 0.5 MG SQ WEEK, (Reported) Tramadol HCl 50 Mg Tablet, 50-100 MG PO TID PRN for PAIN-MODERATE (5-7), (Reported) Past Medical/Social/Family Hx Patient Social History Tobacco Use?: No Use of E-Cig and/or Vaping dev: No Substance use?: No Alcohol Use?: No Pt stated abuse/neglect: No Immunizations Up To Date Influenza Vaccine Up-to-Date: No; Not Current First/Initial COVID19 Vaccinat: YES Second COVID19 Vaccination Fernando: YES Current Status Primary Language: Tanzanian Preferred Spoken Language: Tanzanian Review of Systems Constitutional: no symptoms reported EENTM: no symptoms reported Respiratory: no symptoms reported Cardiovascular: no symptoms reported Musculoskeletal: other (c/o right hip pain) Focused Exam Lactate Level 09/16/22 09:00: Lactic Acid Level 8.52*H 09/16/22 11:00: Lactic Acid Level 7.51*H Height, Weight, BMI Height: '" Weight: lbs. oz. kg; 35.26 BMI Method: Time of Focused Exam: 10:20 Lactic Acid Level Laboratory Tests Test 09/16/22 09:00 09/16/22 11:00 Lactic Acid Level 8.52 MMOL/L (0.50-2.00) *H 7.51 MMOL/L (0.50-2.00) *H Exam Exam Patient acknowledged, consented, and participated in this virtual visit which was conducted using real time audio/video Vital Signs Date Time Temp Pulse Resp B/P (MAP) Pulse Ox O2 Delivery O2 Flow Rate FiO2 09/16/22 11:58 36.2 98 24 129/68 97 Room Air 09/16/22 09:09 36.2 107 24 83/34 (50) 96 Room Air Height & Weight Height: '" Weight: lbs. oz. kg; 35.26 BMI Method: General Appearance: Chronically ill, Obese HEENT: PERRL/EOMI; No Moist Mucous Membranes (dry mucous membranes) Neck: Full Range of Motion, Normal Inspection, Non Tender, Supple Respiratory: Chest Non Tender, Lungs Clear, Normal Breath Sounds, No Accessory Muscle Use, No Respiratory Distress Cardiovascular: Regular Rate, Rhythm, No Murmur, Normal Peripheral Pulses Capillary Refill: Less Than 3 Seconds Peripheral Pulses: 2+ Carotid (R), 2+ Carotid (L) Gastrointestinal: normal bowel sounds, non tender, soft Extremity: Normal Capillary Refill, Pedal Edema (trace to 1+ BLE), Swelling (swelling on inner right calf, also blisters, has chronic venous insuff, no bruise on hip) Neurologic/Psychiatric: Alert, Oriented x3 (oriented to self and place but unsu re of time), 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
[2022-09-16] MEDS: POTASSIUM CL 10MEQ/50ML IVPB 50 ML IV SCH ×8 (13:26→22:15)
[2022-09-16] MEDS: 1/2 NS IV SOLUTION 1,000 ML IV SCH ×3 (13:27→22:15)
[2022-09-16] MEDS ORDERED: VANCOMYCIN 2000 MG/NS 500 ML IVPB IV NR ×2 (14:00)
[2022-09-16 14:14] LABS: POTASSIUM 3.8 MMOL/L (3.6-5.0)
[2022-09-16 14:15] LABS: CALCIUM 8.1 MG/DL (8.5-10.1)
[2022-09-16 14:19] LABS: CREATININE SERUM 1.14 MG/DL (0.60-1.30)
[2022-09-16] MEDS: CEFEPIME INJECTION 1,000 MG in NS (IVPB) 50 ML IV SCH ×2 (15:07→20:06)
[2022-09-16] MEDS: ENOXAPARIN 40 MG/0.4 ML (LOVENOX) SYR SC SCH (15:09)
[2022-09-16] MEDS: D5 1/2 NS 1000 ML IV SOLUTION 1,000 ML IV SCH ×2 (18:03→22:15)
[2022-09-16] MEDS: ACETAMINOPHEN 325 MG TABLET PO PRN (18:39)
[2022-09-16] MEDS: DOCUSATE SODIUM 100 MG (COLACE) CAP PO SCH (20:06)
[2022-09-16 22:00] LABS: CREATININE SERUM 0.81 MG/DL (0.60-1.30); POTASSIUM 3.7 MMOL/L (3.6-5.0)
[2022-09-17] MEDS: 1/2 NS IV SOLUTION 1,000 ML IV SCH ×4 (00:26→11:32)
[2022-09-17] MEDS: POTASSIUM CL 10MEQ/50ML IVPB 50 ML IV SCH ×4 (00:26→07:35)
[2022-09-17] MEDS: CEFEPIME INJECTION 1,000 MG in NS (IVPB) 50 ML IV SCH ×4 (01:30→19:25)
[2022-09-17] MEDS: VANCOMYCIN 1 GM/NS 250 ML IVPB IV SCH ×4 (01:54→14:59)
[2022-09-17] MEDS: D5 1/2 NS 1000 ML IV SOLUTION 1,000 ML IV SCH ×2 (02:17→06:12)
[2022-09-17 05:50] LABS: ALBUMIN 3.1 GM/DL (3.2-4.5); BILIRUBIN,TOTAL 0.3 MG/DL (0.1-1.0); CALCIUM 7.9 MG/DL (8.5-10.1); CREATININE SERUM 0.7 MG/DL (0.60-1.30); MAGNESIUM 1.5 MG/DL (1.6-2.4); PHOSPHORUS 2.2 MG/DL (2.3-4.7); POTASSIUM 3.7 MMOL/L (3.6-5.0); TOTAL PROTEIN 5.3 GM/DL (6.4-8.2)
[2022-09-17 05:58] LABS: BASOPHILS % (AUTO) 0 % (0-10); MEAN CORPUSCULAR VOLUME 89 fL (80-99)
[2022-09-17 06:00] LABS: EOSINOPHILS % (AUTO) 0 % (0-10); HEMATOCRIT 27 % (35-52); HEMOGLOBIN 8.2 g/dL (11.5-16.0); LYMPHOCYTES # (AUTO) 0.6 10^3/uL (1.0-4.0); LYMPHOCYTES % (AUTO) 10 % (12-44); MEAN CORPUSCULAR HEMOGLOBIN 28 pg (25-34); MEAN CORPUSCULAR HGB CONC 31 g/dL (32-36); MEAN PLATELET VOLUME 12.5 fL (9.0-12.2); MONOCYTES # (AUTO) 0.4 10^3/uL (0.0-1.0); MONOCYTES % (AUTO) 6 % (0-12); NEUTROPHILS # (AUTO) 4.8 10^3/uL (1.8-7.8); NEUTROPHILS % (AUTO) 83 % (42-75); PLATELET COUNT 88 10^3/uL (130-400); WHITE BLOOD COUNT 5.8 10^3/uL (4.3-11.0)
[2022-09-17] MEDS ORDERED: MAGNESIUM 1 GM/100 ML IVPB 100 ML IV SCH (06:00)
[2022-09-17] MEDS ORDERED: KCL 20 MEQ TAB (K-DUR) PO SCH (06:00)
[2022-09-17] MEDS ORDERED: POTASSIUM CL 10MEQ/50ML IVPB 50 ML IV SCH (06:00)
[2022-09-17 06:14] LABS: SMEAR SCAN COMMENT YES
[2022-09-17] MEDS: DOCUSATE SODIUM 100 MG (COLACE) CAP PO SCH ×3 (08:20→19:34)
[2022-09-17] MEDS: PANTOPRAZOLE 40 MG (PROTONIX) TAB PO SCH (08:20)
--- NOTE | 2022-09-17 09:53 | Progress Note ---
Subjective Subjective/Events-last exam Pt states she has a headache and her memory is still a little slow. Focused Exam Lactate Level 09/16/22 09:00: Lactic Acid Level 8.52*H 09/16/22 11:00: Lactic Acid Level 7.51*H 09/16/22 13:55: Lactic Acid Level 3.72*H Time of Focused Exam: 10:20 Objective Exam Last Set of Vital Signs Vital Signs Date Time Temp Pulse Resp B/P (MAP) Pulse Ox O2 Delivery O2 Flow Rate FiO2 09/17/22 08:00 36.7 09/17/22 08:00 97 Room Air 09/17/22 08:00 102 18 147/84 (105) Capillary Refill : Less Than 3 Seconds I&O Intake and Output 09/17/22 00:00 Intake Total 4420 ml Output Total 875 ml Balance 3545 ml Intake Oral 450 ml IV Total 3970 ml Output Urine Total 875 ml # Voids 2 # Bowel Movements 2 Daily Weight Change Unsure General: Alert, No Acute Distress Lungs: Clear to Auscultation (anteriorly, unable to sit forward for posterior exam) Heart: Other (tachycardic) Extremities: No Edema Skin: Other (hematoma left inner ankle) Psych/Mental Status: Mental Status NL, Mood NL Results/Procedures Lab Laboratory Tests 09/16/22 10:30: Venous Blood pH 7.19L, Venous Blood Partial Pressure CO2 37L, Venous Blood HCO3 14L 09/16/22 10:37: Urine Color YELLOW, Urine Clarity CLEAR, Urine pH 5.0, Urine Specific [place] >=1.030, Urine Protein 1+H, Urine Glucose (UA) 2+H, Urine Ketones TRACEH, Urine Nitrite NEGATIVE, Urine Bilirubin NEGATIVE, Urine Urobilinogen 0.2, Urine Leukocyte Esterase NEGATIVE, Urine RBC (Auto) 2+H, Urine RBC NONE, Urine WBC 25- 50H, Urine Crystals NONE, Urine Bacteria TRACE, Urine Casts PRESENT, Urine Hyaline Casts 2-5H, Urine Mucus SMALLH, Urine Culture Indicated YES 09/16/22 11:00: Lactic Acid Level 7.51*H 09/16/22 11:03: Glucometer 241H 09/16/22 12:51: Glucometer 366H 09/16/22 13:55: Sodium Level 135, Potassium Level 3.8, Chloride Level 107, Carbon Dioxide Level 14L, Anion Gap 14, Blood Urea Nitrogen 26H, Creatinine 1.14, Estimat Glomerular Filtration Rate 51, BUN/Creatinine Ratio 23, Glucose Level 412*H, Lactic Acid Level 3.72*H, Calcium Level 8.1L, Beta-Hydroxybutyrate (Chem panel) 0.17 09/16/22 14:02: Glucometer 327H 09/16/22 14:53: Glucometer 344H 09/16/22 15:54: Glucometer 312H 09/16/22 16:15: Glucometer 288H 09/16/22 16:52: Glucometer 249H 09/16/22 17:58: Glucometer 232H 09/16/22 18:54: Glucometer 240H 09/16/22 20:10: Glucometer 209H 09/16/22 21:15: Glucometer 179H 09/16/22 21:38: Sodium Level 135, Potassium Level 3.7, Chloride Level 107, Carbon Dioxide Level 16L, Anion Gap 12, Blood Urea Nitrogen 20H, Creatinine 0.81, Estimat Glomerular Filtration Rate 77, BUN/Creatinine Ratio 25, Glucose Level 183H, Calcium Level 8.0L 09/16/22 22:19: Glucometer 186H 09/16/22 23:26: Glucometer 185H 09/17/22 00:35: Glucometer 179H 09/17/22 01:47: Glucometer 177H 09/17/22 02:48: Glucometer 169H 09/17/22 03:54: Glucometer 154H 09/17/22 04:48: White Blood Count 5.8, Red Blood Count 2.98L, Hemoglobin 8.2#L, Hematocrit 27L, Mean Corpuscular Volume 89, Mean Corpuscular Hemoglobin 28, Mean Corpuscular Hemoglobin Concent 31L, Red Cell Distribution Width 15.8H, Platelet Count 88L, Mean Platelet Volume 12.5H, Immature Granulocyte % (Auto) 1, Neutrophils (%) (Auto) 83H, Lymphocytes (%) (Auto) 10L, Monocytes (%) (Auto) 6, Eosinophils (%) (Auto) 0, Basophils (%) (Auto) 0, Neutrophils # (Auto) 4.8, Lymphocytes # (Auto) 0.6L, Monocytes # (Auto) 0.4, Eosinophils # (Auto) 0.0, Basophils # (Auto) 0.0, Immature Granulocyte # (Auto) 0.0, Percent Immature Platelet Fraction 8.2H, Sodium Level 138, Potassium Level 3.7, Chloride Level 111H, Carbon Dioxide Level 19L, Anion Gap 8, Blood Urea Nitrogen 15, Creatinine 0.70, Estimat Glomerular Filtration Rate 92, BUN/Creatinine Ratio 21, Glucose Level 147H, Calcium Level 7.9L, Corrected Calcium 8.6, Phosphorus Level 2.2L, Magnesium Level 1.5L, Total Bilirubin 0.3, Aspartate Amino Transf (AST/SGOT) 71H, Alanine Aminotransferase (ALT/SGPT) 34, Alkaline Phosphatase 38L, Total Protein 5.3L, Albumin 3.1L, Smear Scan YES 09/17/22 05:07: Glucometer 148H 09/17/22 06:16: Glucometer 135H 09/17/22 07:20: Glucometer 142H 09/17/22 08:07: Glucometer 149H Assessment/Plan Assessment/Plan (1) DKA (diabetic ketoacidosis) Status: Resolved Assessment & Plan: Gap closed and CO2 up to 19 this am, insulin drip d/c per [facility] ICU, started on sliding scale insulin. Resume low dose long-acting insulin, increase as needed. (2) Severe sepsis Status: Acute Assessment & Plan: Suspect secondary to urinary tract infection, CXR without acute findings, flu and COVID neg. Markedly elevated LA on admit, trended down. Febrile to Tmax 38 last 24 hours. (3) Acute cystitis without hematuria Status: Acute Assessment & Plan: Culture pending. Started on cefepime and vancomycin on admit. (4) Fall Status: Acute Assessment & Plan: Uncertain etiology of down time, complaining of right hip pain, xray okay. CT head and neck okay. (5) Hypertension Status: Chronic Assessment & Plan: Given tachycardia, will resume beta hugo first. (6) Hyperlipidemia Status: Chronic Assessment & Plan: Resume statin (7) Type II diabetes mellitus Status: Chronic Assessment & Plan: Hold home meds, treat with insulin Qualifiers: Qualified Codes: E11.69 - Type 2 diabetes mellitus with other specified complication; Z79.4 - intermediate frame tender (current) use of insulin (8) History of stroke Status: Chronic Assessment & Plan: Resume home anti-platelets (9) DVT prophylaxis Status: Acute Assessment & Plan: Enoxaparin KARINE FLORES MD Sep 17, 2022 09:53
[2022-09-17] MEDS: ACETAMINOPHEN 325 MG TABLET PO PRN ×2 (09:59→14:10)
--- NOTE | 2022-09-17 10:10 | Tele-ICU Progress Note ---
Subjective Date Seen by a Provider: Sep 17, 2022 Time Seen by a Provider: 10:10 Sepsis Event Evaluation Height, Weight, BMI Height: '" Weight: lbs. oz. kg; 35.73 BMI Method: Focused Exam Lactate Level 09/16/22 09:00: Lactic Acid Level 8.52*H 09/16/22 11:00: Lactic Acid Level 7.51*H 09/16/22 13:55: Lactic Acid Level 3.72*H Time of Focused Exam: 10:20 Exam Exam Patient acknowledged, consented, and participated in this virtual visit which was conducted using real time audio/video Vital Signs Date Time Temp Pulse Resp B/P (MAP) Pulse Ox O2 Delivery O2 Flow Rate FiO2 09/17/22 08:00 36.7 09/17/22 08:00 97 Room Air 09/17/22 08:00 102 18 147/84 (105) 97 Room Air 09/17/22 07:05 107 09/17/22 07:00 105 24 134/74 (94) 100 Room Air 09/17/22 06:00 104 24 143/81 (101) 100 Room Air 09/17/22 05:00 98 20 132/89 (103) 100 Room Air 09/17/22 04:00 95 Room Air 09/17/22 04:00 98 18 139/64 (89) 99 Room Air 09/17/22 03:00 98 18 138/65 (89) 98 Room Air 09/17/22 02:00 106 19 124/65 (84) 96 Room Air 09/17/22 01:57 37.6 09/17/22 01:00 110 20 120/63 (82) 97 Room Air 09/17/22 01:00 109 09/17/22 00:09 36.1 09/17/22 00:00 118 26 119/65 (83) 97 Room Air 09/17/22 00:00 97 Room Air 09/16/22 23:00 120 20 109/65 (80) 97 Room Air 09/16/22 22:00 133 25 124/72 (89) 98 Room Air 09/16/22 21:00 128 19 146/91 (109) 98 Room Air 09/16/22 20:00 95 Room Air 09/16/22 20:00 128 19 138/98 (111) 97 Room Air 09/16/22 19:54 37.7 09/16/22 19:09 37.7 09/16/22 19:00 121 09/16/22 19:00 116 19 180/110 (133) 98 Room Air 09/16/22 18:39 38.0 09/16/22 18:00 104 20 146/80 (102) 98 Room Air 09/16/22 17:00 96 16 124/65 (84) 91 Room Air 09/16/22 16:00 97 Room Air 09/16/22 16:00 98 21 130/76 (94) 99 Room Air 09/16/22 15:00 93 15 120/71 (87) 95 Room Air 09/16/22 14:00 99 26 124/86 (99) 97 Room Air 09/16/22 13:26 99 09/16/22 13:00 96 24 134/74 (94) 98 Room Air 09/16/22 13:00 97 Room Air 09/16/22 11:58 36.2 98 24 129/68 97 Room Air I & O 09/17/22 07:00 Intake Total 6970 ml Output Total 2775 ml Balance 4195 ml Height & Weight Height: '" Weight: lbs. oz. kg; 35.73 BMI Method: General Appearance: No Apparent Distress, Chronically ill, Obese, Other (Lethargic) HEENT: PERRL/EOMI; No Moist Mucous Membranes (dry mucous membranes) Neck: Full Range of Motion, Normal Inspection, Non Tender, Supple Respiratory: Lungs Clear, Normal Breath Sounds, No Accessory Muscle Use, No Respiratory Distress Cardiovascular: Regular Rate, Rhythm Capillary Refill: Less Than 3 Seconds Peripheral Pulses: 2+ Carotid (R), 2+ Carotid (L) Gastrointestinal: normal bowel sounds, non tender, soft Extremity: Normal Capillary Refill, Pedal Edema (trace to 1+ BLE) Neurologic/Psychiatric: Alert; No Oriented x3 (oriented to self and place but unsure of time); 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
[2022-09-17] MEDS: inSUlin ASPART (NovoLOG) 1 UNIT/0.01 ML (CHARGE PER UNIT) SC SCH ×3 (11:32→21:36)
[2022-09-17] MEDS ORDERED: TROUGH ORDER-PHARMACY XX NR (13:00)
[2022-09-17] MEDS: ENOXAPARIN 40 MG/0.4 ML (LOVENOX) SYR SC SCH (14:09)
[2022-09-17] MEDS: NS IV 1000 ML 1,000 ML IV SCH ×2 (14:12→19:24)
[2022-09-17] MEDS: GABAPENTIN 100 MG (NEURONTIN) CAP PO SCH ×2 (17:55→19:34)
[2022-09-17] MEDS: meTOprolol TARTRATE 50 MG (LOPRESSOR) TAB PO SCH (19:34)
[2022-09-17 20:00] VITALS: BP 142/73
[2022-09-17] MEDS ORDERED: NON-FORMULARY MEDICATION 1 EA EA (Insulin Detemir (Levemir Flextouch) 20 UNIT) SQ SCH (21:00)
[2022-09-17 23:45] VITALS: BP 150/67
[2022-09-18] MEDS: NS IV 1000 ML 1,000 ML IV SCH ×3 (03:17→17:07)
[2022-09-18] MEDS: VANCOMYCIN 1 GM/NS 250 ML IVPB IV SCH ×2 (03:17)
[2022-09-18] MEDS: CEFEPIME INJECTION 1,000 MG in NS (IVPB) 50 ML IV SCH ×4 (03:17→20:00)
[2022-09-18 04:39] VITALS: BP 133/63
[2022-09-18] MEDS: inSUlin ASPART (NovoLOG) 1 UNIT/0.01 ML (CHARGE PER UNIT) SC SCH ×4 (04:53→20:54)
[2022-09-18 05:52] LABS: HEMOGLOBIN 8.5 g/dL (11.5-16.0); MONOCYTES % (AUTO) 9 % (0-12)
[2022-09-18 05:54] LABS: BASOPHILS % (AUTO) 1 % (0-10); EOSINOPHILS # (AUTO) 0.1 10^3/uL (0.0-0.3); EOSINOPHILS % (AUTO) 1 % (0-10); HEMATOCRIT 27 % (35-52); LYMPHOCYTES # (AUTO) 0.7 10^3/uL (1.0-4.0); LYMPHOCYTES % (AUTO) 14 % (12-44); MEAN CORPUSCULAR HEMOGLOBIN 27 pg (25-34); MEAN CORPUSCULAR HGB CONC 31 g/dL (32-36); MEAN CORPUSCULAR VOLUME 87 fL (80-99); MEAN PLATELET VOLUME 12.4 fL (9.0-12.2); MONOCYTES # (AUTO) 0.5 10^3/uL (0.0-1.0); NEUTROPHILS # (AUTO) 4.1 10^3/uL (1.8-7.8); NEUTROPHILS % (AUTO) 76 % (42-75); PLATELET COUNT 93 10^3/uL (130-400); WHITE BLOOD COUNT 5.4 10^3/uL (4.3-11.0)
[2022-09-18 06:15] LABS: ALBUMIN 3.1 GM/DL (3.2-4.5); BILIRUBIN,TOTAL 0.5 MG/DL (0.1-1.0); CALCIUM 8.4 MG/DL (8.5-10.1); CREATININE SERUM 0.73 MG/DL (0.60-1.30); MAGNESIUM 2.4 MG/DL (1.6-2.4); POTASSIUM 4.4 MMOL/L (3.6-5.0); TOTAL PROTEIN 5.6 GM/DL (6.4-8.2)
[2022-09-18] MEDS ORDERED: SODIUM PHOSPHATE INJ 30 MM in NS (IVPB) 250 ML INJ ONE (07:00)
[2022-09-18 08:05] VITALS: BP 144/85
[2022-09-18] MEDS: PANTOPRAZOLE 40 MG (PROTONIX) TAB PO SCH (08:47)
[2022-09-18] MEDS: DOCUSATE SODIUM 100 MG (COLACE) CAP PO SCH ×2 (08:47→20:00)
[2022-09-18] MEDS: meTOprolol TARTRATE 50 MG (LOPRESSOR) TAB PO SCH ×2 (08:47→20:00)
[2022-09-18] MEDS: GABAPENTIN 100 MG (NEURONTIN) CAP PO SCH ×3 (08:51→20:00)
[2022-09-18] MEDS ORDERED: ASPIRIN 81 MG CHEW (CHILDREN'S ASA) PO SCH (09:00)
[2022-09-18 11:06] VITALS: BP 145/83
--- NOTE | 2022-09-18 11:34 | Progress Note ---
Subjective Subjective/Events-last exam Tmax 38.2. States she is feeling okay, a little better but still has headache and right side still hurts. Focused Exam Lactate Level 09/16/22 09:00: Lactic Acid Level 8.52*H 09/16/22 11:00: Lactic Acid Level 7.51*H 09/16/22 13:55: Lactic Acid Level 3.72*H Time of Focused Exam: 10:20 Objective Exam Last Set of Vital Signs Vital Signs Date Time Temp Pulse Resp B/P (MAP) Pulse Ox O2 Delivery O2 Flow Rate FiO2 09/18/22 11:06 37.0 95 18 145/83 (103) 90 Room Air Capillary Refill : Less Than 3 Seconds I&O Intake and Output 09/18/22 00:00 Intake Total 4500 ml Output Total 2850 ml Balance 1650 ml Intake Oral 900 ml IV Total 3600 ml Output Urine Total 2850 ml # Voids 1 General: Alert, No Acute Distress Lungs: Clear to Auscultation, Normal Air Movement Heart: Regular Rate, No Murmurs Abdomen: Normal Bowel Sounds, Soft Psych/Mental Status: Mental Status NL, Mood NL Results/Procedures Lab Laboratory Tests 09/17/22 13:35: Vancomycin Level Trough 10.7 09/17/22 16:40: Glucometer 168H 09/17/22 20:37: Glucometer 182H 09/18/22 01:54: Glucometer 245H 09/18/22 04:40: Glucometer 255H 09/18/22 05:15: White Blood Count 5.4, Red Blood Count 3.10L, Hemoglobin 8.5L, Hematocrit 27L, Mean Corpuscular Volume 87, Mean Corpuscular Hemoglobin 27, Mean Corpuscular Hemoglobin Concent 31L, Red Cell Distribution Width 15.8H, Platelet Count 93L, Mean Platelet Volume 12.4H, Immature Granulocyte % (Auto) 0, Neutrophils (%) (Auto) 76H, Lymphocytes (%) (Auto) 14, Monocytes (%) (Auto) 9, Eosinophils (%) ( Auto) 1, Basophils (%) (Auto) 1, Neutrophils # (Auto) 4.1, Lymphocytes # (Auto) 0.7L, Monocytes # (Auto) 0.5, Eosinophils # (Auto) 0.1, Basophils # (Auto) 0.0, Immature Granulocyte # (Auto) 0.0, Percent Immature Platelet Fraction 8.3H, Sodium Level 132L, Potassium Level 4.4, Chloride Level 106, Carbon Dioxide Level 19L, Anion Gap 7, Blood Urea Nitrogen 11, Creatinine 0.73, Estimat Glomerular Filtration Rate 87, BUN/Creatinine Ratio 15, Glucose Level 278H, Calcium Level 8.4L, Corrected Calcium 9.1, Phosphorus Level 2.0L, Magnesium Level 2.4, Total Bilirubin 0.5, Aspartate Amino Transf (AST/SGOT) 46H, Alanine Aminotransferase (ALT/SGPT) 37, Alkaline Phosphatase 53, Total Protein 5.6L, Albumin 3.1L 09/18/22 11:12: Glucometer 216H 09/18/22 11:14: Microbiology 09/16/22 MRSA Screen - Final, Complete MRSA not isolated 09/16/22 Urine Culture - Preliminary, Resulted Pseudomonas aeruginosa 09/16/22 Blood Culture - Preliminary, Resulted No growth Assessment/Plan Assessment/Plan (1) DKA (diabetic ketoacidosis) Status: Resolved Assessment & Plan: Gap closed and CO2 up to 19 this am, insulin drip d/c per [facility], started on sliding scale insulin. Resume low dose long-acting insulin, increase as needed. (2) Severe sepsis Status: Acute Assessment & Plan: Suspect secondary to urinary tract infection, CXR without acute findings, flu and COVID neg. Markedly elevated LA on admit, trended down. Febrile to Tmax 38 last 24 hours. 1/3- urine with psuedomonas, will d/c vancomycin (3) Acute cystitis without hematuria Status: Acute Assessment & Plan: Culture pending. Started on cefepime and vancomycin on admit. (4) Fall Status: Acute Assessment & Plan: Uncertain etiology of down time, complaining of right hip pain, xray okay. CT head and neck okay. 1/3- PT eval (5) Hypertension Status: Chronic Assessment & Plan: Given tachycardia, will resume beta hugo first. (6) Hyperlipidemia Status: Chronic Assessment & Plan: Resume statin (7) Type II diabetes mellitus Status: Chronic Assessment & Plan: Hold home meds, treat with insulin Qualifiers: Qualified Codes: E11.69 - Type 2 diabetes mellitus with other specified complication; Z79.4 - skilled nursing (current) use of insulin (8) History of stroke Status: Chronic Assessment & Plan: Resume home anti-platelets (9) DVT prophylaxis Status: Acute Assessment & Plan: Enoxaparin KARINE FLORES MD Sep 18, 2022 11:34
--- NOTE | 2022-09-18 14:07 | Physical Therapy Evaluation ---
PT Evaluation-General Medical Diagnosis Admission Date Sep 16, 2022 at 12:41 Medical Diagnosis: DKA Type 1/sepsis Onset Date: Sep 16, 2022 Therapy Diagnosis Therapy Diagnosis: generalized weakness/debility Precautions Precautions/Isolations: Fall Prevention, Standard Precautions Referral Physician: Mamadou Reason for Referral: Evaluation/Treatment Medical History Pertinent Medical History: CVA, DM, HTN Current History EMS secondary patient was found on the floor in her apartment. Reviewed History: Yes Social History Home: Apartment Current Living Status: Alone Entry Into Home: Level Entry Prior Prior Level of Function SCALE: Activities may be completed with or without assistive devices. 8-Gywvrtwtoq-nnwlwjj completes the activity by him/herself with no assistance from a helper. 5-Set-up or Clean-up Assistance-helper sets up or cleans up; patient completes activity. [place] assists only prior to or following the activity. 4-Supervision or Touching Assistance-helper provides verbal cues and/or touching/steadying and/or contact guard assistance as patient completes activity. Assistance may be provided throughout the activity or intermittently. 3-Partial/Moderate Assistance-helper does LESS THAN HALF the effort. [place] lifts, holds or supports trunk or limbs, but provides less than half the effort. 2-Substantial/Maximal Assistance-helper does MORE THAN HALF the effort. [place] lifts or holds trunk or limbs and provides more than half the effort. 8-Srxcsuvul-qbsvbz does ALL the effort. Patient does none of the effort to complete the activity. Or, the assistance of 2 or more helpers is required for the patient to complete the activity. If activity was not attempted, code reason: 7-Patient Refused. 9-Not Applicable-not attempted and the patient did not perform the activity before the current illness, exacerbation or injury. 10-Not Attempted due to Environmental Limitations-(lack of equipment, weather restraints, etc.). 88-Not Attempted due to Medical Conditions or Safety Concerns. Bed Mobility: 6 Transfers (B,C,W/C): 6 Gait: 6 Stairs: 9 Indoor Mobility (Ambulation): Independent Stairs: Not [place] Prior Devices Use: Walker per patient, her 89 y.o. mother assists her PT Evaluation-Current Subjective Patient is very lethargic. Agrees to PT. Objective Patient Orientation: Person Attachments: IV ROM/Strength ROM Lower Extremities bilateral LE WFL Strength Lower Extremities 3-/5 grossly bilateral LE all planes Integumentary/Posture Integumentary multiple blisters bilateral LE Posture trunk flexed posture Neuromuscular (Tone, Coordination, Reflexes) diminished coordination Sensory Vision: Functional Hearing: Functional Transfers Lying to Sitting/Side of Bed(Q: 2 Sit to Stand (QC): 1 (x 2) Chair/Cau-ds-Kivfd Xfer(QC): 1 (x 2) Gait Mode of Locomotion: Walk Anticipated Mode of Locomotion: Walk Walk 10 feet (QC): 88 Walk 50 ft with 2 Turns(QC): 88 Gait Assistive Device: FWW Balance Sitting Static: Fair Sitting Dynamic: Poor Standing Static: Poor Standing Dynamic: Poor Assessment/Needs Patient is severely debilitated and requires assist of 2 for all safe mobility. Patient unable to ambulate on this date. Patient will benefit from skilled PT to address functional strength and mobility to improve current LOF. Rehab Potential: Guarded PT Healthcare Translator Goals Healthcare Translator Goals PT Healthcare Translator Goals Time Frame: Oct 06, 2022 Roll Left & Right (QC): 5 Sit to Lying (QC): 5 Lying-Sitting on Side/Bed(QC): 5 Sit to Stand (QC): 5 Chair/Gys-lh-Unmnr Xfer(QC): 5 Toilet Transfer (QC): 5 Walk 10 feet (QC): 4 Walk 50ft with 2 Turns (QC): 4 PT Plan Problem List Problem List: Activity Tolerance, Functional Strength, Safety, Balance, Gait, Transfer, Bed Mobility Treatment/Plan Treatment Plan: Continue Plan of Care Treatment Plan: Bed Mobility, Education, Functional Activity Siva, Functional Strength, Gait, Safety, Therapeutic Exercise, Transfers Treatment Duration: Oct 06, 2022 Frequency: 6 times per week Estimated Hrs Per Day: .25 hour per day Time Time In: 1325 Time Out: 1341 DATE: Sep 18, 2022 Total Billed Treatment Time: 16 Total Billed Treatment [address] [facility] 16 min YVROSE VILLEDA PT Sep 18, 2022 14:07
[2022-09-18] MEDS: ENOXAPARIN 40 MG/0.4 ML (LOVENOX) SYR SC SCH (14:12)
[2022-09-18] MEDS ORDERED: METH-732 PO (14:36)
[2022-09-18] MEDS ORDERED: LIDO700A45 TP (14:36)
[2022-09-18] MEDS ORDERED: ROSU10TA28 PO (14:37)
[2022-09-18] MEDS ORDERED: CLOP75TA28 PO (14:38)
[2022-09-18] MEDS ORDERED: ASPI-1238 PO (14:39)
[2022-09-18] MEDS ORDERED: ACET-2267 PO (14:40)
[2022-09-18] MEDS ORDERED: INSU100I10 SQ (14:53)
[2022-09-18] MEDS ORDERED: INSU100I23 SQ (15:01)
[2022-09-18] MEDS ORDERED: METHOCARBAMOL 750 MG (ROBAXIN) TAB PO PRN (15:15)
[2022-09-18] MEDS ORDERED: LIDOCAINE 4% (SALONPAS) PATCH TP PRN (15:15)
[2022-09-18 16:24] VITALS: BP 145/67
[2022-09-18 19:42] VITALS: BP 138/69
[2022-09-18] MEDS: lisINopril 10 MG (PRINIVIL) TABLET PO SCH (20:00)
[2022-09-18 23:32] VITALS: BP 129/74
[2022-09-19] VITALS (7 sets, daily range): BP systolic 140–179; BP diastolic 68–83
[2022-09-19] MEDS: NS IV 1000 ML 1,000 ML IV SCH (00:09)
[2022-09-19] MEDS: CEFEPIME INJECTION 1,000 MG in NS (IVPB) 50 ML IV SCH ×4 (02:17→21:24)
[2022-09-19 05:23] LABS: BASOPHILS % (AUTO) 0 % (0-10); EOSINOPHILS # (AUTO) 0.2 10^3/uL (0.0-0.3); EOSINOPHILS % (AUTO) 4 % (0-10); HEMATOCRIT 25 % (35-52); HEMOGLOBIN 7.9 g/dL (11.5-16.0); LYMPHOCYTES % (AUTO) 21 % (12-44); MEAN CORPUSCULAR HEMOGLOBIN 27 pg (25-34); MEAN CORPUSCULAR HGB CONC 31 g/dL (32-36); MEAN CORPUSCULAR VOLUME 87 fL (80-99); MONOCYTES # (AUTO) 0.4 10^3/uL (0.0-1.0); MONOCYTES % (AUTO) 9 % (0-12); NEUTROPHILS # (AUTO) 3.1 10^3/uL (1.8-7.8); NEUTROPHILS % (AUTO) 66 % (42-75); PLATELET COUNT 99 10^3/uL (130-400); WHITE BLOOD COUNT 4.6 10^3/uL (4.3-11.0)
[2022-09-19 05:31] LABS: ALBUMIN 2.9 GM/DL (3.2-4.5)
[2022-09-19 05:32] LABS: POTASSIUM 3.9 MMOL/L (3.6-5.0)
[2022-09-19 05:33] LABS: CALCIUM 8.3 MG/DL (8.5-10.1)
[2022-09-19 05:34] LABS: TOTAL PROTEIN 5.5 GM/DL (6.4-8.2)
[2022-09-19 05:36] LABS: BILIRUBIN,TOTAL 0.5 MG/DL (0.1-1.0)
[2022-09-19 05:37] LABS: PHOSPHORUS 2.2 MG/DL (2.3-4.7)
[2022-09-19 05:38] LABS: CREATININE SERUM 0.66 MG/DL (0.60-1.30)
[2022-09-19 05:40] LABS: MAGNESIUM 1.8 MG/DL (1.6-2.4)
[2022-09-19] MEDS: inSUlin ASPART (NovoLOG) 1 UNIT/0.01 ML (CHARGE PER UNIT) SC SCH ×4 (05:52→21:30)
[2022-09-19] MEDS ORDERED: POTASSIUM PHOSPHATE INJ 30 MM in NS (IVPB) 250 ML IV NR (08:00)
[2022-09-19] MEDS: ROSUVASTATIN 10 MG (CRESTOR) TABLET PO SCH (08:11)
[2022-09-19] MEDS: lisINopril 10 MG (PRINIVIL) TABLET PO SCH ×2 (08:11→21:25)
[2022-09-19] MEDS: PANTOPRAZOLE 40 MG (PROTONIX) TAB PO SCH (08:11)
[2022-09-19] MEDS: ASPIRIN E.C. 81 MG (ECOTRIN) TAB PO SCH (08:11)
[2022-09-19] MEDS: DOCUSATE SODIUM 100 MG (COLACE) CAP PO SCH ×2 (08:11→21:00)
[2022-09-19] MEDS: meTOprolol TARTRATE 50 MG (LOPRESSOR) TAB PO SCH ×2 (08:11→21:24)
[2022-09-19] MEDS: CLOPIDOGREL 75 MG (PLAVIX) TABLET PO SCH (08:12)
[2022-09-19] MEDS: GABAPENTIN 100 MG (NEURONTIN) CAP PO SCH ×3 (08:14→21:25)
[2022-09-19] MEDS ORDERED: RT-ALBUTEROL SULF 2.5 MG/3 ML PRE-MIX VIAL INH PRN (09:45)
--- NOTE | 2022-09-19 11:43 | Physical Therapy Daily Note ---
PT Daily Note-Current Subjective Patient in bed pre tx, agrees to PT, has no pain at rest but has pain in right hip with movement. Pain Section J - Health Conditions 1. Rarely or not at all 2. Occasionally 3. Frequently 4. Almost constantly 8. Unable to answer Pain Effect on Sleep: 3 Pain Interference with Therapy: 3 Pain Interference w/Day-to-Day: 3 Appearance Patient in recliner post tx with nurse call, phone, tray, all needs met. Mental Status Patient Orientation: Person, Place Transfers SCALE: Activities may be completed with or without assistive devices. 2-Lvxjmfavzc-mxewjyk completes the activity by him/herself with no assistance from a helper. 5-Set-up or Clean-up Assistance-helper sets up or cleans up; patient completes activity. [place] assists only prior to or following the activity. 4-Supervision or Touching Assistance-helper provides verbal cues and/or touching/steadying and/or contact guard assistance as patient completes activity. Assistance may be provided throughout the activity or intermittently. 3-Partial/Moderate Assistance-helper does LESS THAN HALF the effort. [place] lifts, holds or supports trunk or limbs, but provides less than half the effort. 2-Substantial/Maximal Assistance-helper does MORE THAN HALF the effort. [place] lifts or holds trunk or limbs and provides more than half the effort. 5-Gdenhntes-cxnzrb does ALL the effort. Patient does none of the effort to complete the activity. Or, the assistance of 2 or more helpers is required for the patient to complete the activity. If activity was not attempted, code reason: 7-Patient Refused. 9-Not Applicable-not attempted and the patient did not perform the activity before the current illness, exacerbation or injury. 10-Not Attempted due to Environmental Limitations-(lack of equipment, weather restraints, etc.). 88-Not Attempted due to Medical Conditions or Safety Concerns. Roll Left & Right (QC): 3 Lying to Sitting/Side of Bed(Q: 3 (mod assist) Sit to Stand (QC): 2 Chair/Wol-ub-Amxdn Xfer(QC): 2 Max assist to stand from bed and transfer to recliner, patient was able to take a couple of steps toward the recliner before sitting down. Exercises Seated Therapy Exercises: Ankle pumps, Long arc quads Seated Reps: 20 Treatments bed mobility and transfers, LE ROM Assessment Current Status: Fair Progress improved supine to sit PT Pump Erector Goals Correction Goals PT Pump Erector Goals Time Frame: Oct 06, 2022 Roll Left & Right (QC): 5 Sit to Lying (QC): 5 Lying-Sitting on Side/Bed(QC): 5 Sit to Stand (QC): 5 Chair/Lmx-gh-Kcyzk Xfer(QC): 5 Toilet Transfer (QC): 5 Walk 10 feet (QC): 4 Walk 50ft with 2 Turns (QC): 4 PT Plan Problem List Problem List: Activity Tolerance, Functional Strength, Safety, Balance, Gait, Transfer, Bed Mobility, ROM Treatment/Plan Treatment Plan: Continue Plan of Care Treatment Plan: Bed Mobility, Education, Functional Activity Siva, Functional Strength, Gait, Safety, Therapeutic Exercise, Transfers Treatment Duration: Oct 06, 2022 Frequency: 6 times per week Estimated Hrs Per Day: .25 hour per day Safety Risks/Education Patient Education: Transfer Techniques, Correct Positioning, Safety Issues Teaching Recipient: Patient Teaching Methods: Demonstration, Discussion Response to Teaching: Reinforcement Needed Time Time In: 1124 Time Out: 1137 DATE: Sep 19, 2022 Total Billed Treatment Time: 13 Total Billed Treatment 1 visit [facility] Rand' ELLIOT BENNETT PT Sep 19, 2022 11:43
[2022-09-19] MEDS: ENOXAPARIN 40 MG/0.4 ML (LOVENOX) SYR SC SCH (14:27)
--- NOTE | 2022-09-19 16:04 | Progress Note ---
Subjective Subjective/Events-last exam Afebrile. Pt states this morning she had some mucous/gunk in her mouth and it took a long time for someone to come and help, but once she got coffee that did help. She feels very weak and is scared about leaving the hospital. Focused Exam Time of Focused Exam: 10:20 Objective Exam Last Set of Vital Signs Vital Signs Date Time Temp Pulse Resp B/P (MAP) Pulse Ox O2 Delivery O2 Flow Rate FiO2 09/19/22 11:21 36.4 95 18 165/79 (107) 93 Room Air 09/19/22 09:26 21 Capillary Refill : Less Than 3 Seconds I&O Intake and Output 09/19/22 00:00 Intake Total 4420 ml Output Total 1300 ml Balance 3120 ml Intake Oral 1420 ml IV Total 3000 ml Output Urine Total 1300 ml # Voids 3 General: Alert, No Acute Distress Lungs: Other (wheezing) Heart: Regular Rate Abdomen: Normal Bowel Sounds, Soft Skin: Other (bruising on lower abdomen) Psych/Mental Status: Mental Status NL, Mood NL Results/Procedures Lab Laboratory Tests 09/18/22 16:24: Glucometer 245H 09/18/22 20:22: Glucometer 198H 09/19/22 05:10: White Blood Count 4.6, Red Blood Count 2.91L, Hemoglobin 7.9L, Hematocrit 25L, Mean Corpuscular Volume 87, Mean Corpuscular Hemoglobin 27, Mean Corpuscular Hemoglobin Concent 31L, Red Cell Distribution Width 15.8H, Platelet Count 99L, Mean Platelet Volume 12.0, Immature Granulocyte % (Auto) 0, Neutrophils (%) (Auto) 66, Lymphocytes (%) (Auto) 21, Monocytes (%) (Auto) 9, Eosinophils (%) (A uto) 4, Basophils (%) (Auto) 0, Neutrophils # (Auto) 3.1, Lymphocytes # (Auto) 1.0, Monocytes # (Auto) 0.4, Eosinophils # (Auto) 0.2, Basophils # (Auto) 0.0, Immature Granulocyte # (Auto) 0.0, Sodium Level 136, Potassium Level 3.9, Chloride Level 109H, Carbon Dioxide Level 20L, Anion Gap 7, Blood Urea Nitrogen 11, Creatinine 0.66, Estimat Glomerular Filtration Rate 93, BUN/Creatinine Ratio 17, Glucose Level 178H, Calcium Level 8.3L, Corrected Calcium 9.2, Phosphorus Level 2.2L, Magnesium Level 1.8, Total Bilirubin 0.5, Aspartate Amino Transf (AST/SGOT) 40H, Alanine Aminotransferase (ALT/SGPT) 41, Alkaline Phosphatase 52, Total Protein 5.5L, Albumin 2.9L 09/19/22 11:09: Glucometer 139H Microbiology 09/16/22 MRSA Screen - Final, Complete MRSA not isolated 09/16/22 Urine Culture - Final, Complete Pseudomonas aeruginosa 09/16/22 Blood Culture - Preliminary, Resulted No growth Assessment/Plan Assessment/Plan (1) DKA (diabetic ketoacidosis) Status: Resolved Assessment & Plan: Gap closed and CO2 up to 19 this am, insulin drip d/c per [facility], started on sliding scale insulin. Resume low dose long-acting insulin, increase as needed. (2) Severe sepsis Status: Acute Assessment & Plan: Suspect secondary to urinary tract infection, CXR without acute findings, flu and COVID neg. Markedly elevated LA on admit, trended down. Febrile to Tmax 38 last 24 hours. 09/18- urine with psuedomonas, will d/c vancomycin (3) Acute cystitis without hematuria Status: Acute Assessment & Plan: Culture pending. Started on cefepime and vancomycin on admit. 09/19 culture with pseudomonas, vanc discontinued on 09/18. (4) Fall Status: Acute Assessment & Plan: Uncertain etiology of down time, complaining of right hip pain, xray okay. CT head and neck okay. 09/18- PT eval (5) Hypertension Status: Chronic Assessment & Plan: Given tachycardia, will resume beta hugo first. 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
[2022-09-19] MEDS ORDERED: RT-ALBUTEROL SULF 2.5 MG/3 ML PRE-MIX VIAL INH SCH (21:00)
[2022-09-20] MEDS: CEFEPIME INJECTION 1,000 MG in NS (IVPB) 50 ML IV SCH ×4 (02:38→20:03)
[2022-09-20 03:48] VITALS: BP 141/69
[2022-09-20] MEDS: inSUlin ASPART (NovoLOG) 1 UNIT/0.01 ML (CHARGE PER UNIT) SC SCH ×5 (06:00→21:00)
[2022-09-20 07:54] VITALS: BP 152/83
[2022-09-20] MEDS: lisINopril 20 MG (PRINIVIL) TABLET PO SCH ×2 (08:21→20:04)
[2022-09-20] MEDS: DOCUSATE SODIUM 100 MG (COLACE) CAP PO SCH ×2 (08:21→20:05)
[2022-09-20] MEDS: meTOprolol TARTRATE 50 MG (LOPRESSOR) TAB PO SCH ×2 (08:21→20:04)
[2022-09-20] MEDS: ROSUVASTATIN 10 MG (CRESTOR) TABLET PO SCH (08:21)
[2022-09-20] MEDS: PANTOPRAZOLE 40 MG (PROTONIX) TAB PO SCH (08:21)
[2022-09-20] MEDS: ASPIRIN E.C. 81 MG (ECOTRIN) TAB PO SCH (08:21)
[2022-09-20] MEDS: CLOPIDOGREL 75 MG (PLAVIX) TABLET PO SCH (08:21)
[2022-09-20] MEDS: GABAPENTIN 100 MG (NEURONTIN) CAP PO SCH ×3 (08:24→20:01)
[2022-09-20] MEDS ORDERED: MILK OF MAGNESIA 400 MG/5 ML 30 ML UDC PO ONE (10:30)
[2022-09-20 10:45] LABS: BASOPHILS % (AUTO) 0 % (0-10); EOSINOPHILS # (AUTO) 0.3 10^3/uL (0.0-0.3); EOSINOPHILS % (AUTO) 7 % (0-10); HEMATOCRIT 29 % (35-52); HEMOGLOBIN 8.9 g/dL (11.5-16.0); LYMPHOCYTES # (AUTO) 0.7 10^3/uL (1.0-4.0); LYMPHOCYTES % (AUTO) 15 % (12-44); MEAN CORPUSCULAR HEMOGLOBIN 27 pg (25-34); MEAN CORPUSCULAR HGB CONC 31 g/dL (32-36); MEAN CORPUSCULAR VOLUME 87 fL (80-99); MEAN PLATELET VOLUME 12.2 fL (9.0-12.2); MONOCYTES # (AUTO) 0.3 10^3/uL (0.0-1.0); MONOCYTES % (AUTO) 6 % (0-12); NEUTROPHILS # (AUTO) 3.4 10^3/uL (1.8-7.8); NEUTROPHILS % (AUTO) 71 % (42-75); PLATELET COUNT 135 10^3/uL (130-400); WHITE BLOOD COUNT 4.8 10^3/uL (4.3-11.0)
[2022-09-20 10:59] LABS: ALBUMIN 3.1 GM/DL (3.2-4.5); BILIRUBIN,TOTAL 0.5 MG/DL (0.1-1.0); CALCIUM 8.8 MG/DL (8.5-10.1); CREATININE SERUM 0.72 MG/DL (0.60-1.30); MAGNESIUM 1.5 MG/DL (1.6-2.4); PHOSPHORUS 2.9 MG/DL (2.3-4.7); TOTAL PROTEIN 5.8 GM/DL (6.4-8.2)
[2022-09-20 11:24] VITALS: BP 127/81
--- NOTE | 2022-09-20 11:26 | Progress Note ---
Subjective Subjective/Events-last exam Pt states her breathing is feeling a lot better, but she is still weak and concerned about the blister on her leg. She is constipated and requesting milk of magnesia. Focused Exam Time of Focused Exam: 10:20 Objective Exam Last Set of Vital Signs Vital Signs Date Time Temp Pulse Resp B/P (MAP) Pulse Ox O2 Delivery O2 Flow Rate FiO2 09/20/22 07:54 36.5 84 16 152/83 (106) 96 09/20/22 03:48 Room Air 09/19/22 09:26 21 Capillary Refill : Less Than 3 Seconds I&O Intake and Output 09/20/22 00:00 Intake Total 2426 ml Output Total 2250 ml Balance 176 ml Intake Oral 1070 ml IV Total 1356 ml Output Urine Total 2250 ml # Voids 4 General: Alert, No Acute Distress Lungs: Clear to Auscultation, Normal Air Movement Heart: Regular Rate, No Murmurs Extremities: Other (trace edema, clear fluid filled blister on right calf, few abrasions on lower leg that are clean and non-draining) Neuro: Normal Speech Psych/Mental Status: Mood NL Results/Procedures Lab Laboratory Tests 09/19/22 16:03: Glucometer 136H 09/20/22 05:24: Glucometer 164H 09/20/22 10:23: Glucometer 228H 09/20/22 10:25: White Blood Count 4.8, Red Blood Count 3.29L, Hemoglobin 8.9L, Hematocrit 29L, Mean Corpuscular Volume 87, Mean Corpuscular Hemoglobin 27, Mean Corpuscular Hemoglobin Concent 31L, Red Cell Distribution Width 15.9H, Platelet Count 135, Mean Platelet Volume 12.2, Immature Granulocyte % (Auto) 0, Neutrophils (%) (Auto) 71, Lymphocytes (%) (Auto) 15, Monocytes (%) (Auto) 6, Eosinophils (%) (Auto) 7, Basophils (%) (Auto) 0, Neutrophils # (Auto) 3.4, Lymphocytes # (Auto) 0.7L, Monocytes # (Auto) 0.3, Eosinophils # (Auto) 0.3, Basophils # (Auto) 0.0, Immature Granulocyte # (Auto) 0.0, Sodium Level 136, Potassium Level 4.0, Chloride Level 105, Carbon Dioxide Level 22, Anion Gap 9, Blood Urea Nitrogen 12, Creatinine 0.72, Estimat Glomerular Filtration Rate 89, BUN/Creatinine Ratio 17, Glucose Level 254H, Calcium Level 8.8, Corrected Calcium 9.5, Phosphorus Level 2.9, Magnesium Level 1.5L, Total Bilirubin 0.5, Aspartate Amino Transf (AST/SGOT) 54H, Alanine Aminotransferase (ALT/SGPT) 63H, Alkaline Phosphatase 65, Total Protein 5.8L, Albumin 3.1L Microbiology 09/16/22 MRSA Screen - Final, Complete MRSA not isolated 09/16/22 Urine Culture - Final, Complete Pseudomonas aeruginosa 09/16/22 Blood Culture - Preliminary, Resulted No growth Assessment/Plan Assessment/Plan (1) DKA (diabetic ketoacidosis) Status: Resolved Assessment & Plan: Gap closed and CO2 up to 19 this am, insulin drip d/c per [facility] ICU, started on sliding scale insulin. Resume low dose long-acting insulin, increase as needed. (2) Severe sepsis Status: Acute Assessment & Plan: Suspect secondary to urinary tract infection, CXR without acute findings, flu and COVID neg. Markedly elevated LA on admit, trended down. Febrile to Tmax 38 last 24 hours. 09/18- urine with psuedomonas, will d/c vancomycin (3) Acute cystitis without hematuria Status: Acute Assessment & Plan: Culture pending. Started on cefepime and vancomycin on admit. 09/19 culture with pseudomonas, vanc discontinued on 09/18. (4) Fall Status: Acute Assessment & Plan: Uncertain etiology of down time, complaining of right hip pain, xray okay. CT head and neck okay. 09/18- PT eval 09/20- spoke with son today and he is concerned about recurrent stroke with her recent carotid endarterectomy. Discussed that she is on antiplatelet and BP meds and managing glucose, so not much management would change, but is reasonable to obtain MRI to eval for possible more recent stroke, ordered. (5) Hypertension Status: Chronic Assessment & Plan: Given tachycardia, will resume beta hugo first. 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 She is also wanting wound care for her carotid endarterectomy scar which appears well-healed, reassured, but again may benefit from further assessment by wound nurse. (10) DVT prophylaxis Status: Acute Assessment & Plan: Enoxaparin KARINE FLORES MD Sep 20, 2022 11:26
--- NOTE | 2022-09-20 11:33 | Physical Therapy Daily Note ---
PT Daily Note-Current Subjective Patient agrees to PT. Pain Section J - Health Conditions 1. Rarely or not at all 2. Occasionally 3. Frequently 4. Almost constantly 8. Unable to answer Pain Effect on Sleep: 2 Pain Interference with Therapy: 2 Pain Interference w/Day-to-Day: 2 Transfers SCALE: Activities may be completed with or without assistive devices. 4-Dqmlnqibks-kiuzolj completes the activity by him/herself with no assistance from a helper. 5-Set-up or Clean-up Assistance-helper sets up or cleans up; patient completes activity. [place] assists only prior to or following the activity. 4-Supervision or Touching Assistance-helper provides verbal cues and/or touching/steadying and/or contact guard assistance as patient completes activity. Assistance may be provided throughout the activity or intermittently. 3-Partial/Moderate Assistance-helper does LESS THAN HALF the effort. [place] lifts, holds or supports trunk or limbs, but provides less than half the effort. 2-Substantial/Maximal Assistance-helper does MORE THAN HALF the effort. [place] lifts or holds trunk or limbs and provides more than half the effort. 2-Xfnpncrem-aldbww does ALL the effort. Patient does none of the effort to complete the activity. Or, the assistance of 2 or more helpers is required for the patient to complete the activity. If activity was not attempted, code reason: 7-Patient Refused. 9-Not Applicable-not attempted and the patient did not perform the activity before the current illness, exacerbation or injury. 10-Not Attempted due to Environmental Limitations-(lack of equipment, weather restraints, etc.). 88-Not Attempted due to Medical Conditions or Safety Concerns. Lying to Sitting/Side of Bed(Q: 3 Sit to Stand (QC): 3 Chair/Znz-by-Hknbw Xfer(QC): 3 Gait Training Distance: 10' x 2 Walk 10 feet (QC): 3 Gait Assistive Device: FWW Patient able to walk 10' x 2 with 1 seated recovery period due to fatigue. Exercises Seated Therapy Exercises: Long arc quads Seated Reps: 15 Assessment Patient slowly improving with treatment plan. Patient does appear to self limit, however, when redirected will participate and progress. Patient is up in recliner with needs met. PT instructed patient and nursing staff to have patient up to commode during the day and not utilize the purwick to aide in strengthening and increasing mobility. Both voice understanding. PT Long-Term Goals Long-Term Goals PT Long-Term Goals Time Frame: Oct 06, 2022 Roll Left & Right (QC): 5 Sit to Lying (QC): 5 Lying-Sitting on Side/Bed(QC): 5 Sit to Stand (QC): 5 Chair/Gmm-yd-Nfutu Xfer(QC): 5 Toilet Transfer (QC): 5 Walk 10 feet (QC): 4 Walk 50ft with 2 Turns (QC): 4 PT Plan Treatment/Plan Treatment Plan: Continue Plan of Care Treatment Plan: Bed Mobility, Education, Functional Activity Siva, Functional Strength, Gait, Safety, Therapeutic Exercise, Transfers Treatment Duration: Oct 06, 2022 Frequency: 6 times per week Estimated Hrs Per Day: .25 hour per day Time Time In: 1032 Time Out: 1047 DATE: Sep 20, 2022 Total Billed Treatment Time: 15 Total Billed Treatment 1 visit FA 15 min YVROSE VILLEDA PT Sep 20, 2022 11:32
[2022-09-20] MEDS ORDERED: MAGNESIUM OXIDE (MAG-OX)400 MG TAB PO NR (13:00)
[2022-09-20] MEDS: ENOXAPARIN 40 MG/0.4 ML (LOVENOX) SYR SC SCH (13:33)
--- NOTE | 2022-09-20 15:32 | Diagnostic Imaging Report ---
PROCEDURE: MR imaging of the brain without contrast. TECHNIQUE: Multiplanar, multisequence MR imaging of the brain was performed without contrast. INDICATION: Weakness. Altered mental status. Confusion. COMPARISON: CT head without contrast from 09/16/2022. FINDINGS: Examination is limited by motion. Ffyetqdz-el-ofqqkcry generalized parenchymal volume loss. Moderate nonspecific T2 hyperintensities in the supratentorial white matter, compatible with chronic small vessel ischemic change. There are a couple of punctate foci of restricted water diffusion in the right tanner and left middle cerebellar peduncle. No hemosiderin deposition or evidence of intracranial hemorrhage. Normal morphology including the major midline structures, sella, posterior fossa and cerebellopontine angle. Normal intracranial flow voids. No hydrocephalus or extra-axial fluid collections. Postoperative changes in the globes. Mild mucosal thickening in the left maxillary sinus. The mastoid air cells are clear. Normal bone marrow signal. IMPRESSION: 1. Small punctate vyhfa-ap-kndgdtut infarcts in the left middle cerebellar peduncle and right tanner. 2. Govofazn-gd-mcjmpuea generalized parenchymal volume loss. Moderate chronic small vessel ischemic change. Dictated by: Dictated on workstation # [id number]
[2022-09-20 16:00] VITALS: BP 125/66
[2022-09-20 19:43] VITALS: BP 158/73
[2022-09-20] MEDS: polyethylene glycoL POWDER 17 GM (MIRALAX) PACK PO PRN (19:59)
[2022-09-20] MEDS: MELATONIN 3 MG TABLET PO PRN (20:01)
[2022-09-21] VITALS (7 sets, daily range): BP systolic 121–148; BP diastolic 63–78
[2022-09-21] MEDS: CEFEPIME INJECTION 1,000 MG in NS (IVPB) 50 ML IV SCH ×2 (01:54→09:18)
[2022-09-21 06:12] LABS: BASOPHILS % (AUTO) 1 % (0-10); EOSINOPHILS # (AUTO) 0.4 10^3/uL (0.0-0.3); EOSINOPHILS % (AUTO) 7 % (0-10); HEMATOCRIT 26 % (35-52); HEMOGLOBIN 8.4 g/dL (11.5-16.0); LYMPHOCYTES % (AUTO) 17 % (12-44); MEAN CORPUSCULAR HEMOGLOBIN 28 pg (25-34); MEAN CORPUSCULAR HGB CONC 32 g/dL (32-36); MEAN CORPUSCULAR VOLUME 87 fL (80-99); MEAN PLATELET VOLUME 12.3 fL (9.0-12.2); MONOCYTES # (AUTO) 0.7 10^3/uL (0.0-1.0); MONOCYTES % (AUTO) 11 % (0-12); NEUTROPHILS # (AUTO) 3.8 10^3/uL (1.8-7.8); NEUTROPHILS % (AUTO) 64 % (42-75); PLATELET COUNT 131 10^3/uL (130-400)
[2022-09-21 06:28] LABS: ALBUMIN 3.1 GM/DL (3.2-4.5); BILIRUBIN,TOTAL 0.7 MG/DL (0.1-1.0); CALCIUM 8.8 MG/DL (8.5-10.1); CREATININE SERUM 0.72 MG/DL (0.60-1.30); MAGNESIUM 1.9 MG/DL (1.6-2.4); POTASSIUM 4.1 MMOL/L (3.6-5.0); TOTAL PROTEIN 5.9 GM/DL (6.4-8.2)
[2022-09-21] MEDS: inSUlin ASPART (NovoLOG) 1 UNIT/0.01 ML (CHARGE PER UNIT) SC SCH ×4 (07:11→20:33)
[2022-09-21] MEDS: meTOprolol TARTRATE 50 MG (LOPRESSOR) TAB PO SCH ×2 (09:18→19:46)
[2022-09-21] MEDS: ASPIRIN E.C. 81 MG (ECOTRIN) TAB PO SCH (09:18)
[2022-09-21] MEDS: lisINopril 20 MG (PRINIVIL) TABLET PO SCH ×2 (09:18→19:46)
[2022-09-21] MEDS: PANTOPRAZOLE 40 MG (PROTONIX) TAB PO SCH (09:18)
[2022-09-21] MEDS: DOCUSATE SODIUM 100 MG (COLACE) CAP PO SCH ×2 (09:18→19:46)
[2022-09-21] MEDS: ROSUVASTATIN 10 MG (CRESTOR) TABLET PO SCH (09:19)
[2022-09-21] MEDS: polyethylene glycoL POWDER 17 GM (MIRALAX) PACK PO PRN (09:20)
[2022-09-21] MEDS: GABAPENTIN 100 MG (NEURONTIN) CAP PO SCH ×3 (09:29→20:38)
[2022-09-21] MEDS: CLOPIDOGREL 75 MG (PLAVIX) TABLET PO SCH (09:29)
--- NOTE | 2022-09-21 11:08 | Physical Therapy Daily Note ---
PT Daily Note-Current Subjective Patient agrees to PT. Pain Section J - Health Conditions 1. Rarely or not at all 2. Occasionally 3. Frequently 4. Almost constantly 8. Unable to answer Pain Effect on Sleep: 2 Pain Interference with Therapy: 2 Pain Interference w/Day-to-Day: 2 Mental Status Patient Orientation: Normal For Age Transfers SCALE: Activities may be completed with or without assistive devices. 4-Cuqaaiekkq-byehaum completes the activity by him/herself with no assistance from a helper. 5-Set-up or Clean-up Assistance-helper sets up or cleans up; patient completes activity. [place] assists only prior to or following the activity. 4-Supervision or Touching Assistance-helper provides verbal cues and/or touching/steadying and/or contact guard assistance as patient completes activity. Assistance may be provided throughout the activity or intermittently. 3-Partial/Moderate Assistance-helper does LESS THAN HALF the effort. [place] lifts, holds or supports trunk or limbs, but provides less than half the effort. 2-Substantial/Maximal Assistance-helper does MORE THAN HALF the effort. [place] lifts or holds trunk or limbs and provides more than half the effort. 8-Icdqllokl-snaiqp does ALL the effort. Patient does none of the effort to complete the activity. Or, the assistance of 2 or more helpers is required for the patient to complete the activity. If activity was not attempted, code reason: 7-Patient Refused. 9-Not Applicable-not attempted and the patient did not perform the activity before the current illness, exacerbation or injury. 10-Not Attempted due to Environmental Limitations-(lack of equipment, weather restraints, etc.). 88-Not Attempted due to Medical Conditions or Safety Concerns. Lying to Sitting/Side of Bed(Q: 3 Sit to Stand (QC): 3 Chair/Ofl-wj-Bmlzo Xfer(QC): 3 Gait Training Distance: 10' Walk 10 feet (QC): 3 Walk 50 ft with 2 Turns(QC): 88 Gait Assistive Device: FWW slow, shuffle gait sequence Exercises Seated Therapy Exercises: Ankle pumps, Long arc quads, Hip flexion Seated Reps: 12 Assessment Patient is up in recliner with needs met. PT to continue to increase activity as tolerated by patient. 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 Half-Way Goals PT Half-Way Goals Time Frame: Oct 06, 2022 Roll Left & Right (QC): 5 Sit to Lying (QC): 5 Lying-Sitting on Side/Bed(QC): 5 Sit to Stand (QC): 5 Chair/Jqy-ap-Fqkxb Xfer(QC): 5 Toilet Transfer (QC): 5 Walk 10 feet (QC): 4 Walk 50ft with 2 Turns (QC): 4 PT Plan Treatment/Plan Treatment Plan: Continue Plan of Care Treatment Plan: Bed Mobility, Education, Functional Activity Siva, Functional Strength, Gait, Safety, Therapeutic Exercise, Transfers Treatment Duration: Oct 06, 2022 Frequency: 6 times per week Estimated Hrs Per Day: .25 hour per day Time Time In: 1027 Time Out: 1040 DATE: Sep 21, 2022 Total Billed Treatment Time: 13 Total Billed Treatment 1 visit FA 13 min YVROSE VILLEDA PT Sep 21, 2022 11:08
[2022-09-21] MEDS: ACETAMINOPHEN 325 MG TABLET PO PRN ×2 (11:12→16:17)
--- NOTE | 2022-09-21 13:26 | Progress Note ---
Subjective Subjective/Events-last exam Afebrile, no acute events. States her blisters on her leg are burning. She is also wondering about her MRI results. Admits she feels depressed and like she has no motivation. She is willing to consider medications for that. Focused Exam Time of Focused Exam: 10:20 Objective Exam Last Set of Vital Signs Vital Signs Date Time Temp Pulse Resp B/P (MAP) Pulse Ox O2 Delivery O2 Flow Rate FiO2 09/21/22 12:00 36.0 80 18 121/66 (84) 96 Room Air 09/20/22 16:27 0.00 09/19/22 09:26 21 Capillary Refill : Less Than 3 Seconds I&O Intake and Output 09/21/22 00:00 Intake Total 1150 ml Output Total 1125 ml Balance 25 ml Intake Oral 1150 ml Output Urine Total 1125 ml General: Alert, No Acute Distress Lungs: Clear to Auscultation, Normal Air Movement Heart: Regular Rate Abdomen: Normal Bowel Sounds, Soft Extremities: Other (closed blisters on lower right calf with barrier cream in place) Neuro: Normal Speech Psych/Mental Status: Mood NL Results/Procedures Lab Laboratory Tests 09/20/22 15:47: Glucometer 164H 09/20/22 20:10: Glucometer 186H 09/21/22 05:38: White Blood Count 6.0, Red Blood Count 3.04L, Hemoglobin 8.4L, Hematocrit 26L, Mean Corpuscular Volume 87, Mean Corpuscular Hemoglobin 28, Mean Corpuscular Hemoglobin Concent 32, Red Cell Distribution Width 15.9H, Platelet Count 131, Mean Platelet Volume 12.3H, Immature Granulocyte % (Auto) 1, Neutrophils (%) (Auto) 64, Lymphocytes (%) (Auto) 17, Monocytes (%) (Auto) 11, Eosinophils (%) (Auto) 7, Basophils (%) (Auto) 1, Neutrophils # (Auto) 3.8, Lymphocytes # (Auto) 1.0, Monocytes # (Auto) 0.7, Eosinophils # (Auto) 0.4H, Basophils # (Auto) 0.0, Immature Granulocyte # (Auto) 0.0, Percent Immature Platelet Fraction 9.5H, Sodium Level 134L, Potassium Level 4.1, Chloride Level 101, Carbon Dioxide Level 25, Anion Gap 8, Blood Urea Nitrogen 13, Creatinine 0.72, Estimat Glomerular Filtration Rate 89, BUN/Creatinine Ratio 18, Glucose Level 198H, Calcium Level 8.8, Corrected Calcium 9.5, Phosphorus Level 3.0, Magnesium Level 1.9, Total Bilirubin 0.7, Aspartate Amino Transf (AST/SGOT) 40H, Alanine Aminotransferase (ALT/SGPT) 54, Alkaline Phosphatase 69, Total Protein 5.9L, Albumin 3.1L 09/21/22 10:48: Glucometer 208H Microbiology 09/16/22 MRSA Screen - Final, Complete MRSA not isolated 09/16/22 Urine Culture - Final, Complete Pseudomonas aeruginosa 09/16/22 Blood Culture - Preliminary, Resulted No growth Assessment/Plan Assessment/Plan (1) DKA (diabetic ketoacidosis) Status: Resolved Assessment & Plan: Gap closed and CO2 up to 19 this am, insulin drip d/c per [facility] ICU, started on sliding scale insulin. Resume low dose long-acting insulin, increase as needed. (2) Severe sepsis Status: Resolved Assessment & Plan: Suspect secondary to urinary tract infection, CXR without acute findings, flu and COVID neg. Markedly elevated LA on admit, trended down. Febrile to Tmax 38 last 24 hours. 09/18- urine with psuedomonas, will d/c vancomycin (3) Acute cystitis without hematuria Status: Acute Assessment & Plan: Culture pending. Started on cefepime and vancomycin on admit. 09/19 culture with pseudomonas, vanc discontinued on 09/18. (4) Fall Status: Acute Assessment & Plan: Uncertain etiology of down time, complaining of right hip pain, xray okay. CT head and neck okay. 09/18- PT eval 09/20- spoke with son today and he is concerned about recurrent stroke with her recent carotid endarterectomy. Discussed that she is on antiplatelet and BP meds and managing glucose, so not much management would change, but is reasonable to obtain MRI to eval for possible more recent stroke, ordered. (5) Hypertension Status: Chronic Assessment & Plan: Given tachycardia, will resume beta hugo first. 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 (10) Stroke Status: Acute Assessment & Plan: 09/20 MRI did show acute/subacute punctate lesions in left middle cerebellum and right tanner. Continue antiplatelet, statin, BP and DM control and therapies. (11) DVT prophylaxis Status: Acute Assessment & Plan: Enoxaparin KARINE FLORES MD Sep 21, 2022 13:26
[2022-09-21] MEDS: ENOXAPARIN 40 MG/0.4 ML (LOVENOX) SYR SC SCH (14:44)
[2022-09-21] MEDS: MELATONIN 3 MG TABLET PO PRN (19:46)
[2022-09-21] MEDS: SERTRALINE 50 MG (ZOLOFT) TABLET PO SCH (19:46)
[2022-09-22] MEDS: ACETAMINOPHEN 325 MG TABLET PO PRN (00:38)
[2022-09-22] MEDS: polyethylene glycoL POWDER 17 GM (MIRALAX) PACK PO PRN ×2 (04:37→19:33)
[2022-09-22] MEDS: inSUlin ASPART (NovoLOG) 1 UNIT/0.01 ML (CHARGE PER UNIT) SC SCH ×4 (05:07→21:27)
[2022-09-22 05:43] LABS: BASOPHILS % (AUTO) 1 % (0-10); EOSINOPHILS # (AUTO) 0.4 10^3/uL (0.0-0.3); EOSINOPHILS % (AUTO) 8 % (0-10); HEMATOCRIT 28 % (35-52); HEMOGLOBIN 8.5 g/dL (11.5-16.0); LYMPHOCYTES % (AUTO) 19 % (12-44); MEAN CORPUSCULAR HEMOGLOBIN 27 pg (25-34); MEAN CORPUSCULAR HGB CONC 31 g/dL (32-36); MEAN CORPUSCULAR VOLUME 88 fL (80-99); MEAN PLATELET VOLUME 12.8 fL (9.0-12.2); MONOCYTES # (AUTO) 0.5 10^3/uL (0.0-1.0); MONOCYTES % (AUTO) 10 % (0-12); NEUTROPHILS # (AUTO) 3.3 10^3/uL (1.8-7.8); NEUTROPHILS % (AUTO) 61 % (42-75); PLATELET COUNT 172 10^3/uL (130-400); WHITE BLOOD COUNT 5.4 10^3/uL (4.3-11.0)
[2022-09-22 06:05] LABS: ALBUMIN 3.1 GM/DL (3.2-4.5); POTASSIUM 4.1 MMOL/L (3.6-5.0)
[2022-09-22 06:07] LABS: TOTAL PROTEIN 5.8 GM/DL (6.4-8.2)
[2022-09-22 06:09] LABS: BILIRUBIN,TOTAL 0.6 MG/DL (0.1-1.0)
[2022-09-22 06:10] LABS: PHOSPHORUS 4.1 MG/DL (2.3-4.7)
[2022-09-22 06:11] LABS: CREATININE SERUM 0.71 MG/DL (0.60-1.30)
[2022-09-22 08:00] VITALS: BP 131/69
[2022-09-22 08:45] VITALS: BP 131/69
[2022-09-22] MEDS: meTOprolol TARTRATE 50 MG (LOPRESSOR) TAB PO SCH ×2 (09:26→19:33)
[2022-09-22] MEDS: ASPIRIN E.C. 81 MG (ECOTRIN) TAB PO SCH (09:26)
[2022-09-22] MEDS: ROSUVASTATIN 10 MG (CRESTOR) TABLET PO SCH (09:26)
[2022-09-22] MEDS: lisINopril 20 MG (PRINIVIL) TABLET PO SCH ×2 (09:26→19:33)
[2022-09-22] MEDS: GABAPENTIN 100 MG (NEURONTIN) CAP PO SCH ×3 (09:26→19:33)
[2022-09-22] MEDS: DOCUSATE SODIUM 100 MG (COLACE) CAP PO SCH ×2 (09:26→19:33)
[2022-09-22] MEDS: PANTOPRAZOLE 40 MG (PROTONIX) TAB PO SCH (09:26)
[2022-09-22] MEDS: CLOPIDOGREL 75 MG (PLAVIX) TABLET PO SCH (09:26)
--- NOTE | 2022-09-22 11:56 | Progress Note - Hospitalist ---
Subjective HPI/CC On Admission Date Seen by Provider: Sep 22, 2022 Time Seen by Provider: 15:30 Chief complaint: DKA with sepsis HPI: This is a 72-year-old female clinic patient of [facility] who has a past medical history of DKA and UTI who presented from [facility] with evidence of sepsis from UTI and DKA. She is currently on an insulin drip and IV antibiotics and IV fluids. Patient is not awake or alert. Vitals remained stable. Subjective/Events-last exam Patient reports she is generally been feeling better she does report fatigue although it is slowly improving. She is concerned about a blister she has on her right leg but has not been having any significant discomfort with them. These were noted after she had been found down at home secondary to DKA for an unknown length of time. Staff reports she has been fixated on her bowels. She did have a soft formed stool with enema but reports that there was not enough of it she reports her appetite has been fair she has had no abdominal pain. Focused Exam Time of Focused Exam: 10:20 Objective Exam Vital Signs Vital Signs Date Time Temp Pulse Resp B/P (MAP) Pulse Ox O2 Delivery O2 Flow Rate FiO2 09/23/22 08:00 Room Air 09/23/22 07:51 36.4 73 18 136/61 (86) 96 09/23/22 07:48 0.00 09/22/22 08:45 21 Capillary Refill : Less Than 3 Seconds General Appearance: No Apparent Distress, Obese Respiratory: Chest Non Tender, Lungs Clear, Normal Breath Sounds, No Accessory Muscle Use, No Respiratory Distress Cardiovascular: Regular Rate, Rhythm, No Edema, No Gallop, No JVD, No Murmur, Normal Peripheral Pulses Gastrointestinal: Normal Bowel Sounds, No Organomegaly, No Pulsatile Mass, Non Tender, Soft Extremity: Other (Several superficial blisters with clear fluid on a nonerythematous base for the most part 1 is hemorrhagic with no surrounding erythema or induration. No surrounding tenderness to palpation. This is present on her right medial calf.) Results/Procedures Lab Laboratory Tests 09/23/22 05:20 Patient resulted labs reviewed. Assessment/Plan Assessment and Plan Assess & Plan/Chief Complaint (1) DKA (diabetic ketoacidosis) Status: Resolved Assessment & Plan: Gap closed and CO2 up to 19 this am, insulin drip d/c per [facility], started on sliding scale insulin. Resume low dose long-acting insulin, increase as needed. 09/22: DKA resolved blood sugars have been under reasonable control on basal bolus therapy. Discussed with patient and family that blisters were not due to infection but due to dependent state in an individual with some underlying chronic swelling and venous insufficiency and should resolve. (2) Severe sepsis Status: Resolved Assessment & Plan: Suspect secondary to urinary tract infection, CXR without acute findings, flu and COVID neg. Markedly elevated LA on admit, trended down. Febrile to Tmax 38 last 24 hours. 09/18- urine with psuedomonas, will d/c vancomycin (3) Acute cystitis without hematuria Status: Acute Assessment & Plan: Culture pending. Started on cefepime and vancomycin on admit. 09/19 culture with pseudomonas, vanc discontinued on 09/18. (4) Fall Status: Acute Assessment & Plan: Uncertain etiology of down time, complaining of right hip pain, xray okay. CT head and neck okay. 09/18- PT eval 09/20- spoke with son today and he is concerned about recurrent stroke with her recent carotid endarterectomy. Discussed that she is on antiplatelet and BP meds and managing glucose, so not much management would change, but is reasonable to obtain MRI to eval for possible more recent stroke, ordered. (5) Hypertension Status: Chronic Assessment & Plan: Given tachycardia, will resume beta hugo first. (6) Hyperlipidemia Status: Chronic Assessment & Plan: Resume statin (7) Type II diabetes mellitus Status: Chronic Assessment & Plan: Hold home meds, treat with insulin Qualifiers: Qualified Codes: E11.69 - Type 2 diabetes mellitus with other specified complication; Z79.4 - nursing home (current) use of insulin (8) History of stroke Status: Chronic Assessment & Plan: Resume home anti-platelets (9) Blister Status: Acute Assessment & Plan: Seen by wound care nurse appreciate recommendations. (10) Stroke Status: Acute Assessment & Plan: 09/20 MRI did show acute/subacute punctate lesions in left middle cerebellum and right tanner. Continue antiplatelet, statin, BP and DM control and therapies. (11) DVT prophylaxis Status: Acute Assessment & Plan: Enoxaparin Critical Care Critically Ill Patient LING GRAY MD Sep 22, 2022 11:56
--- NOTE | 2022-09-22 13:35 | Physical Therapy Progress Note ---
Therapy Progress Note Pt requested to forego therapy today. She had just returned to bed after going to the restroom. PT to resume on Saturday. NHI PADRON PT Sep 22, 2022 13:35
[2022-09-22] MEDS: ENOXAPARIN 40 MG/0.4 ML (LOVENOX) SYR SC SCH (15:08)
[2022-09-22 16:16] VITALS: BP 112/57
[2022-09-22] MEDS: ACETAMINOPHEN 325 MG TABLET PO SCH (16:16)
[2022-09-22] MEDS: SERTRALINE 50 MG (ZOLOFT) TABLET PO SCH (19:33)
[2022-09-22] MEDS: ALPRAZolam 0.25 MG (XANAX) TAB PO PRN (19:34)
[2022-09-22 23:53] VITALS: BP 124/78
[2022-09-23] MEDS: ACETAMINOPHEN 325 MG TABLET PO SCH ×4 (00:55→17:16)
[2022-09-23] MEDS: ALPRAZolam 0.25 MG (XANAX) TAB PO PRN ×2 (00:55→20:02)
[2022-09-23] MEDS: inSUlin ASPART (NovoLOG) 1 UNIT/0.01 ML (CHARGE PER UNIT) SC SCH ×4 (05:28→20:57)
[2022-09-23 05:50] LABS: BASOPHILS % (AUTO) 1 % (0-10); EOSINOPHILS # (AUTO) 0.4 10^3/uL (0.0-0.3); EOSINOPHILS % (AUTO) 6 % (0-10); HEMATOCRIT 29 % (35-52); HEMOGLOBIN 8.9 g/dL (11.5-16.0); LYMPHOCYTES # (AUTO) 1.5 10^3/uL (1.0-4.0); LYMPHOCYTES % (AUTO) 25 % (12-44); MEAN CORPUSCULAR HEMOGLOBIN 27 pg (25-34); MEAN CORPUSCULAR HGB CONC 31 g/dL (32-36); MEAN CORPUSCULAR VOLUME 88 fL (80-99); MEAN PLATELET VOLUME 12.4 fL (9.0-12.2); MONOCYTES # (AUTO) 0.6 10^3/uL (0.0-1.0); MONOCYTES % (AUTO) 10 % (0-12); NEUTROPHILS # (AUTO) 3.3 10^3/uL (1.8-7.8); NEUTROPHILS % (AUTO) 57 % (42-75); PLATELET COUNT 174 10^3/uL (130-400); WHITE BLOOD COUNT 5.9 10^3/uL (4.3-11.0)
[2022-09-23 06:13] LABS: ALBUMIN 3.3 GM/DL (3.2-4.5); BILIRUBIN,TOTAL 0.6 MG/DL (0.1-1.0); CALCIUM 9.1 MG/DL (8.5-10.1); CREATININE SERUM 0.69 MG/DL (0.60-1.30); PHOSPHORUS 3.7 MG/DL (2.3-4.7); POTASSIUM 3.6 MMOL/L (3.6-5.0); TOTAL PROTEIN 6.1 GM/DL (6.4-8.2)
[2022-09-23 07:51] VITALS: BP 136/61
[2022-09-23] MEDS: GABAPENTIN 100 MG (NEURONTIN) CAP PO SCH ×3 (08:32→20:02)
[2022-09-23] MEDS: PANTOPRAZOLE 40 MG (PROTONIX) TAB PO SCH (08:32)
[2022-09-23] MEDS: ASPIRIN E.C. 81 MG (ECOTRIN) TAB PO SCH (08:32)
[2022-09-23] MEDS: DOCUSATE SODIUM 100 MG (COLACE) CAP PO SCH ×2 (08:32→20:02)
[2022-09-23] MEDS: meTOprolol TARTRATE 50 MG (LOPRESSOR) TAB PO SCH ×2 (08:32→20:03)
[2022-09-23] MEDS: lisINopril 20 MG (PRINIVIL) TABLET PO SCH ×2 (08:32→20:03)
[2022-09-23] MEDS: ROSUVASTATIN 10 MG (CRESTOR) TABLET PO SCH (08:32)
[2022-09-23] MEDS: CLOPIDOGREL 75 MG (PLAVIX) TABLET PO SCH (08:32)
[2022-09-23] MEDS: MILK OF MAGNESIA 400 MG/5 ML 30 ML UDC PO PRN (11:48)
--- NOTE | 2022-09-23 12:38 | Progress Note - Hospitalist ---
Subjective HPI/CC On Admission Date Seen by Provider: Sep 23, 2022 Time Seen by Provider: 11:45 Chief complaint: DKA with sepsis HPI: This is a 72-year-old female clinic patient of [facility] who has a past medical history of DKA and UTI who presented from [facility] with evidence of sepsis from UTI and DKA. She is currently on an insulin drip and IV antibiotics and IV fluids. Patient is not awake or alert. Vitals remained stable. Subjective/Events-last exam Patient requesting milk of magnesia for reported constipation. She is not having any abdominal pain reports her appetite has been reasonable. She has had no chills or fever denies cough or abdominal pain. Focused Exam Time of Focused Exam: 10:20 Objective Exam Vital Signs Vital Signs Date Time Temp Pulse Resp B/P (MAP) Pulse Ox O2 Delivery O2 Flow Rate FiO2 09/23/22 08:00 Room Air 09/23/22 07:51 36.4 73 18 136/61 (86) 96 09/23/22 07:48 0.00 09/22/22 08:45 21 Capillary Refill : Less Than 3 Seconds General Appearance: No Apparent Distress, Obese Respiratory: Chest Non Tender, Lungs Clear, Normal Breath Sounds, No Accessory Muscle Use, No Respiratory Distress Cardiovascular: Regular Rate, Rhythm, No Edema, No Gallop, No JVD, No Murmur, Normal Peripheral Pulses Gastrointestinal: Normal Bowel Sounds, No Organomegaly, No Pulsatile Mass, Non Tender, Soft Extremity: Other (Vesicles right medial calf unchanged from yesterday no evidence for infection) Results/Procedures Lab Laboratory Tests 09/23/22 05:20 Patient resulted labs reviewed. Assessment/Plan Assessment and Plan Assess & Plan/Chief Complaint (1) DKA (diabetic ketoacidosis) Status: Resolved Assessment & Plan: Gap closed and CO2 up to 19 this am, insulin drip d/c per [facility], started on sliding scale insulin. Resume low dose long-acting insulin, increase as needed. 09/22: DKA resolved blood sugars have been under reasonable control on basal bolus therapy. Discussed with patient and family that blisters were not due to infection but due to dependent state in an individual with some underlying ch ronic swelling and venous insufficiency and should resolve. 09/23 patient doing well with resolution of DKA and reasonable blood sugar control on current basal bolus therapy. She has underlying significant deconditioning at baseline and for this examiner considered to be a good candidate for acute rehab. (2) Severe sepsis Status: Resolved Assessment & Plan: Suspect secondary to urinary tract infection, CXR without acute findings, flu and COVID neg. Markedly elevated LA on admit, trended down. Febrile to Tmax 38 last 24 hours. 09/18- urine with psuedomonas, will d/c vancomycin (3) Acute cystitis without hematuria Status: Acute Assessment & Plan: Culture pending. Started on cefepime and vancomycin on admit. 09/19 culture with pseudomonas, vanc discontinued on 09/18. (4) Fall Status: Acute Assessment & Plan: Uncertain etiology of down time, complaining of right hip pain, xray okay. CT head and neck okay. 09/18- PT eval 09/20- spoke with son today and he is concerned about recurrent stroke with her re cent carotid endarterectomy. Discussed that she is on antiplatelet and BP meds and managing glucose, so not much management would change, but is reasonable to obtain MRI to eval for possible more recent stroke, ordered. (5) Hypertension Status: Chronic Assessment & Plan: Given tachycardia, will resume beta hugo first. (6) Hyperlipidemia Status: Chronic Assessment & Plan: Resume statin (7) Type II diabetes mellitus Status: Chronic Assessment & Plan: Hold home meds, treat with insulin Qualifiers: Qualified Codes: E11.69 - Type 2 diabetes mellitus with other specified co mplication; Z79.4 - alf (current) use of insulin (8) History of stroke Status: Chronic Assessment & Plan: Resume home anti-platelets (9) Blister Status: Acute Assessment & Plan: Seen by wound care nurse appreciate recommendations. (10) Stroke Status: Acute Assessment & Plan: 09/20 MRI did show acute/subacute punctate lesions in left middle cerebellum and right tanner. Continue antiplatelet, statin, BP and DM control and therapies. (11) DVT prophylaxis Status: Acute Assessment & Plan: Enoxaparin Critical Care Critically Ill Patient LING GRAY MD Sep 23, 2022 12:38
[2022-09-23] MEDS ORDERED: MINERAL OIL ENEMA 133 ML BTL PR ONE (15:15)
[2022-09-23] MEDS ORDERED: FLEET ENEMA ADULT 1 EA BTL ONE (15:23)
[2022-09-23] MEDS ORDERED: FLEET ENEMA ADULT 1 EA BTL PR ONE (15:30)
[2022-09-23] MEDS: ENOXAPARIN 40 MG/0.4 ML (LOVENOX) SYR SC SCH (15:33)
[2022-09-23 16:13] VITALS: BP 126/72
[2022-09-23] MEDS: SERTRALINE 50 MG (ZOLOFT) TABLET PO SCH (20:02)
[2022-09-23] MEDS: polyethylene glycoL POWDER 17 GM (MIRALAX) PACK PO PRN (20:02)
[2022-09-23 23:40] VITALS: BP 120/58
[2022-09-24] MEDS: ACETAMINOPHEN 325 MG TABLET PO SCH ×6 (01:16→23:44)
[2022-09-24] MEDS: ALPRAZolam 0.25 MG (XANAX) TAB PO PRN (01:34)
[2022-09-24] MEDS: MILK OF MAGNESIA 400 MG/5 ML 30 ML UDC PO PRN (01:50)
[2022-09-24] MEDS: inSUlin ASPART (NovoLOG) 1 UNIT/0.01 ML (CHARGE PER UNIT) SC SCH ×4 (05:20→20:31)
[2022-09-24 07:30] LABS: BASOPHILS % (AUTO) 1 % (0-10); EOSINOPHILS # (AUTO) 0.2 10^3/uL (0.0-0.3); EOSINOPHILS % (AUTO) 3 % (0-10); HEMATOCRIT 30 % (35-52); HEMOGLOBIN 9.2 g/dL (11.5-16.0); LYMPHOCYTES % (AUTO) 17 % (12-44); MEAN CORPUSCULAR HEMOGLOBIN 27 pg (25-34); MEAN CORPUSCULAR HGB CONC 30 g/dL (32-36); MEAN CORPUSCULAR VOLUME 88 fL (80-99); MEAN PLATELET VOLUME 12.4 fL (9.0-12.2); MONOCYTES # (AUTO) 0.7 10^3/uL (0.0-1.0); MONOCYTES % (AUTO) 11 % (0-12); NEUTROPHILS # (AUTO) 4.1 10^3/uL (1.8-7.8); NEUTROPHILS % (AUTO) 67 % (42-75); PLATELET COUNT 186 10^3/uL (130-400)
[2022-09-24 07:39] VITALS: BP 132/58
[2022-09-24 07:51] LABS: ALBUMIN 3.4 GM/DL (3.2-4.5); BILIRUBIN,TOTAL 0.6 MG/DL (0.1-1.0); CALCIUM 8.8 MG/DL (8.5-10.1); CREATININE SERUM 0.78 MG/DL (0.60-1.30); POTASSIUM 4.1 MMOL/L (3.6-5.0); TOTAL PROTEIN 6.1 GM/DL (6.4-8.2)
[2022-09-24] MEDS: ROSUVASTATIN 10 MG (CRESTOR) TABLET PO SCH (08:21)
[2022-09-24] MEDS: PANTOPRAZOLE 40 MG (PROTONIX) TAB PO SCH (08:21)
[2022-09-24] MEDS: GABAPENTIN 100 MG (NEURONTIN) CAP PO SCH ×3 (08:21→20:30)
[2022-09-24] MEDS: meTOprolol TARTRATE 50 MG (LOPRESSOR) TAB PO SCH ×2 (08:21→20:33)
[2022-09-24] MEDS: ASPIRIN E.C. 81 MG (ECOTRIN) TAB PO SCH (08:21)
[2022-09-24] MEDS: lisINopril 20 MG (PRINIVIL) TABLET PO SCH ×2 (08:21→20:31)
[2022-09-24] MEDS: DOCUSATE SODIUM 100 MG (COLACE) CAP PO SCH ×2 (08:22→20:30)
[2022-09-24] MEDS: CLOPIDOGREL 75 MG (PLAVIX) TABLET PO SCH (08:24)
--- NOTE | 2022-09-24 10:33 | Physical Therapy Progress Note ---
Therapy Progress Note Patient declined PT due to incontinence with diarrhea. RN is aware. 1 ref YVROSE VILLEDA PT Sep 24, 2022 10:33
--- NOTE | 2022-09-24 11:39 | Occ Therapy Progress Note ---
Therapy Progress Note OT orders received and chart reviewed. Pt declined OT evaluation on this date due to diarrhea incontinence. OT provided information about purpose and benefit of OT, pt verbalized agreement, but requests OT to come back tomorrow. OT will attempt evaluation again next available date per pt request. 1, refusal [id number] RUBEN STONE OT Sep 24, 2022 11:39
[2022-09-24 15:41] VITALS: BP 100/67
[2022-09-24] MEDS: ENOXAPARIN 40 MG/0.4 ML (LOVENOX) SYR SC SCH (15:51)
--- NOTE | 2022-09-24 16:50 | Progress Note ---
RIGOBERTO MCCORMACK I 09/24/22 1650: Subjective Date Seen by a Provider: Sep 24, 2022 Time Seen by a Provider: 12:00 Subjective/Events-last exam Brynn Tipton is a 72 yof admitted for sepsis secondary to DKA and UTI. She feels like her mind continues to have difficulty with recall. This morning she had a large BM followed by two smaller ones. Her appetite remains vigorous. Right hip flexion weakness persists, while lateral motion not affected as much. She still complains of urinary frequency without dysurea. Review of Systems General: No Chills, No Night Sweats, No Fatigue, No Malaise HEENT: Head Aches (Localized to L side of head. Feels may be related to carotid) Pulmonary: Cough Cardiovascular: No: Chest Pain, Orthopnea, Edema Gastrointestinal: Nausea; No: Vomiting, Abdominal Pain (Right side ) Genitourinary: Frequency Musculoskeletal: back pain Neurological: Weakness (R leg hip flexion), Numbness (Neuropathy up to legs, and thumb and second finger), Other (Says difficults remembering things. ) Focused Exam Time of Focused Exam: 10:20 Objective Exam Last Set of Vital Signs Vital Signs Date Time Temp Pulse Resp B/P (MAP) Pulse Ox O2 Delivery O2 Flow Rate FiO2 09/24/22 15:41 36.4 66 16 100/67 (78) 96 Room Air 09/23/22 07:48 0.00 09/22/22 08:45 21 Capillary Refill : Less Than 3 Seconds I&O Intake and Output 09/24/22 00:00 Intake Total 1765 ml Output Total 1650 ml Balance 115 ml Intake Oral 1765 ml Output Urine Total 1650 ml # Bowel Movements 2 General: Alert, Oriented X3, Cooperative, No Acute Distress HEENT: Atraumatic, PERRLA Neck: Supple, No JVD, No Thyromegaly, Other (Well healing L endarterectomy) Lungs: Clear to Auscultation, Normal Air Movement Heart: Regular Rate, Normal S1, Normal S2, No Murmurs Abdomen: Normal Bowel Sounds, Soft, Other (Tenderness below right ribs from fall) Extremities: No Clubbing, No Cyanosis, No Edema, Normal Pulses, No Tenderness/Swelling Skin: Other (Scabbing present on medial side on R leg, with several crusting lesions. L malleolus similar findings. ) Neuro: Other (A&Ox3. Unable to stand, R leg weakness. ) Results Lab Laboratory Tests 09/23/22 20:36: Glucometer 263H 09/24/22 05:11: Glucometer 146H 09/24/22 07:20: White Blood Count 6.0, Red Blood Count 3.44L, Hemoglobin 9.2L, Hematocrit 30L, Mean Corpuscular Volume 88, Mean Corpuscular Hemoglobin 27, Mean Corpuscular Hemoglobin Concent 30L, Red Cell Distribution Width 16.3H, Platelet Count 186, Mean Platelet Volume 12.4H, Immature Granulocyte % (Auto) 2, Neutrophils (%) (Auto) 67, Lymphocytes (%) (Auto) 17, Monocytes (%) (Auto) 11, Eosinophils (%) (Auto) 3, Basophils (%) (Auto) 1, Neutrophils # (Auto) 4.1, Lymphocytes # (Auto) 1.0, Monocytes # (Auto) 0.7, Eosinophils # (Auto) 0.2, Basophils # (Auto) 0.0, Immature Granulocyte # (Auto) 0.1, Sodium Level 136, Potassium Level 4.1, Chloride Level 100, Carbon Dioxide Level 27, Anion Gap 9, Blood Urea Nitrogen 15, Creatinine 0.78, Estimat Glomerular Filtration Rate 81, BUN/Creatinine Ratio 19, Glucose Level 173H, Calcium Level 8.8, Corrected Calcium 9.3, Total Bilirubin 0.6, Aspartate Amino Transf (AST/SGOT) 24, Alanine Aminotransferase (ALT/SGPT) 40, Alkaline Phosphatase 72, Total Protein 6.1L, Albumin 3.4 09/24/22 10:25: Glucometer 220H 09/24/22 15:38: Glucometer 215H Microbiology 09/16/22 MRSA Screen - Final, Complete MRSA not isolated 09/16/22 Urine Culture - Final, Complete Pseudomonas aeruginosa 09/16/22 Blood Culture - Preliminary, Resulted No growth Assessment/Plan Assessment/Plan Assess & Plan/Chief Complaint (1) DKA (diabetic ketoacidosis) Status: Resolved Assessment & Plan: Gap closed and CO2 up to 19 this am, insulin drip d/c per [facility], started on sliding scale insulin. Resume low dose long-acting insulin, increase as needed. 09/22: DKA resolved blood sugars have been under reasonable control on basal bolus therapy. Discussed with patient and family that blisters were not due to infection but due to dependent state in an individual with some underlying chronic swelling and venous insufficiency and should resolve. 09/23 patient doing well with resolution of DKA and reasonable blood sugar control on current basal bolus therapy. She has underlying significant deconditioning at baseline and for this examiner considered to be a good trinity date for acute rehab. (2) Severe sepsis Status: Resolved Assessment & Plan: Suspect secondary to urinary tract infection, CXR without acute findings, flu and COVID neg. Markedly elevated LA on admit, trended down. Febrile to Tmax 38 last 24 hours. 09/18- urine with psuedomonas, will d/c vancomycin (3) Acute cystitis without hematuria Status: Acute Assessment & Plan: Culture pending. Started on cefepime and vancomycin on admit. 09/19 culture with pseudomonas, vanc discontinued on 09/18. Continued dysurea, consider reculture to show resolution (4) Fall Status: Acute Assessment & Plan: Uncertain etiology of down time, complaining of right hip pain, xray okay. CT head and neck okay. 09/18- PT eval 09/20- spoke with son today and he is concerned about recurrent stroke with her recent carotid endarterectomy. Discussed that she is on antiplatelet and BP meds and managing glucose, so not much management would change, but is reasonable to obtain MRI to eval for possible more recent stroke, ordered. (5) Hypertension Status: Chronic Assessment & Plan: Given tachycardia, will resume beta hugo first. (6) Hyperlipidemia Status: Chronic Assessment & Plan: Resume statin (7) Type II diabetes mellitus Status: Chronic Assessment & Plan: Hold home meds, treat with insulin Qualifiers: Qualified Codes: E11.69 - Type 2 diabetes mellitus with other specified complication; Z79.4 - senior care (current) use of insulin (8) History of stroke Status: Chronic Assessment & Plan: Resume home anti-platelets (9) Blister Status: Acute Assessment & Plan: Seen by wound care nurse appreciate recommendations. (10) Stroke Status: Acute Assessment & Plan: 09/20 MRI did show acute/subacute punctate lesions in left middle cerebellum and right tanner. Continue antiplatelet, statin, BP and DM control and therapies. (11) DVT prophylaxis Status: Acute Assessment & Plan: Enoxaparin SHAKIRA BETH DO 09/24/222140: Assessment/Plan Assessment/Plan Assess & Plan/Chief Complaint Assessment: Status post DKA Lactic acidosis UTI Acute on chronic debility Plan: Await alf placement Supervisory-Addendum Brief Verification & Attestation Participated in pt care: history, MDM, physical Personally performed: exam, history, MDM, supervision of care Care discussed with: Medical Student Procedures: n/a Results interpretation: Verified all documentation Verification and Attestation of Medical Student E/M Service A medical student performed and documented this service in my presence. I reviewed and verified all information documented by the medical student and made modifications to such information, when appropriate. I personally performed the physical exam and medical decision making. Shakira Beth, Sep 24, 2022,21:41 RIGOBERTO MCCORMACK I Sep 24, 2022 16:50 SHAKIRA BETH DO Sep 24, 2022 21:41
[2022-09-24] MEDS: SERTRALINE 50 MG (ZOLOFT) TABLET PO SCH (20:31)
[2022-09-24 23:25] VITALS: BP 126/72
[2022-09-25] MEDS: ACETAMINOPHEN 325 MG TABLET PO SCH (05:14)
--- NOTE | 2022-09-25 05:14 | Progress Note - Hospitalist ---
Subjective HPI/CC On Admission Date Seen by Provider: Sep 25, 2022 Time Seen by Provider: 09:00 Chief complaint: DKA with sepsis HPI: This is a 72-year-old female clinic patient of [facility] who has a past medical history of DKA and UTI who presented from [facility] with evidence of sepsis from UTI and DKA. She is currently on an insulin drip and IV antibiotics and IV fluids. Patient is not awake or alert. Vitals remained stable. Focused Exam Time of Focused Exam: 10:20 Objective Exam Vital Signs Vital Signs Date Time Temp Pulse Resp B/P (MAP) Pulse Ox O2 Delivery O2 Flow Rate FiO2 09/25/22 08:00 35.7 67 18 117/74 (88) 96 Room Air 09/25/22 07:52 0.00 09/22/22 08:45 21 Capillary Refill : Less Than 3 Seconds Results/Procedures Lab Laboratory Tests 09/25/22 05:45 Patient resulted labs reviewed. Assessment/Plan Critical Care Critically Ill Patient TIA BETH DO Sep 25, 2022 05:14
[2022-09-25] MEDS: inSUlin ASPART (NovoLOG) 1 UNIT/0.01 ML (CHARGE PER UNIT) SC SCH ×2 (05:37→11:50)
[2022-09-25 06:05] LABS: BASOPHILS % (AUTO) 1 % (0-10); EOSINOPHILS # (AUTO) 0.3 10^3/uL (0.0-0.3); EOSINOPHILS % (AUTO) 5 % (0-10); HEMATOCRIT 30 % (35-52); LYMPHOCYTES # (AUTO) 1.4 10^3/uL (1.0-4.0); LYMPHOCYTES % (AUTO) 25 % (12-44); MEAN CORPUSCULAR HEMOGLOBIN 27 pg (25-34); MEAN CORPUSCULAR HGB CONC 30 g/dL (32-36); MEAN CORPUSCULAR VOLUME 89 fL (80-99); MEAN PLATELET VOLUME 12.1 fL (9.0-12.2); MONOCYTES # (AUTO) 0.6 10^3/uL (0.0-1.0); MONOCYTES % (AUTO) 11 % (0-12); NEUTROPHILS # (AUTO) 3.1 10^3/uL (1.8-7.8); NEUTROPHILS % (AUTO) 58 % (42-75); PLATELET COUNT 171 10^3/uL (130-400); WHITE BLOOD COUNT 5.4 10^3/uL (4.3-11.0)
[2022-09-25 06:20] LABS: ALBUMIN 3.3 GM/DL (3.2-4.5); BILIRUBIN,TOTAL 0.5 MG/DL (0.1-1.0); CALCIUM 8.8 MG/DL (8.5-10.1); CREATININE SERUM 0.77 MG/DL (0.60-1.30); POTASSIUM 4.2 MMOL/L (3.6-5.0); TOTAL PROTEIN 5.9 GM/DL (6.4-8.2)
[2022-09-25 07:35] VITALS: BP 126/72
[2022-09-25] MEDS: ALPRAZolam 0.25 MG (XANAX) TAB PO PRN (07:48)
[2022-09-25 08:00] VITALS: BP 117/74
[2022-09-25] MEDS: DOCUSATE SODIUM 100 MG (COLACE) CAP PO SCH (08:07)
[2022-09-25] MEDS: ROSUVASTATIN 10 MG (CRESTOR) TABLET PO SCH (08:07)
[2022-09-25] MEDS: PANTOPRAZOLE 40 MG (PROTONIX) TAB PO SCH (08:07)
[2022-09-25] MEDS: CLOPIDOGREL 75 MG (PLAVIX) TABLET PO SCH (08:07)
[2022-09-25] MEDS: lisINopril 20 MG (PRINIVIL) TABLET PO SCH (08:07)
[2022-09-25] MEDS: ASPIRIN E.C. 81 MG (ECOTRIN) TAB PO SCH (08:07)
[2022-09-25] MEDS: meTOprolol TARTRATE 50 MG (LOPRESSOR) TAB PO SCH (08:07)
[2022-09-25] MEDS: GABAPENTIN 100 MG (NEURONTIN) CAP PO SCH (08:08)
--- NOTE | 2022-09-25 11:17 | Occ Therapy Progress Note ---
Therapy Progress Note OT evaluation attempted, pt declined OT services on this date, states she has already completed ADLs and is planning on discharging to [facility] today. OT provided education about OT services, but pt continued to decline at this time, requesting to rest. OT will attempt again next available date if pt is still admitted. 1, refusal [id number] RUBEN STONE OT Sep 25, 2022 11:17
[2022-09-25] MEDS ORDERED: CLOP75TA28 PO (11:25)
[2022-09-25] MEDS ORDERED: OXC5T PO (11:25)
[2022-09-25] MEDS ORDERED: ALPR.25T PO (11:25)
[2022-09-25] MEDS ORDERED: ROSU10TA28 PO (11:25)
[2022-09-25] MEDS ORDERED: METO50TA15 PO (11:25)
[2022-09-25] MEDS ORDERED: GABA-486 PO ×2 (11:25)
[2022-09-25] MEDS ORDERED: LIDO700A45 TP (11:25)
[2022-09-25] MEDS ORDERED: INSU100I23 SQ (11:25)
[2022-09-25] MEDS ORDERED: ENOX40DI8 SC (11:25)
[2022-09-25] MEDS ORDERED: SERT-413 PO (11:25)
[2022-09-25] MEDS ORDERED: DOCU100C37 PO (11:25)
[2022-09-25] MEDS ORDERED: HYDR25TA4 PO (11:25)
[2022-09-25] MEDS ORDERED: LISI20TA26 PO (11:25)
[2022-09-25] MEDS ORDERED: ASPI-1238 PO (11:25)
[2022-09-25] MEDS ORDERED: METH-732 PO (11:25)
[2022-09-25] MEDS ORDERED: INSU100I10 SQ (11:25)
[2022-09-25] MEDS ORDERED: PANT40TA52 PO (11:25)
[2022-09-25] MEDS ORDERED: SEMA0.25 SQ (11:25)
--- NOTE | 2022-09-25 11:27 | Discharge Summary ---
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 of insulin (5) Hypertension Status: Chronic (6) Hyperlipidemia Status: Chronic (7) Fall Status: Acute (8) Hyperglycemia due to diabetes mellitus Status: Acute (9) Acute cystitis without hematuria Status: Acute (10) Severe sepsis Status: Resolved Hospital Course Date of Admission: Sep 16, 2022 at 12:41 Admission Diagnosis : Family Physician/Provider: Nitish Horner MD Date of Discharge: 09/25/22 Discharge Diagnosis: Assess & Plan/Chief Complaint (1) DKA (diabetic ketoacidosis) Status: Resolved Assessment & Plan: Gap closed and CO2 up to 19 this am, insulin drip d/c per [facility] ICU, started on sliding scale insulin. Resume low dose long-acting insulin, increase as needed. 09/22: DKA resolved blood sugars have been under reasonable control on basal bolus therapy. Discussed with patient and family that blisters were not due to infection but due to dependent state in an individual with some underlying chronic swelling and venous insufficiency and should resolve. 09/23 patient doing well with resolution of DKA and reasonable blood sugar control on current basal bolus therapy. She has underlying significant deconditioning at baseline and for this examiner considered to be a good candidate for acute rehab. (2) Severe sepsis Status: Resolved Assessment & Plan: Suspect secondary to urinary tract infection, CXR without acute findings, flu and COVID neg. Markedly elevated LA on admit, trended down. Febrile to Tmax 38 last 24 hours. 09/18- urine with psuedomonas, will d/c vancomycin (3) Acute cystitis without hematuria Status: Acute Assessment & Plan: Culture pending. Started on cefepime and vancomycin on admit. 09/19 culture with pseudomonas, vanc discontinued on 09/18. Continued dysurea, consider reculture to show resolution (4) Fall Status: Acute Assessment & Plan: Uncertain etiology of down time, complaining of right hip pain, xray okay. CT head and neck okay. 09/18- PT eval 09/20- spoke with son today and he is concerned about recurrent stroke with her recent carotid endarterectomy. Discussed that she is on antiplatelet and BP meds and managing glucose, so not much management would change, but is reasonable to obtain MRI to eval for possible more recent stroke, ordered. (5) Hypertension Status: Chronic Assessment & Plan: Given tachycardia, will resume beta hugo first. (6) Hyperlipidemia Status: Chronic Assessment & Plan: Resume statin (7) Type II diabetes mellitus Status: Chronic Assessment & Plan: Hold home meds, treat with insulin Qualifiers: Qualified Codes: E11.69 - Type 2 diabetes mellitus with other specified complication; Z79.4 - terminal worker (current) use of insulin (8) History of stroke Status: Chronic Assessment & Plan: Resume home anti-platelets (9) Blister Status: Acute Assessment & Plan: Seen by wound care nurse appreciate recommendations. (10) Stroke Status: Acute Assessment & Plan: 09/20 MRI did show acute/subacute punctate lesions in left middle cerebellum and right tanner. Continue antiplatelet, statin, BP and DM control and therapies. (11) DVT prophylaxis Status: Acute Assessment & Plan: Enoxaparin Hospital Course: Pt had a lengthy hospital course for 10 days after she was admitted for DKA and sepsis from UTI Pseudomonas. Pt completed antibiotic treatment. DKA resolved wit h Insulin drip. She was converted over to subQ insulin. Restarted all home medications. She will go to [facility] for supportive care. Labs and Pending Lab Test: Laboratory Tests 09/24/22 15:38: Glucometer 215H 09/24/22 20:09: Glucometer 247H 09/25/22 05:14: Glucometer 195H 09/25/22 05:45: White Blood Count 5.4, Red Blood Count 3.36L, Hemoglobin 9.0L, Hematocrit 30L, Mean Corpuscular Volume 89, Mean Corpuscular Hemoglobin 27, Mean Corpuscular Hemoglobin Concent 30L, Red Cell Distribution Width 16.3H, Platelet Count 171, Mean Platelet Volume 12.1, Immature Granulocyte % (Auto) 1, Neutrophils (%) (Auto) 58, Lymphocytes (%) (Auto) 25, Monocytes (%) (Auto) 11, Eosinophils (%) (Auto) 5, Basophils (%) (Auto) 1, Neutrophils # (Auto) 3.1, Lymphocytes # (Auto) 1.4, Monocytes # (Auto) 0.6, Eosinophils # (Auto) 0.3, Basophils # (Auto) 0.0, Immature Granulocyte # (Auto) 0.1, Sodium Level 138, Potassium Level 4.2, Chloride Level 102, Carbon Dioxide Level 25, Anion Gap 11, Blood Urea Nitrogen 16, Creatinine 0.77, Estimat Glomerular Filtration Rate 82, BUN/Creatinine Ratio 21, Glucose Level 204H, Calcium Level 8.8, Corrected Calcium 9.4, Total Bilirubin 0.5, Aspartate Amino Transf (AST/SGOT) 19, Alanine Aminotransferase (ALT/SGPT) 34, Alkaline Phosphatase 78, Total Protein 5.9L, Albumin 3.3 Microbiology 09/16/22 MRSA Screen - Final, Complete MRSA not isolated 09/16/22 Urine Culture - Final, Complete Pseudomonas aeruginosa 09/16/22 Blood Culture - Preliminary, Resulted No growth Home Meds Active Pantoprazole Sodium 40 Mg Tablet.dr 40 Mg PO DAILY Docusate Sodium 100 Mg Capsule 100 Mg PO BID Xanax Tablet (Alprazolam) 0.25 Mg Tab 0.25 Mg PO Q6HR PRN Sertraline HCl 50 Mg Tablet 50 Mg PO HS Oxyir Tablet (Oxycodone HCl) 5 Mg Tab 5 Mg PO Q4HR PRN Lisinopril 20 Mg Tablet 20 Mg PO BID Enoxaparin Sodium 40 Mg/0.4 Ml Syringe 40 Mg SC Q24H Humalog Kwikpen (Insulin Lispro) 100 Unit/Ml Insuln.pen 6 Unit SQ TIDWM Lantus Solostar (Insulin Glargine,Hum.rec.anlog) 100 Unit/Ml (3 Ml) Insuln.pen 30 Unit SQ BID Aspirin EC (Aspirin) 81 Mg Tablet.dr 81 Mg PO DAILY Clopidogrel (Clopidogrel Bisulfate) 75 Mg Tablet 75 Mg PO DAILY Rosuvastatin Calcium 10 Mg Tablet 10 Mg PO DAILY Lidocaine 5% Patch (Lidocaine) 5 % Adh..patch 1 Each TP Q12H PRN MDD 2 2 patches max for 12 hours, then 12 hours patch-free period. Methocarbamol 750 Mg Tablet 750 Mg PO Q8H PRN Ozempic (Semaglutide) 0.25 Mg/0.2 Ml Pen.injctr 0.5 Mg SQ SATURDAY Hydrochlorothiazide 25 Mg Tablet 25 Mg PO DAILY Gabapentin 100 Mg Capsule 200 Mg PO HS TAKES 2 (100MG) CAPS Gabapentin 100 Mg Capsule 100 Mg PO 0800,1800 Metoprolol Tartrate 50 Mg Tablet 50 Mg PO BID Reported Tylenol Extra Strength (Acetaminophen) 500 Mg Tablet 1,000 Mg PO Q8H PRN TAKES 2 (500MG) TABS Lisinopril 10 Mg Tablet 10 Mg PO BID Assessment/Pt Instructions pcp nh rounds Discharge Planning: <30 minutes discharge planning Discharge Instructions Discharge Diet: ADA Diet Activity as Tolerated: Yes Discharge Physical Examination Vital Signs Vital Signs Date Time Temp Pulse Resp B/P (MAP) Pulse Ox O2 Delivery O2 Flow Rate FiO2 09/25/22 08:00 35.7 67 18 117/74 (88) 96 Room Air 09/25/22 07:52 0.00 09/22/22 08:45 21 General Appearance: No Apparent Distress, WD/WN, Chronically ill Allergies: Coded Allergies: Tetanus Vaccines and Toxoid (Verified Allergy, Unknown, 04/04/21) albuterol (Verified Allergy, Unknown, Shortness of Breath, 09/20/22) codeine (Verified Allergy, Unknown, 04/04/21) meperidine (Verified Allergy, Unknown, Nausea, 07/09/22) morphine (Verified Allergy, Unknown, 04/04/21) Uncoded Allergies: IV contrast dye (Allergy, Unknown, 04/04/21) Discharge Summary Date of Admission Sep 16, 2022 at 12:41 Date of Discharge Discharge Date: Sep 25, 2022 Admission Diagnosis Assessment: Sepsis UTI DKA Altered mental status from metabolic encephalopathy Plan: ICU IV antibiotics Insulin drip eICU consult TIA BETH DO Sep 25, 2022 11:27
--- NOTE | 2022-09-25 11:27 | Discharge Inst-Skilled Nursing ---
Discharge Inst-Skilled NF Reconcile Patient Problems Problems Reviewed?: Yes Chief Complaint Chief complaint: DKA with sepsis HPI: This is a 72-year-old female clinic patient of [facility] who has a past medical history of DKA and UTI who presented from [facility] with evidence of sepsis from UTI and DKA. She is currently on an insulin drip and IV antibiotics and IV fluids. Patient is not awake or alert. Vitals remained stable. Patient Instructions Patient Problems: Debility Consult/Follow Up/Orders Follow Up Appt.: PCP [place] rounds Skilled NF Admit to: Certification (SNF) I certify that SNF services are required to be given on an inpatient basis because of the above named patient's need for [facility] care on a continuing basis for the conditions(s) for which he/she was receiving inpatient hospital services prior to his/her transfer to the SNF. [facility] Order: Nursing Services, Roll Examiner-Evaluate & Treat, Physical Therapy-Evaluate & Treat Oxygen Delivery Method: Room Air Discharge Diet: ADA Diet Daily Activity as Tolerated: Yes Resuscitation Status: Full Code New & Resume Previous Orders New Medications: ALPRAZolam (Xanax Tablet) 0.25 Mg Tab 0.25 MG PO Q6HR PRN for ANXIETY, #10 TAB Docusate Sodium (Docusate Sodium) 100 Mg Capsule 100 MG PO BID, #60 CAP Enoxaparin Sodium (Enoxaparin Sodium) 40 Mg/0.4 Ml Syringe 40 MG SC Q24H, #7 SYRINGE Lisinopril (Lisinopril) 20 Mg Tablet 20 MG PO BID, #60 TAB Oxycodone Hcl (Oxyir Tablet) 5 Mg Tab 5 MG PO Q4HR PRN for PAIN-SEE DOSE INSTRUCTIONS, #10 TAB Pantoprazole Sodium (Pantoprazole Sodium) 40 Mg Tablet.dr 40 MG PO DAILY, #30 TAB Sertraline HCl (Sertraline HCl) 50 Mg Tablet 50 MG PO HS, #30 TAB Changed Medications: Insulin Lispro (Humalog Kwikpen) 100 Unit/Ml Insuln.pen 6 UNIT SQ TIDWM, #1 EA (Changed from: 14 UNIT) Continued Medications: Acetaminophen (Tylenol Extra Strength) 500 Mg Tablet 1000 MG PO Q8H PRN for PAIN-MILD (1-4), TAB TAKES 2 (500MG) TABS Aspirin (Aspirin EC) 81 Mg Tablet.dr 81 MG PO DAILY, #30 TAB (This prescription has been renewed) Clopidogrel Bisulfate (Clopidogrel) 75 Mg Tablet 75 MG PO DAILY, #30 TAB (This prescription has been renewed) Gabapentin (Gabapentin) 100 Mg Capsule 100 MG PO 0800,1800, #60 CAP (This prescription has been renewed) Gabapentin (Gabapentin) 100 Mg Capsule 200 MG PO HS, #60 CAP (This prescription has been renewed) TAKES 2 (100MG) CAPS Hydrochlorothiazide (Hydrochlorothiazide) 25 Mg Tablet 25 MG PO DAILY, #30 TAB (This prescription has been renewed) Insulin Glargine,Hum.rec.anlog (Lantus Solostar) 100 Unit/Ml (3 Ml) Insuln.pen 30 UNIT SQ BID, #1 EA (This prescription has been renewed) Lidocaine (Lidocaine 5% Patch) 5 % Adh..patch 1 EACH TP Q12H PRN for Neuropathic pain MDD 2, #60 PATCH (This prescription has been renewed) 2 patches max for 12 hours, then 12 hours patch-free period. Methocarbamol (Methocarbamol) 750 Mg Tablet 750 MG PO Q8H PRN for MUSCLE SPASMS, #30 TAB (This prescription has been renewed) Metoprolol Tartrate (Metoprolol Tartrate) 50 Mg Tablet 50 MG PO BID, #60 TAB (This prescription has been renewed) Rosuvastatin Calcium (Rosuvastatin Calcium) 10 Mg Tablet 10 MG PO DAILY, #30 TAB (This prescription has been renewed) Semaglutide (Ozempic) 0.25 Mg/0.2 Ml Pen.injctr 0.5 MG SQ SATURDAY, #1 EA (This prescription has been renewed) Discontinued Medications: Lisinopril (Lisinopril) 10 Mg Tablet 10 MG PO BID, TAB Shakira Perez Sep 25, 2022 11:26 SHAKIRA PEREZ DO Sep 25, 2022 11:27
[2022-09-25 12:00] VITALS: BP 117/74
== END 2022-09-25 12:00 | DRG 871 ==
LOC: ER FS 09:08 → EDUNIT# 09:08 → ICU 12:41 → 4TH 09-17 15:33
PROVIDERS: ADMIT Internal Medicine; ATTEND Internal Medicine
DX: A41.52 Sepsis due to Pseudomonas (principal); E10.10 Type 1 diabetes mellitus with ketoacidosis without coma; G93.41 Metabolic encephalopathy; N30.00 Acute cystitis without hematuria; R65.20 Severe sepsis without septic shock; Z79.85 Long-term (current) use of injectable non-insulin antidiabetic drugs; Z79.84 Long term (current) use of oral hypoglycemic drugs; L89.891 Pressure ulcer of other site, stage 1; S80.811A Abrasion, right lower leg, initial encounter; Z20.822 Contact with and (suspected) exposure to COVID-19; I10 Essential (primary) hypertension; E78.00 Pure hypercholesterolemia, unspecified; I87.2 Venous insufficiency (chronic) (peripheral); R23.8 Other skin changes; Z86.73 Personal history of transient ischemic attack (TIA), and cerebral infarction without residual deficits; Z79.82 Long term (current) use of aspirin; Z88.5 Allergy status to narcotic agent; Z88.7 Allergy status to serum and vaccine; Z88.8 Allergy status to other drugs, medicaments and biological substances; Z91.041 Radiographic dye allergy status; W19.XXXA Unspecified fall, initial encounter
CPT/HCPCS: 36410; 36415; 51702; 70450; 70551; 71045; 72125; 73502; 76937; 80048; 80053; 80202; 81000; 82010; 82805; 82947; 83605; 83735; 83880; 84100; 84484; 85007; 85025; 85027; 86141; 87040; 87081; 87088; 87186; 87636; 93005; 94760; 96361; 96365; 96375

== ENCOUNTER → 2022-10-03 | Outpatient (CLI) | payer MEDICARE, MEDICAID ==
[~2022-10-03] MED LIST changes: +ACET-2267 PO; +ALPR.25T PO; +ASPI-1238 PO; +CLOP75TA28 PO; +DOCU100C37 PO; +ENOX40DI8 SC; +INSU100I10 SQ; +INSU100I23 SQ; +LIDO700A45 TP; +LISI20TA26 PO; +METH-732 PO; +OXC5T PO; +PANT40TA52 PO; +SERT-413 PO
[2022-10-03 15:52] LABS: BILIRUBIN,URINE NEGATIVE (NEGATIVE); CLARITY,URINE CLOUDY; COLOR,URINE YELLOW; GLUCOSE, URINE (UA) NEGATIVE (NEGATIVE); KETONES,URINE NEGATIVE (NEGATIVE); LEUKOCYTE ESTERASE ,URINE NEGATIVE (NEGATIVE); NITRITE,URINE NEGATIVE (NEGATIVE); PROTEIN,URINE TRACE (NEGATIVE)
[2022-10-03 15:58] LABS: BACTERIA,URINE LARGE /HPF
== END ==
LOC: LAB 15:30
PROVIDERS: ATTEND Family Medicine
DX: N39.0 Urinary tract infection, site not specified (principal)
CPT/HCPCS: 81000; 87088

== ENCOUNTER → 2022-10-16 | Outpatient (CLI) | payer MEDICARE, MEDICAID ==
[2022-10-16 12:44] LABS: BILIRUBIN,URINE NEGATIVE (NEGATIVE); CLARITY,URINE CLEAR; COLOR,URINE YELLOW; GLUCOSE, URINE (UA) NEGATIVE (NEGATIVE); KETONES,URINE NEGATIVE (NEGATIVE); LEUKOCYTE ESTERASE ,URINE NEGATIVE (NEGATIVE); NITRITE,URINE NEGATIVE (NEGATIVE); PH,URINE 5.5 (5-9); PROTEIN,URINE NEGATIVE (NEGATIVE)
[2022-10-16 12:55] LABS: BACTERIA,URINE TRACE /HPF; RBC,URINE RARE /HPF
== END ==
PROVIDERS: ATTEND Family Medicine
DX: N39.0 Urinary tract infection, site not specified (principal)
CPT/HCPCS: 81000

== ENCOUNTER 2023-05-18 23:10 | Emergency (ER) | payer MEDICARE, MEDICAID ==
[~2023-05-18] VITALS: Ht 165.1 cm; Wt 91.4 kg
[~2023-05-18 23:10] MED LIST changes: -INSU100I29 SQ; +INSU100I30 SQ
--- NOTE | 2023-05-18 23:20 | ED Fall/Injury ---
General Stated Complaint: FALL|HEAD INJ History of Present Illness Date Seen by Provider: May 18, 2023 Time Seen by Provider: 23:16 Initial Comments 73 yr F with PMH of DM2/ HTN/CAD with stents on ASA and Plavix/ CVA/ recurrent falls recently and started on Nitrofurantoin today, is brought here by EMS with c/o a trip and fall today, and hitting her face on the edge of a stool when she fell. Pt has a right bruised eye. Pt is speaking in complete sentences. She was given Zofran by EMS in the ambulance. Denies LOC, vomiting, dizziness, vision disturbances. Allergies and Home Medications Allergies Coded Allergies: Tetanus Vaccines and Toxoid (Verified Allergy, Unknown, 04/04/21) albuterol (Verified Allergy, Unknown, Shortness of Breath, 09/20/22) codeine (Verified Allergy, Unknown, 04/04/21) meperidine (Verified Allergy, Unknown, Nausea, 07/09/22) morphine (Verified Allergy, Unknown, 04/04/21) Uncoded Allergies: IV contrast dye (Allergy, Unknown, 04/04/21) Patient Home Medication List Home Medication List Reviewed: Yes ALPRAZolam (Xanax Tablet) 0.25 Mg Tab, 0.25 MG PO Q6HR PRN for ANXIETY Prescribed by: TIA BETH on 09/25/22 112 Acetaminophen (Tylenol Extra Strength) 500 Mg Tablet, 1,000 MG PO Q8H PRN for PAIN-MILD (1-4), (Reported) Entered as Reported by: HYUN JIMÉNEZ on 09/18/22 1440 Aspirin (Aspirin EC) 81 Mg Tablet.dr, 81 MG PO DAILY Prescribed by: TIA BETH on 09/25/22 1125 Clopidogrel Bisulfate (Clopidogrel) 75 Mg Tablet, 75 MG PO DAILY Prescribed by: TIA BETH on 09/25/22 1125 Docusate Sodium (Docusate Sodium) 100 Mg Capsule, 100 MG PO BID Prescribed by: TIA BETH on 09/25/22 112 Enoxaparin Sodium (Enoxaparin Sodium) 40 Mg/0.4 Ml Syringe, 40 MG SC Q24H Prescribed by: TIA BEHT on 09/25/22 1125 Gabapentin (Gabapentin) 100 Mg Capsule, 100 MG PO 0800,1800 Prescribed by: TIA BETH on 09/25/221124 Gabapentin (Gabapentin) 100 Mg Capsule, 200 MG PO HS Prescribed by: TIA BETH on 09/25/221124 Hydrochlorothiazide (Hydrochlorothiazide) 25 Mg Tablet, 25 MG PO DAILY Prescribed by: TIA BETH on 09/25/221124 Insulin Glargine,Hum.rec.anlog (Lantus Solostar) 100 Unit/Ml (3 Ml) Insuln.pen, 30 UNIT SQ BID Prescribed by: TIA BETH on 09/25/221124 Insulin Lispro (Humalog Kwikpen) 100 Unit/Ml Insuln.pen, 6 UNIT SQ TIDWM Prescribed by: TIA BETH on 09/25/221124 Lidocaine (Lidocaine 5% Patch) 5 % Adh..patch, 1 EACH TP Q12H PRN for Neuropathic pain Prescribed by: TIA BETH on 09/25/221124 Lisinopril (Lisinopril) 20 Mg Tablet, 20 MG PO BID Prescribed by: TIA BETH on 09/25/221124 Methocarbamol (Methocarbamol) 750 Mg Tablet, 750 MG PO Q8H PRN for MUSCLE SPASMS Prescribed by: TIA BETH on 09/25/221124 Metoprolol Tartrate (Metoprolol Tartrate) 50 Mg Tablet, 50 MG PO BID Prescribed by: TIA BETH on 09/25/221124 Oxycodone Hcl (Oxyir Tablet) 5 Mg Tab, 5 MG PO Q4HR PRN for PAIN-SEE DOSE INSTRUCTIONS Prescribed by: TIA BETH on 09/25/221125 Pantoprazole Sodium (Pantoprazole Sodium) 40 Mg Tablet.dr, 40 MG PO DAILY Prescribed by: TIA BETH on 09/25/221124 Rosuvastatin Calcium (Rosuvastatin Calcium) 10 Mg Tablet, 10 MG PO DAILY Prescribed by: TIA BETH on 09/25/221124 Semaglutide (Ozempic) 0.25 Mg/0.2 Ml Pen.injctr, 0.5 MG SQ SATURDAY Prescribed by: TIA BETH on 09/25/221124 Sertraline HCl (Sertraline HCl) 50 Mg Tablet, 50 MG PO HS Prescribed by: TIA BETH on 09/25/22 1125 Review of Systems Review of Systems Constitutional: no symptoms reported Eyes: Pain Ears, Nose, Mouth, Throat: see HPI Respiratory: no symptoms reported Cardiovascular: no symptoms reported Gastrointestinal: no symptoms reported Genitourinary: no symptoms reported Musculoskeletal: see HPI Skin: no symptoms reported Psychiatric/Neurological: No Symptoms Reported Past Grnibtc-Pxfehn-Pfwwwr Hx Immunizations Up To Date First/Initial COVID19 Vaccinat: YES Second COVID19 Vaccination Fernando: YES Past Medical History Surgery/Hospitalization HX: HTN, Diabetes Mellitus insulin dependent, Hypercholesterolemia, CVA, Carotid endarterectomy Surgeries: Yes Vascular Surgery Chronic Edema/Swelling, High Cholesterol, Hypertension Bladder Infection Diabetes, Insulin dep Physical Exam Vital Signs Vital Signs - First Documented 05/18/23 05/18/23 23:13 23:41 Temp 39.0 Pulse 109 Resp 18 B/P (MAP) 94/41 (58) Pulse Ox 94 O2 Delivery Room Air Capillary Refill : Height, Weight, BMI Height: '" Weight: lbs. oz. kg; 34.19 BMI Method: General Appearance: mild distress, obese HEENT: PERRL/EOMI, other (Right orbit shows ecchymosis, swelling, tenderness) Neck: non-tender, full range of motion, supple, normal inspection Progress/Results/Core Measures Results/Orders My Orders Orders - CHERI PICHARDO MD Ct Head/Face/Cervical Wo (05/18/23 23:28) Ice: Apply To Affected Area (05/18/23 23:43) Prochlorperazine Injection (Prochlorpera (05/19/23 00:15) Medications Given in ED Current Medications Medications Dose Ordered Sig/Stephanie Route Start Time Stop Time Status Last Admin Dose Admin Prochlorperazine Edisylate 10 mg ONCE ONCE IV 05/19/23 00:15 05/19/23 00:16 DC 05/19/23 00:18 10 MG Vital Signs/I&O 05/18/23 05/18/23 23:13 23:41 Temp 39.0 39.0 Pulse 109 109 Resp 18 18 B/P (MAP) 94/41 (58) 94/41 (58) Pulse Ox 94 O2 Delivery Room Air Room Air Progress Progress Note : Progress Note 1. FALL/RIGHT ORBITAL ECHYMOSIS: - CT HEAD/ MAXILLOFACIAL/ C-SPINE: no acute findings - Compazine iv given in ER for nausea. Pt was given Zofran iv by EMS in the ambulance. - Patient is on nitrofurantoin for UTI, which was started by her PCP today morning. - Advised to continue and complete Nitrofurantoin as prescribed by her PCP - Concussion precautions given - Adequate hydration advised - Pain control with Ibuprofen and/or Tylenol - Follow up with PCP in 3 to 7 days -The patient was seen in the ED, and treated appropriately to presentation at a specific point in time. Patient is informed that there is a possibility that disease and illness can evolve and change in acuity rapidly or slowly after patient is discharged from the ER. Precautionary advice given to the patient for immediate return to ER if symptoms worsen or do not resolve, and to seek emergency care sooner rather than later. Pt also advised on the importance of PCP follow up and compliance with management and follow up plan with PCP and/or specialist, as this is part of the management plan. Pt verbally expressed understanding. Diagnostic Imaging Diagonstic Imaging: CT Plain Films/CT/US/NM/MRI: facial bones, c-spine, head Departure Impression Primary Impression: Fall Qualified Codes: W19.XXXA - Unspecified fall, initial encounter Additional Impression: Traumatic ecchymosis of right orbit Qualified Codes: S05.11XA - Contusion of eyeball and orbital tissues, right eye, initial encounter Disposition: 01 HOME, SELF-CARE Condition: Stable Departure-Patient Inst. Referrals: BLAISE MAYFIELD MD (PCP) Primary Care Physician Patient Instructions: [facility] ED, Concussion in adults, Preventing Falls ED Add. Discharge Instructions: - Advised to continue and complete Nitrofurantoin as prescribed by her PCP - Concussion precautions given - Adequate hydration advised - Pain control with Ibuprofen and/or Tylenol - Follow up with PCP in 3 to 7 days CHERI PICHARDO MD May 18, 2023 23:20
[2023-05-18 23:41] VITALS: BP 94/41
[2023-05-19] MEDS ORDERED: PROCHLORPERAZINE INJ 10 MG/2ML VIAL IV ONE (00:15)
[2023-05-19] MEDS ORDERED: NITROFURANTOIN Monohydrate/Macro 100 MG CAPSULE PO ONE (04:00)
--- NOTE | 2023-05-19 06:42 | Diagnostic Imaging Report ---
EXAMINATION: CT head, face and CT cervical spine without contrast. TECHNIQUE: Multiple contiguous axial images were obtained through the face, brain and cervical spine without the use of intravenous contrast. Sagittal and coronal reformations through the cervical spine were then performed. All CT scans use one or more of the following dose optimizing techniques: automated exposure control, MA and/or KvP adjustment based on patient size and exam type or iterative reconstruction. HISTORY: Head, face and neck injury. COMPARISON: None available. FINDINGS: The torres-white matter differentiation is normal. No mass effect or midline shift. The ventricles are normal in size and configuration. Basilar cisterns are patent. There are no intra- or extra-axial fluid collections. There is no intracranial hemorrhage. 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 The orbits are normal. Paranasal sinuses are normal. Mastoid air cells are clear. No soft tissue abnormality is seen. No osseus lesions or fractures are seen. No fracture is seen in the face. The nasal bones are normal. Mandible and maxillae are normal. Zygomatic arches are normal. Pterygoid plates are normal. No soft tissue abnormality is seen. The alignment of the cervical spine is normal. No fracture is seen. Vertebral body heights are normal. The craniocervical junction is normal. There are dental caries of the bilateral maxillary molars. There is mild degenerative disease in the cervical spine. There is no spinal canal stenosis. There are surgical clips in the left neck. There are vascular calcifications in the carotid and vertebral arteries. Limited views of the superior thorax are normal. IMPRESSION: 1. No acute intracranial abnormality. 2. No cervical spine fracture. 3. No fracture in the face. Dictated by: Dictated on workstation # [id number]
[2023-05-20] MEDS ORDERED: LISI10TA25 PO (00:55)
[2023-05-20] MEDS ORDERED: GABA-486 PO (00:59)
== END 2023-05-19 06:59 | disposition home or self-care (01) ==
LOC: EDUNIT# 23:10 → ER FS 23:12
DX: S05.11XA Contusion of eyeball and orbital tissues, right eye, initial encounter (principal); N39.0 Urinary tract infection, site not specified; I25.10 Atherosclerotic heart disease of native coronary artery without angina pectoris; I10 Essential (primary) hypertension; E11.9 Type 2 diabetes mellitus without complications; E66.9 Obesity, unspecified; Z68.33 Body mass index [BMI] 33.0-33.9, adult; Z79.4 Long term (current) use of insulin; Z79.82 Long term (current) use of aspirin; Z79.02 Long term (current) use of antithrombotics/antiplatelets; Z95.5 Presence of coronary angioplasty implant and graft; W01.190A Fall on same level from slipping, tripping and stumbling with subsequent striking against furniture, initial encounter
CPT/HCPCS: 70450; 70486; 72125; 82947

== ENCOUNTER 2023-05-19 15:41 | Observation (INO) | payer MEDICARE, MEDICAID ==
[~2023-05-19] VITALS: Ht 167.7 cm; Wt 94.1 kg
[2023-05-19] MEDS ORDERED: NS IV 1000 ML 1,000 ML IV STA (15:56)
[2023-05-19 16:02] LABS: BASOPHILS % (AUTO) 0 % (0-10); EOSINOPHILS % (AUTO) 0 % (0-10); HEMATOCRIT 34 % (35-52); HEMOGLOBIN 10.8 g/dL (11.5-16.0); LYMPHOCYTES # (AUTO) 0.2 10^3/uL (1.0-4.0); LYMPHOCYTES % (AUTO) 2 % (12-44); MEAN CORPUSCULAR HEMOGLOBIN 27 pg (25-34); MEAN CORPUSCULAR HGB CONC 32 g/dL (32-36); MEAN CORPUSCULAR VOLUME 85 fL (80-99); MEAN PLATELET VOLUME 12.1 fL (9.0-12.2); MONOCYTES # (AUTO) 0.5 10^3/uL (0.0-1.0); MONOCYTES % (AUTO) 4 % (0-12); NEUTROPHILS # (AUTO) 11.3 10^3/uL (1.8-7.8); NEUTROPHILS % (AUTO) 93 % (42-75); PLATELET COUNT 105 10^3/uL (130-400); WHITE BLOOD COUNT 12.1 10^3/uL (4.3-11.0)
--- NOTE | 2023-05-19 16:04 | ED Fall/Injury ---
General Chief Complaint: Trauma-Non Activation Stated Complaint: FALL Nursing Triage Note: Patient states she was trying to get back in her chair after going to the bathroom, slipped and fell, landing on her right arm. Patient states she was unable to get to her feet and crawled to her phone for help. Source: patient, EMS, old records History of Present Illness Date Seen by Provider: May 19, 2023 Time Seen by Provider: 15:41 Initial Comments 73-year-old female presenting by EMS from home after having a fall. She states that she had gillette to get into the bathroom as she had to urinate. After she had urinated she stood up and felt unsteady on her feet. She states that she sat back down on her chair but then slipped and fell onto her right arm. She denies hitting her head but did have a fall overnight where she had fallen and hit her head. She was seen here in the emergency department for that visit as well. Patient states that she had to get on her hands and knees and crawled around in the apartment to get to her phone to get help. She denied having any loss of consciousness or new head pain. She complained of some pain in her right arm with movement. Occurred: just prior to arrival Severity: moderate Injuries/Pain Location: upper extremity (Right arm pain with movement) Context: lost balance, slipped Loss of Consciousness: no loss of consciousness Modifying Factors: Worse With Movement Associated Symptoms (Fall): No Abdominal Pain, No Chest Pain, No Confusion, No Dizziness; Headache (I did to the right side of her face from where she had fallen last night and hit her head); No Lightheadedness, No Muscle Spasms, No Nausea/Vomiting, No Neck Pain, No Ringing in Ears, No Seizures, No Shortness of Air, No Slurred Speech; Trouble Walking (States that she is too weak to get up and walk since falling this afternoon); No Vision Changes Allergies and Home Medications Allergies Coded Allergies: cephalexin (Verified Allergy, Mild, Rash, 05/19/23) Tetanus Vaccines and Toxoid (Verified Allergy, Unknown, 04/04/21) albuterol (Verified Allergy, Unknown, Shortness of Breath, 09/20/22) codeine (Verified Allergy, Unknown, 04/04/21) meperidine (Verified Allergy, Unknown, Nausea, 07/09/22) morphine (Verified Allergy, Unknown, 04/04/21) Uncoded Allergies: IV contrast dye (Allergy, Unknown, 04/04/21) Patient Home Medication List Home Medication List Reviewed: Yes ALPRAZolam (Xanax Tablet) 0.25 Mg Tab, 0.25 MG PO Q6HR PRN for ANXIETY Prescribed by: TIA BETH on 09/25/22 112 Acetaminophen (Tylenol Extra Strength) 500 Mg Tablet, 1,000 MG PO Q8H PRN for PAIN-MILD (1-4), (Reported) Entered as Reported by: HYUN JIMÉNEZ on 09/18/22 1440 Aspirin (Aspirin EC) 81 Mg Tablet.dr, 81 MG PO DAILY Prescribed by: TIA BETH on 09/25/22 112 Clopidogrel Bisulfate (Clopidogrel) 75 Mg Tablet, 75 MG PO DAILY Prescribed by: TIA BETH on 09/25/221124 Docusate Sodium (Docusate Sodium) 100 Mg Capsule, 100 MG PO BID Prescribed by: TIA BETH on 09/25/22 112 Enoxaparin Sodium (Enoxaparin Sodium) 40 Mg/0.4 Ml Syringe, 40 MG SC Q24H Prescribed by: TIA BETH on 09/25/22 112 Gabapentin (Gabapentin) 100 Mg Capsule, 100 MG PO 0800,1800 Prescribed by: TIA BETH on 09/25/22 112 Gabapentin (Gabapentin) 100 Mg Capsule, 200 MG PO HS Prescribed by: TIA BETH on 09/25/22 112 Hydrochlorothiazide (Hydrochlorothiazide) 25 Mg Tablet, 25 MG PO DAILY Prescribed by: TIA BETH on 09/25/221124 Insulin Glargine,Hum.rec.anlog (Lantus Solostar) 100 Unit/Ml (3 Ml) Insuln.pen, 30 UNIT SQ BID Prescribed by: TIA BETH on 09/25/221124 Insulin Lispro (Humalog Kwikpen) 100 Unit/Ml Insuln.pen, 6 UNIT SQ TIDWM Prescribed by: TIA BETH on 09/25/221124 Lidocaine (Lidocaine 5% Patch) 5 % Adh..patch, 1 EACH TP Q12H PRN for Neuropathic pain Prescribed by: TIA BETH on 09/25/221124 Lisinopril (Lisinopril) 20 Mg Tablet, 20 MG PO BID Prescribed by: TIA BETH on 09/25/221124 Methocarbamol (Methocarbamol) 750 Mg Tablet, 750 MG PO Q8H PRN for MUSCLE SPASMS Prescribed by: TIA BETH on 09/25/221124 Metoprolol Tartrate (Metoprolol Tartrate) 50 Mg Tablet, 50 MG PO BID Prescribed by: TIA BETH on 09/25/221124 Oxycodone Hcl (Oxyir Tablet) 5 Mg Tab, 5 MG PO Q4HR PRN for PAIN-SEE DOSE INSTRUCTIONS Prescribed by: TIA BETH on 09/25/221125 Pantoprazole Sodium (Pantoprazole Sodium) 40 Mg Tablet.dr, 40 MG PO DAILY Prescribed by: TIA BETH on 09/25/221124 Rosuvastatin Calcium (Rosuvastatin Calcium) 10 Mg Tablet, 10 MG PO DAILY Prescribed by: TIA BETH on 09/25/221124 Semaglutide (Ozempic) 0.25 Mg/0.2 Ml Pen.injctr, 0.5 MG SQ SATURDAY Prescribed by: TIA BETH on 09/25/221124 Sertraline HCl (Sertraline HCl) 50 Mg Tablet, 50 MG PO HS Prescribed by: TIA BETH on 09/25/221124 Review of Systems Review of Systems Constitutional: No chills, No fever Eyes: Denies Blurred Vision, Denies Photophobia, Denies Vision Changes Ears, Nose, Mouth, Throat: no symptoms reported Respiratory: no symptoms reported Cardiovascular: no symptoms reported Gastrointestinal: No nausea, No vomiting Genitourinary: No dysuria Musculoskeletal: see HPI Skin: see HPI, change in color (bruising to right side of face from fall last night) Psychiatric/Neurological: Headache (right side of face and head from fall last night) Past Neuzfbw-Ntxdwa-Vhjirm Hx Immunizations Up To Date First/Initial COVID19 Vaccinat: YES Second COVID19 Vaccination Fernando: YES Past Medical History Surgery/Hospitalization HX: HTN, Stroke, DM, Cardiac stents Surgeries: Yes Vascular Surgery Chronic Edema/Swelling, High Cholesterol, Hypertension Bladder Infection Diabetes, Insulin dep Physical Exam Vital Signs Vital Signs - First Documented 05/19/23 15:48 Temp 36.4 Pulse 96 Resp 18 B/P (MAP) 113/50 (71) Pulse Ox 96 O2 Delivery Room Air Capillary Refill : Less Than 3 Seconds Height, Weight, BMI Height: '" Weight: lbs. oz. 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, alert, oriented x 3 Skin: warm/dry, ecchymosis (right side of face from fall last night) Latisha Coma Score Best Eye Response: (4) Open Spontaneously Best Verbal Response: (5) Oriented Best Motor Response: (6) Obeys Commands [place] Total: 15 Progress/Results/Core Measures Results/Orders Lab Results Laboratory Tests Test 05/19/23 15:56 05/19/23 16:45 Range/Units White Blood Count 12.1 H 4.3-11.0 10^3/uL Red Blood Count 4.03 3.80-5.11 10^6/uL Hemoglobin 10.8 L 11.5-16.0 g/dL Hematocrit 34 L 35-52 % Mean Corpuscular Volume 85 80-99 fL Mean Corpuscular Hemoglobin 27 25-34 pg Mean Corpuscular Hemoglobin Concent 32 32-36 g/dL Red Cell Distribution Width 15.6 H 10.0-14.5 % Platelet Count 105 L 130-400 10^3/uL Mean Platelet Volume 12.1 9.0-12.2 fL Immature Granulocyte % (Auto) 0 % Neutrophils (%) (Auto) 93 H 42-75 % Lymphocytes (%) (Auto) 2 L 12-44 % Monocytes (%) (Auto) 4 0-12 % Eosinophils (%) (Auto) 0 0-10 % Basophils (%) (Auto) 0 0-10 % Neutrophils # (Auto) 11.3 H 1.8-7.8 10^3/uL Lymphocytes # (Auto) 0.2 L 1.0-4.0 10^3/uL Monocytes # (Auto) 0.5 0.0-1.0 10^3/uL Eosinophils # (Auto) 0.0 0.0-0.3 10^3/uL Basophils # (Auto) 0.0 0.0-0.1 10^3/uL Immature Granulocyte # (Auto) 0.1 0.0-0.1 10^3/uL Sodium Level 136 135-145 MMOL/L Potassium Level 3.6 3.6-5.0 MMOL/L Chloride Level 100 98-107 MMOL/L Carbon Dioxide Level 23 21-32 MMOL/L Anion Gap 13 5-14 MMOL/L Blood Urea Nitrogen 27 H 7-18 MG/DL Creatinine 1.04 0.60-1.30 MG/DL Estimat Glomerular Filtration Rate 57 BUN/Creatinine Ratio 26 Glucose Level 192 H 70-105 MG/DL Calcium Level 9.0 8.5-10.1 MG/DL Corrected Calcium 9.3 8.5-10.1 MG/DL Total Bilirubin 0.6 0.1-1.0 MG/DL Aspartate Amino Transf (AST/SGOT) 20 5-34 U/L Alanine Aminotransferase (ALT/SGPT) 19 0-55 U/L Alkaline Phosphatase 65 40-136 U/L Total Protein 6.1 L 6.4-8.2 GM/DL Albumin 3.6 3.2-4.5 GM/DL Urine Color YELLOW Urine Clarity CLOUDY Urine pH 6.0 5-9 Urine Specific [place] 1.020 1.016-1.022 Urine Protein TRACE H NEGATIVE Urine Glucose (UA) NEGATIVE NEGATIVE Urine Ketones 1+ H NEGATIVE Urine Nitrite POSITIVE H NEGATIVE Urine Bilirubin NEGATIVE NEGATIVE Urine Urobilinogen 0.2 < = 1.0 MG/DL Urine Leukocyte Esterase 1+ H NEGATIVE Urine RBC (Auto) NEGATIVE NEGATIVE Urine RBC NONE /HPF Urine WBC >100 H /HPF Urine Crystals NONE /LPF Urine Bacteria LARGE H /HPF Urine Casts NONE /LPF Urine Mucus NEGATIVE /LPF Urine Culture Indicated YES My Orders Orders - ARIADNA SCOTT MD Comprehensive Metabolic Panel (05/19/23 15:56) Ua Culture If Indicated (05/19/23 15:56) Ed Iv/Invasive Line Start (05/19/23 15:56) Cbc With Automated Diff (05/19/23 15:56) Ns Iv 1000 Ml (Ns Iv 1000 Ml) (05/19/23 15:56) Humerus 2 View Right (05/19/23 15:56) Forearm 2 View Right (05/19/23 15:56) Manual Differential (05/19/23 15:56) Urine Culture (05/19/23 16:45) Ceftriaxone Iv/Im (Ceftriaxone Iv/Im) (05/19/23 16:55) Ed Admission (Communication) (05/19/23 17:06) Vital Signs/I&O 05/19/23 05/19/23 05/19/23 15:48 16:34 18:11 Temp 36.4 36.8 Pulse 96 83 Resp 18 18 B/P (MAP) 113/50 (71) 138/74 Pulse Ox 96 96 O2 Delivery Room Air Room Air Blood Pressure Mean: 71 Progress Progress Note #1: Progress Note Differential diagnosis includes electrolyte abnormality, dehydration, anemia, hypotension. Allow liter of normal saline to finish infusing through the peripheral IV access from EMS. Send blood work to check complete blood count, comprehensive metabolic profile, urinalysis. X-rays of the right humerus and forearm to look for acute bony abnormality since she complains of pain with movement. From her visit overnight she had a CT scan of head/maxillofacial/cervical spine. This was read out by radiologist as no acute intracranial process, no fractures. She did not have labs done at the previous ED visit. Progress Note #2: Time: 14:22 Progress Note On my personal interpretation and review of her x-rays of the right humerus and right forearm did not show any acute bony abnormality or fracture. Complete blood count shows WBC at upper limit of normal at 12.1, Hemoglobin shows mild anemia at 10.8, low platelets at 105. 93% neutrophils on automated differential. Hemoglobin is increased from 9 in September to 10.8 today. She was started on Macrobid antibiotic yesterday for UTI by her PCP. Comprehensive metabolic profi le shows normal sodium at 136, Potassium low normal at 3.6, Slight elevation of BUN to 27 to go with some possible dehydration. Cr not elevated at 1.04 and glucose elevated to 192. 1648 Patient was complaining to her mother in the room that she had a fever and was chilling so we rechecked temperature and she was just over 98 degrees F. Her mother was telling me that the patient needs to be admitted somewhere because she can not get up and get around and keeps falling. She states that none of the patient's family members are able to take her in or stay with her and at 89 she states she can not take care of her daughter either. Awaiting urinalysis to check for continued infection or what her hydration status looks like. 1700 Urinalysis had specific gravity of 1.020 to go with mild dehydration as this was after a Liter of NS infused. She has had stable blood pressures 113/52 up to 146/51. She did have 1 + ketones, Nitrites, 1+ Leukocyte esterace and >100 WBC with Large bacteria present. This was after starting Macrobid on 05/17 but it sounds like she has only taken 1 or 2 of the pills so far. d/w Dr. Beth, hospitalist on for [facility]. I reviewed the patients labs and findings of continued UTI after starting Macrobid on 05/17. With her recurrent falls and feeling unsteady on her feet Dr. Beth accepted her for observation admit for her UTI. Based on most recent culture of urine Oct 03, 2022 she had E. Coli sensitive to everything but ampicillin. However she did have Pseudomonas on urine culture from the beginning of September this year. It was also pansensitive. Given 1 gram Ceftriaxone here in the ED. Urine culture is pending. Diagnostic Imaging Diagonstic Imaging: Xray Plain Films/CT/US/NM/MRI: forearm Comments [facility] [place] NAME: CRISTAL SPEARS [facility] REC#: [id number] PT STATUS: REG ER : 1950 PHYSICIAN: ARIADNA SCOTT MD ADMIT DATE: 05/19/23/ER FS Draft Date of Exam:05/19/23 FOREARM 2 VIEW RIGHT EXAMINATION: Right forearm 2 views. HISTORY: Arm injury. COMPARISON: None available. FINDINGS: Alignment is normal. No fracture is seen. Joint spaces are normal. IMPRESSION: No fracture. Dictated on workstation # [id number] Dict: 05/19/23 1639 Trans: 05/19/23 1640 [id number] Interpreted by: CARI MARIANO MD Electronically signed by: Reviewed: Reviewed by Me Diagonstic Imaging: Xray Plain Films/CT/US/NM/MRI: other (humerus) Comments [facility] [place] NAME: CRISTAL SPEARS [facility] REC#: [id number] PT STATUS: REG ER : 1950 PHYSICIAN: ARIADNA SCOTT MD ADMIT DATE: 05/19/23/ER FS Draft Date of Exam:05/19/23 HUMERUS 2 VIEW RIGHT EXAMINATION: Right humerus 2 views. HISTORY: Arm injury. COMPARISON: None available. FINDINGS: Alignment is normal. No fracture is seen. Joint spaces are normal. IMPRESSION: No fracture. Dictated on workstation # [id number] Dict: 05/19/23 1638 Trans: 05/19/23 163 PJ [id number] Interpreted by: CARI MARIANO MD Electronically signed by: Reviewed: Reviewed by Me Departure Communication (Admissions) Time/Spoke to Admitting Phy: 17:00 d/w Dr. Beth, hospitalist on for [facility]. I reviewed the patients labs and findings of continued UTI after starting Macrobid on 05/17. With her recurrent falls and feeling unsteady on her feet Dr. Beth accepted her for observation admit for her UTI. Based on most recent culture of urine Oct 03, 2022 she had E. Coli sensitive to everything but ampicillin. However she did have Pseudomonas on urine culture from the beginning of September this year. It was also pansensitive. Given 1 gram Ceftriaxone here in the ED. Urine culture is pending. Impression Primary Impression: Acute cystitis without hematuria Additional Impressions: Fall at home Qualified Codes: W19.XXXA - Unspecified fall, initial encounter; Y92.009 - Unspecified place in unspecified non-institutional (private) residence as the place of occurrence of the external cause Right arm pain Contusion of right upper arm, initial encounter Contusion of right forearm, initial encounter Frequent falls Disposition: 30 STILL A PATIENT Condition: Stable Admissions Decision to Admit Reason: Admit from ER (General) Decision to Admit/Date: May 19, 2023 Time/Decision to Admit Time: 17:00 Departure-Patient Inst. Referrals: BLAISE MAYFIELD MD (PCP) Primary Care Physician ARIADNA SCOTT MD May 19, 2023 16:04
[2023-05-19 16:20] LABS: ALBUMIN 3.6 GM/DL (3.2-4.5); BILIRUBIN,TOTAL 0.6 MG/DL (0.1-1.0); CREATININE SERUM 1.04 MG/DL (0.60-1.30); POTASSIUM 3.6 MMOL/L (3.6-5.0); TOTAL PROTEIN 6.1 GM/DL (6.4-8.2)
--- NOTE | 2023-05-19 16:39 | Diagnostic Imaging Report ---
EXAMINATION: Right humerus 2 views. HISTORY: Arm injury. COMPARISON: None available. FINDINGS: Alignment is normal. No fracture is seen. Joint spaces are normal. IMPRESSION: No fracture. Dictated by: Dictated on workstation # [id number]
--- NOTE | 2023-05-19 16:40 | Diagnostic Imaging Report ---
EXAMINATION: Right forearm 2 views. HISTORY: Arm injury. COMPARISON: None available. FINDINGS: Alignment is normal. No fracture is seen. Joint spaces are normal. IMPRESSION: No fracture. Dictated by: Dictated on workstation # [id number]
[2023-05-19 16:48] LABS: BILIRUBIN,URINE NEGATIVE (NEGATIVE); COLOR,URINE YELLOW; GLUCOSE, URINE (UA) NEGATIVE (NEGATIVE); KETONES,URINE 1+ (NEGATIVE); LEUKOCYTE ESTERASE ,URINE 1+ (NEGATIVE); NITRITE,URINE POSITIVE (NEGATIVE); PROTEIN,URINE TRACE (NEGATIVE)
[2023-05-19 16:51] LABS: BACTERIA,URINE LARGE /HPF; CLARITY,URINE CLOUDY; WBC,URINE >100 /HPF
[2023-05-19] MEDS ORDERED: cefTRIAXone IV/IM 1,000 MG in NS (IVPB) 50 ML 50 ML IV STA (16:55)
[2023-05-19 19:00] VITALS: BP 190/87
[2023-05-19] MEDS ORDERED: ONDANSETRON 4 MG ORAL DISSOLVE TABLET PO PRN (19:00)
[2023-05-19] MEDS ORDERED: BISACODYL 10 MG SUPPOSITORY PR PRN (19:00)
[2023-05-19] MEDS ORDERED: HYDROmorphone INJECTION 2 MG/ML VIAL IV PRN (19:00)
[2023-05-19] MEDS ORDERED: diphenhydrAMINE 25 MG TABLET PO PRN (19:00)
[2023-05-19] MEDS ORDERED: MELATONIN 3 MG TABLET PO PRN (19:00)
[2023-05-19] MEDS ORDERED: NS IV 1000 ML 1,000 ML IV SCH (19:00)
[2023-05-19] MEDS ORDERED: LACTULOSE SYRUP 10GM/15ML 30ML UDC PO PRN (19:00)
[2023-05-19] MEDS ORDERED: ANTACID SUSPENSION 30 ML UDC PO PRN (19:00)
[2023-05-19] MEDS ORDERED: ONDANSETRON INJECTION 4 MG/2 ML (SDV) IV PRN (19:00)
[2023-05-19] MEDS ORDERED: diphenhydrAMINE INJ 50 MG/ML VIAL IVP PRN (19:00)
[2023-05-19] MEDS ORDERED: oxyCODONE IMMEDIATE RELEASE 5 MG TABLET PO PRN (19:00)
[2023-05-19] MEDS: ACETAMINOPHEN 325 MG TABLET PO PRN (19:23)
[2023-05-19 19:29] LABS: LYMPHOCYTES % (MANUAL) 1 %; MONOCYTES % (MANUAL) 2 %; NEUTROPHILS % (MANUAL) 97 %
[2023-05-19 20:01] VITALS: BP 156/66
[2023-05-19] MEDS ORDERED: ENOXAPARIN 40 MG/0.4 ML SYRINGE SC SCH (21:00)
[2023-05-19] MEDS ORDERED: DOCUSATE SODIUM 100 MG CAPSULE PO SCH (21:00)
[2023-05-19] MEDS: inSUlin ASPART 1 UNIT/0.01 ML (PER UNIT) SC SCH (21:06)
[2023-05-19 21:40] VITALS: BP 156/66
[2023-05-19 21:53] VITALS: BP 120/73
[2023-05-19 23:44] VITALS: BP_SYST 100; BP_SYST 110; BP_DIAS 60
[2023-05-20] VITALS (9 sets, daily range): BP systolic 79–143; BP diastolic 50–69
[2023-05-20] MEDS ORDERED: LISI10TA25 PO (00:55)
[2023-05-20] MEDS ORDERED: GABA-486 PO (00:59)
[2023-05-20] MEDS: ACETAMINOPHEN 325 MG TABLET PO PRN ×2 (05:55→20:10)
[2023-05-20] MEDS: inSUlin ASPART 1 UNIT/0.01 ML (PER UNIT) SC SCH ×4 (05:55→20:41)
[2023-05-20 06:48] LABS: EOSINOPHILS % (AUTO) 0 % (0-10); HEMOGLOBIN 11.3 g/dL (11.5-16.0); LYMPHOCYTES # (AUTO) 0.1 10^3/uL (1.0-4.0); LYMPHOCYTES % (AUTO) 1 % (12-44); NEUTROPHILS % (AUTO) 97 % (42-75)
[2023-05-20 06:49] LABS: BASOPHILS % (AUTO) 0 % (0-10); HEMATOCRIT 37 % (35-52); MEAN CORPUSCULAR HEMOGLOBIN 27 pg (25-34); MEAN CORPUSCULAR HGB CONC 31 g/dL (32-36); MEAN CORPUSCULAR VOLUME 87 fL (80-99); MEAN PLATELET VOLUME 12.7 fL (9.0-12.2); MONOCYTES # (AUTO) 0.2 10^3/uL (0.0-1.0); MONOCYTES % (AUTO) 2 % (0-12); NEUTROPHILS # (AUTO) 9.7 10^3/uL (1.8-7.8); PLATELET COUNT 90 10^3/uL (130-400)
--- NOTE | 2023-05-20 06:53 | History & Physical-Hospitalist ---
History of Present Illness HPI/Chief Complaint CC: AMS following fall HPI: This is a very debilitated 73yoWF who just returned home after a stay at [facility] Roni Young who has a h/o severe sepsis from UTI and DKA who was sent to [facility] to be admitted after another fall at home and could not take care of herself. She lives alone most of the time but her mother checks on her. She sustained a fall on early Saturday morning and was sent home but fell again so she was admitted. Needs custodial NHP. UCx revealed E coli sensitive to Rocephin so that was initiated. Patient is very lethargic and has poor recall. Source: patient Exam Limitations: no limitations Date Seen 05/20/23 Time Seen by a Provider: 10:00 Attending Physician Evens,Nitish FRANZ PCP Admitting Physician: Shakira Perez DO Attending Physician: Shakira Perez DO Referring Physician Date of Admission May 19, 2023 at 18:55 Home Medications & Allergies Home Medications Reviewed patient Home Medication Reconciliation performed by pharmacy medication reconciliations non morse intercept technician and/or nursing. Patients Allergies have been reviewed. Allergies Allergies Coded Allergies cephalexin (Verified Allergy, Mild, Rash, 05/19/23) Tetanus Vaccines and Toxoid (Verified Allergy, Unknown, 04/04/21) albuterol (Verified Allergy, Unknown, Shortness of Breath, 09/20/22) codeine (Verified Allergy, Unknown, 04/04/21) meperidine (Verified Allergy, Unknown, Nausea, 07/09/22) morphine (Verified Allergy, Unknown, 04/04/21) Uncoded Allergies IV contrast dye ( Allergy, Unknown, 04/04/21) Past Srktqdb-Smgasm-Ymjkyg Hx Patient Social History Marrital Status: single Employed/Student: unemployed Tobacco Use?: No Smoking Status: Former Smoker Use of E-Cig and/or Vaping dev: No Substance use?: No Alcohol Use?: No Pt feels they are or have been: No Immunizations Up To Date Date of Influenza Vaccine: Sep 16, 2022 First/Initial COVID19 Vaccinat: YES Second COVID19 Vaccination Fernando: YES Tetanus Booster (TDap): Unknown Current Status status: No status: No Communicates: Verbally Primary Language: French Preferred Spoken Language: French Is interpretation needed?: No Implanted or Applied Medical D: Stents Past Medical History Surgeries: Vascular Surgery Chronic Edema/Swelling, High Cholesterol, Hypertension Bladder Infection Diabetes, Insulin dep Review of Systems ROS-Unable to Obtain: patient lethargy Constitutional: see HPI, malaise, weakness Physical Exam Physical Exam Vital Signs Vital Signs - First Documented 05/19/23 05/19/23 15:48 21:40 Temp 36.4 Pulse 96 Resp 18 B/P (MAP) 113/50 (71) Pulse Ox 96 O2 Delivery Room Air FiO2 21 Capillary Refill : Less Than 3 Seconds Height, Weight, BMI Height: '" Weight: lbs. oz. kg; 33.45 BMI Method: General Appearance: No Apparent Distress, Chronically ill, Other (lethargic, sleeping) Respiratory: Lungs Clear, Normal Breath Sounds Cardiovascular: Regular Rate, Rhythm Neurologic/Psychiatric: Other (asleep, lethargic) Results Results/Procedures Labs Laboratory Tests 05/19/23 15:56 05/20/23 06:15 Patient resulted labs reviewed. Assessment/Plan Admission Diagnosis Assessment: Acute encephalopathy UTI recurrent type Cognitive decline Falls DM insulin dependent Advanced age Plan: IVF IV abx Supportive care Poor prognosis Admission Status: Observation SHAKIRA PEREZ DO May 20, 2023 06:53
[2023-05-20] MEDS ORDERED: LACTULOSE SYRUP 10GM/15ML 30ML UDC PO PRN (07:15)
[2023-05-20] MEDS ORDERED: ONDANSETRON INJECTION 4 MG/2 ML (SDV) IV PRN (07:15)
[2023-05-20] MEDS ORDERED: diphenhydrAMINE INJ 50 MG/ML VIAL IVP PRN (07:15)
[2023-05-20] MEDS ORDERED: BISACODYL 10 MG SUPPOSITORY PR PRN (07:15)
[2023-05-20] MEDS ORDERED: ANTACID SUSPENSION 30 ML UDC PO PRN (07:15)
[2023-05-20] MEDS ORDERED: diphenhydrAMINE 25 MG TABLET PO PRN (07:15)
[2023-05-20] MEDS ORDERED: ONDANSETRON 4 MG ORAL DISSOLVE TABLET PO PRN (07:15)
[2023-05-20] MEDS ORDERED: MELATONIN 3 MG TABLET PO PRN (07:15)
[2023-05-20] MEDS ORDERED: HYDROmorphone INJECTION 2 MG/ML VIAL IV PRN (07:15)
[2023-05-20 07:33] LABS: ALBUMIN 3.5 GM/DL (3.2-4.5); BILIRUBIN,TOTAL 0.9 MG/DL (0.1-1.0); CALCIUM 8.2 MG/DL (8.5-10.1); CREATININE SERUM 1.15 MG/DL (0.60-1.30); POTASSIUM 3.7 MMOL/L (3.6-5.0)
[2023-05-20] MEDS: NS IV 1000 ML 1,000 ML IV SCH ×2 (07:37→20:10)
[2023-05-20] MEDS: CLOPIDOGREL 75 MG TABLET PO SCH (08:47)
[2023-05-20] MEDS: DOCUSATE SODIUM 100 MG CAPSULE PO SCH ×2 (08:47→20:42)
--- NOTE | 2023-05-20 08:53 | Physical Therapy Evaluation ---
PT Evaluation-General Medical Diagnosis Admission Date May 19, 2023 at 18:55 Medical Diagnosis: UTI Onset Date: May 18, 2023 Therapy Diagnosis Therapy Diagnosis: Generalized weakness Precautions Precautions/Isolations: Fall Prevention, Standard Precautions Weight Bear Status Full Weight Bearing Full Weight Bearing Referral Physician: Dr. Perez Reason for Referral: Evaluation/Treatment Medical History Pertinent Medical History: CVA, DM, HTN Current History ED secondary to frequent falls. Found to have UTI in ED Reviewed History: Yes Social History Home: Single Level Current Living Status: Alone Pt lives home alone, single level, no stairs to enter. She uses a 4WW for all mobility Prior Prior Level of Function SCALE: Activities may be completed with or without assistive devices. 5-Nuunvgbpkq-dkjqgbs completes the activity by him/herself with no assistance fr om a helper. 5-Set-up or Clean-up Assistance-helper sets up or cleans up; patient completes activity. [place] assists only prior to or following the activity. 4-Supervision or Touching Assistance-helper provides verbal cues and/or touching/steadying and/or contact guard assistance as patient completes activity. Assistance may be provided throughout the activity or intermittently. 3-Partial/Moderate Assistance-helper does LESS THAN HALF the effort. [place] lifts, holds or supports trunk or limbs, but provides less than half the effort. 2-Substantial/Maximal Assistance-helper does MORE THAN HALF the effort. [place] lifts or holds trunk or limbs and provides more than half the effort. 1-Mqgjlrwyh-dkqfnb does ALL the effort. Patient does none of the effort to complete the activity. Or, the assistance of 2 or more helpers is required for the patient to complete the activity. If activity was not attempted, code reason: 7-Patient Refused. 9-Not Applicable-not attempted and the patient did not perform the activity before the current illness, exacerbation or injury. 10-Not Attempted due to Environmental Limitations-(lack of equipment, weather restraints, etc.). 88-Not Attempted due to Medical Conditions or Safety Concerns. Bed Mobility: 6 Transfers (B,C,W/C): 6 Gait: 6 Stairs: 6 Prior Devices Use: Walker PT Evaluation-Current Subjective Pt supine in bed upon arrival to room, reports she is sore all over. Does not rate pain. She states that she thinks her fever broke because she cannot stop sweating. Reluctantly agreeable to participate in therapy evaluation Pt/Family Goals Return home Objective Patient Orientation: Person, Place, Situation Attachments: IV ROM/Strength ROM Lower Extremities grossly WFL Strength Lower Extremities <3/5 with functional mobility Integumentary/Posture Integumentary refer to nursing notes Neuromuscular (Tone, Coordination, Reflexes) grossly intact Sensory Vision: Functional Hearing: Functional Transfers Roll Left to Right (QC): 2 Lying to Sitting/Side of Bed(Q: 1 Max A to transfer to sitting at EOB, pt self limits, frequently stating "I cannot do it" and laying back down in the bed. Balance Sitting Dynamic: Fair Assessment/Needs Pt is a 73 year old female who presents with significant mobility limitations due to increased pain, decreased balance and overall poor functional mobility. Pt would benefit from skilled PT to address above mentioned deficits and ensure safety upon DC from hospital. Rehab Potential: Fair PT Halfway Goals Halfway Goals PT Halfway Goals Time Frame: Jun 10, 2023 Roll Left & Right (QC): 6 Sit to Lying (QC): 6 Lying-Sitting on Side/Bed(QC): 6 Sit to Stand (QC): 6 Chair/Azq-gt-Qjigf Xfer(QC): 6 Toilet Transfer (QC): 6 Does the Patient Walk: Yes Walk 10 feet (QC): 4 Walk 50ft with 2 Turns (QC): 4 PT Plan Problem List Problem List: Activity Tolerance, Functional Strength, Safety, Balance, Gait, Transfer, Bed Mobility, ROM Treatment/Plan Treatment Plan: Continue Plan of Care Treatment Plan: Bed Mobility, Education, Functional Activity Siva, Functional Strength, Gait, Safety, Therapeutic Exercise, Transfers, Other Treatment Duration: Jun 10, 2023 Frequency: 6 times per week Estimated Hrs Per Day: .25 hour per day Patient and/or Family Agrees t: Yes Time Time In: 829 Time Out: 845 DATE: May 20, 2023 Total Billed Treatment Time: 16 Total Billed Treatment 1 visit, OMAYRA (16') NICHOL ULRICH PT May 20, 2023 08:53
[2023-05-20] MEDS ORDERED: CLOPIDOGREL 75 MG TABLET PO SCH (09:00)
[2023-05-20] MEDS ORDERED: NS IV 1000 ML 1,000 ML IV SCH (09:15)
[2023-05-20] MEDS ORDERED: cefTRIAXone IV/IM 1,000 MG in NS (IVPB) 50 ML 50 ML IV SCH (16:00)
[2023-05-20] MEDS: cefTRIAXone IV/IM 1,000 MG in NS (IVPB) 50 ML 50 ML IV SCH (16:35)
[2023-05-20] MEDS: ENOXAPARIN 40 MG/0.4 ML SYRINGE SC SCH (20:13)
[2023-05-20] MEDS ORDERED: GABAPENTIN 300 MG CAPSULE ONE (20:39)
[2023-05-20] MEDS: GABAPENTIN 300 MG CAPSULE PO SCH (20:42)
[2023-05-20] MEDS: oxyCODONE IMMEDIATE RELEASE 5 MG TABLET PO PRN (20:42)
[2023-05-21 03:09] VITALS: BP 114/66
[2023-05-21] MEDS: inSUlin ASPART 1 UNIT/0.01 ML (PER UNIT) SC SCH ×4 (05:33→22:09)
[2023-05-21] MEDS: NS IV 1000 ML 1,000 ML IV SCH (05:34)
[2023-05-21 06:01] LABS: BASOPHILS % (AUTO) 0 % (0-10)
[2023-05-21 06:03] LABS: EOSINOPHILS # (AUTO) 0.1 10^3/uL (0.0-0.3); EOSINOPHILS % (AUTO) 2 % (0-10); HEMATOCRIT 30 % (35-52); HEMOGLOBIN 9.4 g/dL (11.5-16.0); LYMPHOCYTES # (AUTO) 0.3 10^3/uL (1.0-4.0); LYMPHOCYTES % (AUTO) 6 % (12-44); MEAN CORPUSCULAR HEMOGLOBIN 27 pg (25-34); MEAN CORPUSCULAR HGB CONC 32 g/dL (32-36); MEAN CORPUSCULAR VOLUME 86 fL (80-99); MEAN PLATELET VOLUME 12.8 fL (9.0-12.2); MONOCYTES # (AUTO) 0.3 10^3/uL (0.0-1.0); MONOCYTES % (AUTO) 6 % (0-12); NEUTROPHILS # (AUTO) 3.9 10^3/uL (1.8-7.8); NEUTROPHILS % (AUTO) 85 % (42-75); PLATELET COUNT 86 10^3/uL (130-400); WHITE BLOOD COUNT 4.5 10^3/uL (4.3-11.0)
[2023-05-21 06:42] LABS: BILIRUBIN,TOTAL 0.9 MG/DL (0.1-1.0); CALCIUM 7.9 MG/DL (8.5-10.1); CREATININE SERUM 0.83 MG/DL (0.60-1.30); POTASSIUM 3.5 MMOL/L (3.6-5.0); TOTAL PROTEIN 5.3 GM/DL (6.4-8.2)
[2023-05-21 07:12] VITALS: BP 109/65
[2023-05-21] MEDS: CLOPIDOGREL 75 MG TABLET PO SCH (08:37)
[2023-05-21] MEDS: DOCUSATE SODIUM 100 MG CAPSULE PO SCH ×2 (08:37→22:09)
[2023-05-21] MEDS: GABAPENTIN 300 MG CAPSULE PO SCH ×3 (08:37→22:09)
--- NOTE | 2023-05-21 08:55 | Progress Note - Hospitalist ---
Subjective HPI/CC On Admission Date Seen by Provider: May 21, 2023 Time Seen by Provider: 09:30 CC: AMS following fall HPI: This is a very debilitated 73yoWF who just returned home after a stay at [facility] Roni Young who has a h/o severe sepsis from UTI and DKA who was sent to [facility] to be admitted after another fall at home and could not take care of herself. She lives alone most of the time but her mother checks on her. She sustained a fall on early Saturday morning and was sent home but fell again so she was admitted. 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 UCx revealed E coli sensitive to Rocephin so that was initiated. Patient is very lethargic and has poor recall. Subjective/Events-last exam Patient more alert today Vitals remained stable Labs reviewed We will need custodial and my opinion she needs to remain there Review of Systems General: Fatigue, Malaise Neurological: Weakness Objective Exam Vital Signs Vital Signs Date Time Temp Pulse Resp B/P (MAP) Pulse Ox O2 Delivery O2 Flow Rate FiO2 05/21/23 19:41 37.3 94 16 124/72 (89) 94 Room Air 05/19/23 21:40 21 Capillary Refill : Less Than 3 Seconds General Appearance: No Apparent Distress, WD/WN, Chronically ill Respiratory: Lungs Clear, Normal Breath Sounds Cardiovascular: Regular Rate, Rhythm Neurologic/Psychiatric: Alert, Oriented x3, Depressed Affect Results/Procedures Lab Laboratory Tests 05/21/23 05:27 Patient resulted labs reviewed. Assessment/Plan Assessment and Plan Assess & Plan/Chief Complaint Assessment: Acute encephalopathy Much improved UTI recurrent type Cognitive decline Falls DM insulin dependent Advanced age Plan: IVF IV abx Supportive care Poor prognosis Needs alf placement permanently TIA BETH DO May 21, 2023 08:55
--- NOTE | 2023-05-21 09:36 | Physical Therapy Daily Note ---
PT Daily Note-Current Subjective Patient is in bed. PT requested patient perform bed mobility and up to recliner. Patient began yelling, "I've told you people, I can't move. It hurts to bad." After much redirection, patient agrees and performs tasks. Pain Section J - Health Conditions 1. Rarely or not at all 2. Occasionally 3. Frequently 4. Almost constantly 8. Unable to answer Pain Effect on Sleep: 4 Pain Interference with Therapy: 4 Pain Interference w/Day-to-Day: 4 Mental Status Attachments: IV Transfers SCALE: Activities may be completed with or without assistive devices. 2-Oitvrwsmzv-lrkhhwy completes the activity by him/herself with no assistance from a helper. 5-Set-up or Clean-up Assistance-helper sets up or cleans up; patient completes activity. [place] assists only prior to or following the activity. 4-Supervision or Touching Assistance-helper provides verbal cues and/or touching/steadying and/or contact guard assistance as patient completes activity. Assistance may be provided throughout the activity or intermittently. 3-Partial/Moderate Assistance-helper does LESS THAN HALF the effort. [place] lifts, holds or supports trunk or limbs, but provides less than half the effort. 2-Substantial/Maximal Assistance-helper does MORE THAN HALF the effort. [place] lifts or holds trunk or limbs and provides more than half the effort. 4-Vfxlaxyzq-hbnzuo does ALL the effort. Patient does none of the effort to complete the activity. Or, the assistance of 2 or more helpers is required for the patient to complete the activity. If activity was not attempted, code reason: 7-Patient Refused. 9-Not Applicable-not attempted and the patient did not perform the activity before the current illness, exacerbation or injury. 10-Not Attempted due to Environmental Limitations-(lack of equipment, weather restraints, etc.). 88-Not Attempted due to Medical Conditions or Safety Concerns. Lying to Sitting/Side of Bed(Q: 4 Sit to Stand (QC): 4 Chair/Pbe-ls-Ehotm Xfer(QC): 4 Weight Bearing Full Weight Bearing Full Weight Bearing Gait Training Distance: 10' Walk 10 feet (QC): 4 Gait Assistive Device: FWW slow, shuffle gait sequence Assessment Patient declined to perform bilateral LE exercises on this date. All mobility is SBA to CGA with much encouragement and redirection. Patient up in recliner with needs met. Increase activity as tolerated/allowed by patient. PT Detention Goals Detention Goals PT Log Feeder Goals Time Frame: Jun 10, 2023 Roll Left & Right (QC): 6 Sit to Lying (QC): 6 Lying-Sitting on Side/Bed(QC): 6 Sit to Stand (QC): 6 Chair/Evt-lq-Ngvyy Xfer(QC): 6 Toilet Transfer (QC): 6 Does the Patient Walk: Yes Walk 10 feet (QC): 4 Walk 50ft with 2 Turns (QC): 4 PT Plan Treatment/Plan Treatment Plan: Continue Plan of Care Treatment Plan: Bed Mobility, Education, Functional Activity Siva, Functional Strength, Gait, Safety, Therapeutic Exercise, Transfers, Other Treatment Duration: Jun 10, 2023 Frequency: 6 times per week Estimated Hrs Per Day: .25 hour per day Patient and/or Family Agrees t: Yes Time Time In: 815 Time Out: 830 DATE: May 21, 2023 Total Billed Treatment Time: 15 Total Billed Treatment 1 visit FA 15 min YVROSE VILLEDA PT May 21, 2023 09:36
[2023-05-21] MEDS: oxyCODONE IMMEDIATE RELEASE 5 MG TABLET PO PRN (11:19)
[2023-05-21 11:26] VITALS: BP 131/77
[2023-05-21] MEDS ORDERED: TIRZ10PE INJ (13:06)
[2023-05-21] MEDS ORDERED: HYDR25TA4 PO (13:06)
[2023-05-21] MEDS ORDERED: LISI10TA25 PO (13:06)
[2023-05-21] MEDS ORDERED: LIDO700A45 TP (13:06)
[2023-05-21] MEDS ORDERED: METO50TA15 PO (13:06)
[2023-05-21] MEDS ORDERED: INSU100I23 SQ (13:06)
[2023-05-21] MEDS ORDERED: ROSU10TA28 PO (13:06)
[2023-05-21] MEDS ORDERED: INSU100V6 SQ (13:06)
[2023-05-21] MEDS ORDERED: CLOP75TA28 PO (13:06)
[2023-05-21] MEDS ORDERED: OXYC5TAB PO (13:06)
[2023-05-21] MEDS ORDERED: NITR100C10 PO (13:06)
[2023-05-21] MEDS ORDERED: ASPI-1238 PO (13:08)
[2023-05-21] MEDS ORDERED: DOCU100C37 PO (13:08)
[2023-05-21] MEDS ORDERED: GABA300C PO (13:11)
[2023-05-21 15:49] VITALS: BP 125/77
[2023-05-21] MEDS: cefTRIAXone IV/IM 1,000 MG in NS (IVPB) 50 ML 50 ML IV SCH (16:16)
[2023-05-21 19:41] VITALS: BP 124/72
[2023-05-21] MEDS: ENOXAPARIN 40 MG/0.4 ML SYRINGE SC SCH (22:09)
[2023-05-21] MEDS: ACETAMINOPHEN 325 MG TABLET PO PRN (22:10)
[2023-05-21 23:25] VITALS: BP 124/72
[2023-05-22 03:57] VITALS: BP 116/72
[2023-05-22] MEDS: inSUlin ASPART 1 UNIT/0.01 ML (PER UNIT) SC SCH ×4 (05:23→20:56)
[2023-05-22 05:58] LABS: HEMATOCRIT 32 % (35-52); MEAN CORPUSCULAR VOLUME 83 fL (80-99)
[2023-05-22 05:59] LABS: BASOPHILS % (AUTO) 1 % (0-10); EOSINOPHILS # (AUTO) 0.2 10^3/uL (0.0-0.3); EOSINOPHILS % (AUTO) 8 % (0-10); HEMOGLOBIN 10.2 g/dL (11.5-16.0); LYMPHOCYTES # (AUTO) 0.6 10^3/uL (1.0-4.0); LYMPHOCYTES % (AUTO) 20 % (12-44); MEAN CORPUSCULAR HEMOGLOBIN 27 pg (25-34); MEAN CORPUSCULAR HGB CONC 32 g/dL (32-36); MEAN PLATELET VOLUME 12.7 fL (9.0-12.2); MONOCYTES # (AUTO) 0.2 10^3/uL (0.0-1.0); MONOCYTES % (AUTO) 7 % (0-12); NEUTROPHILS # (AUTO) 1.8 10^3/uL (1.8-7.8); NEUTROPHILS % (AUTO) 64 % (42-75); PLATELET COUNT 92 10^3/uL (130-400); WHITE BLOOD COUNT 2.9 10^3/uL (4.3-11.0)
[2023-05-22 06:38] LABS: BILIRUBIN,TOTAL 0.5 MG/DL (0.1-1.0); CALCIUM 8.4 MG/DL (8.5-10.1); CREATININE SERUM 0.75 MG/DL (0.60-1.30); POTASSIUM 3.6 MMOL/L (3.6-5.0); TOTAL PROTEIN 5.3 GM/DL (6.4-8.2)
[2023-05-22 07:08] VITALS: BP 114/65
[2023-05-22] MEDS: CLOPIDOGREL 75 MG TABLET PO SCH (08:26)
[2023-05-22] MEDS: DOCUSATE SODIUM 100 MG CAPSULE PO SCH ×2 (08:26→20:55)
[2023-05-22] MEDS: GABAPENTIN 300 MG CAPSULE PO SCH ×3 (08:26→20:56)
[2023-05-22 09:40] VITALS: BP 114/65
--- NOTE | 2023-05-22 10:02 | Progress Note - Hospitalist ---
Subjective HPI/CC On Admission Date Seen by Provider: May 22, 2023 Time Seen by Provider: 10:00 CC: AMS following fall HPI: This is a very debilitated 73yoWF who just returned home after a stay at [facility] Roni Young who has a h/o severe sepsis from UTI and DKA who was sent to [facility] to be admitted after another fall at home and could not take care of herself. She lives alone most of the time but her mother checks on her. She sustained a fall on early Saturday morning and was sent home but fell again so she was admitted. 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 UCx revealed E coli sensitive to Rocephin so that was initiated. Patient is very lethargic and has poor recall. Subjective/Events-last exam Patient doing better Up in a chair Chronically ill Really needs to go to a correction long-term Review of Systems General: Fatigue, Malaise Objective Exam Vital Signs Vital Signs Date Time Temp Pulse Resp B/P (MAP) Pulse Ox O2 Delivery O2 Flow Rate FiO2 05/22/23 15:50 36.7 81 18 159/82 (107) 97 Room Air 05/22/23 12:13 0.00 0.00 05/22/23 09:40 21 Capillary Refill : Less Than 3 Seconds General Appearance: No Apparent Distress, WD/WN, Chronically ill Respiratory: Lungs Clear, Normal Breath Sounds Cardiovascular: Regular Rate, Rhythm Neurologic/Psychiatric: Alert, Oriented x3 Results/Procedures Lab Laboratory Tests 05/22/23 05:16 Patient resulted labs reviewed. Assessment/Plan Assessment and Plan Assess & Plan/Chief Complaint Assessment: Acute encephalopathy Much improved UTI recurrent type Cognitive decline Falls DM insulin dependent Advanced age Plan: IVF IV abx Supportive care Poor prognosis Needs correction placement permanently TIA BETH DO May 22, 2023 10:01
[2023-05-22] MEDS ORDERED: DICLOFENAC 1% GEL 100 GM TUBE TOP SCH (10:10)
[2023-05-22] MEDS ORDERED: SENNOSIDES 8.6 MG TABLET PO ONE (10:15)
[2023-05-22] MEDS ORDERED: LACTULOSE SYRUP 10GM/15ML 30ML UDC PO ONE (10:15)
[2023-05-22] MEDS: DICLOFENAC 1% GEL 50 GM TUBE TOP SCH ×4 (10:56→20:57)
[2023-05-22] MEDS: ACETAMINOPHEN 325 MG TABLET PO PRN (13:12)
[2023-05-22] MEDS: oxyCODONE IMMEDIATE RELEASE 5 MG TABLET PO PRN (13:53)
--- NOTE | 2023-05-22 15:22 | Physical Therapy Daily Note ---
PT Daily Note-Current Subjective Pt found lying in bed upon entry. Agreed to PT. Reports that she took some pain medication about 20 minutes ago. States that it feels like someone is stabbing a knife into her R heel. Pt reports that she believes it is caused by her LE neuropathy. Attempted ankle stretching at beginning of treatment but pt reports no pain relief. Pain Section J - Health Conditions 1. Rarely or not at all 2. Occasionally 3. Frequently 4. Almost constantly 8. Unable to answer Pain Effect on Sleep: 4 Pain Interference with Therapy: 4 Pain Interference w/Day-to-Day: 4 Mental Status Patient Orientation: Person, Place Attachments: Lin Catheter Transfers SCALE: Activities may be completed with or without assistive devices. 7-Yfgxgejird-puwhobh completes the activity by him/herself with no assistance from a helper. 5-Set-up or Clean-up Assistance-helper sets up or cleans up; patient completes activity. [place] assists only prior to or following the activity. 4-Supervision or Touching Assistance-helper provides verbal cues and/or touching/steadying and/or contact guard assistance as patient completes activity. Assistance may be provided throughout the activity or intermittently. 3-Partial/Moderate Assistance-helper does LESS THAN HALF the effort. [place] lifts, holds or supports trunk or limbs, but provides less than half the effort. 2-Substantial/Maximal Assistance-helper does MORE THAN HALF the effort. [place] lifts or holds trunk or limbs and provides more than half the effort. 5-Wdsluynow-kpvvei does ALL the effort. Patient does none of the effort to complete the activity. Or, the assistance of 2 or more helpers is required for the patient to complete the activity. If activity was not attempted, code reason: 7-Patient Refused. 9-Not Applicable-not attempted and the patient did not perform the activity before the current illness, exacerbation or injury. 10-Not Attempted due to Environmental Limitations-(lack of equipment, weather restraints, etc.). 88-Not Attempted due to Medical Conditions or Safety Concerns. Sit to Lying (QC): 3 Lying to Sitting/Side of Bed(Q: 3 Sit to Stand (QC): 3 Weight Bearing Full Weight Bearing Full Weight Bearing Gait Training Does the Patient Walk?: No and Walking Goal IS indicated Assessment Current Status: Fair Progress Pt performs lying to sitting transfer /c MIN LE lifting/lowering assistance. Uses bed rail on L side to lift trunk into seated position. After being seated on edge of bed pt reports decreased R heel pain. Pt then performs sit to stand transfer /c MIN lifting assistance. Able to stand for 30 seconds at FWW before requesting to sit back down. Pt requests to return to bed after standing. She then performs sitting to lying transfer /c MIN assist for LE lifting. Pt supine in bed post-treatment /c call light in place and all needs met. Continue to progress pt per POC. PT Chcf Goals Chcf Goals PT Vice President Network Goals Time Frame: Jun 10, 2023 Roll Left & Right (QC): 6 Sit to Lying (QC): 6 Lying-Sitting on Side/Bed(QC): 6 Sit to Stand (QC): 6 Chair/Mue-dy-Fpotb Xfer(QC): 6 Toilet Transfer (QC): 6 Does the Patient Walk: Yes Walk 10 feet (QC): 4 Walk 50ft with 2 Turns (QC): 4 PT Plan Treatment/Plan Treatment Plan: Continue Plan of Care Treatment Plan: Bed Mobility, Education, Functional Activity Siva, Functional Strength, Gait, Safety, Therapeutic Exercise, Transfers, Other Treatment Duration: Jun 10, 2023 Frequency: 6 times per week Estimated Hrs Per Day: .25 hour per day Patient and/or Family Agrees t: Yes Time Time In: 1400 Time Out: 1418 DATE: May 22, 2023 Total Billed Treatment Time: 18 Total Billed Treatment 1 visit FA x 1 YUSEF BONILLA BOX PRESS OPERATOR May 22, 2023 15:22
[2023-05-22] MEDS: cefTRIAXone IV/IM 1,000 MG in NS (IVPB) 50 ML 50 ML IV SCH (15:44)
[2023-05-22 15:50] VITALS: BP 159/82
[2023-05-22 19:59] VITALS: BP 147/77
[2023-05-22] MEDS: LACTULOSE SYRUP 10GM/15ML 30ML UDC PO SCH (20:55)
[2023-05-22] MEDS: ENOXAPARIN 40 MG/0.4 ML SYRINGE SC SCH (20:56)
[2023-05-22 23:07] VITALS: BP 118/70
[2023-05-23] MEDS: ACETAMINOPHEN 325 MG TABLET PO PRN ×3 (05:19→23:13)
[2023-05-23] MEDS: inSUlin ASPART 1 UNIT/0.01 ML (PER UNIT) SC SCH ×4 (05:26→21:33)
[2023-05-23 06:14] LABS: BASOPHILS % (AUTO) 1 % (0-10); EOSINOPHILS # (AUTO) 0.2 10^3/uL (0.0-0.3); EOSINOPHILS % (AUTO) 6 % (0-10); HEMATOCRIT 33 % (35-52); HEMOGLOBIN 10.5 g/dL (11.5-16.0); LYMPHOCYTES # (AUTO) 0.8 10^3/uL (1.0-4.0); LYMPHOCYTES % (AUTO) 23 % (12-44); MEAN CORPUSCULAR HEMOGLOBIN 27 pg (25-34); MEAN CORPUSCULAR HGB CONC 32 g/dL (32-36); MEAN CORPUSCULAR VOLUME 85 fL (80-99); MEAN PLATELET VOLUME 12.3 fL (9.0-12.2); MONOCYTES # (AUTO) 0.3 10^3/uL (0.0-1.0); MONOCYTES % (AUTO) 8 % (0-12); NEUTROPHILS # (AUTO) 2.2 10^3/uL (1.8-7.8); NEUTROPHILS % (AUTO) 62 % (42-75); PLATELET COUNT 130 10^3/uL (130-400); WHITE BLOOD COUNT 3.5 10^3/uL (4.3-11.0)
[2023-05-23 06:40] LABS: ALBUMIN 3.1 GM/DL (3.2-4.5); BILIRUBIN,TOTAL 0.6 MG/DL (0.1-1.0); CALCIUM 8.8 MG/DL (8.5-10.1); CREATININE SERUM 0.76 MG/DL (0.60-1.30); POTASSIUM 3.9 MMOL/L (3.6-5.0); TOTAL PROTEIN 5.6 GM/DL (6.4-8.2)
[2023-05-23 07:11] VITALS: BP 134/77
--- NOTE | 2023-05-23 09:03 | Physical Therapy Daily Note ---
PT Daily Note-Current Subjective Patient agrees to PT. Pain Section J - Health Conditions 1. Rarely or not at all 2. Occasionally 3. Frequently 4. Almost constantly 8. Unable to answer Pain Effect on Sleep: 2 Pain Interference with Therapy: 2 Pain Interference w/Day-to-Day: 2 Transfers SCALE: Activities may be completed with or without assistive devices. 3-Kjkefidive-vfyucmf completes the activity by him/herself with no assistance from a helper. 5-Set-up or Clean-up Assistance-helper sets up or cleans up; patient completes activity. [place] assists only prior to or following the activity. 4-Supervision or Touching Assistance-helper provides verbal cues and/or touching/steadying and/or contact guard assistance as patient completes activity. Assistance may be provided throughout the activity or intermittently. 3-Partial/Moderate Assistance-helper does LESS THAN HALF the effort. [place] lifts, holds or supports trunk or limbs, but provides less than half the effort. 2-Substantial/Maximal Assistance-helper does MORE THAN HALF the effort. [place] lifts or holds trunk or limbs and provides more than half the effort. 4-Dpacxlbjz-flmsrq does ALL the effort. Patient does none of the effort to complete the activity. Or, the assistance of 2 or more helpers is required for the patient to complete the activity. If activity was not attempted, code reason: 7-Patient Refused. 9-Not Applicable-not attempted and the patient did not perform the activity before the current illness, exacerbation or injury. 10-Not Attempted due to Environmental Limitations-(lack of equipment, weather restraints, etc.). 88-Not Attempted due to Medical Conditions or Safety Concerns. Lying to Sitting/Side of Bed(Q: 4 Sit to Stand (QC): 3 Chair/Wsz-st-Vxloj Xfer(QC): 3 Weight Bearing Full Weight Bearing Full Weight Bearing Gait Training Distance: 5 steps Gait Assistive Device: FWW attempted to ambulate with FWW, however, patient ceased attempt due to bilateral LE pain (unrated) Exercises Supine Ex: Ankle pumps, Quad Set, Heel Slides Supine Reps: 12 Seated Therapy Exercises: Long arc quads Seated Reps: 12 Assessment Patient up in recliner with needs met. Patient tolerated increase in activity on this date. Continue to increase activity as tolerated by patient. PT Refinery Operator Helper Crude Unit Goals Refinery Operator Helper Crude Unit Goals PT Refinery Operator Helper Crude Unit Goals Time Frame: Jun 10, 2023 Roll Left & Right (QC): 6 Sit to Lying (QC): 6 Lying-Sitting on Side/Bed(QC): 6 Sit to Stand (QC): 6 Chair/Iji-te-Acqoe Xfer(QC): 6 Toilet Transfer (QC): 6 Does the Patient Walk: Yes Walk 10 feet (QC): 4 Walk 50ft with 2 Turns (QC): 4 PT Plan Treatment/Plan Treatment Plan: Continue Plan of Care Treatment Plan: Bed Mobility, Education, Functional Activity Siva, Functional Strength, Gait, Safety, Therapeutic Exercise, Transfers, Other Treatment Duration: Jun 10, 2023 Frequency: 6 times per week Estimated Hrs Per Day: .25 hour per day Patient and/or Family Agrees t: Yes Time Time In: 801 Time Out: 811 DATE: May 23, 2023 Total Billed Treatment Time: 10 Total Billed Treatment 1 visit FA 10 min VYROSE VILLEDA PT May 23, 2023 09:03
[2023-05-23] MEDS: DOCUSATE SODIUM 100 MG CAPSULE PO SCH ×2 (09:16→21:33)
[2023-05-23] MEDS: GABAPENTIN 300 MG CAPSULE PO SCH ×3 (09:16→21:34)
[2023-05-23] MEDS: CLOPIDOGREL 75 MG TABLET PO SCH (09:16)
[2023-05-23] MEDS: LACTULOSE SYRUP 10GM/15ML 30ML UDC PO SCH ×2 (09:17→21:33)
[2023-05-23] MEDS: DICLOFENAC 1% GEL 50 GM TUBE TOP SCH ×4 (09:20→21:34)
--- NOTE | 2023-05-23 10:54 | Progress Note - Hospitalist ---
Subjective HPI/CC On Admission Date Seen by Provider: May 23, 2023 Time Seen by Provider: 11:00 CC: AMS following fall HPI: This is a very debilitated 73yoWF who just returned home after a stay at [facility] Roni Young who has a h/o severe sepsis from UTI and DKA who was sent to [facility] to be admitted after another fall at home and could not take care of herself. She lives alone most of the time but her mother checks on her. She sustained a fall on early Saturday morning and was sent home but fell again so she was admitted. Needs supervisor intermediates DCP. UCx revealed E coli sensitive to Rocephin so that was initiated. Patient is very lethargic and has poor recall. Subjective/Events-last exam Patient doing about the same Awaiting fpc discharge for tomorrow Hemorrhoid pain ordered meds Objective Exam Vital Signs Vital Signs Date Time Temp Pulse Resp B/P (MAP) Pulse Ox O2 Delivery O2 Flow Rate FiO2 05/24/23 00:40 36.6 81 18 132/76 (94) 96 Room Air 05/22/23 12:13 0.00 0.00 05/22/23 09:40 21 Capillary Refill : Less Than 3 Seconds General Appearance: No Apparent Distress, WD/WN, Chronically ill Respiratory: Lungs Clear, Normal Breath Sounds Cardiovascular: Regular Rate, Rhythm Neurologic/Psychiatric: Alert, Oriented x3 Results/Procedures Lab Laboratory Tests 05/23/23 05:48 Patient resulted labs reviewed. Assessment/Plan Assessment and Plan Assess & Plan/Chief Complaint Assessment: Acute encephalopathy Much improved UTI recurrent type Cognitive decline Falls DM insulin dependent Advanced age Plan: IVF IV abx Supportive care Poor prognosis Needs fpc placement TIA Baum DO May 23, 2023 10:54
[2023-05-23] MEDS ORDERED: Sodium Phosphate/Sodium Biphosphate ADULT enema PR PRN (11:00)
[2023-05-23] MEDS ORDERED: Sodium Phosphate/Sodium Biphosphate ADULT enema PR ONE (11:00)
[2023-05-23 15:43] VITALS: BP 150/84
[2023-05-23] MEDS: cefTRIAXone IV/IM 1,000 MG in NS (IVPB) 50 ML 50 ML IV SCH (16:15)
[2023-05-23] MEDS ORDERED: Phenylephrine/Mineral oil/Petrolatum OINTMENT 57 GM PR PRN (19:15)
[2023-05-23] MEDS ORDERED: HYDROCORTISONE 25 MG SUPPOSITORY PR PRN (19:15)
[2023-05-23] MEDS ORDERED: HYDROCORTISONE 25 MG SUPPOSITORY PR NR (19:30)
[2023-05-23] MEDS: ENOXAPARIN 40 MG/0.4 ML SYRINGE SC SCH (21:32)
[2023-05-24 00:40] VITALS: BP 132/76
[2023-05-24] MEDS ORDERED: LIDO700A45 TP (05:20)
[2023-05-24] MEDS ORDERED: ENOX40DI8 SC (05:20)
[2023-05-24] MEDS ORDERED: DOCU100C37 PO (05:20)
[2023-05-24] MEDS ORDERED: DICL20GE TOP (05:20)
[2023-05-24] MEDS ORDERED: PHEN57OI24 PR (05:20)
[2023-05-24] MEDS ORDERED: INSU100V6 SQ (05:20)
[2023-05-24] MEDS ORDERED: ACET-2267 PO (05:20)
[2023-05-24] MEDS ORDERED: GABA300C PO (05:20)
[2023-05-24] MEDS ORDERED: LISI10TA25 PO (05:20)
[2023-05-24] MEDS ORDERED: ASPI-1238 PO (05:20)
[2023-05-24] MEDS ORDERED: CLOP75TA28 PO (05:20)
[2023-05-24] MEDS ORDERED: ROSU10TA28 PO (05:20)
[2023-05-24] MEDS ORDERED: INSU100I23 SQ (05:20)
[2023-05-24] MEDS ORDERED: TIRZ10PE INJ (05:20)
[2023-05-24] MEDS ORDERED: METO50TA15 PO (05:20)
--- NOTE | 2023-05-24 05:21 | Discharge Summary ---
Discharge Summary Hospital Course Was the Problem List Reviewed?: Yes Problems/Dx: (1) Fall Status: Acute (2) Acute cystitis without hematuria Status: Acute (3) Type II diabetes mellitus Status: Chronic (4) Hypertension Status: Chronic (5) Hyperlipidemia Status: Chronic Hospital Course Date of Admission: May 19, 2023 at 18:55 Admission Diagnosis : Family Physician/Provider: Nitish Horner MD Date of Discharge: 05/24/23 Discharge Diagnosis: [ ] Hospital Course: Lengthy hospital course after she was admitted following a fall and altered mental status with UTI. UTI was completely treated during hospital stay. PT and OT consulted. Patient needs long-term longterm placement so that was approved by insurance and patient was discharged in improved condition. Labs and Pending Lab Test: Laboratory Tests 05/23/23 05:48: White Blood Count 3.5L, Red Blood Count 3.88, Hemoglobin 10.5L, Hematocrit 33L, Mean Corpuscular Volume 85, Mean Corpuscular Hemoglobin 27, Mean Corpuscular Hemoglobin Concent 32, Red Cell Distribution Width 15.7H, Platelet Count 130, Mean Platelet Volume 12.3H, Immature Granulocyte % (Auto) 0, Neutrophils (%) (Auto) 62, Lymphocytes (%) (Auto) 23, Monocytes (%) (Auto) 8, Eosinophils (%) (Auto) 6, Basophils (%) (Auto) 1, Neutrophils # (Auto) 2.2, Lymphocytes # (Auto) 0.8L, Monocytes # (Auto) 0.3, Eosinophils # (Auto) 0.2, Basophils # (Auto) 0.0, Immature Granulocyte # (Auto) 0.0, Sodium Level 139, Potassium Level 3.9, Chloride Level 107, Carbon Dioxide Level 22, Anion Gap 10, Blood Urea Nitrogen 9, Creatinine 0.76, Estimat Glomerular Filtration Rate 83, BUN/Creatinine Ratio 12, Glucose Level 186H, Calcium Level 8.8, Corrected Calcium 9.5, Total Bilirubin 0.6, Aspartate Amino Transf (AST/SGOT) 76H, Alanine Aminotransferase (ALT/SGPT) 90H, Alkaline Phosphatase 157H, Total Protein 5.6L, Albumin 3.1L 05/23/23 11:03: Glucometer 269H 05/23/23 15:46: Glucometer 225H 05/23/23 20:39: Glucometer 201H Microbiology 05/19/23 Urine Culture - Final, Complete Proteus mirabilis Gram Pos Mixed Bacterial Deanne Home Meds Active Hemorrhoidal Ointment (Phenyleph/Mineral Oil/Petrolat) 0.25 %-14 %-74.9 % Oint.appl 0 Gm TN QID PRN qid prn Voltaren Arthritis Pain (Diclofenac Sodium) 1 % Gel..gram. 0 Gm TOP QID qid Enoxaparin Sodium 40 Mg/0.4 Ml Syringe 40 Mg SC HS Neurontin (Gabapentin) 300 Mg Capsule 300 Mg PO TID Docusate Sodium 100 Mg Capsule 100 Mg PO Q48H Aspirin EC (Aspirin) 81 Mg Tablet.dr 81 Mg PO DAILY Lantus (Insulin Glargine,Hum.rec.anlog) 100 Unit/Ml Vial 10 Unit SQ 0600,2100 Rosuvastatin Calcium 10 Mg Tablet 10 Mg PO HS Clopidogrel (Clopidogrel Bisulfate) 75 Mg Tablet 75 Mg PO DAILY Metoprolol Tartrate 50 Mg Tablet 50 Mg PO BID Lisinopril 10 Mg Tablet 10 Mg PO BID Mounjaro (Tirzepatide) 10 Mg/0.5 Ml Pen.injctr 10 Mg INJ SATURDAY Lidocaine 5% Patch (Lidocaine) 5 % Adh..patch 1 Each TP Q12H PRN Humalog Kwikpen (Insulin Lispro) 100 Unit/Ml Insuln.pen 3 Unit SQ ACHS Tylenol Extra Strength (Acetaminophen) 500 Mg Tablet 1,000 Mg PO Q8H PRN TAKES 2 (500MG) TABS Reported Hydrochlorothiazide 25 Mg Tablet 25 Mg PO DAILY Oxycodone HCl 5 Mg Tablet 5 Mg PO Q4H PRN Nitrofurantoin [place]-Mcr 100 mg (Nitrofurantoin Monohyd/M-Cryst) 100 Mg Capsule 100 Mg PO BID 5 Days Assessment/Pt Instructions PCP at longterm rounds Discharge Planning: <30 minutes discharge planning Discharge Instructions Discharge Diet: ADA Diet Discharge Physical Examination Vital Signs Vital Signs Date Time Temp Pulse Resp B/P (MAP) Pulse Ox O2 Delivery O2 Flow Rate FiO2 05/24/23 00:40 36.6 81 18 132/76 (94) 96 Room Air 05/22/23 12:13 0.00 0.00 05/22/23 09:40 21 General Appearance: No Apparent Distress, WD/WN, Chronically ill Allergies: Coded Allergies: cephalexin (Verified Allergy, Mild, Rash, 05/19/23) Tetanus Vaccines and Toxoid (Verified Allergy, Unknown, 04/04/21) albuterol (Verified Allergy, Unknown, Shortness of Breath, 09/20/22) codeine (Verified Allergy, Unknown, 04/04/21) meperidine (Verified Allergy, Unknown, Nausea, 07/09/22) morphine (Verified Allergy, Unknown, 04/04/21) Uncoded Allergies: IV contrast dye (Allergy, Unknown, 04/04/21) Discharge Summary Date of Admission May 19, 2023 at 18:55 Date of Discharge Discharge Date: May 24, 2023 Admission Diagnosis Assessment: Acute encephalopathy UTI recurrent type Cognitive decline Falls DM insulin dependent Advanced age Plan: IVF IV abx Supportive care Poor prognosis Discharge Diagnosis Assessment: Acute encephalopathy Much improved UTI recurrent type Cognitive decline Falls DM insulin dependent Advanced age Plan: IVF IV abx Supportive care Poor prognosis Needs longterm placement permanently TIA BETH DO May 24, 2023 05:21
--- NOTE | 2023-05-24 05:21 | Discharge Inst-Skilled Nursing ---
Discharge Inst-Skilled NF Reconcile Patient Problems Problems Reviewed?: Yes Chief Complaint CC: AMS following fall HPI: This is a very debilitated 73yoWF who just returned home after a stay at [facility] Roni Young who has a h/o severe sepsis from UTI and DKA who was sent to [facility] to be admitted after another fall at home and could not take care of herself. She lives alone most of the time but her mother checks on her. She sustained a fall on early Saturday morning and was sent home but fell again so she was admitted. Needs halfway NHP. UCx revealed E coli sensitive to Rocephin so that was initiated. Patient is very lethargic and has poor recall. Patient Instructions Patient Problems: Debility Consult/Follow Up/Orders Follow Up Appt.: PCP [place] rounds Skilled NF Admit to: Certification (SNF) I certify that SNF services are required to be given on an inpatient basis because of the above named patient's need for residential care on a continuing basis for the conditions(s) for which he/she was receiving inpatient hospital services prior to his/her transfer to the SNF. [facility] Facility Order: Nursing Services, Cotton Opener-Evaluate & Treat, Physical Therapy-Evaluate & Treat Oxygen Delivery Method: Room Air New & Resume Previous Orders New Medications: Diclofenac Sodium (Voltaren Arthritis Pain) 1 % Gel..gram. 0 GM TOP QID, #1 TUBE qid Enoxaparin Sodium (Enoxaparin Sodium) 40 Mg/0.4 Ml Syringe 40 MG SC HS, #7 SYRINGE Phenyleph/Mineral Oil/Petrolat (Hemorrhoidal Ointment) 0.25 %-14 %-74.9 % Oint.appl 0 GM [place] QID PRN for HEMMORRHOID DISCOMFORT, #1 TUBE qid prn Changed Medications: Insulin Glargine,Hum.rec.anlog (Lantus) 100 Unit/Ml Vial 10 UNIT SQ 0600,2100, #1 EA (Changed from: 22 UNIT) Insulin Lispro (Humalog Kwikpen) 100 Unit/Ml Insuln.pen 3 UNIT SQ ACHS, #1 EA (Changed from: 6 UNIT) Continued Medications: Acetaminophen (Tylenol Extra Strength) 500 Mg Tablet 1000 MG PO Q8H PRN for PAIN-MILD (1-4), #30 TAB (This prescription has been renewed) TAKES 2 (500MG) TABS Aspirin (Aspirin EC) 81 Mg Tablet.dr 81 MG PO DAILY, #30 TAB (This prescription has been renewed) Clopidogrel Bisulfate (Clopidogrel) 75 Mg Tablet 75 MG PO DAILY, #30 TAB (This prescription has been renewed) Docusate Sodium (Docusate Sodium) 100 Mg Capsule 100 MG PO Q48H, #30 CAP (This prescription has been renewed) Gabapentin (Neurontin) 300 Mg Capsule 300 MG PO TID, #90 CAP (This prescription has been renewed) Lidocaine (Lidocaine 5% Patch) 5 % Adh..patch 1 EACH TP Q12H PRN for Neuropathic pain, #30 PATCH (This prescription has been renewed) Lisinopril (Lisinopril) 10 Mg Tablet 10 MG PO BID, #60 TAB (This prescription has been renewed) Metoprolol Tartrate (Metoprolol Tartrate) 50 Mg Tablet 50 MG PO BID, #60 TAB (This prescription has been renewed) Rosuvastatin Calcium (Rosuvastatin Calcium) 10 Mg Tablet 10 MG PO HS, #30 TAB (This prescription has been renewed) Tirzepatide (Mounjaro) 10 Mg/0.5 Ml Pen.injctr 10 MG INJ SATURDAY, #1 EA (This prescription has been renewed) Discontinued Medications: Hydrochlorothiazide (Hydrochlorothiazide) 25 Mg Tablet 25 MG PO DAILY, TAB Nitrofurantoin Monohyd/M-Cryst (Nitrofurantoin [place]-Mcr 100 mg) 100 Mg Capsule 100 MG PO BID for 5 Days, TAB Oxycodone HCl (Oxycodone HCl) 5 Mg Tablet 5 MG PO Q4H PRN for PAIN-SEVERE (8-10), TAB Shakira Perez May 24, 2023 05:21 SHAKIRA PEREZ DO May 24, 2023 05:21
[2023-05-24 05:53] LABS: HEMOGLOBIN 10.2 g/dL (11.5-16.0)
[2023-05-24 05:55] LABS: BASOPHILS % (AUTO) 1 % (0-10); EOSINOPHILS # (AUTO) 0.2 10^3/uL (0.0-0.3); EOSINOPHILS % (AUTO) 4 % (0-10); HEMATOCRIT 32 % (35-52); LYMPHOCYTES % (AUTO) 24 % (12-44); MEAN CORPUSCULAR HEMOGLOBIN 27 pg (25-34); MEAN CORPUSCULAR HGB CONC 32 g/dL (32-36); MEAN CORPUSCULAR VOLUME 85 fL (80-99); MONOCYTES # (AUTO) 0.3 10^3/uL (0.0-1.0); MONOCYTES % (AUTO) 7 % (0-12); NEUTROPHILS # (AUTO) 2.6 10^3/uL (1.8-7.8); NEUTROPHILS % (AUTO) 63 % (42-75); PLATELET COUNT 114 10^3/uL (130-400); WHITE BLOOD COUNT 4.1 10^3/uL (4.3-11.0)
[2023-05-24 06:14] LABS: ALBUMIN 3.1 GM/DL (3.2-4.5)
[2023-05-24 06:15] LABS: POTASSIUM 3.8 MMOL/L (3.6-5.0)
[2023-05-24 06:16] LABS: CALCIUM 8.5 MG/DL (8.5-10.1)
[2023-05-24 06:17] LABS: TOTAL PROTEIN 5.3 GM/DL (6.4-8.2)
[2023-05-24 06:19] LABS: BILIRUBIN,TOTAL 0.5 MG/DL (0.1-1.0)
[2023-05-24 06:21] LABS: CREATININE SERUM 0.77 MG/DL (0.60-1.30)
[2023-05-24] MEDS: ACETAMINOPHEN 325 MG TABLET PO PRN (06:25)
[2023-05-24 07:21] VITALS: BP 162/87
[2023-05-24] MEDS: inSUlin ASPART 1 UNIT/0.01 ML (PER UNIT) SC SCH (07:51)
[2023-05-24] MEDS: CLOPIDOGREL 75 MG TABLET PO SCH (08:19)
[2023-05-24] MEDS: DICLOFENAC 1% GEL 50 GM TUBE TOP SCH (08:20)
[2023-05-24] MEDS: DOCUSATE SODIUM 100 MG CAPSULE PO SCH (08:20)
[2023-05-24] MEDS: LACTULOSE SYRUP 10GM/15ML 30ML UDC PO SCH (08:20)
[2023-05-24] MEDS: GABAPENTIN 300 MG CAPSULE PO SCH (08:21)
[2023-05-24 10:20] VITALS: BP 162/87
== END 2023-05-24 10:20 ==
LOC: EDUNIT# 15:41 → ER FS 15:42 → UNDOADMOB 18:55 → 4TH 18:55 → UNDODISOB 05-24 10:20
PROVIDERS: ADMIT Internal Medicine; ATTEND Internal Medicine
DX: G93.40 Encephalopathy, unspecified (principal); N30.00 Acute cystitis without hematuria; S40.021A Contusion of right upper arm, initial encounter; S50.11XA Contusion of right forearm, initial encounter; M79.601 Pain in right arm; E11.9 Type 2 diabetes mellitus without complications; I10 Essential (primary) hypertension; E78.5 Hyperlipidemia, unspecified; R41.81 Age-related cognitive decline; R29.6 Repeated falls; Z79.4 Long term (current) use of insulin; Z87.891 Personal history of nicotine dependence; W19.XXXA Unspecified fall, initial encounter; Y92.009 Unspecified place in unspecified non-institutional (private) residence as the place of occurrence of the external cause
CPT/HCPCS: 36415; 73060; 73090; 80053; 81000; 82947; 85007; 85025; 85027; 87077; 87088; 87186; 94760; 96361; 96366; 96372; 96375; 96376; G0378